=== PATIENT | female | born 1970 | race American Indian/Alaskan Native ===

== ENCOUNTER 2017-09-11 13:53 | Emergency (ER) | payer MEDICAID ==
[~2017-09-11] VITALS: Ht 175.3 cm; Wt 87.0 kg
[~2017-09-11 13:53] MED LIST: ATEN25TA PO; CLON1TAB4 PO; METF10002 PO; NITR100C6 PO; ONDA4TAB9 SL; SUMA100T PO
[2017-09-11] MEDS ORDERED: insulin regular, human 10 units/0.1 ml syringe SQ ONE (16:05)
[2017-09-11] MEDS ORDERED: normal saline 1000ml 1,000 ML IV ONE ×2 (16:05→17:10)
[2017-09-11] MEDS ORDERED: ondansetron/PF 4mg/2ml inj IV ONE (16:20)
[2017-09-11] MEDS ORDERED: morphine 4 MG/ML inj SYRINge IV ONE (16:20)
[2017-09-11] MEDS ORDERED: ketorolac trometh. 30mg/ml inj. IV ONE (16:30)
[2017-09-11 16:34] LABS: BASOPHILS # (AUTO) 0.1 X10'3 (0-0.2); BASOPHILS % (AUTO) 0.4 % (0-1); EOSINOPHILS # (AUTO) 0.3 X10'3 (0-0.9); EOSINOPHILS % (AUTO) 2.6 % (0-6); HEMOGLOBIN 13.8 g/dl (12.0-16.0); LYMPHOCYTES # (AUTO) 3.5 X10'3 (1.1-4.8); LYMPHOCYTES % (AUTO) 28.3 % (21-51); MEAN CORPUSCULAR HEMOGLOBIN 29.8 PG (27.0-31.0); MEAN CORPUSCULAR HGB CONC 33.7 % (33.0-36.5); MEAN CORPUSCULAR VOLUME 88.5 FL (78-98); MEAN PLATELET VOLUME 10.5 FL (7.4-10.4); MONOCYTES # (AUTO) 1.3 X10'3 (0-0.9); MONOCYTES % (AUTO) 10.4 % (2-12); NEUTROPHILS # (AUTO) 7.2 X10'3 (1.8-7.7); NEUTROPHILS % (AUTO) 58.3 % (42-75); PLATELET COUNT 328 X10'3 (140-440); RED BLOOD COUNT 4.64 X10'6 (4.20-5.60); RED CELL DISTRIBUTION WIDTH 13.2 % (11.5-14.5); WHITE BLOOD COUNT 12.3 X10'3 (4.5-11.0)
[2017-09-11] MEDS: diphenhydrAMINE 50 mg/ml inj IV ONE ×2 (16:38→18:31)
[2017-09-11 16:45] LABS: LARGE PLATELETS FEW; PLATELET ESTIMATE NORMAL
[2017-09-11 16:49] LABS: CLARITY,URINE CLEAR (Clear); COLOR,URINE YELLOW (Yellow); GLUCOSE, URINE >=1000 mg/dl (Neg); KETONES,URINE NEGATIVE (Neg); LEUKOCYTE ESTERASE ,URINE NEGATIVE (Neg); NITRITES, URINE NEGATIVE (Neg); OCCULT BLOOD,URINE NEGATIVE (Neg); PROTEIN,URINE NEGATIVE (Neg); UROBILINOGEN,URINE 0.2 E.U/dL (0.2-1.0)
[2017-09-11 16:55] LABS: UA COLLECTION TYPE CLN CATCH MIDSTREAM
[2017-09-11 16:57] LABS: ALANINE AMINOTRANSFERASE 52 U/L (12-78); ALBUMIN 2.5 G/DL (3.4-5.0); ALBUMIN/GLOBULIN RATIO 0.4 (1.1-1.5); ALKALINE PHOSPHATASE 136 IU/L (46-116); ANION GAP 11 (8-16); ASPARTATE AMINO TRANSFERASE 16 U/L (10-37); BILIRUBIN,TOTAL 0.2 MG/DL (0.1-1.0); BLOOD UREA NITROGEN 20 MG/DL (7-18); BUN/CREATININE RATIO 21.5 (6.6-38.0); CALCIUM 9.4 MG/DL (8.5-10.1); CHLORIDE 98 MMOL/L (99-107); CREATININE 0.93 MG/DL (0.40-0.90); GLUCOSE 385 MG/DL (70-104); POTASSIUM 4.4 MMOL/L (3.5-5.1); SODIUM 132 MMOL/L (135-145); TOTAL CARBON DIOXIDE 23.4 MMOL/L (24-32); TOTAL PROTEIN 8.2 G/DL (6.4-8.2); TROPONIN I < 0.04 NG/ML (0.0-0.05); eGFR 65 ML/MIN
[2017-09-11 16:58] LABS: BACTERIA,URINE FEW /HPF (Neg); MUCUS STRANDS FEW /LPF (Neg); RBC,URINE 0-2 /HPF (0-2); SQUAMOUS EPITHELIAL CELL,UR MODERATE /LPF (FEW); TRICHOMONAS,URINE MOD /HPF (NEGATIVE); WBC,URINE 0-4 /HPF (0-4)
[2017-09-11 17:01] LABS: ETHANOL < 0.010 GM/DL (0.0-0.010)
[2017-09-11 17:01] LABS: URINE AMPHETAMINE SCREEN NEGATIVE (Neg); URINE BARBITUATE SCREEN NEGATIVE (Neg); URINE BENZODIAZEPINES SCREEN NEGATIVE (Neg); URINE CANNABINOID SCREEN NEGATIVE (Neg); URINE COCAINE SCREEN NEGATIVE (Neg); URINE METHADONE SCREEN NEGATIVE (Neg); URINE OPIATE SCREEN NEGATIVE (Neg); URINE PHENCYCLIDINE SCREEN NEGATIVE (Neg)
[2017-09-11] MEDS ORDERED: INSU100V30 SQ (17:22)
[2017-09-11] MEDS ORDERED: morphine 2 MG/ML inj. syringe IV ONE (18:20)
[2017-09-11 19:21] VITALS: BP 115/70
== END 2017-09-11 19:24 | disposition home or self-care (01) ==
LOC: ER 13:54
DX: E11.65 Type 2 diabetes mellitus with hyperglycemia (principal); E87.0 Hyperosmolality and hypernatremia; R10.11 Right upper quadrant pain; G89.29 Other chronic pain; F15.10 Other stimulant abuse, uncomplicated; F17.200 Nicotine dependence, unspecified, uncomplicated; Z90.49 Acquired absence of other specified parts of digestive tract; Z90.710 Acquired absence of both cervix and uterus; Z79.4 Long term (current) use of insulin; Z79.84 Long term (current) use of oral hypoglycemic drugs; Z88.5 Allergy status to narcotic agent
CPT/HCPCS: 36415; 71045; 80053; 80305; 80320; 81001; 82948; 83605; 84484; 85025; 87040; 96361; 96372; 96374; 96375; 99285; J1200; J1815; J1885; J2270; J2405; J7030

== ENCOUNTER 2018-01-13 13:42 | Inpatient (IN) | payer MEDICAID ==
[~2018-01-13] VITALS: Ht 170.2 cm; Wt 86.5 kg
[~2018-01-13 13:42] MED LIST changes: +CLON1TAB12 PO; -CLON1TAB4 PO; +HYDR-3965 PO; +INSU100V30 SQ; -METF10002 PO; +METF10004 PO; +ONDA4TAB9 PO
[2018-01-13 15:13] LABS: BASOPHILS # (AUTO) 0.1 X10'3 (0-0.2); BASOPHILS % (AUTO) 0.7 % (0-1); EOSINOPHILS # (AUTO) 0.2 X10'3 (0-0.9); EOSINOPHILS % (AUTO) 1.2 % (0-6); HEMATOCRIT 40.3 % (35.0-45.0); HEMOGLOBIN 13.4 g/dl (12.0-16.0); LYMPHOCYTES # (AUTO) 2.6 X10'3 (1.1-4.8); MEAN CORPUSCULAR HEMOGLOBIN 30.5 PG (27.0-31.0); MEAN CORPUSCULAR HGB CONC 33.3 % (33.0-36.5); MEAN CORPUSCULAR VOLUME 91.6 FL (78-98); MEAN PLATELET VOLUME 11.2 FL (7.4-10.4); MONOCYTES # (AUTO) 0.8 X10'3 (0-0.9); MONOCYTES % (AUTO) 6.2 % (2-12); NEUTROPHILS # (AUTO) 9.4 X10'3 (1.8-7.7); NEUTROPHILS % (AUTO) 71.9 % (42-75); PLATELET COUNT 282 X10'3 (140-440); RED CELL DISTRIBUTION WIDTH 13.3 % (11.5-14.5)
[2018-01-13 15:24] LABS: PARTIAL THROMBOPLASTIN TIME 24 SECONDS (22-32)
[2018-01-13 15:30] LABS: ALANINE AMINOTRANSFERASE 19 U/L (12-78); ALBUMIN 3.7 G/DL (3.4-5.0); ALBUMIN/GLOBULIN RATIO 1.1 (1.1-1.5); ALKALINE PHOSPHATASE 60 IU/L (46-116); ANION GAP 9 (8-16); ASPARTATE AMINO TRANSFERASE 17 U/L (10-37); BILIRUBIN,TOTAL 1.3 MG/DL (0.1-1.0); BLOOD UREA NITROGEN 13 MG/DL (7-18); BUN/CREATININE RATIO 15.1 (6.6-38.0); CALCIUM 9.3 MG/DL (8.5-10.1); CHLORIDE 106 MMOL/L (99-107); CREATININE 0.86 MG/DL (0.40-0.90); GLUCOSE 172 MG/DL (70-104); POTASSIUM 3.6 MMOL/L (3.5-5.1); SODIUM 143 MMOL/L (135-145); TOTAL CARBON DIOXIDE 28.5 MMOL/L (24-32); TOTAL PROTEIN 7.2 G/DL (6.4-8.2); eGFR 71 ML/MIN
[2018-01-13 15:37] LABS: LARGE PLATELETS MODERATE; PLATELET ESTIMATE NORMAL
[2018-01-13] MEDS ORDERED: dexamethasone sod phosphate 10mg/ml inj IV STA (16:24)
[2018-01-13] MEDS ORDERED: ketorolac tromethamine 15mg/ml inj. IV ONE (16:25)
[2018-01-13] MEDS ORDERED: diphenhydrAMINE 50 mg/ml inj IV ONE (16:25)
[2018-01-13] MEDS ORDERED: normal saline 1000ML IV soln IVB ONE (16:25)
[2018-01-13] MEDS ORDERED: aspirin 81mg tab.chew PO ONE (16:25)
[2018-01-13] MEDS ORDERED: nitroGLYCERIN 0.4mg SUBLingual tab SL PRN (16:25)
[2018-01-13] MEDS ORDERED: metoclopramide 5 mg/ml inj IV ONE (16:25)
[2018-01-13] MEDS ORDERED: iohexol 350MG/ML 100ml bottle IV ONE (17:07)
[2018-01-13 20:18] LABS: URINE AMPHETAMINE SCREEN POSITIVE (Neg); URINE BARBITUATE SCREEN NEGATIVE (Neg); URINE BENZODIAZEPINES SCREEN NEGATIVE (Neg); URINE CANNABINOID SCREEN NEGATIVE (Neg); URINE COCAINE SCREEN NEGATIVE (Neg); URINE METHADONE SCREEN NEGATIVE (Neg); URINE OPIATE SCREEN NEGATIVE (Neg); URINE PHENCYCLIDINE SCREEN NEGATIVE (Neg)
[2018-01-13] MEDS ORDERED: temazepam 15mg capsule PO PRN (21:00)
[2018-01-13] MEDS ORDERED: acetaminophen 325mg tablet PO STA (22:05)
[2018-01-13] MEDS ORDERED: PER10325T PO (22:21)
[2018-01-13] MEDS ORDERED: CLON-527 PO (22:21)
[2018-01-13] MEDS ORDERED: LISI-600 PO (22:21)
[2018-01-13] MEDS ORDERED: SIMV10TA2 PO (22:23)
[2018-01-13] MEDS ORDERED: INSU100I31 ×2 (22:24→22:29)
[2018-01-13] MEDS ORDERED: ASPI-611 PO (22:27)
[2018-01-13] MEDS ORDERED: GABA600T2 PO (22:27)
[2018-01-13] MEDS ORDERED: acetaminophen 325mg tablet PO PRN ×2 (22:40)
[2018-01-13] MEDS ORDERED: metoclopramide 5 mg/ml inj IV PRN (22:40)
[2018-01-13] MEDS ORDERED: proCHLORperazine 10 MG/2 ml inj IV PRN (22:40)
[2018-01-13] MEDS ORDERED: ondansetron/PF 4mg/2ml inj IV PRN (22:40)
[2018-01-13] MEDS ORDERED: HYDROmorphone inj. 0.5 MG/0.5 ML DISP.SYRIN IV PRN ×2 (22:40)
[2018-01-13] MEDS ORDERED: bisacodyl 10mg suppository rectal RC PRN (22:40)
[2018-01-13] MEDS ORDERED: mag hydrox/Alum hydrox/simeth 30ml oral suspension PO PRN (22:40)
[2018-01-13] MEDS ORDERED: magnesium hydroxide 30ml (MOM) UD suspension PO PRN (22:40)
[2018-01-13] MEDS ORDERED: acetaminophen 650mg rectal suppository RC PRN (22:40)
[2018-01-13] MEDS ORDERED: HYDROcodone/acetaminophen 5mg/325mg tablet PO PRN (22:40)
[2018-01-13] MEDS ORDERED: ondansetron 4mg rapidly disintigrating tab PO PRN (22:40)
[2018-01-13] MEDS ORDERED: diphenhydrAMINE 25mg capsule PO PRN (22:40)
[2018-01-13] MEDS ORDERED: diphenhydrAMINE 50 mg/ml inj IV PRN (22:40)
[2018-01-13] MEDS ORDERED: HYDROcodone/acetaminophen 10/325mg tab PO PRN (22:40)
[2018-01-13] MEDS ORDERED: dextrose ORAL solution 15 GM/59 ML bottle PO PRN ×2 (22:45)
[2018-01-13] MEDS ORDERED: MESSAGE TO PHARMACY PO ONE (22:45)
[2018-01-13] MEDS ORDERED: insulin Lispro (HumaLOG) vial - multi-dose SQ SCH (22:45)
[2018-01-13] MEDS ORDERED: glucagon, human recombinant 1mg kit SUBCUT PRN (22:45)
[2018-01-13] MEDS ORDERED: dextrose 50%-water 50ml dispensing syringe IV PRN ×2 (22:45)
[2018-01-13 23:07] LABS: HEMOGLOBIN A1C 8.9 % (4.5-6.2)
[2018-01-13 23:13] LABS: MAGNESIUM 2.1 MG/DL (1.5-2.4)
[2018-01-13] MEDS: normal saline 1000ml 1,000 ML IV SCH (23:26)
[2018-01-13] MEDS ORDERED: insulin glargine (Lantus) pen - multi-dose SQ SCH (23:35)
[2018-01-13] MEDS: clonazePAM 1mg tablet PO PRN (23:45)
[2018-01-13] MEDS: oxyCODONE/APAP 10/325mg tablet PO PRN (23:45)
[2018-01-13] MEDS ORDERED: insulin glargine (Lantus) pen - multi-dose SQ ONE (23:58)
[2018-01-14 00:08] VITALS: BP 120/78
[2018-01-14] MEDS: oxyCODONE/APAP 10/325mg tablet PO PRN (03:54)
[2018-01-14 04:55] LABS: BASOPHILS % (AUTO) 0.1 % (0-1); EOSINOPHILS # (AUTO) 0.1 X10'3 (0-0.9); EOSINOPHILS % (AUTO) 0.7 % (0-6); HEMOGLOBIN 12.4 g/dl (12.0-16.0); LYMPHOCYTES # (AUTO) 1.5 X10'3 (1.1-4.8); LYMPHOCYTES % (AUTO) 14.1 % (21-51); MEAN CORPUSCULAR HEMOGLOBIN 29.9 PG (27.0-31.0); MEAN CORPUSCULAR HGB CONC 32.7 % (33.0-36.5); MEAN CORPUSCULAR VOLUME 91.3 FL (78-98); MEAN PLATELET VOLUME 12.6 FL (7.4-10.4); MONOCYTES % (AUTO) 0.3 % (2-12); NEUTROPHILS # (AUTO) 9.2 X10'3 (1.8-7.7); NEUTROPHILS % (AUTO) 84.8 % (42-75); PLATELET COUNT 279 X10'3 (140-440); RED BLOOD COUNT 4.16 X10'6 (4.20-5.60); RED CELL DISTRIBUTION WIDTH 13.7 % (11.5-14.5); WHITE BLOOD COUNT 10.9 X10'3 (4.5-11.0)
[2018-01-14 04:58] LABS: ALANINE AMINOTRANSFERASE 18 U/L (12-78); ALBUMIN 2.9 G/DL (3.4-5.0); ALBUMIN/GLOBULIN RATIO 0.9 (1.1-1.5); ALKALINE PHOSPHATASE 57 IU/L (46-116); ANION GAP 9 (8-16); ASPARTATE AMINO TRANSFERASE 14 U/L (10-37); BILIRUBIN,TOTAL 0.6 MG/DL (0.1-1.0); BLOOD UREA NITROGEN 18 MG/DL (7-18); BUN/CREATININE RATIO 18.4 (6.6-38.0); CALCIUM 8.8 MG/DL (8.5-10.1); CHLORIDE 105 MMOL/L (99-107); CREATININE 0.98 MG/DL (0.40-0.90); GLUCOSE 314 MG/DL (70-104); POTASSIUM 3.9 MMOL/L (3.5-5.1); SODIUM 138 MMOL/L (135-145); TOTAL CARBON DIOXIDE 24.5 MMOL/L (24-32); TOTAL PROTEIN 6.2 G/DL (6.4-8.2); eGFR 61 ML/MIN
[2018-01-14 06:00] VITALS: BP 105/61
[2018-01-14 07:30] LABS: LARGE PLATELETS MODERATE; PLATELET ESTIMATE NORMAL
[2018-01-14] MEDS ORDERED: pantoprazole 40mg Tablet.DR PO SCH (07:30)
[2018-01-14 07:31] LABS: ACANTHOCYTES 1+
[2018-01-14] MEDS ORDERED: docusate sod 100mg capsule PO SCH (08:00)
[2018-01-14] MEDS ORDERED: lisinopril 20mg tablet PO SCH (08:00)
[2018-01-14] MEDS ORDERED: heparin, porcine 5000 units/ml vial SQ SCH (08:00)
[2018-01-14] MEDS ORDERED: aspirin 81mg tab.chew PO SCH (08:30)
[2018-01-14] MEDS: clonazePAM 1mg tablet PO PRN (08:40)
[2018-01-14 10:00] VITALS: BP 105/65
[2018-01-14] MEDS: normal saline 1000ml 1,000 ML IV SCH (10:17)
[2018-01-14] MEDS ORDERED: METF500T PO (11:51)
[2018-01-14] MEDS ORDERED: INSU100I31 SQ (11:51)
== END 2018-01-14 14:05 | disposition home or self-care (01) | DRG 776 ==
LOC: ER 13:43 → ED HOLD 22:36 → ORTHO 4S 23:13
PROVIDERS: ADMIT Family Medicine; ATTEND Internal Medicine
PROC: B32T1ZZ Computerized Tomography (CT Scan) of Left Pulmonary Artery using Low Osmolar Contrast (ICD-10-PCS; principal; 2018-01-13)
PROC: B3201ZZ Computerized Tomography (CT Scan) of Thoracic Aorta using Low Osmolar Contrast (ICD-10-PCS; 2018-01-13)
PROC: B32S1ZZ Computerized Tomography (CT Scan) of Right Pulmonary Artery using Low Osmolar Contrast (ICD-10-PCS; 2018-01-13)
DX: F15.129 Other stimulant abuse with intoxication, unspecified (principal); E10.65 Type 1 diabetes mellitus with hyperglycemia; I10 Essential (primary) hypertension; E78.00 Pure hypercholesterolemia, unspecified; E78.5 Hyperlipidemia, unspecified; F17.210 Nicotine dependence, cigarettes, uncomplicated; G89.29 Other chronic pain; M19.90 Unspecified osteoarthritis, unspecified site; G43.909 Migraine, unspecified, not intractable, without status migrainosus; Z79.4 Long term (current) use of insulin; Z86.711 Personal history of pulmonary embolism; Z90.5 Acquired absence of kidney; Z90.710 Acquired absence of both cervix and uterus; Z90.81 Acquired absence of spleen; Z88.6 Allergy status to analgesic agent; Z79.899 Other long term (current) drug therapy; Z90.49 Acquired absence of other specified parts of digestive tract
CPT/HCPCS: 36415; 71045; 71275; 80053; 80305; 82948; 83036; 83735; 83880; 84484; 85025; 85379; 85610; 85730; 87070; 93306; 96374; 96375; 99285; J1100; J1200; J1644; J1815; J1885; J2765; J7030; Q9967

== ENCOUNTER 2018-02-07 01:48 | Emergency (ER) | payer MEDICAID ==
[~2018-02-07] VITALS: Ht 175.3 cm; Wt 84.2 kg
[~2018-02-07 01:48] MED LIST changes: +ASPI-611 PO; -ATEN25TA PO; +CLON-527 PO; -CLON1TAB12 PO; +GABA600T2 PO; -HYDR-3965 PO; +INSU100I31 SQ; -INSU100V30 SQ; +LISI-600 PO; -METF10004 PO; +METF500T PO; -NITR100C6 PO; -ONDA4TAB9 PO; +PANT-47 PO; +PER10325T PO; +SIMV10TA2 PO
[2018-02-07 02:24] LABS: BASOPHILS # (AUTO) 0.1 X10'3 (0-0.2); BASOPHILS % (AUTO) 0.6 % (0-1); EOSINOPHILS # (AUTO) 0.6 X10'3 (0-0.9); EOSINOPHILS % (AUTO) 3.8 % (0-6); HEMATOCRIT 36.3 % (35.0-45.0); HEMOGLOBIN 11.9 g/dl (12.0-16.0); LYMPHOCYTES # (AUTO) 5.6 X10'3 (1.1-4.8); LYMPHOCYTES % (AUTO) 32.8 % (21-51); MEAN CORPUSCULAR HEMOGLOBIN 30.3 PG (27.0-31.0); MEAN CORPUSCULAR HGB CONC 32.9 % (33.0-36.5); MEAN CORPUSCULAR VOLUME 92.1 FL (78-98); MEAN PLATELET VOLUME 10.7 FL (7.4-10.4); MONOCYTES # (AUTO) 1.5 X10'3 (0-0.9); MONOCYTES % (AUTO) 8.7 % (2-12); NEUTROPHILS # (AUTO) 9.3 X10'3 (1.8-7.7); NEUTROPHILS % (AUTO) 54.1 % (42-75); PLATELET COUNT 248 X10'3 (140-440); RED BLOOD COUNT 3.94 X10'6 (4.20-5.60); RED CELL DISTRIBUTION WIDTH 13.6 % (11.5-14.5); WHITE BLOOD COUNT 17.1 X10'3 (4.5-11.0)
[2018-02-07] MEDS ORDERED: HYDROmorphone 1 mg/ml syringe IV ONE ×2 (02:25→05:35)
[2018-02-07] MEDS ORDERED: ondansetron/PF 4mg/2ml inj IV ONE (02:25)
[2018-02-07 02:34] LABS: INR 0.9 INR; PROTHROMBIN TIME 9.4 SECONDS (9.0-12.0)
[2018-02-07 02:37] LABS: CLARITY,URINE CLEAR (Clear); COLOR,URINE YELLOW (Yellow); GLUCOSE, URINE NEGATIVE (Neg); KETONES,URINE NEGATIVE (Neg); LEUKOCYTE ESTERASE ,URINE MODERATE (Neg); NITRITES, URINE NEGATIVE (Neg); OCCULT BLOOD,URINE LARGE (Neg); PROTEIN,URINE NEGATIVE (Neg); URINE HCG NEGATIVE (NEG); UROBILINOGEN,URINE 0.2 E.U/dL (0.2-1.0)
[2018-02-07 02:40] LABS: ALANINE AMINOTRANSFERASE 16 U/L (12-78); ALBUMIN 3.1 G/DL (3.4-5.0); ALKALINE PHOSPHATASE 87 IU/L (46-116); ANION GAP 6 (8-16); ASPARTATE AMINO TRANSFERASE 14 U/L (10-37); BILIRUBIN,TOTAL 0.4 MG/DL (0.1-1.0); BLOOD UREA NITROGEN 5 MG/DL (7-18); BUN/CREATININE RATIO 6.5 (6.6-38.0); CALCIUM 8.7 MG/DL (8.5-10.1); CHLORIDE 104 MMOL/L (99-107); CREATININE 0.77 MG/DL (0.40-0.90); GLUCOSE 166 MG/DL (70-104); LIPASE 227 U/L (73-393); POTASSIUM 3.6 MMOL/L (3.5-5.1); SODIUM 137 MMOL/L (135-145); TOTAL CARBON DIOXIDE 26.8 MMOL/L (24-32); TOTAL PROTEIN 6.3 G/DL (6.4-8.2); eGFR 81 ML/MIN
[2018-02-07 02:43] LABS: URINE AMPHETAMINE SCREEN NEGATIVE (Neg); URINE BARBITUATE SCREEN NEGATIVE (Neg); URINE BENZODIAZEPINES SCREEN NEGATIVE (Neg); URINE CANNABINOID SCREEN NEGATIVE (Neg); URINE COCAINE SCREEN NEGATIVE (Neg); URINE METHADONE SCREEN NEGATIVE (Neg); URINE OPIATE SCREEN POSITIVE (Neg); URINE PHENCYCLIDINE SCREEN NEGATIVE (Neg)
[2018-02-07 02:46] LABS: UA COLLECTION TYPE CLN CATCH MIDSTREAM
[2018-02-07 02:48] LABS: BACTERIA,URINE 1+ /HPF (Neg); SQUAMOUS EPITHELIAL CELL,UR MODERATE /LPF (FEW); YEAST FEW /HPF (NEGATIVE)
[2018-02-07] MEDS ORDERED: iohexol 300mg/ml 100ml inj. ONE (03:20)
[2018-02-07 03:33] LABS: LARGE PLATELETS FEW; PLATELET ESTIMATE NORMAL
[2018-02-07] MEDS ORDERED: HYDR-565 PO (05:33)
[2018-02-07] MEDS ORDERED: IBUP-1986 PO (05:33)
[2018-02-07] MEDS ORDERED: ketorolac trometh. 30mg/ml inj. IV ONE (05:35)
[2018-02-07 05:40] VITALS: BP 105/76
== END 2018-02-07 06:15 | disposition home or self-care (01) ==
LOC: ER 01:49
DX: N83.201 Unspecified ovarian cyst, right side (principal); R10.2 Pelvic and perineal pain; G43.909 Migraine, unspecified, not intractable, without status migrainosus; E78.00 Pure hypercholesterolemia, unspecified; I10 Essential (primary) hypertension; E11.9 Type 2 diabetes mellitus without complications; M19.90 Unspecified osteoarthritis, unspecified site; G89.29 Other chronic pain; F15.90 Other stimulant use, unspecified, uncomplicated; F17.200 Nicotine dependence, unspecified, uncomplicated; Z86.711 Personal history of pulmonary embolism; Z90.49 Acquired absence of other specified parts of digestive tract; Z98.890 Other specified postprocedural states; Z90.710 Acquired absence of both cervix and uterus; Z88.5 Allergy status to narcotic agent; Z79.82 Long term (current) use of aspirin; Z79.899 Other long term (current) drug therapy
CPT/HCPCS: 36415; 74177; 80053; 80305; 81001; 81025; 83690; 85025; 85610; 87088; 96374; 96375; 96376; 99285; J1170; J1885; J2405; J7030; Q9967

== ENCOUNTER 2018-02-12 22:43 | Emergency (ER) | payer MEDICAID ==
[~2018-02-12] VITALS: Ht 170.2 cm; Wt 84.0 kg
[~2018-02-12 22:43] MED LIST changes: +HYDR-565 PO; +IBUP-1986 PO
[2018-02-12 23:17] VITALS: BP 137/83
[2018-02-12 23:34] LABS: INR 0.9 INR; PROTHROMBIN TIME 9.1 SECONDS (9.0-12.0)
[2018-02-12 23:38] LABS: ALANINE AMINOTRANSFERASE 28 U/L (12-78); ALBUMIN 3.5 G/DL (3.4-5.0); ALKALINE PHOSPHATASE 66 IU/L (46-116); ANION GAP 8 (8-16); ASPARTATE AMINO TRANSFERASE 25 U/L (10-37); BILIRUBIN,TOTAL 0.4 MG/DL (0.1-1.0); BLOOD UREA NITROGEN 15 MG/DL (7-18); BUN/CREATININE RATIO 16.3 (6.6-38.0); CALCIUM 9.5 MG/DL (8.5-10.1); CHLORIDE 102 MMOL/L (99-107); CREATININE 0.92 MG/DL (0.40-0.90); GLUCOSE 93 MG/DL (70-104); POTASSIUM 3.6 MMOL/L (3.5-5.1); SODIUM 137 MMOL/L (135-145); TOTAL CARBON DIOXIDE 27.1 MMOL/L (24-32); TOTAL PROTEIN 7.1 G/DL (6.4-8.2); eGFR 66 ML/MIN
[2018-02-12 23:41] LABS: BASOPHILS # (AUTO) 0.6 X10'3 (0-0.2); BASOPHILS % (AUTO) 2.6 % (0-1); EOSINOPHILS # (AUTO) 0.5 X10'3 (0-0.9); HEMOGLOBIN 12.9 g/dl (12.0-16.0); LYMPHOCYTES # (AUTO) 6.9 X10'3 (1.1-4.8); LYMPHOCYTES % (AUTO) 29.3 % (21-51); MEAN CORPUSCULAR HEMOGLOBIN 29.9 PG (27.0-31.0); MEAN CORPUSCULAR VOLUME 90.6 FL (78-98); MEAN PLATELET VOLUME 11.3 FL (7.4-10.4); MONOCYTES # (AUTO) 1.4 X10'3 (0-0.9); MONOCYTES % (AUTO) 6.1 % (2-12); NEUTROPHILS # (AUTO) 14.1 X10'3 (1.8-7.7); PLATELET COUNT 289 X10'3 (140-440); RED CELL DISTRIBUTION WIDTH 13.9 % (11.5-14.5); WHITE BLOOD COUNT 23.4 X10'3 (4.5-11.0)
[2018-02-12 23:42] LABS: URINE HCG NEGATIVE (NEG)
[2018-02-13 00:11] LABS: TOTAL CELLS COUNTED 100
[2018-02-13 00:12] LABS: TARGET CELLS FEW
[2018-02-13 00:13] LABS: PLATELET ESTIMATE NORMAL
[2018-02-13 00:15] LABS: LARGE PLATELETS MODERATE
[2018-02-13 01:08] LABS: CLARITY,URINE SLIGHTLY CLOUDY (Clear); COLOR,URINE YELLOW (Yellow); GLUCOSE, URINE NEGATIVE (Neg); KETONES,URINE NEGATIVE (Neg); LEUKOCYTE ESTERASE ,URINE NEGATIVE (Neg); NITRITES, URINE NEGATIVE (Neg); OCCULT BLOOD,URINE NEGATIVE (Neg); PROTEIN,URINE NEGATIVE (Neg); UROBILINOGEN,URINE 0.2 E.U/dL (0.2-1.0)
[2018-02-13 01:21] LABS: UA COLLECTION TYPE CLN CATCH MIDSTREAM
[2018-02-13 01:29] LABS: BACTERIA,URINE 2+ /HPF (Neg); MUCUS STRANDS FEW /LPF (Neg); RBC,URINE NONE SEEN /HPF (0-2); SQUAMOUS EPITHELIAL CELL,UR MANY /LPF (FEW); WBC,URINE 0-4 /HPF (0-4)
[2018-02-13 01:30] LABS: TRICHOMONAS,URINE MOD /HPF (NEGATIVE)
== END 2018-02-12 23:27 | disposition left against medical advice (07) ==
LOC: ER 22:44
DX: R11.10 Vomiting, unspecified (principal); Z53.21 Procedure and treatment not carried out due to patient leaving prior to being seen by health care provider
CPT/HCPCS: 36415; 80053; 81001; 81003; 81025; 85025; 85610; 99281

== ENCOUNTER 2018-03-21 21:20 | Emergency (ER) | payer MEDICAID ==
[~2018-03-21] VITALS: Ht 175.3 cm; Wt 93.7 kg
[~2018-03-21 21:20] MED LIST changes: -HYDR-565 PO; -METF500T PO
[2018-03-21 21:37] VITALS: BP 141/86
== END 2018-03-21 23:59 | disposition left against medical advice (07) ==
LOC: ER 21:21
DX: R10.9 Unspecified abdominal pain (principal); Z53.21 Procedure and treatment not carried out due to patient leaving prior to being seen by health care provider

== ENCOUNTER 2018-05-31 23:15 | Emergency (ER) | payer MEDICAID ==
[~2018-05-31] VITALS: Ht 175.3 cm; Wt 93.0 kg
[2018-05-31 23:18] VITALS: BP 147/96
[2018-06-01] MEDS ORDERED: HYDROcodone/acetaminophen 10/325mg tab PO ONE (00:30)
[2018-06-01] MEDS ORDERED: ketorolac trometh inj. 60 MG/2 ML VIAL IM ONE (00:30)
== END 2018-06-01 01:04 | disposition home or self-care (01) ==
LOC: ER 23:15
DX: M54.2 Cervicalgia (principal); R20.0 Anesthesia of skin; G43.909 Migraine, unspecified, not intractable, without status migrainosus; E78.00 Pure hypercholesterolemia, unspecified; I10 Essential (primary) hypertension; G89.29 Other chronic pain; E11.9 Type 2 diabetes mellitus without complications; F15.10 Other stimulant abuse, uncomplicated; F17.210 Nicotine dependence, cigarettes, uncomplicated; Z87.440 Personal history of urinary (tract) infections; Z87.19 Personal history of other diseases of the digestive system; Z88.5 Allergy status to narcotic agent; Z79.82 Long term (current) use of aspirin; Z90.710 Acquired absence of both cervix and uterus; Z90.49 Acquired absence of other specified parts of digestive tract; Z79.4 Long term (current) use of insulin
CPT/HCPCS: 96372; 99284; J1885

== ENCOUNTER 2018-06-01 18:02 | Emergency (ER) | payer MEDICAID ==
[~2018-06-01] VITALS: Ht 175.3 cm; Wt 93.0 kg
[2018-06-01 18:34] VITALS: BP 161/102
[2018-06-01] MEDS ORDERED: ketorolac trometh inj. 60 MG/2 ML VIAL IM ONE (20:00)
[2018-06-01] MEDS ORDERED: orphenadrine citrate 60mg/2ml inj. IM ONE (20:05)
[2018-06-01] MEDS ORDERED: proCHLORperazine 10mg tablet PO ONE (20:05)
== END 2018-06-01 20:23 | disposition home or self-care (01) ==
LOC: ER 18:02
DX: M54.2 Cervicalgia (principal); E78.00 Pure hypercholesterolemia, unspecified; I10 Essential (primary) hypertension; E11.9 Type 2 diabetes mellitus without complications; M19.90 Unspecified osteoarthritis, unspecified site; G89.29 Other chronic pain; F15.90 Other stimulant use, unspecified, uncomplicated; Z86.711 Personal history of pulmonary embolism; Z90.49 Acquired absence of other specified parts of digestive tract; Z90.710 Acquired absence of both cervix and uterus; Z98.890 Other specified postprocedural states; Z79.82 Long term (current) use of aspirin; Z79.4 Long term (current) use of insulin; Z79.899 Other long term (current) drug therapy; Z88.5 Allergy status to narcotic agent
CPT/HCPCS: 96372; 99283; J1885; J2360; Q0164

== ENCOUNTER 2018-08-16 16:23 | Emergency (ER) | payer MEDICAID ==
[~2018-08-16] VITALS: Ht 167.6 cm; Wt 87.0 kg
[~2018-08-16 16:23] MED LIST changes: +GABA600T13 PO; -GABA600T2 PO
[2018-08-16 16:37] VITALS: BP 129/83
[2018-08-16 17:28] LABS: BASOPHILS # (AUTO) 0.2 X10'3 (0-0.2); BASOPHILS % (AUTO) 1.4 % (0-1); EOSINOPHILS # (AUTO) 0.4 X10'3 (0-0.9); EOSINOPHILS % (AUTO) 2.7 % (0-6); HEMATOCRIT 42.1 % (35.0-45.0); HEMOGLOBIN 13.4 g/dl (12.0-16.0); LYMPHOCYTES # (AUTO) 3.6 X10'3 (1.1-4.8); MEAN CORPUSCULAR HEMOGLOBIN 28.8 PG (27.0-31.0); MEAN CORPUSCULAR HGB CONC 31.8 g/dL (33.0-36.5); MEAN CORPUSCULAR VOLUME 90.6 FL (78-98); MEAN PLATELET VOLUME 11.5 FL (7.4-10.4); MONOCYTES # (AUTO) 0.8 X10'3 (0-0.9); MONOCYTES % (AUTO) 6.2 % (2-12); NEUTROPHILS % (AUTO) 61.7 % (42-75); PLATELET COUNT 313 X10'3 (140-440); RED BLOOD COUNT 4.65 X10'6 (4.20-5.60); WHITE BLOOD COUNT 12.9 X10'3 (4.5-11.0)
[2018-08-16 17:44] LABS: ALANINE AMINOTRANSFERASE 18 U/L (12-78); ALBUMIN 3.3 G/DL (3.4-5.0); ALBUMIN/GLOBULIN RATIO 0.9 (1.1-1.5); ALKALINE PHOSPHATASE 84 IU/L (46-116); ANION GAP 11 (8-16); ASPARTATE AMINO TRANSFERASE 10 U/L (10-37); BILIRUBIN,TOTAL 0.5 MG/DL (0.1-1.0); BLOOD UREA NITROGEN 14 MG/DL (7-18); CALCIUM 9.2 MG/DL (8.5-10.1); CHLORIDE 97 MMOL/L (99-107); CREATININE 1.08 MG/DL (0.40-0.90); POTASSIUM 4.2 MMOL/L (3.5-5.1); SODIUM 131 MMOL/L (135-145); TOTAL CARBON DIOXIDE 22.8 MMOL/L (24-32); TOTAL PROTEIN 7.1 G/DL (6.4-8.2); eGFR 55 ML/MIN
[2018-08-16 17:48] LABS: INR 0.9 INR; PROTHROMBIN TIME 9.5 SECONDS (9.0-12.0)
[2018-08-16 17:53] LABS: GLUCOSE 554 MG/DL (70-104)
[2018-08-16 17:59] LABS: LARGE PLATELETS FEW; PLATELET ESTIMATE NORMAL
[2018-08-16 18:19] LABS: LIPASE 190 U/L (73-393)
== END 2018-08-16 20:29 | disposition left against medical advice (07) ==
LOC: ER 16:24
DX: M54.9 Dorsalgia, unspecified (principal); Z53.21 Procedure and treatment not carried out due to patient leaving prior to being seen by health care provider
CPT/HCPCS: 36415; 80053; 82948; 83690; 85025; 85610

== ENCOUNTER 2018-09-12 15:06 | Emergency (ER) | payer MEDICAID ==
[~2018-09-12] VITALS: Ht 170.2 cm; Wt 81.8 kg
[2018-09-12] MEDS ORDERED: insulin regular, human 10 units/0.1 ml syringe IV ONE ×2 (15:35→16:00)
[2018-09-12] MEDS ORDERED: insulin regular, human 10 units/0.1 ml syringe SQ ONE (15:35)
[2018-09-12] MEDS ORDERED: normal saline 1000ML IV soln IVB ONE (15:35)
[2018-09-12] MEDS ORDERED: ondansetron/PF 4mg/2ml inj IV ONE ×2 (15:40→16:00)
[2018-09-12] MEDS ORDERED: morphine 4 MG/ML inj SYRINge IV ONE (15:40)
[2018-09-12 15:56] LABS: CLARITY,URINE SLIGHTLY CLOUDY (Clear); COLOR,URINE STRAW (Yellow); GLUCOSE, URINE >=1000 mg/dl (Neg); KETONES,URINE NEGATIVE (Neg); LEUKOCYTE ESTERASE ,URINE NEGATIVE (Neg); NITRITES, URINE NEGATIVE (Neg); OCCULT BLOOD,URINE NEGATIVE (Neg); PH,URINE 5.5 (4.8-8.0); PROTEIN,URINE NEGATIVE (Neg); UROBILINOGEN,URINE 0.2 E.U/dL (0.2-1.0)
[2018-09-12 15:59] LABS: URINE HCG NEGATIVE (NEG)
[2018-09-12 16:02] LABS: UA COLLECTION TYPE CLN CATCH MIDSTREAM
[2018-09-12] MEDS ORDERED: DOXY100C43 PO (16:02)
[2018-09-12] MEDS ORDERED: PRED20TA PO (16:02)
[2018-09-12 16:04] LABS: SQUAMOUS EPITHELIAL CELL,UR MANY /LPF (FEW)
[2018-09-12 16:06] LABS: BACTERIA,URINE FEW /HPF (Neg); MUCUS STRANDS NONE SEEN /LPF (Neg)
[2018-09-12 16:07] LABS: RBC,URINE 0-2 /HPF (0-2); WBC,URINE 0-4 /HPF (0-4)
[2018-09-12 16:16] LABS: NEUTROPHILS # (AUTO) 7.1 X10'3 (1.8-7.7)
[2018-09-12 16:18] LABS: BASOPHILS # (AUTO) 0.2 X10'3 (0-0.2); BASOPHILS % (AUTO) 1.2 % (0-1); EOSINOPHILS # (AUTO) 0.5 X10'3 (0-0.9); EOSINOPHILS % (AUTO) 3.3 % (0-6); HEMATOCRIT 41.2 % (35.0-45.0); HEMOGLOBIN 13.3 g/dl (12.0-16.0); LYMPHOCYTES # (AUTO) 5.1 X10'3 (1.1-4.8); LYMPHOCYTES % (AUTO) 37.3 % (21-51); MEAN CORPUSCULAR HEMOGLOBIN 28.7 PG (27.0-31.0); MEAN CORPUSCULAR HGB CONC 32.3 g/dL (33.0-36.5); MEAN CORPUSCULAR VOLUME 88.8 FL (78-98); MEAN PLATELET VOLUME 12.2 FL (7.4-10.4); MONOCYTES # (AUTO) 0.9 X10'3 (0-0.9); MONOCYTES % (AUTO) 6.4 % (2-12); NEUTROPHILS % (AUTO) 51.8 % (42-75); PLATELET COUNT 299 X10'3 (140-440); RED BLOOD COUNT 4.64 X10'6 (4.20-5.60); RED CELL DISTRIBUTION WIDTH 13.6 % (11.5-14.5); WHITE BLOOD COUNT 13.6 X10'3 (4.5-11.0)
[2018-09-12 16:28] LABS: ALANINE AMINOTRANSFERASE 18 U/L (12-78); ALBUMIN 3.7 G/DL (3.4-5.0); ALBUMIN/GLOBULIN RATIO 0.9 (1.1-1.5); ALKALINE PHOSPHATASE 119 IU/L (46-116); ANION GAP 12 (8-16); ASPARTATE AMINO TRANSFERASE 9 U/L (10-37); BILIRUBIN,TOTAL 0.3 MG/DL (0.1-1.0); BLOOD UREA NITROGEN 14 MG/DL (7-18); BUN/CREATININE RATIO 14.3 (6.6-38.0); CALCIUM 9.3 MG/DL (8.5-10.1); CHLORIDE 96 MMOL/L (99-107); CREATININE 0.98 MG/DL (0.40-0.90); POTASSIUM 4.1 MMOL/L (3.5-5.1); SODIUM 129 MMOL/L (135-145); TOTAL CARBON DIOXIDE 21.3 MMOL/L (24-32); TOTAL PROTEIN 7.8 G/DL (6.4-8.2); eGFR 61 ML/MIN
--- NOTE | 2018-09-12 16:33 | NUR ---
PT RECEIVED IV AND SQ INSULIN AND 2 LITERS NS AT THIS TIME, BG 343, PT STILL HAVING PAIN, DR GRUBER INFORMED OF BG AND PT STILL HAVING PAIN, NO ORDERS RECEIVED AT THIS TIME.
[2018-09-12 16:35] LABS: GLUCOSE 578 MG/DL (70-104)
[2018-09-12 16:46] LABS: LARGE PLATELETS FEW; PLATELET ESTIMATE NORMAL
[2018-09-12] MEDS ORDERED: INSU100I31 SUBCUT (16:49)
[2018-09-12 17:31] VITALS: BP 116/59
== END 2018-09-12 17:35 | disposition home or self-care (01) ==
LOC: ER 15:07
DX: E11.65 Type 2 diabetes mellitus with hyperglycemia (principal); R10.11 Right upper quadrant pain; G43.909 Migraine, unspecified, not intractable, without status migrainosus; E78.00 Pure hypercholesterolemia, unspecified; I10 Essential (primary) hypertension; M19.90 Unspecified osteoarthritis, unspecified site; G89.29 Other chronic pain; F17.210 Nicotine dependence, cigarettes, uncomplicated; F15.90 Other stimulant use, unspecified, uncomplicated; Z86.711 Personal history of pulmonary embolism; Z90.49 Acquired absence of other specified parts of digestive tract; Z98.890 Other specified postprocedural states; Z90.710 Acquired absence of both cervix and uterus; Z88.5 Allergy status to narcotic agent; Z79.82 Long term (current) use of aspirin; Z79.4 Long term (current) use of insulin; Z79.899 Other long term (current) drug therapy
CPT/HCPCS: 36415; 80053; 81001; 81025; 82948; 85025; 96361; 96372; 96374; 96375; 99283; J1815; J2405; J7030

== ENCOUNTER 2018-09-25 11:07 | Emergency (ER) | payer MEDICAID ==
[~2018-09-25] VITALS: Ht 170.2 cm; Wt 91.4 kg
[~2018-09-25 11:07] MED LIST changes: +INSU100I31 SUBCUT
[2018-09-25 11:37] VITALS: BP 118/82
[2018-09-25] MEDS ORDERED: normal saline 1000ML IV soln IVB ONE ×2 (11:45→12:15)
[2018-09-25] MEDS ORDERED: ondansetron/PF 4mg/2ml inj IV ONE ×2 (11:45→12:15)
[2018-09-25 12:10] LABS: BASOPHILS # (AUTO) 0.1 X10'3 (0-0.2); EOSINOPHILS # (AUTO) 0.3 X10'3 (0-0.9); EOSINOPHILS % (AUTO) 3.8 % (0-6); HEMATOCRIT 40.9 % (35.0-45.0); HEMOGLOBIN 13.3 g/dl (12.0-16.0); LYMPHOCYTES # (AUTO) 3.1 X10'3 (1.1-4.8); LYMPHOCYTES % (AUTO) 34.7 % (21-51); MEAN CORPUSCULAR HGB CONC 32.5 g/dL (33.0-36.5); MEAN CORPUSCULAR VOLUME 89.2 FL (78-98); MONOCYTES # (AUTO) 0.6 X10'3 (0-0.9); MONOCYTES % (AUTO) 6.9 % (2-12); NEUTROPHILS # (AUTO) 4.7 X10'3 (1.8-7.7); NEUTROPHILS % (AUTO) 53.6 % (42-75); PLATELET COUNT 280 X10'3 (140-440); RED BLOOD COUNT 4.59 X10'6 (4.20-5.60); WHITE BLOOD COUNT 8.8 X10'3 (4.5-11.0)
[2018-09-25] MEDS ORDERED: mag hydrox/Alum hydrox/simeth 30ml oral suspension PO ONE (12:15)
[2018-09-25] MEDS ORDERED: pantoprazole 40 MG vial IV ONE (12:15)
[2018-09-25 12:25] LABS: ALANINE AMINOTRANSFERASE 22 U/L (12-78); ALBUMIN 3.5 G/DL (3.4-5.0); ALKALINE PHOSPHATASE 115 IU/L (46-116); ANION GAP 7 (8-16); ASPARTATE AMINO TRANSFERASE 13 U/L (10-37); BILIRUBIN,TOTAL 0.6 MG/DL (0.1-1.0); BLOOD UREA NITROGEN 9 MG/DL (7-18); BUN/CREATININE RATIO 11.7 (6.6-38.0); CALCIUM 9.3 MG/DL (8.5-10.1); CHLORIDE 102 MMOL/L (99-107); CREATININE 0.77 MG/DL (0.40-0.90); GLUCOSE 419 MG/DL (70-104); LIPASE 236 U/L (73-393); POTASSIUM 4.2 MMOL/L (3.5-5.1); SODIUM 133 MMOL/L (135-145); TOTAL CARBON DIOXIDE 24.4 MMOL/L (24-32); TOTAL PROTEIN 7.1 G/DL (6.4-8.2); eGFR 81 ML/MIN
[2018-09-25] MEDS ORDERED: PANT-47 PO (12:31)
[2018-09-25] MEDS: LIDOcaine Viscous 15ml cup MM STA ×2 (12:34→12:38)
[2018-09-25 12:45] LABS: LARGE PLATELETS FEW; PLATELET ESTIMATE NORMAL
== END 2018-09-25 13:27 | disposition home or self-care (01) ==
LOC: ER 11:08
DX: R10.13 Epigastric pain (principal); G43.909 Migraine, unspecified, not intractable, without status migrainosus; E78.00 Pure hypercholesterolemia, unspecified; I10 Essential (primary) hypertension; E11.9 Type 2 diabetes mellitus without complications; M19.90 Unspecified osteoarthritis, unspecified site; G89.29 Other chronic pain; F15.90 Other stimulant use, unspecified, uncomplicated; Z86.711 Personal history of pulmonary embolism; Z90.49 Acquired absence of other specified parts of digestive tract; Z90.710 Acquired absence of both cervix and uterus; Z88.5 Allergy status to narcotic agent; Z79.82 Long term (current) use of aspirin; Z79.4 Long term (current) use of insulin; Z79.899 Other long term (current) drug therapy
CPT/HCPCS: 36415; 80053; 82948; 83690; 85025; 96374; 96375; 99283; C9113; J2405; J7030

== ENCOUNTER 2018-12-01 17:23 | Emergency (ER) | payer MEDICAID ==
[~2018-12-01] VITALS: Ht 170.2 cm; Wt 91.5 kg
[2018-12-01 17:36] VITALS: BP 143/88
[2018-12-01 18:44] LABS: URINE HCG NEGATIVE (NEG)
[2018-12-01 18:45] LABS: CLARITY,URINE CLEAR (Clear); COLOR,URINE YELLOW (Yellow); GLUCOSE, URINE >=1000 mg/dl (Neg); KETONES,URINE NEGATIVE (Neg); LEUKOCYTE ESTERASE ,URINE NEGATIVE (Neg); NITRITES, URINE NEGATIVE (Neg); OCCULT BLOOD,URINE NEGATIVE (Neg); PH,URINE 5.5 (4.8-8.0); PROTEIN,URINE NEGATIVE (Neg); UROBILINOGEN,URINE 0.2 E.U/dL (0.2-1.0)
[2018-12-01 18:50] LABS: UA COLLECTION TYPE NON-SPECIFIED
[2018-12-01 18:50] LABS: BASOPHILS # (AUTO) 0.1 X10'3 (0-0.2); BASOPHILS % (AUTO) 0.8 % (0-1); EOSINOPHILS # (AUTO) 0.2 X10'3 (0-0.9); RED BLOOD COUNT 4.69 X10'6 (4.20-5.60); RED CELL DISTRIBUTION WIDTH 13.3 % (11.5-14.5)
[2018-12-01 18:52] LABS: BACTERIA,URINE NONE SEEN /HPF (Neg); RBC,URINE 0-2 /HPF (0-2); SQUAMOUS EPITHELIAL CELL,UR FEW /LPF (FEW); WBC,URINE NONE SEEN /HPF (0-4)
[2018-12-01 18:52] LABS: EOSINOPHILS % (AUTO) 1.3 % (0-6); HEMATOCRIT 42.5 % (35.0-45.0); LYMPHOCYTES # (AUTO) 4.1 X10'3 (1.1-4.8); LYMPHOCYTES % (AUTO) 34.3 % (21-51); MEAN CORPUSCULAR HEMOGLOBIN 29.7 PG (27.0-31.0); MEAN CORPUSCULAR HGB CONC 32.8 g/dL (33.0-36.5); MEAN CORPUSCULAR VOLUME 90.5 FL (78-98); MEAN PLATELET VOLUME 11.7 FL (7.4-10.4); MONOCYTES # (AUTO) 0.9 X10'3 (0-0.9); MONOCYTES % (AUTO) 7.2 % (2-12); NEUTROPHILS # (AUTO) 6.7 X10'3 (1.8-7.7); NEUTROPHILS % (AUTO) 56.4 % (42-75); PLATELET COUNT 292 X10'3 (140-440); WHITE BLOOD COUNT 11.9 X10'3 (4.5-11.0)
[2018-12-01 18:57] LABS: ALANINE AMINOTRANSFERASE 26 U/L (12-78); ALBUMIN 4.2 G/DL (3.4-5.0); ALBUMIN/GLOBULIN RATIO 0.9 (1.1-1.5); ALKALINE PHOSPHATASE 199 IU/L (46-116); ANION GAP 7 (8-16); ASPARTATE AMINO TRANSFERASE 11 U/L (10-37); BILIRUBIN,TOTAL 0.6 MG/DL (0.1-1.0); BLOOD UREA NITROGEN 15 MG/DL (7-18); BUN/CREATININE RATIO 14.4 (6.6-38.0); CALCIUM 10.1 MG/DL (8.5-10.1); CHLORIDE 92 MMOL/L (99-107); CREATININE 1.04 MG/DL (0.40-0.90); POTASSIUM 4.3 MMOL/L (3.5-5.1); SODIUM 124 MMOL/L (135-145); TOTAL CARBON DIOXIDE 25.1 MMOL/L (24-32); TOTAL PROTEIN 8.7 G/DL (6.4-8.2); eGFR 57 ML/MIN
[2018-12-01 18:59] LABS: GLUCOSE 597 MG/DL (70-104)
[2018-12-01] MEDS ORDERED: normal saline 1000ml 1,000 ML IVB ONE (19:16)
[2018-12-01] MEDS ORDERED: insulin regular, human 10 units/0.1 ml syringe SQ ONE (19:50)
[2018-12-01] MEDS ORDERED: normal saline 1000ML IV soln IVB ONE (19:50)
[2018-12-01 19:55] LABS: LARGE PLATELETS FEW; PLATELET ESTIMATE NORMAL
--- NOTE | 2018-12-01 20:02 | NUR ---
Pt is no where to be found. Her IV tubing is reconnected to itself. There is no signs that she took out the IV that is in her right hand. I checked all of the bathrooms. I asked registration. I went outside to look for her. I called the number on her chart and left message for her to call me. I called Erika to let them know pt left ED with possible IV. space systems operations craftsman and MD conway. Addendum: 12/01/18 at 2005 by ARDEN This note above is Per Moon Arias RN.
[2018-12-01 20:18] LABS: LIPASE 386 U/L (73-393)
[2018-12-02 05:17] LABS: URINE AMPHETAMINE SCREEN NEGATIVE (Neg); URINE BARBITUATE SCREEN NEGATIVE (Neg); URINE BENZODIAZEPINES SCREEN NEGATIVE (Neg); URINE CANNABINOID SCREEN NEGATIVE (Neg); URINE COCAINE SCREEN NEGATIVE (Neg); URINE METHADONE SCREEN NEGATIVE (Neg); URINE OPIATE SCREEN NEGATIVE (Neg); URINE PHENCYCLIDINE SCREEN NEGATIVE (Neg)
== END 2018-12-01 21:30 | disposition left against medical advice (07) ==
LOC: ER 17:26
DX: R10.84 Generalized abdominal pain (principal); R10.10 Upper abdominal pain, unspecified; E11.65 Type 2 diabetes mellitus with hyperglycemia; G43.909 Migraine, unspecified, not intractable, without status migrainosus; E78.00 Pure hypercholesterolemia, unspecified; I10 Essential (primary) hypertension; M19.90 Unspecified osteoarthritis, unspecified site; G89.29 Other chronic pain; F17.200 Nicotine dependence, unspecified, uncomplicated; F15.90 Other stimulant use, unspecified, uncomplicated; Z90.49 Acquired absence of other specified parts of digestive tract; Z90.710 Acquired absence of both cervix and uterus; Z86.711 Personal history of pulmonary embolism; Z88.5 Allergy status to narcotic agent; Z79.82 Long term (current) use of aspirin; Z79.899 Other long term (current) drug therapy; Z79.4 Long term (current) use of insulin
CPT/HCPCS: 36415; 80053; 80305; 81001; 81025; 82948; 83690; 85025; 85610; 96360; 99283; J7030

== ENCOUNTER 2019-02-13 14:37 | Emergency (ER) | payer MEDICAID ==
[~2019-02-13] VITALS: Ht 175.3 cm; Wt 103.6 kg
[2019-02-13 15:18] LABS: BASOPHILS # (AUTO) 0.1 X10'3 (0-0.2); BASOPHILS % (AUTO) 0.7 % (0-1); EOSINOPHILS # (AUTO) 0.3 X10'3 (0-0.9); EOSINOPHILS % (AUTO) 2.3 % (0-6); HEMATOCRIT 40.2 % (35.0-45.0); HEMOGLOBIN 13.2 g/dl (12.0-16.0); LYMPHOCYTES # (AUTO) 4.2 X10'3 (1.1-4.8); LYMPHOCYTES % (AUTO) 33.4 % (21-51); MEAN CORPUSCULAR HEMOGLOBIN 29.2 PG (27.0-31.0); MEAN CORPUSCULAR HGB CONC 32.7 g/dL (33.0-36.5); MEAN CORPUSCULAR VOLUME 89.3 FL (78-98); MEAN PLATELET VOLUME 10.3 FL (7.4-10.4); MONOCYTES # (AUTO) 1.1 X10'3 (0-0.9); MONOCYTES % (AUTO) 8.6 % (2-12); NEUTROPHILS # (AUTO) 6.9 X10'3 (1.8-7.7); PLATELET COUNT 355 X10'3 (140-440); RED BLOOD COUNT 4.51 X10'6 (4.20-5.60); RED CELL DISTRIBUTION WIDTH 13.2 % (11.5-14.5); WHITE BLOOD COUNT 12.5 X10'3 (4.5-11.0)
[2019-02-13] MEDS ORDERED: normal saline 1000ML IV soln IVB ONE (15:30)
[2019-02-13] MEDS ORDERED: ondansetron/PF 4mg/2ml inj IV ONE (15:30)
[2019-02-13] MEDS ORDERED: fentaNYL/PF 50MCG/1 ML 2ML syringe IV ONE (15:30)
[2019-02-13 15:33] LABS: CLARITY,URINE SLIGHTLY CLOUDY (Clear); COLOR,URINE STRAW (Yellow); GLUCOSE, URINE NEGATIVE (Neg); KETONES,URINE NEGATIVE (Neg); LEUKOCYTE ESTERASE ,URINE NEGATIVE (Neg); NITRITES, URINE NEGATIVE (Neg); OCCULT BLOOD,URINE NEGATIVE (Neg); PH,URINE 6.5 (4.8-8.0); PROTEIN,URINE NEGATIVE (Neg); URINE HCG NEGATIVE (NEG); UROBILINOGEN,URINE 0.2 E.U/dL (0.2-1.0)
[2019-02-13 15:36] LABS: ALANINE AMINOTRANSFERASE 28 U/L (12-78); ALBUMIN 3.6 G/DL (3.4-5.0); ALBUMIN/GLOBULIN RATIO 0.9 (1.1-1.5); ALKALINE PHOSPHATASE 89 IU/L (46-116); AMYLASE 48 U/L (25-115); ANION GAP 7 (8-16); ASPARTATE AMINO TRANSFERASE 13 U/L (10-37); BILIRUBIN,TOTAL 0.5 MG/DL (0.1-1.0); BLOOD UREA NITROGEN 15 MG/DL (7-18); BUN/CREATININE RATIO 17.9 (6.6-38.0); CALCIUM 9.2 MG/DL (8.5-10.1); CHLORIDE 105 MMOL/L (99-107); CREATININE 0.84 MG/DL (0.40-0.90); GLUCOSE 153 MG/DL (70-104); LIPASE 114 U/L (73-393); SODIUM 138 MMOL/L (135-145); TOTAL CARBON DIOXIDE 25.8 MMOL/L (24-32); TOTAL PROTEIN 7.7 G/DL (6.4-8.2); eGFR 73 ML/MIN
[2019-02-13 15:37] LABS: UA COLLECTION TYPE CLN CATCH MIDSTREAM
[2019-02-13 15:43] LABS: BACTERIA,URINE 1+ /HPF (Neg); RBC,URINE 0-2 /HPF (0-2); SQUAMOUS EPITHELIAL CELL,UR MANY /LPF (FEW); WBC,URINE 0-4 /HPF (0-4)
--- NOTE | 2019-02-13 15:55 | NUR ---
pt out to ct via wheelchair with director check
[2019-02-13 16:11] VITALS: BP 142/82
[2019-02-13] MEDS ORDERED: PANT-47 PO (17:50)
== END 2019-02-13 18:00 | disposition home or self-care (01) ==
LOC: ER 14:37
DX: R10.31 Right lower quadrant pain (principal); R10.33 Periumbilical pain; R11.2 Nausea with vomiting, unspecified; G43.909 Migraine, unspecified, not intractable, without status migrainosus; E78.00 Pure hypercholesterolemia, unspecified; I10 Essential (primary) hypertension; E11.9 Type 2 diabetes mellitus without complications; M19.90 Unspecified osteoarthritis, unspecified site; G89.29 Other chronic pain; F15.90 Other stimulant use, unspecified, uncomplicated; F17.200 Nicotine dependence, unspecified, uncomplicated; Z90.49 Acquired absence of other specified parts of digestive tract; Z90.710 Acquired absence of both cervix and uterus; Z86.711 Personal history of pulmonary embolism; Z88.5 Allergy status to narcotic agent; Z79.82 Long term (current) use of aspirin; Z79.899 Other long term (current) drug therapy; Z79.4 Long term (current) use of insulin
CPT/HCPCS: 36415; 74176; 80053; 81001; 81025; 82150; 83690; 85025; 85610; 96374; 96375; 99284; J2405; J3010; J7030; 96361

== ENCOUNTER 2019-03-11 14:49 | Emergency (ER) | payer MEDICAID ==
[~2019-03-11] VITALS: Ht 175.3 cm; Wt 97.0 kg
[2019-03-11] MEDS ORDERED: normal saline 1000ML IV soln IVB ONE (15:10)
[2019-03-11] MEDS ORDERED: ondansetron/PF 4mg/2ml inj IV ONE (15:25)
[2019-03-11 15:26] LABS: BASOPHILS # (AUTO) 0.1 X10'3 (0-0.2); BASOPHILS % (AUTO) 1.2 % (0-1); EOSINOPHILS # (AUTO) 0.2 X10'3 (0-0.9); EOSINOPHILS % (AUTO) 1.4 % (0-6); HEMATOCRIT 40.7 % (35.0-45.0); HEMOGLOBIN 13.3 g/dl (12.0-16.0); LYMPHOCYTES # (AUTO) 3.6 X10'3 (1.1-4.8); LYMPHOCYTES % (AUTO) 30.6 % (21-51); MEAN CORPUSCULAR HEMOGLOBIN 29.4 PG (27.0-31.0); MEAN CORPUSCULAR HGB CONC 32.6 g/dL (33.0-36.5); MEAN CORPUSCULAR VOLUME 90.4 FL (78-98); MONOCYTES # (AUTO) 0.8 X10'3 (0-0.9); MONOCYTES % (AUTO) 6.5 % (2-12); NEUTROPHILS # (AUTO) 7.1 X10'3 (1.8-7.7); NEUTROPHILS % (AUTO) 60.3 % (42-75); PLATELET COUNT 269 X10'3 (140-440); RED BLOOD COUNT 4.51 X10'6 (4.20-5.60); RED CELL DISTRIBUTION WIDTH 13.4 % (11.5-14.5); WHITE BLOOD COUNT 11.7 X10'3 (4.5-11.0)
[2019-03-11] MEDS ORDERED: FLUC150T66 PO (15:26)
[2019-03-11 15:27] LABS: CLARITY,URINE CLEAR (Clear); COLOR,URINE STRAW (Yellow); GLUCOSE, URINE >=1000 mg/dl (Neg); KETONES,URINE NEGATIVE (Neg); LEUKOCYTE ESTERASE ,URINE NEGATIVE (Neg); NITRITES, URINE NEGATIVE (Neg); OCCULT BLOOD,URINE NEGATIVE (Neg); PH,URINE 6.5 (4.8-8.0); PROTEIN,URINE NEGATIVE (Neg); UROBILINOGEN,URINE 0.2 E.U/dL (0.2-1.0)
[2019-03-11 15:28] LABS: URINE HCG NEGATIVE (NEG)
[2019-03-11 15:31] LABS: UA COLLECTION TYPE CLN CATCH MIDSTREAM
[2019-03-11 15:39] LABS: BACTERIA,URINE NONE SEEN /HPF (Neg); RBC,URINE NONE SEEN /HPF (0-2); SQUAMOUS EPITHELIAL CELL,UR FEW /LPF (FEW); WBC,URINE NONE SEEN /HPF (0-4)
[2019-03-11 15:40] LABS: ALANINE AMINOTRANSFERASE 24 U/L (12-78); ALBUMIN 3.6 G/DL (3.4-5.0); ALBUMIN/GLOBULIN RATIO 0.9 (1.1-1.5); ALKALINE PHOSPHATASE 140 IU/L (46-116); ANION GAP 12 (8-16); ASPARTATE AMINO TRANSFERASE 14 U/L (10-37); BILIRUBIN,TOTAL 0.5 MG/DL (0.1-1.0); BLOOD UREA NITROGEN 17 MG/DL (7-18); CALCIUM 9.2 MG/DL (8.5-10.1); CHLORIDE 91 MMOL/L (99-107); LIPASE 341 U/L (73-393); POTASSIUM 4.5 MMOL/L (3.5-5.1); SODIUM 125 MMOL/L (135-145); TOTAL CARBON DIOXIDE 22.3 MMOL/L (24-32); TOTAL PROTEIN 7.7 G/DL (6.4-8.2); eGFR 60 ML/MIN
[2019-03-11 15:43] LABS: GLUCOSE 697 MG/DL (70-104)
[2019-03-11 16:07] LABS: LARGE PLATELETS FEW; PLATELET ESTIMATE NORMAL
[2019-03-11] MEDS ORDERED: insulin regular, human 10 units/0.1 ml syringe IV ONE ×2 (16:10→16:50)
[2019-03-11] MEDS ORDERED: ketorolac tromethamine 15mg/ml inj. IV ONE (16:50)
[2019-03-11 17:40] VITALS: BP 124/74
== END 2019-03-11 17:41 | disposition home or self-care (01) ==
LOC: ER 14:50
DX: R10.30 Lower abdominal pain, unspecified (principal); E11.65 Type 2 diabetes mellitus with hyperglycemia; L29.9 Pruritus, unspecified; E87.1 Hypo-osmolality and hyponatremia; E78.00 Pure hypercholesterolemia, unspecified; I10 Essential (primary) hypertension; M19.90 Unspecified osteoarthritis, unspecified site; G89.29 Other chronic pain; F15.90 Other stimulant use, unspecified, uncomplicated; Z90.49 Acquired absence of other specified parts of digestive tract; Z90.710 Acquired absence of both cervix and uterus; Z98.890 Other specified postprocedural states; F17.200 Nicotine dependence, unspecified, uncomplicated; Z88.5 Allergy status to narcotic agent; Z79.82 Long term (current) use of aspirin; Z79.4 Long term (current) use of insulin; Z79.899 Other long term (current) drug therapy
CPT/HCPCS: 36415; 80053; 81001; 81025; 82948; 83690; 85025; 99283; J1815; J1885; J2405

== ENCOUNTER 2019-05-01 22:17 | Inpatient (IN) | payer MEDICAID ==
[~2019-05-01] VITALS: Ht 175.3 cm; Wt 113.6 kg
[2019-05-01 22:58] LABS: HEMATOCRIT 40.8 % (35.0-45.0); MEAN CORPUSCULAR VOLUME 91.9 FL (78-98); MONOCYTES # (AUTO) 1.2 X10'3 (0-0.9); RED BLOOD COUNT 4.44 X10'6 (4.20-5.60)
[2019-05-01 22:58] LABS: CLARITY,URINE CLOUDY (Clear); COLOR,URINE YELLOW (Yellow); GLUCOSE, URINE >=1000 mg/dl (Neg); KETONES,URINE NEGATIVE (Neg); LEUKOCYTE ESTERASE ,URINE NEGATIVE (Neg); NITRITES, URINE NEGATIVE (Neg); OCCULT BLOOD,URINE MODERATE (Neg); PROTEIN,URINE NEGATIVE (Neg); UROBILINOGEN,URINE 0.2 E.U/dL (0.2-1.0)
[2019-05-01 22:59] LABS: URINE HCG NEGATIVE (NEG)
[2019-05-01 22:59] LABS: BASOPHILS # (AUTO) 0.1 X10'3 (0-0.2); BASOPHILS % (AUTO) 0.9 % (0-1); EOSINOPHILS # (AUTO) 0.2 X10'3 (0-0.9); EOSINOPHILS % (AUTO) 1.3 % (0-6); LYMPHOCYTES # (AUTO) 4.1 X10'3 (1.1-4.8); LYMPHOCYTES % (AUTO) 31.7 % (21-51); MEAN CORPUSCULAR HEMOGLOBIN 29.4 PG (27.0-31.0); MEAN PLATELET VOLUME 12.6 FL (7.4-10.4); MONOCYTES % (AUTO) 9.2 % (2-12); NEUTROPHILS # (AUTO) 7.3 X10'3 (1.8-7.7); NEUTROPHILS % (AUTO) 56.9 % (42-75); PLATELET COUNT 227 X10'3 (140-440); RED CELL DISTRIBUTION WIDTH 13.2 % (11.5-14.5); WHITE BLOOD COUNT 12.8 X10'3 (4.5-11.0)
[2019-05-01 23:05] LABS: UA COLLECTION TYPE CLN CATCH MIDSTREAM
[2019-05-01 23:07] LABS: BACTERIA,URINE FEW /HPF (Neg); SQUAMOUS EPITHELIAL CELL,UR FEW /LPF (FEW)
[2019-05-01 23:08] LABS: SPERM FEW /HPF; WBC,URINE 0-4 /HPF (0-4)
[2019-05-01 23:09] LABS: YEAST FEW /HPF (NEGATIVE)
[2019-05-01] MEDS ORDERED: normal saline 1000ML IV soln IVB ONE (23:25)
[2019-05-01] MEDS ORDERED: ondansetron/PF 4mg/2ml inj IV ONE (23:25)
[2019-05-01] MEDS ORDERED: morphine 2 MG/ML inj. syringe IV PRN (23:25)
[2019-05-01 23:45] LABS: ABG BASE EXCESS -5.5 mmol/L (-2.0-3.0); ABG HCO3 18.8 mmol/L (22.0-26.0); ABG OXYGEN SATURATION 95.6 % (95-98); ABG PCO2 (T) 32.6 mmHg (35.0-45.0); ABG PH (T) 7.377 (7.350-7.450); ABG PO2 (T) 78.9 mmHg (83-108); ALLEN'S TEST Positive; FCOHb 0.7 % (0.5-1.5); FMetHb 0.1 % (0.3-1.12); FO2Hb 94.8 % (94-100); PATIENT TEMPERATURE 36.8; RESPIRATORY RATE (OBSERVED) 18 b/min; TOTAL HEMOGLOBIN 13.3 G/dl (12.0-16.0)
[2019-05-01 23:46] LABS: ALANINE AMINOTRANSFERASE 18 U/L (12-78); ALBUMIN 3.5 G/DL (3.4-5.0); ALBUMIN/GLOBULIN RATIO 0.8 (1.1-1.5); ALKALINE PHOSPHATASE 199 IU/L (46-116); ANION GAP 15 (8-16); ASPARTATE AMINO TRANSFERASE 7 U/L (10-37); BILIRUBIN,TOTAL 0.3 MG/DL (0.1-1.0); BLOOD UREA NITROGEN 12 MG/DL (7-18); CHLORIDE 89 MMOL/L (99-107); LIPASE 249 U/L (73-393); POTASSIUM 4.1 MMOL/L (3.5-5.1); SODIUM 124 MMOL/L (135-145); TOTAL CARBON DIOXIDE 20.2 MMOL/L (24-32); TOTAL PROTEIN 7.9 G/DL (6.4-8.2); eGFR 37 ML/MIN
[2019-05-01 23:49] LABS: GLUCOSE 1004 MG/DL (70-104)
[2019-05-01] MEDS ORDERED: acetaminophen 325mg tablet PO ONE (23:50)
[2019-05-02] MEDS ORDERED: insulin regular, human 100 UNIT in normal saline 100ml IV soln 100 ML IV PRN ×2 (00:10)
[2019-05-02] MEDS ORDERED: INSU100C10 SQ (00:11)
[2019-05-02] MEDS ORDERED: CLON-527 PO (00:11)
[2019-05-02 00:19] LABS: TOTAL CELLS COUNTED 100
[2019-05-02 00:20] LABS: PLATELET ESTIMATE NORMAL; POLYCHROMASIA FEW; STOMATOCYTES FEW
[2019-05-02 00:21] LABS: BURR CELLS FEW
[2019-05-02 00:22] LABS: LARGE PLATELETS FEW
[2019-05-02] MEDS ORDERED: acetaminophen 325mg tablet PO PRN (00:25)
[2019-05-02] MEDS ORDERED: HYDROmorphone inj. 0.5 MG/0.5 ML DISP.SYRIN IV PRN (00:25)
[2019-05-02] MEDS ORDERED: magnesium hydroxide 30ml (MOM) UD suspension PO PRN (00:25)
[2019-05-02] MEDS ORDERED: mag hydrox/Alum hydrox/simeth 30ml oral suspension PO PRN (00:25)
[2019-05-02] MEDS ORDERED: ondansetron/PF 4mg/2ml inj IV PRN (00:25)
--- NOTE | 2019-05-02 00:33 | NUR ---
Patient up to the bathroom w/o problem. Dr. Tay has seen patient and she will be admitted to PCU
[2019-05-02] MEDS ORDERED: dextrose 50%-water 50ml dispensing syringe IV PRN ×4 (00:35→09:20)
[2019-05-02] MEDS ORDERED: dextrose ORAL solution 15 GM/59 ML bottle PO PRN ×4 (00:35→09:20)
[2019-05-02] MEDS ORDERED: glucagon, human recombinant 1mg kit SUBCUT PRN ×2 (00:35→09:20)
[2019-05-02] MEDS ORDERED: insulin regular, human 10 units/0.1 ml syringe SQ ONE (01:05)
[2019-05-02] MEDS: insulin regular, DKA only 100 UNIT in normal saline 100ml IV soln 99 ML IV SCH ×6 (01:09→09:10)
--- NOTE | 2019-05-02 01:19 | NUR ---
Patient in room ED 1. I have received report from Jeimy ORTIZ and had the opportunity to ask questions and assume patient care.
[2019-05-02 01:30] VITALS: BP 136/68
--- NOTE | 2019-05-02 01:30 | NUR ---
Patient arrived to the floor at 0130 from ER. Vital signs are stable. Insulin running at 5 units/hr. Patient is ambulatory. No skin issues noted. Alert and oriented and able to communicate needs. Darting complete. MRSA swab sent to lab. 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 Notified MD. Patient placed on airborne precautions.
[2019-05-02] MEDS: normal saline 1000ml 1,000 ML IV SCH ×3 (01:41→13:45)
[2019-05-02] MEDS: HYDROmorphone 1 mg/ml syringe IV PRN ×5 (01:58→22:23)
[2019-05-02 02:07] LABS: HEMOGLOBIN A1C 13.3 % (4.5-6.2)
[2019-05-02] MEDS ORDERED: ISON300T21 PO (02:55)
[2019-05-02] MEDS ORDERED: pneumococcal 23-VAL P-sac vacc 25 mcg/0.5ml vial IMVAC ONE (02:55)
[2019-05-02] MEDS ORDERED: RIFA150T2 PO (02:59)
[2019-05-02] MEDS ORDERED: insulin Lispro (HumaLOG) vial - multi-dose SQ PRN (04:20)
--- NOTE | 2019-05-02 04:41 | NUR ---
Order for Humalog added to patient profile r/t insulin gtt protocol.
[2019-05-02 06:00] VITALS: BP 130/79
[2019-05-02 06:12] LABS: BASOPHILS # (AUTO) 0.1 X10'3 (0-0.2); EOSINOPHILS # (AUTO) 0.2 X10'3 (0-0.9); HEMOGLOBIN 12.3 g/dl (12.0-16.0); MEAN CORPUSCULAR HGB CONC 33.6 g/dL (33.0-36.5)
[2019-05-02 06:13] LABS: EOSINOPHILS % (AUTO) 1.7 % (0-6); HEMATOCRIT 36.6 % (35.0-45.0); LYMPHOCYTES # (AUTO) 3.1 X10'3 (1.1-4.8); LYMPHOCYTES % (AUTO) 27.8 % (21-51); MEAN CORPUSCULAR HEMOGLOBIN 29.3 PG (27.0-31.0); MEAN CORPUSCULAR VOLUME 87.1 FL (78-98); MEAN PLATELET VOLUME 12.3 FL (7.4-10.4); MONOCYTES # (AUTO) 1.2 X10'3 (0-0.9); MONOCYTES % (AUTO) 10.5 % (2-12); NEUTROPHILS # (AUTO) 6.5 X10'3 (1.8-7.7); PLATELET COUNT 236 X10'3 (140-440); WHITE BLOOD COUNT 11.1 X10'3 (4.5-11.0)
--- NOTE | 2019-05-02 06:22 | NUR ---
Problems reprioritized. Patient report given, questions answered & plan of care reviewed with Yue ORTIZ.
--- NOTE | 2019-05-02 06:33 | NUR ---
Patient in room PCU 3008. I have received report from Leatha ORTIZ and had the opportunity to ask questions and assume patient care.
[2019-05-02 06:48] LABS: ALANINE AMINOTRANSFERASE 15 U/L (12-78); ALBUMIN 3.2 G/DL (3.4-5.0); ALBUMIN/GLOBULIN RATIO 0.8 (1.1-1.5); ALKALINE PHOSPHATASE 121 IU/L (46-116); ANION GAP 8 (8-16); ASPARTATE AMINO TRANSFERASE 8 U/L (10-37); BILIRUBIN,TOTAL 0.3 MG/DL (0.1-1.0); BLOOD UREA NITROGEN 9 MG/DL (7-18); BUN/CREATININE RATIO 13.8 (6.6-38.0); CALCIUM 8.7 MG/DL (8.5-10.1); CHLORIDE 106 MMOL/L (99-107); CREATININE 0.65 MG/DL (0.40-0.90); GLUCOSE 140 MG/DL (70-104); POTASSIUM 3.4 MMOL/L (3.5-5.1); SODIUM 139 MMOL/L (135-145); TOTAL CARBON DIOXIDE 24.6 MMOL/L (24-32); TOTAL PROTEIN 7.1 G/DL (6.4-8.2); eGFR > 90 ML/MIN
[2019-05-02] MEDS: lisinopril 20mg tablet PO SCH (07:13)
[2019-05-02] MEDS: heparin, porcine 5000 units/ml vial SQ SCH ×2 (07:14→21:07)
[2019-05-02 07:43] LABS: PLATELET ESTIMATE NORMAL
[2019-05-02 07:44] LABS: LARGE PLATELETS MODERATE
[2019-05-02] MEDS ORDERED: magnesium 4gm in 100ml NS 100 ML IV PRN (09:20)
[2019-05-02] MEDS ORDERED: potassium Cl 20 mEq SR tablet PO PRN (09:20)
[2019-05-02] MEDS ORDERED: magnesium 2GM in 50ml NS 50 ML IV PRN (09:20)
[2019-05-02] MEDS ORDERED: potassium CL 10mEq/100ml bag 100 ML IV PRN (09:20)
[2019-05-02] MEDS ORDERED: metoclopramide 5 mg/ml inj IV PRN (09:20)
[2019-05-02] MEDS ORDERED: magnesium Cl slow-release 64mg tablet PO PRN (09:20)
[2019-05-02] MEDS ORDERED: MESSAGE TO PHARMACY PO ONE (09:20)
[2019-05-02] MEDS: potassium Cl 20 mEq SR tablet PO PRN ×3 (10:51→21:06)
--- NOTE | 2019-05-02 10:57 | NUR ---
Patient stated she felt pain at IV site from the replacement potassium. Half bag had been administered, stopped infusion and called pharmacy to see about getting lidocaine added. Pharmacy unable to add the lidocaine due to a temporary vent kohli they have. Patient did not want to continue with IV potassium replacement. Started on PO potassium replacement instead.
[2019-05-02 11:00] VITALS: BP 141/79
--- NOTE | 2019-05-02 12:38 | NUR ---
DM Consult: Pt admit w/ DKA GLU 1004 hx T2DM insulin-dependent A1C 13.2 on admit w/ GLU 300-600 at home per EMR. Per MD note pt was moving and misplaced insulin likely hasn't taken in 1.5 days. Pt initially on TB precautions now cleared from any isolation. Advanced to carb controlled diet w/ insulin drip running this AM. Pt seen by RD for written/verbal DM ed w/ RD contact information provided. Pt reports soda is main downfall and had been drinking diet but switched back to regular since more enjoyable. Pt also reports gets tired of poking finger and self for GLU checks and insulin administration. Pt is seen by CDE at [facility] for DM and reports had received continuous glucose monitor patch on arm to help check GLU but fell off during summer from sweat; RD encouraged to try again since now in cooler months and less likely to fall off and pt was agreeable. RD encouraged pt to maintain sugar free beverages, insulin regimen, and follow carb controlled portion sizing w/ moderation so she can have regular soda as long as not routine and in moderation. RD encouraged pt to attend CDE course w/ CDE contact information provided. RD contacted pt DM RD at [facility] who reports pt has been no show lately w/ GLU 300-400 mostly at home and likely social factors as well w/ living situation; may have resolved now given pt moving. DM RD reports also new more breathable tape available for GLU monitor patch now which should keep from falling off and pt has scheduled appointment in the next few weeks. Will monitor for diet tolerance and additional protein needs this admit. Rec: 1. continue carb controlled diet 2. monitor for ONS needs pending PO 3. weekly wts Addendum: 05/02/19 at [address] Amended: Links added.
[2019-05-02] MEDS: insulin Lispro (HumaLOG) vial - multi-dose SQ SCH ×3 (13:34→21:10)
[2019-05-02 15:00] VITALS: BP 116/71
[2019-05-02] MEDS: proCHLORperazine 10 MG/2 ml inj IV PRN (17:46)
--- NOTE | 2019-05-02 17:57 | NUR ---
Orientee documentation: I have reviewed and agree with all interventions, assessments performed and documented by Madiha ORTIZ. Orientee Medication Administration: For this medication-pass time frame, all medication were reviewed, dispensed, administered and documented per hospital policy by Madiha ORTIZ.
--- NOTE | 2019-05-02 18:26 | NUR ---
Problems reprioritized. Patient report given, questions answered & plan of care reviewed with Valorie ORTIZ. Patient stable at time of transfer of care.
--- NOTE | 2019-05-02 18:28 | NUR ---
Patient in room PCU 3008. I have received report from Yue ORTIZ and Madiha ORTIZ and had the opportunity to ask questions and assume patient care.
[2019-05-02 18:54] VITALS: BP 138/85
[2019-05-02] MEDS: clonazePAM 1mg tablet PO SCH (21:06)
[2019-05-02] MEDS: insulin glargine (Lantus) pen - multi-dose SQ SCH (21:13)
[2019-05-02 23:00] VITALS: BP 99/59
[2019-05-03] VITALS (7 sets, daily range): BP systolic 102–147; BP diastolic 61–81
[2019-05-03] MEDS: normal saline 1000ml 1,000 ML IV SCH ×2 (00:19→10:08)
[2019-05-03] MEDS: HYDROmorphone 1 mg/ml syringe IV PRN ×5 (05:15→23:18)
[2019-05-03 05:54] LABS: BASOPHILS # (AUTO) 0.1 X10'3 (0-0.2); BASOPHILS % (AUTO) 0.8 % (0-1); EOSINOPHILS # (AUTO) 0.3 X10'3 (0-0.9); EOSINOPHILS % (AUTO) 2.6 % (0-6); HEMATOCRIT 36.2 % (35.0-45.0); LYMPHOCYTES # (AUTO) 3.7 X10'3 (1.1-4.8); LYMPHOCYTES % (AUTO) 37.6 % (21-51); MEAN CORPUSCULAR HEMOGLOBIN 29.4 PG (27.0-31.0); MEAN CORPUSCULAR HGB CONC 33.1 g/dL (33.0-36.5); MEAN CORPUSCULAR VOLUME 88.9 FL (78-98); MEAN PLATELET VOLUME 12.5 FL (7.4-10.4); MONOCYTES # (AUTO) 0.7 X10'3 (0-0.9); MONOCYTES % (AUTO) 7.3 % (2-12); NEUTROPHILS # (AUTO) 5.1 X10'3 (1.8-7.7); NEUTROPHILS % (AUTO) 51.7 % (42-75); PLATELET COUNT 217 X10'3 (140-440); RED BLOOD COUNT 4.07 X10'6 (4.20-5.60); RED CELL DISTRIBUTION WIDTH 13.5 % (11.5-14.5); WHITE BLOOD COUNT 9.8 X10'3 (4.5-11.0)
[2019-05-03 06:08] LABS: ALANINE AMINOTRANSFERASE 15 U/L (12-78); ALBUMIN 2.5 G/DL (3.4-5.0); ALBUMIN/GLOBULIN RATIO 0.8 (1.1-1.5); ALKALINE PHOSPHATASE 77 IU/L (46-116); ANION GAP 6 (8-16); ASPARTATE AMINO TRANSFERASE 14 U/L (10-37); BILIRUBIN,TOTAL 0.4 MG/DL (0.1-1.0); BLOOD UREA NITROGEN 8 MG/DL (7-18); BUN/CREATININE RATIO 14.5 (6.6-38.0); CALCIUM 8.5 MG/DL (8.5-10.1); CHLORIDE 106 MMOL/L (99-107); CREATININE 0.55 MG/DL (0.40-0.90); GLUCOSE 274 MG/DL (70-104); MAGNESIUM 1.7 MG/DL (1.5-2.4); POTASSIUM 4.3 MMOL/L (3.5-5.1); SODIUM 137 MMOL/L (135-145); TOTAL PROTEIN 5.8 G/DL (6.4-8.2); eGFR > 90 ML/MIN
--- NOTE | 2019-05-03 06:24 | NUR ---
Problems reprioritized. Patient report given, questions answered & plan of care reviewed with Jennifer ORTIZ.
--- NOTE | 2019-05-03 06:29 | NUR ---
Patient in room PCU 3008. I have received report from DIANA Eugene and had the opportunity to ask questions and assume patient care.
--- NOTE | 2019-05-03 09:30 | NUR ---
Dr. Schneider at bedside, new orders received to advance diet as tolerated, PT eval & treat, nystatin powder for urbano-area redness. Clarification of insulin gtt received-order previously cancelled, ok to removed gtt from eMAR.
[2019-05-03] MEDS: lisinopril 20mg tablet PO SCH (09:55)
[2019-05-03] MEDS: heparin, porcine 5000 units/ml vial SQ SCH ×2 (09:57→19:40)
[2019-05-03] MEDS: proCHLORperazine 10 MG/2 ml inj IV PRN ×2 (09:57→20:09)
[2019-05-03] MEDS: insulin Lispro (HumaLOG) vial - multi-dose SQ SCH ×3 (10:12→19:49)
[2019-05-03] MEDS: nystatin 15 GM powder TP SCH ×2 (13:09→21:36)
--- NOTE | 2019-05-03 18:00 | NUR ---
Patient in room PCU 3008. I have received report from DAMARIS ORTIZ and had the opportunity to ask questions and assume patient care.
--- NOTE | 2019-05-03 18:16 | NUR ---
Problems reprioritized. Patient report given, questions answered & plan of care reviewed with DIANA Medina.
[2019-05-03] MEDS: clonazePAM 1mg tablet PO SCH (19:50)
--- NOTE | 2019-05-03 20:00 | NUR ---
patient C/O chest pain 7/10, non-radiating, nausea 7/10; stat ecg ordered, compazine administered, ecg resulted, notified MD Tay. No new orders per MD after reviewing ecg.
[2019-05-03] MEDS: insulin glargine (Lantus) pen - multi-dose SQ SCH (21:35)
[2019-05-04] MEDS: normal saline 1000ml 1,000 ML IV SCH ×2 (01:11→05:40)
[2019-05-04 02:00] VITALS: BP 108/70
[2019-05-04] MEDS: HYDROmorphone 1 mg/ml syringe IV PRN (03:27)
[2019-05-04 05:49] LABS: BASOPHILS # (AUTO) 0.1 X10'3 (0-0.2); EOSINOPHILS # (AUTO) 0.2 X10'3 (0-0.9); HEMOGLOBIN 11.6 g/dl (12.0-16.0); LYMPHOCYTES # (AUTO) 4.2 X10'3 (1.1-4.8); MEAN PLATELET VOLUME 12.4 FL (7.4-10.4)
[2019-05-04 05:51] LABS: BASOPHILS % (AUTO) 0.8 % (0-1); EOSINOPHILS % (AUTO) 1.6 % (0-6); HEMATOCRIT 34.9 % (35.0-45.0); LYMPHOCYTES % (AUTO) 34.6 % (21-51); MEAN CORPUSCULAR HEMOGLOBIN 29.2 PG (27.0-31.0); MEAN CORPUSCULAR HGB CONC 33.2 g/dL (33.0-36.5); MEAN CORPUSCULAR VOLUME 87.9 FL (78-98); NEUTROPHILS # (AUTO) 6.6 X10'3 (1.8-7.7); PLATELET COUNT 216 X10'3 (140-440); RED BLOOD COUNT 3.97 X10'6 (4.20-5.60); RED CELL DISTRIBUTION WIDTH 13.3 % (11.5-14.5)
[2019-05-04 05:59] LABS: ALANINE AMINOTRANSFERASE 14 U/L (12-78); ALBUMIN 2.6 G/DL (3.4-5.0); ALBUMIN/GLOBULIN RATIO 0.7 (1.1-1.5); ALKALINE PHOSPHATASE 75 IU/L (46-116); ANION GAP 5 (8-16); ASPARTATE AMINO TRANSFERASE 14 U/L (10-37); BILIRUBIN,TOTAL 0.4 MG/DL (0.1-1.0); BLOOD UREA NITROGEN 5 MG/DL (7-18); BUN/CREATININE RATIO 8.9 (6.6-38.0); CALCIUM 8.5 MG/DL (8.5-10.1); CHLORIDE 105 MMOL/L (99-107); CREATININE 0.56 MG/DL (0.40-0.90); GLUCOSE 193 MG/DL (70-104); MAGNESIUM 1.5 MG/DL (1.5-2.4); POTASSIUM 3.4 MMOL/L (3.5-5.1); SODIUM 137 MMOL/L (135-145); TOTAL CARBON DIOXIDE 26.9 MMOL/L (24-32); TOTAL PROTEIN 6.1 G/DL (6.4-8.2); eGFR > 90 ML/MIN
[2019-05-04 06:00] VITALS: BP 119/80
--- NOTE | 2019-05-04 06:00 | NUR ---
Problems reprioritized. Patient report given, questions answered & plan of care reviewed with Gianna ORTIZ.
--- NOTE | 2019-05-04 06:00 | NUR ---
Problems reprioritized. Patient report given, questions answered & plan of care reviewed with Meg ORTIZ.
--- NOTE | 2019-05-04 06:19 | NUR ---
Patient in room PCU 3008. I have received report from Lissette Medina and had the opportunity to ask questions and assume patient care.
[2019-05-04] MEDS: heparin, porcine 5000 units/ml vial SQ SCH (07:10)
[2019-05-04] MEDS: proCHLORperazine 10 MG/2 ml inj IV PRN (07:11)
[2019-05-04] MEDS: lisinopril 20mg tablet PO SCH (07:18)
--- NOTE | 2019-05-04 08:20 | NUR ---
Yomaira Baker Rm 3008 May we have Percocet for chronic back and generalized pain and d/c diluadid? DIANA montes ext [phone] page to Brianne
[2019-05-04] MEDS: insulin Lispro (HumaLOG) vial - multi-dose SQ SCH ×2 (09:20→12:59)
[2019-05-04] MEDS ORDERED: oxyCODONE/APAP 10/325mg tablet PO PRN (09:30)
[2019-05-04] MEDS: nystatin 15 GM powder TP SCH (10:43)
[2019-05-04 11:00] VITALS: BP 134/78
--- NOTE | 2019-05-04 11:58 | NUR ---
Reassessment: Metabolic acidosis improved and pt reports being less nauseated per MD notes. Patient's diet has just been advanced to CHO controlled from full liquid diet, pending documentation of PO intake. Pt previously averaging 50% PO intake up to 100% at dinner last night. LBM 05/02. Pt with PRN MoM just given first dose today per med list. No edema or wounds. Will continue to follow. Rec: 1. continue carb controlled diet 2. monitor for ONS needs pending PO 3. weekly wts Addendum: 05/04/19 at [address] Amended: Links added.
[2019-05-04] MEDS: potassium Cl 20 mEq SR tablet PO PRN (12:02)
[2019-05-04] MEDS ORDERED: NYSPWD TP (12:24)
[2019-05-04] MEDS ORDERED: OXYC-511 PO (12:24)
--- NOTE | 2019-05-04 13:04 | NUR ---
Yomaira Baker Rm 3008 May we have Percocet for chronic back and generalized pain and d/c diluadid? DIANA montes ext [phone] page to Brianne
[2019-05-04] MEDS: clonazePAM 1mg tablet PO SCH (13:09)
--- NOTE | 2019-05-04 14:21 | NUR ---
pt discharged to home. She was picked up by her daughter in private vehicle she was walked to [facility] @ 1415. She had all belongings and discharge papers were signed. DM survival skill information was given to pt.
== END 2019-05-04 14:00 | disposition home or self-care (01) | DRG 420 ==
LOC: ER 22:18 → ED HOLD 05-02 00:56 → EDBEDREQ 05-02 01:02 → PCU 3S 05-02 01:30 → CMPBEDREQ 05-02 01:46 → PCU 3S 05-02 03:15
PROVIDERS: ADMIT Internal Medicine; ATTEND Family Medicine
PROC: 3E0234Z Introduction of Serum, Toxoid and Vaccine into Muscle, Percutaneous Approach (ICD-10-PCS; principal; 2019-05-02)
DX: E11.10 Type 2 diabetes mellitus with ketoacidosis without coma (principal); N17.0 Acute kidney failure with tubular necrosis; E78.00 Pure hypercholesterolemia, unspecified; E86.0 Dehydration; F17.200 Nicotine dependence, unspecified, uncomplicated; I10 Essential (primary) hypertension; F15.90 Other stimulant use, unspecified, uncomplicated; E87.6 Hypokalemia; E11.21 Type 2 diabetes mellitus with diabetic nephropathy; G43.909 Migraine, unspecified, not intractable, without status migrainosus; G89.29 Other chronic pain; M19.90 Unspecified osteoarthritis, unspecified site; Z86.711 Personal history of pulmonary embolism; Z90.5 Acquired absence of kidney; Z90.710 Acquired absence of both cervix and uterus; Z90.81 Acquired absence of spleen; Z23 Encounter for immunization; Z79.4 Long term (current) use of insulin; Z88.5 Allergy status to narcotic agent; Z90.49 Acquired absence of other specified parts of digestive tract
CPT/HCPCS: 36415; 36600; 71045; 80053; 81001; 81025; 82009; 82803; 82948; 83036; 83690; 83735; 84484; 85018; 85025; 87081; 93005; 96374; 97116; 97161; 97530; 99285; G0378; J0780; J1170; J1644; J1815; J2270; J2405; J2765; J3480; J7030

== ENCOUNTER 2019-08-06 04:58 | Emergency (ER) | payer MEDICAID, OTHER ==
[~2019-08-06] VITALS: Ht 175.3 cm; Wt 104.5 kg
[~2019-08-06 04:58] MED LIST changes: -ASPI-611 PO; +ATOR20TA PO; -GABA600T13 PO; +HYDR-3965 PO; -IBUP-1986 PO; +INSU100C10 SQ; -INSU100I31 SUBCUT; -ONDA4TAB9 SL; -PANT-47 PO; +PANT40TA4 PO; -PER10325T PO; -SIMV10TA2 PO; -SUMA100T PO
[2019-08-06] MEDS ORDERED: normal saline 1000ML IV soln IVB ONE (05:20)
[2019-08-06] MEDS ORDERED: morphine 4 MG/ML inj SYRINge IV PRN (05:20)
[2019-08-06] MEDS ORDERED: ondansetron/PF 4mg/2ml inj IV ONE (05:20)
[2019-08-06 05:33] LABS: BASOPHILS # (AUTO) 0.1 X10'3 (0-0.2); BASOPHILS % (AUTO) 0.8 % (0-1); EOSINOPHILS # (AUTO) 0.2 X10'3 (0-0.9); EOSINOPHILS % (AUTO) 2.2 % (0-6); HEMATOCRIT 39.6 % (35.0-45.0); HEMOGLOBIN 12.6 g/dl (12.0-16.0); LYMPHOCYTES # (AUTO) 4.5 X10'3 (1.1-4.8); LYMPHOCYTES % (AUTO) 39.4 % (21-51); MEAN CORPUSCULAR HEMOGLOBIN 28.3 PG (27.0-31.0); MEAN CORPUSCULAR HGB CONC 31.7 g/dL (33.0-36.5); MEAN PLATELET VOLUME 12.6 FL (7.4-10.4); MONOCYTES % (AUTO) 8.5 % (2-12); NEUTROPHILS # (AUTO) 5.7 X10'3 (1.8-7.7); NEUTROPHILS % (AUTO) 49.1 % (42-75); PLATELET COUNT 281 X10'3 (140-440); RED BLOOD COUNT 4.44 X10'6 (4.20-5.60); RED CELL DISTRIBUTION WIDTH 14.1 % (11.5-14.5); WHITE BLOOD COUNT 11.5 X10'3 (4.5-11.0)
[2019-08-06 05:34] LABS: URINE HCG NEGATIVE (NEG)
[2019-08-06 05:41] LABS: URINE AMPHETAMINE SCREEN NEGATIVE (Neg); URINE BARBITUATE SCREEN NEGATIVE (Neg); URINE BENZODIAZEPINES SCREEN POSITIVE (Neg); URINE CANNABINOID SCREEN NEGATIVE (Neg); URINE COCAINE SCREEN NEGATIVE (Neg); URINE METHADONE SCREEN NEGATIVE (Neg); URINE OPIATE SCREEN NEGATIVE (Neg); URINE PHENCYCLIDINE SCREEN NEGATIVE (Neg)
[2019-08-06 05:49] LABS: ALANINE AMINOTRANSFERASE 21 U/L (12-78); ALBUMIN 3.3 G/DL (3.4-5.0); ALBUMIN/GLOBULIN RATIO 0.9 (1.1-1.5); ALKALINE PHOSPHATASE 157 IU/L (46-116); ANION GAP 5 (8-16); ASPARTATE AMINO TRANSFERASE 13 U/L (10-37); BILIRUBIN,TOTAL 0.3 MG/DL (0.1-1.0); BLOOD UREA NITROGEN 8 MG/DL (7-18); BUN/CREATININE RATIO 6.7 (6.6-38.0); CALCIUM 8.6 MG/DL (8.5-10.1); CHLORIDE 99 MMOL/L (99-107); CREATININE 1.19 MG/DL (0.40-0.90); LIPASE 276 U/L (73-393); POTASSIUM 4.2 MMOL/L (3.5-5.1); SODIUM 131 MMOL/L (135-145); TOTAL CARBON DIOXIDE 26.9 MMOL/L (24-32); TOTAL PROTEIN 6.9 G/DL (6.4-8.2); eGFR 49 ML/MIN
[2019-08-06 05:50] LABS: CLARITY,URINE CLEAR (Clear); COLOR,URINE STRAW (Yellow); GLUCOSE, URINE >=1000 mg/dl (Neg); KETONES,URINE NEGATIVE (Neg); LEUKOCYTE ESTERASE ,URINE NEGATIVE (Neg); NITRITES, URINE NEGATIVE (Neg); OCCULT BLOOD,URINE NEGATIVE (Neg); PROTEIN,URINE NEGATIVE (Neg); UROBILINOGEN,URINE 0.2 E.U/dL (0.2-1.0)
[2019-08-06] MEDS ORDERED: insulin regular, human 10 units/0.1 ml syringe IV ONE (05:50)
[2019-08-06 05:51] LABS: UA COLLECTION TYPE CLN CATCH MIDSTREAM
[2019-08-06 05:52] LABS: GLUCOSE 677 MG/DL (70-104)
[2019-08-06 05:54] VITALS: BP 137/82
[2019-08-06 05:57] LABS: SQUAMOUS EPITHELIAL CELL,UR FEW /LPF (FEW)
[2019-08-06 05:59] LABS: LARGE PLATELETS MODERATE; PLATELET ESTIMATE NORMAL
[2019-08-06 05:59] LABS: BACTERIA,URINE FEW /HPF (Neg); RBC,URINE 0-2 /HPF (0-2); WBC,URINE 0-4 /HPF (0-4)
== END 2019-08-06 06:21 | disposition home or self-care (01) ==
LOC: ER 04:58
DX: R10.9 Unspecified abdominal pain (principal); G43.909 Migraine, unspecified, not intractable, without status migrainosus; E78.00 Pure hypercholesterolemia, unspecified; I10 Essential (primary) hypertension; E11.9 Type 2 diabetes mellitus without complications; M19.90 Unspecified osteoarthritis, unspecified site; G89.29 Other chronic pain; Z90.710 Acquired absence of both cervix and uterus; Z90.49 Acquired absence of other specified parts of digestive tract; Z86.711 Personal history of pulmonary embolism; Z88.8 Allergy status to other drugs, medicaments and biological substances; Z79.4 Long term (current) use of insulin; Z79.899 Other long term (current) drug therapy
CPT/HCPCS: 36415; 80053; 80305; 81001; 81025; 82948; 83690; 85025; 96374; 96375; 99284; J1815; J2270; J2405; J7030

== ENCOUNTER 2019-09-03 21:32 | Emergency (ER) | payer MEDICAID ==
[~2019-09-03] VITALS: Ht 175.3 cm; Wt 91.0 kg
[2019-09-03 21:37] VITALS: BP 154/82
[2019-09-03] MEDS ORDERED: ketorolac tromethamine 15mg/ml inj. IM ONE (22:25)
== END 2019-09-03 22:47 | disposition home or self-care (01) ==
LOC: ER 21:33
DX: G89.29 Other chronic pain (principal); M25.512 Pain in left shoulder; G43.909 Migraine, unspecified, not intractable, without status migrainosus; E78.00 Pure hypercholesterolemia, unspecified; I10 Essential (primary) hypertension; E11.9 Type 2 diabetes mellitus without complications; M19.90 Unspecified osteoarthritis, unspecified site; Z90.49 Acquired absence of other specified parts of digestive tract; Z90.710 Acquired absence of both cervix and uterus; Z98.890 Other specified postprocedural states; Z86.711 Personal history of pulmonary embolism; Z88.8 Allergy status to other drugs, medicaments and biological substances; Z79.4 Long term (current) use of insulin; Z79.899 Other long term (current) drug therapy
CPT/HCPCS: 96372; 99283; J1885

== ENCOUNTER 2019-11-20 23:45 | Emergency (ER) | payer MEDICAID ==
[~2019-11-20] VITALS: Ht 175.3 cm; Wt 91.4 kg
[~2019-11-20 23:45] MED LIST changes: -ATOR20TA PO
[2019-11-21 00:38] LABS: CLARITY,URINE CLEAR (Clear); COLOR,URINE YELLOW (Yellow); GLUCOSE, URINE >=1000 mg/dl (Neg); KETONES,URINE NEGATIVE (Neg); LEUKOCYTE ESTERASE ,URINE SMALL (Neg); NITRITES, URINE NEGATIVE (Neg); OCCULT BLOOD,URINE NEGATIVE (Neg); PH,URINE 6.5 (4.8-8.0); PROTEIN,URINE NEGATIVE (Neg); URINE HCG NEGATIVE (NEG); UROBILINOGEN,URINE 0.2 E.U/dL (0.2-1.0)
[2019-11-21 00:39] LABS: UA COLLECTION TYPE CLN CATCH MIDSTREAM
[2019-11-21 00:39] LABS: HEMOGLOBIN 12.4 g/dl (12.0-16.0); MEAN CORPUSCULAR HEMOGLOBIN 29.1 PG (27.0-31.0); MEAN CORPUSCULAR HGB CONC 32.2 g/dL (33.0-36.5); PLATELET COUNT 274 X10'3 (140-440)
[2019-11-21 00:40] LABS: BASOPHILS # (AUTO) 0.1 X10'3 (0-0.2); BASOPHILS % (AUTO) 0.8 % (0-1); EOSINOPHILS # (AUTO) 0.2 X10'3 (0-0.9); EOSINOPHILS % (AUTO) 1.2 % (0-6); HEMATOCRIT 38.6 % (35.0-45.0); LYMPHOCYTES # (AUTO) 5.4 X10'3 (1.1-4.8); LYMPHOCYTES % (AUTO) 38.1 % (21-51); MEAN CORPUSCULAR VOLUME 90.4 FL (78-98); MEAN PLATELET VOLUME 11.3 FL (7.4-10.4); MONOCYTES # (AUTO) 1.1 X10'3 (0-0.9); MONOCYTES % (AUTO) 7.6 % (2-12); NEUTROPHILS # (AUTO) 7.4 X10'3 (1.8-7.7); NEUTROPHILS % (AUTO) 52.3 % (42-75); RED BLOOD COUNT 4.27 X10'6 (4.20-5.60); RED CELL DISTRIBUTION WIDTH 14.2 % (11.5-14.5); WHITE BLOOD COUNT 14.1 X10'3 (4.5-11.0)
[2019-11-21 00:43] LABS: BACTERIA,URINE 2+ /HPF (Neg); RBC,URINE NONE SEEN /HPF (0-2); SQUAMOUS EPITHELIAL CELL,UR FEW /LPF (FEW)
[2019-11-21 00:51] LABS: ALBUMIN 3.5 G/DL (3.4-5.0); ALKALINE PHOSPHATASE 71 IU/L (46-116); ANION GAP 11 (8-16); ASPARTATE AMINO TRANSFERASE 13 U/L (10-37); BILIRUBIN,TOTAL 0.5 MG/DL (0.1-1.0); BLOOD UREA NITROGEN 10 MG/DL (7-18); BUN/CREATININE RATIO 10.5 (6.6-38.0); CALCIUM 8.5 MG/DL (8.5-10.1); CHLORIDE 104 MMOL/L (99-107); CREATININE 0.95 MG/DL (0.40-0.90); GLUCOSE 313 MG/DL (70-104); LIPASE 300 U/L (73-393); POTASSIUM 3.8 MMOL/L (3.5-5.1); SODIUM 140 MMOL/L (135-145); TOTAL CARBON DIOXIDE 24.7 MMOL/L (24-32); TOTAL PROTEIN 7.1 G/DL (6.4-8.2); eGFR 63 ML/MIN
[2019-11-21 00:57] LABS: LARGE PLATELETS MODERATE; PLATELET ESTIMATE NORMAL; TOTAL CELLS COUNTED 100
[2019-11-21 01:00] LABS: ALANINE AMINOTRANSFERASE < 6 U/L (12-78)
[2019-11-21] MEDS ORDERED: ciprofloxacin lact 400MG/200ML 200 ML IV ONE (01:00)
[2019-11-21] MEDS ORDERED: normal saline 1000ml 1,000 ML IV ONE (01:04)
[2019-11-21] MEDS ORDERED: diphenhydrAMINE 50 mg/ml inj IV ONE ×2 (01:05→03:40)
[2019-11-21] MEDS ORDERED: normal saline 1000ML IV soln IVB ONE (01:05)
[2019-11-21] MEDS ORDERED: ketorolac tromethamine 15mg/ml inj. IV ONE (01:05)
[2019-11-21] MEDS ORDERED: iohexol 300mg/ml 100ml inj. ONE (01:08)
[2019-11-21] MEDS: morphine 2 MG/ML inj. syringe IV PRN ×2 (01:10→02:01)
[2019-11-21] MEDS ORDERED: CIPR250T4 PO (02:53)
[2019-11-21] MEDS ORDERED: ONDA4TAB6 PO (02:53)
[2019-11-21] MEDS ORDERED: ondansetron/PF 4mg/2ml inj IV ONE (03:10)
[2019-11-21] MEDS ORDERED: morphine 4 MG/ML inj SYRINge IV ONE (03:10)
[2019-11-21 03:53] VITALS: BP 132/84
== END 2019-11-21 05:13 | disposition home or self-care (01) ==
LOC: ER 23:46
DX: N39.0 Urinary tract infection, site not specified (principal); R19.7 Diarrhea, unspecified; E78.00 Pure hypercholesterolemia, unspecified; I10 Essential (primary) hypertension; E11.9 Type 2 diabetes mellitus without complications; M19.90 Unspecified osteoarthritis, unspecified site; G89.29 Other chronic pain; Z86.711 Personal history of pulmonary embolism; Z85.9 Personal history of malignant neoplasm, unspecified; Z90.49 Acquired absence of other specified parts of digestive tract; Z90.710 Acquired absence of both cervix and uterus; Z98.890 Other specified postprocedural states; Z88.5 Allergy status to narcotic agent; Z88.8 Allergy status to other drugs, medicaments and biological substances; Z79.4 Long term (current) use of insulin; Z79.2 Long term (current) use of antibiotics; Z79.899 Other long term (current) drug therapy
CPT/HCPCS: 36415; 74177; 80053; 81001; 81025; 83605; 83690; 84145; 85025; 87040; 87088; 96361; 96365; 96375; 96376; 99285; J0744; J1200; J1885; J2270; J2405; J7030; Q9967

== ENCOUNTER 2020-01-15 21:48 | Emergency (ER) | payer MEDICAID ==
[~2020-01-15] VITALS: Ht 175.3 cm; Wt 89.8 kg
[~2020-01-15 21:48] MED LIST changes: +CIPR250T4 PO; +ONDA4TAB6 PO
[2020-01-15 22:29] LABS: CLARITY,URINE CLEAR (Clear); COLOR,URINE YELLOW (Yellow); GLUCOSE, URINE >=1000 mg/dl (Neg); KETONES,URINE NEGATIVE (Neg); LEUKOCYTE ESTERASE ,URINE NEGATIVE (Neg); NITRITES, URINE NEGATIVE (Neg); OCCULT BLOOD,URINE NEGATIVE (Neg); PH,URINE 6.5 (4.8-8.0); PROTEIN,URINE NEGATIVE (Neg); URINE HCG NEGATIVE (NEG); UROBILINOGEN,URINE 0.2 E.U/dL (0.2-1.0)
[2020-01-15 22:31] LABS: UA COLLECTION TYPE NON-SPECIFIED
[2020-01-15 22:37] LABS: BACTERIA,URINE 1+ /HPF (Neg); RBC,URINE 0-2 /HPF (0-2); SQUAMOUS EPITHELIAL CELL,UR MANY /LPF (FEW); WBC,URINE NONE SEEN /HPF (0-4)
[2020-01-15 22:45] LABS: BASOPHILS # (AUTO) 0.1 X10'3 (0-0.2); BASOPHILS % (AUTO) 0.7 % (0-1); EOSINOPHILS # (AUTO) 0.1 X10'3 (0-0.9); EOSINOPHILS % (AUTO) 0.4 % (0-6); HEMATOCRIT 42.1 % (35.0-45.0); HEMOGLOBIN 13.7 g/dl (12.0-16.0); LYMPHOCYTES # (AUTO) 4.9 X10'3 (1.1-4.8); LYMPHOCYTES % (AUTO) 32.2 % (21-51); MEAN CORPUSCULAR HEMOGLOBIN 28.9 PG (27.0-31.0); MEAN CORPUSCULAR HGB CONC 32.6 g/dL (33.0-36.5); MEAN CORPUSCULAR VOLUME 88.7 FL (78-98); MEAN PLATELET VOLUME 12.2 FL (7.4-10.4); MONOCYTES # (AUTO) 1.2 X10'3 (0-0.9); NEUTROPHILS % (AUTO) 58.7 % (42-75); PLATELET COUNT 340 X10'3 (140-440); RED BLOOD COUNT 4.75 X10'6 (4.20-5.60); RED CELL DISTRIBUTION WIDTH 13.4 % (11.5-14.5); WHITE BLOOD COUNT 15.3 X10'3 (4.5-11.0)
[2020-01-15 23:02] LABS: ALANINE AMINOTRANSFERASE 20 U/L (12-78); ALBUMIN/GLOBULIN RATIO 0.9 (1.1-1.5); ALKALINE PHOSPHATASE 107 IU/L (46-116); ANION GAP 12 (8-16); ASPARTATE AMINO TRANSFERASE 13 U/L (10-37); BILIRUBIN,TOTAL 0.8 MG/DL (0.1-1.0); BLOOD UREA NITROGEN 18 MG/DL (7-18); BUN/CREATININE RATIO 14.9 (6.6-38.0); CHLORIDE 96 MMOL/L (99-107); CREATININE 1.21 MG/DL (0.40-0.90); LIPASE 360 U/L (73-393); POTASSIUM 4.1 MMOL/L (3.5-5.1); SODIUM 132 MMOL/L (135-145); TOTAL CARBON DIOXIDE 24.1 MMOL/L (24-32); TOTAL PROTEIN 8.5 G/DL (6.4-8.2); eGFR 48 ML/MIN
[2020-01-15 23:08] LABS: GLUCOSE 621 MG/DL (70-104)
--- NOTE | 2020-01-15 23:28 | NUR ---
dr. hagen at bedside now. pts hr now 90.
[2020-01-15] MEDS ORDERED: INSU100I39 SQ (23:38)
[2020-01-15] MEDS ORDERED: OXYC-511 PO (23:38)
[2020-01-15] MEDS ORDERED: CYCL-1 PO (23:38)
[2020-01-15] MEDS ORDERED: pantoprazole 40 MG vial IV ONE (23:40)
[2020-01-15] MEDS ORDERED: insulin regular, human U-100 3ml vial - multi-dose SQ ONE (23:40)
[2020-01-15] MEDS ORDERED: normal saline 1000ML IV soln IVB ONE (23:40)
[2020-01-15] MEDS ORDERED: insulin glargine (Lantus) pen - multi-dose SQ ONE (23:40)
[2020-01-16 01:50] VITALS: BP 127/76
== END 2020-01-16 01:40 | disposition home or self-care (01) ==
LOC: ER 21:49
DX: E11.65 Type 2 diabetes mellitus with hyperglycemia (principal); R10.13 Epigastric pain; G43.909 Migraine, unspecified, not intractable, without status migrainosus; E78.00 Pure hypercholesterolemia, unspecified; I10 Essential (primary) hypertension; M19.90 Unspecified osteoarthritis, unspecified site; G89.29 Other chronic pain; F17.200 Nicotine dependence, unspecified, uncomplicated; Z90.49 Acquired absence of other specified parts of digestive tract; Z90.710 Acquired absence of both cervix and uterus; Z86.711 Personal history of pulmonary embolism; Z88.5 Allergy status to narcotic agent; Z79.4 Long term (current) use of insulin; Z79.899 Other long term (current) drug therapy
CPT/HCPCS: 36415; 80053; 81001; 81025; 82948; 83690; 85025; 96372; 96374; 99284; C9113; J7030; 96361; J1815

== ENCOUNTER 2020-02-16 21:24 | Emergency (ER) | payer MEDICAID ==
[~2020-02-16] VITALS: Ht 175.3 cm; Wt 93.6 kg
[~2020-02-16 21:24] MED LIST changes: -CIPR250T4 PO; +CYCL-1 PO; -HYDR-3965 PO; +INSU100I39 SQ; -LISI-600 PO; +OXYC1TAB17 PO
[2020-02-16 21:28] VITALS: BP 171/88
[2020-02-17] MEDS ORDERED: LISI-600 PO (10:36)
== END 2020-02-16 23:20 | disposition left against medical advice (07) ==
LOC: ER 21:24
DX: R51 Headache (principal); Z53.21 Procedure and treatment not carried out due to patient leaving prior to being seen by health care provider
CPT/HCPCS: 82948

== ENCOUNTER 2020-02-17 03:57 | Inpatient (IN) | payer MEDICAID ==
[~2020-02-17] VITALS: Ht 175.3 cm; Wt 90.9 kg
[2020-02-17 04:21] LABS: CLARITY,URINE CLEAR (Clear); COLOR,URINE STRAW (Yellow); GLUCOSE, URINE >=1000 mg/dl (Neg); KETONES,URINE NEGATIVE (Neg); LEUKOCYTE ESTERASE ,URINE NEGATIVE (Neg); NITRITES, URINE NEGATIVE (Neg); OCCULT BLOOD,URINE TRACE-INTACT (Neg); PROTEIN,URINE NEGATIVE (Neg); UROBILINOGEN,URINE 0.2 E.U/dL (0.2-1.0)
[2020-02-17 04:27] LABS: UA COLLECTION TYPE CLN CATCH MIDSTREAM
[2020-02-17 04:28] LABS: BACTERIA,URINE NONE SEEN /HPF (Neg); BASOPHILS # (AUTO) 0.2 X10'3 (0-0.2); BASOPHILS % (AUTO) 1.5 % (0-1); EOSINOPHILS # (AUTO) 0.3 X10'3 (0-0.9); EOSINOPHILS % (AUTO) 2.1 % (0-6); HEMOGLOBIN 12.7 g/dl (12.0-16.0); LYMPHOCYTES # (AUTO) 6.5 X10'3 (1.1-4.8); LYMPHOCYTES % (AUTO) 43.5 % (21-51); MEAN CORPUSCULAR HEMOGLOBIN 28.8 PG (27.0-31.0); MEAN CORPUSCULAR HGB CONC 31.8 g/dL (33.0-36.5); MEAN CORPUSCULAR VOLUME 90.4 FL (78-98); MONOCYTES % (AUTO) 6.8 % (2-12); NEUTROPHILS # (AUTO) 6.9 X10'3 (1.8-7.7); NEUTROPHILS % (AUTO) 46.1 % (42-75); PLATELET COUNT 329 X10'3 (140-440); RED BLOOD COUNT 4.42 X10'6 (4.20-5.60); RED CELL DISTRIBUTION WIDTH 13.9 % (11.5-14.5); SQUAMOUS EPITHELIAL CELL,UR FEW /LPF (FEW); WBC,URINE NONE SEEN /HPF (0-4); WHITE BLOOD COUNT 14.9 X10'3 (4.5-11.0)
[2020-02-17 04:35] LABS: URINE HCG NEGATIVE (NEG)
[2020-02-17 04:38] LABS: ALANINE AMINOTRANSFERASE 18 U/L (12-78); ALBUMIN 3.6 G/DL (3.4-5.0); ALBUMIN/GLOBULIN RATIO 0.9 (1.1-1.5); ALKALINE PHOSPHATASE 126 IU/L (46-116); ANION GAP 9 (8-16); ASPARTATE AMINO TRANSFERASE 9 U/L (10-37); BILIRUBIN,TOTAL 0.3 MG/DL (0.1-1.0); BLOOD UREA NITROGEN 10 MG/DL (7-18); BUN/CREATININE RATIO 10.1 (6.6-38.0); CALCIUM 8.4 MG/DL (8.5-10.1); CHLORIDE 99 MMOL/L (99-107); CREATININE 0.99 MG/DL (0.40-0.90); LIPASE 398 U/L (73-393); SODIUM 133 MMOL/L (135-145); TOTAL CARBON DIOXIDE 24.8 MMOL/L (24-32); TOTAL PROTEIN 7.4 G/DL (6.4-8.2); eGFR 60 ML/MIN
[2020-02-17 04:56] LABS: POTASSIUM 4.1 MMOL/L (3.5-5.1)
[2020-02-17 04:59] LABS: GLUCOSE 529 MG/DL (70-104)
[2020-02-17 05:12] LABS: LARGE PLATELETS FEW; PLATELET ESTIMATE NORMAL
[2020-02-17] MEDS ORDERED: normal saline 1000ML IV soln IVB ONE ×2 (05:15→05:25)
[2020-02-17] MEDS ORDERED: insulin regular, human 10 units/0.1 ml syringe IV ONE (05:20)
[2020-02-17] MEDS ORDERED: normal saline 1000ml 1,000 ML IV ONE (05:24)
[2020-02-17] MEDS ORDERED: ketorolac trometh. 30mg/ml inj. IV ONE (05:25)
[2020-02-17] MEDS ORDERED: morphine 2 MG/ML inj. syringe IV PRN (05:25)
[2020-02-17] MEDS ORDERED: proCHLORperazine 10 MG/2 ml inj IV ONE (05:25)
[2020-02-17] MEDS ORDERED: diphenhydrAMINE 50 mg/ml inj IV ONE ×2 (05:45→06:05)
[2020-02-17 05:55] LABS: ETHANOL < 0.010 GM/DL (0.0-0.010); MAGNESIUM 1.9 MG/DL (1.5-2.4)
--- NOTE | 2020-02-17 07:22 | NUR ---
pt up to the bathroom with steady gait.
[2020-02-17] MEDS ORDERED: LORazepam 1 MG tablet PO STA (07:27)
[2020-02-17] MEDS ORDERED: heparin 25,000 UNIT/250ml bag 250 ML IV SCH (07:31)
[2020-02-17] MEDS ORDERED: heparin 10,000 units/1 ML INJ IV PRN (07:35)
[2020-02-17] MEDS ORDERED: heparin 10,000 units/1 ML INJ IV ONE ×2 (07:35)
[2020-02-17] MEDS ORDERED: aspirin 81mg tab.chew PO ONE (07:35)
[2020-02-17] MEDS ORDERED: ketorolac tromethamine 15mg/ml inj. IV ONE (07:55)
--- NOTE | 2020-02-17 08:01 | NUR ---
dr. Browning ordered to still administer heparin with pt/inr pending.
[2020-02-17 08:03] LABS: PARTIAL THROMBOPLASTIN TIME 28 SECONDS (22-32)
[2020-02-17] MEDS ORDERED: mag hydrox/Alum hydrox/simeth 30ml oral suspension PO PRN (08:25)
[2020-02-17] MEDS ORDERED: magnesium hydroxide 30ml (MOM) UD suspension PO PRN (08:25)
[2020-02-17] MEDS ORDERED: acetaminophen 325mg tablet PO PRN (08:25)
[2020-02-17] MEDS ORDERED: ondansetron/PF 4mg/2ml inj IV PRN (08:25)
[2020-02-17 08:36] LABS: CLARITY,URINE CLEAR (Clear); COLOR,URINE STRAW (Yellow); GLUCOSE, URINE NEGATIVE (Neg); KETONES,URINE NEGATIVE (Neg); LEUKOCYTE ESTERASE ,URINE SMALL (Neg); NITRITES, URINE NEGATIVE (Neg); OCCULT BLOOD,URINE NEGATIVE (Neg); PH,URINE 6.5 (4.8-8.0); PROTEIN,URINE NEGATIVE (Neg); UROBILINOGEN,URINE 0.2 E.U/dL (0.2-1.0)
[2020-02-17 08:39] LABS: UA COLLECTION TYPE VOIDED
[2020-02-17 08:42] LABS: SQUAMOUS EPITHELIAL CELL,UR FEW /LPF (FEW)
[2020-02-17 08:44] LABS: BACTERIA,URINE FEW /HPF (Neg); RBC,URINE NONE SEEN /HPF (0-2); WBC,URINE 0-4 /HPF (0-4)
[2020-02-17 08:50] LABS: URINE AMPHETAMINE SCREEN NEGATIVE (Neg); URINE BARBITUATE SCREEN NEGATIVE (Neg); URINE BENZODIAZEPINES SCREEN NEGATIVE (Neg); URINE CANNABINOID SCREEN NEGATIVE (Neg); URINE COCAINE SCREEN NEGATIVE (Neg); URINE METHADONE SCREEN NEGATIVE (Neg); URINE OPIATE SCREEN POSITIVE (Neg); URINE PHENCYCLIDINE SCREEN NEGATIVE (Neg)
--- NOTE | 2020-02-17 08:56 | NUR ---
Carlos Enrique ORTIZ unable to receive report at this time,in the middle of medpass.Will inform charge.
--- NOTE | 2020-02-17 09:17 | NUR ---
RECEIVED TELEPHONE REPORT FROM DIANA ARANDA
[2020-02-17 09:30] VITALS: BP 137/83
[2020-02-17] MEDS: normal saline 1000ml 1,000 ML IV SCH ×2 (09:35→21:16)
--- NOTE | 2020-02-17 09:51 | NUR ---
PAGER ID: [phone] MESSAGE: DR. CARRIZALES, 5315I/DOLLY, C/O 03/06 LEFT ARM PAIN "TORN ROTATOR CUFF", 01/03 ABD UPPER QUAD PAIN. MS 2 MG ORDERED. LISTED ALLERGY. PLEASE CALL MIL[facility] [phone]/9294 TY
[2020-02-17] MEDS: HYDROmorphone inj. 0.5 MG/0.5 ML DISP.SYRIN IV PRN ×4 (10:11→22:53)
[2020-02-17] MEDS ORDERED: LISI-600 PO (10:36)
[2020-02-17 11:00] VITALS: BP 139/78
--- NOTE | 2020-02-17 12:20 | NUR ---
PAGER ID: [phone] MESSAGE: DR. CARRIZALES, 3012B/DOLLY, ACCUCHECK 200. NEED ORDERS FOR ACCUCHECKS AND HYPERGLYCEMIC PROTOCOL PLEASE. [facility] 8890/8535. TY
--- NOTE | 2020-02-17 13:21 | NUR ---
PAGER ID: [phone] MESSAGE: DR. CARRIZALES, 3012B/DOLLY, RECEIVED DILAUDID 0.5 AT 1011.03/06 LEFT ADONIS AND KYLE. TO SOON TO REPEAT. SHE IS SAYING YOU WERE GOING TO INCREASE THE DOSE? ALSO, SAYS TREATED FOR TB 4 MONTHS AGO, TOOK FULL COURSE OF TREATMENT. [facility] 3792/7599. TY
[2020-02-17 15:00] VITALS: BP 142/83
--- NOTE | 2020-02-17 16:01 | NUR ---
PAGER ID: [phone] MESSAGE: DR. CARRIZALES, 3418/DOLLY, SAYS SHE TAKES CLONAZEPAM 1MG PO BID:AFTERNOON AND BEDTIME . [facility] 5907/5403. TY
[2020-02-17] MEDS ORDERED: cyclobenzaprine 10mg tablet PO PRN (17:20)
[2020-02-17] MEDS ORDERED: clonazePAM 1mg tablet PO PRN (17:20)
--- NOTE | 2020-02-17 18:23 | NUR ---
Problems reprioritized. Patient report given, questions answered & plan of care reviewed with DIANA SEBASTIAN.
--- NOTE | 2020-02-17 18:30 | NUR ---
Patient in room PCU 3008. I have received report from Carlos Enrique ORTIZ and had the opportunity to ask questions and assume patient care.
[2020-02-17] MEDS: insulin Lispro (HumaLOG) vial - multi-dose SQ SCH (18:45)
[2020-02-17] MEDS: heparin, porcine 5000 units/ml vial SQ SCH (19:51)
[2020-02-17] MEDS ORDERED: insulin glargine (Lantus) pen - multi-dose SQ SCH (21:00)
[2020-02-17 22:00] VITALS: BP 142/70
[2020-02-18 02:00] VITALS: BP 139/71
[2020-02-18] MEDS: HYDROmorphone inj. 0.5 MG/0.5 ML DISP.SYRIN IV PRN ×3 (03:50→11:23)
[2020-02-18] MEDS: normal saline 1000ml 1,000 ML IV SCH ×2 (04:22→10:10)
[2020-02-18 05:36] VITALS: BP 125/75
--- NOTE | 2020-02-18 06:04 | NUR ---
Problems reprioritized. Patient report given, questions answered & plan of care reviewed with omid ORTIZ.
--- NOTE | 2020-02-18 06:26 | NUR ---
Patient in room PCU 3008. I have received report from DIANA Cuba and had the opportunity to ask questions and assume patient care.
[2020-02-18 07:13] VITALS: BP 123/65
[2020-02-18 07:20] LABS: BASOPHILS # (AUTO) 0.2 X10'3 (0-0.2); BASOPHILS % (AUTO) 1.3 % (0-1); EOSINOPHILS # (AUTO) 0.8 X10'3 (0-0.9); EOSINOPHILS % (AUTO) 6.5 % (0-6); HEMATOCRIT 37.7 % (35.0-45.0); LYMPHOCYTES # (AUTO) 4.9 X10'3 (1.1-4.8); LYMPHOCYTES % (AUTO) 40.6 % (21-51); MEAN CORPUSCULAR HEMOGLOBIN 28.4 PG (27.0-31.0); MEAN CORPUSCULAR HGB CONC 31.8 g/dL (33.0-36.5); MEAN CORPUSCULAR VOLUME 89.4 FL (78-98); MONOCYTES # (AUTO) 0.8 X10'3 (0-0.9); MONOCYTES % (AUTO) 6.6 % (2-12); NEUTROPHILS # (AUTO) 5.4 X10'3 (1.8-7.7); PLATELET COUNT 329 X10'3 (140-440); RED BLOOD COUNT 4.22 X10'6 (4.20-5.60); RED CELL DISTRIBUTION WIDTH 13.7 % (11.5-14.5)
[2020-02-18 07:24] LABS: ANION GAP 8 (8-16); BLOOD UREA NITROGEN 8 MG/DL (7-18); BUN/CREATININE RATIO 12.1 (6.6-38.0); CHLORIDE 108 MMOL/L (99-107); CREATININE 0.66 MG/DL (0.40-0.90); GLUCOSE 142 MG/DL (70-104); POTASSIUM 3.8 MMOL/L (3.5-5.1); SODIUM 142 MMOL/L (135-145); TOTAL CARBON DIOXIDE 26.4 MMOL/L (24-32); eGFR > 90 ML/MIN
[2020-02-18] MEDS: heparin, porcine 5000 units/ml vial SQ SCH (07:29)
[2020-02-18] MEDS ORDERED: pantoprazole 40mg Tablet.DR PO SCH (08:00)
[2020-02-18] MEDS ORDERED: lisinopril 20mg tablet PO SCH (08:00)
[2020-02-18] MEDS ORDERED: aspirin 81mg tablet.DR PO SCH (08:00)
[2020-02-18 08:16] LABS: LARGE PLATELETS MODERATE; PLATELET ESTIMATE NORMAL
[2020-02-18] MEDS: insulin Lispro (HumaLOG) vial - multi-dose SQ SCH (09:16)
[2020-02-18] MEDS ORDERED: metoprolol tartrate 12.5mg (1/2 tablet) PO SCH (09:25)
[2020-02-18] MEDS ORDERED: oxyCODONE/APAP 10/325mg tablet PO ONE (09:50)
[2020-02-18 10:08] VITALS: BP_SYST 147
[2020-02-18] MEDS ORDERED: ASPI81TA52 PO (10:39)
[2020-02-18] MEDS ORDERED: ATOR40TA PO (10:39)
[2020-02-18] MEDS ORDERED: METO25TA6 PO (10:39)
--- NOTE | 2020-02-18 13:11 | NUR ---
Patient ready for discharge per MD order. All discharge instructions reviewed with patient and all questions answered. PIV discontinued, cannula intact. Telemetry discontinued, telephone directory distributor driver notified. All belongings collected and sent with patient. New prescriptions faxed to pharmacy. Patient picked up in private vehicle by family, wheeled to lobby by staff.
[2020-02-19] MEDS ORDERED: atorvastatin 20mg tablet PO SCH (08:00)
== END 2020-02-18 11:46 | disposition home or self-care (01) | DRG 48 ==
LOC: ER 03:58 → ED HOLD 08:22 → PCU 3S 09:29
PROVIDERS: ADMIT Family Medicine; ATTEND Family Medicine
DX: E11.43 Type 2 diabetes mellitus with diabetic autonomic (poly)neuropathy (principal); D72.829 Elevated white blood cell count, unspecified; E11.65 Type 2 diabetes mellitus with hyperglycemia; E78.00 Pure hypercholesterolemia, unspecified; E87.1 Hypo-osmolality and hyponatremia; G43.909 Migraine, unspecified, not intractable, without status migrainosus; G89.4 Chronic pain syndrome; I10 Essential (primary) hypertension; M19.90 Unspecified osteoarthritis, unspecified site; I21.4 Non-ST elevation (NSTEMI) myocardial infarction; K31.84 Gastroparesis; N28.9 Disorder of kidney and ureter, unspecified; Z86.711 Personal history of pulmonary embolism; Z90.711 Acquired absence of uterus with remaining cervical stump; Z90.81 Acquired absence of spleen; Z88.8 Allergy status to other drugs, medicaments and biological substances; Z90.49 Acquired absence of other specified parts of digestive tract; Z90.411 Acquired partial absence of pancreas; Z90.5 Acquired absence of kidney
CPT/HCPCS: 36415; 80048; 80053; 80305; 80320; 81001; 81025; 82948; 83036; 83690; 83735; 84484; 85008; 85025; 85610; 85730; 87081; 93005; 93306; 96361; 96365; 96375; 96376; 99285; G0378; J0780; J1170; J1200; J1644; J1815; J1885; J2270; J2405; J7030

== ENCOUNTER 2020-03-12 19:54 | Emergency (ER) | payer MEDICAID ==
[~2020-03-12] VITALS: Ht 175.3 cm; Wt 88.2 kg
[~2020-03-12 19:54] MED LIST changes: +ASPI81TA52 PO; +ATOR40TA PO; -INSU100C10 SQ; +LISI-600 PO; +METO25TA6 PO; -ONDA4TAB6 PO; -OXYC1TAB17 PO; -PANT40TA4 PO; +PANT40TA54 PO
[2020-03-12 20:36] LABS: BASOPHILS # (AUTO) 0.1 X10'3 (0-0.2); BASOPHILS % (AUTO) 0.7 % (0-1); EOSINOPHILS # (AUTO) 0.1 X10'3 (0-0.9); EOSINOPHILS % (AUTO) 0.5 % (0-6); HEMATOCRIT 41.4 % (35.0-45.0); HEMOGLOBIN 13.3 g/dl (12.0-16.0); LYMPHOCYTES # (AUTO) 4.7 X10'3 (1.1-4.8); LYMPHOCYTES % (AUTO) 34.8 % (21-51); MEAN CORPUSCULAR HEMOGLOBIN 28.8 PG (27.0-31.0); MEAN CORPUSCULAR HGB CONC 32.1 g/dL (33.0-36.5); MEAN CORPUSCULAR VOLUME 89.7 FL (78-98); MEAN PLATELET VOLUME 12.2 FL (7.4-10.4); MONOCYTES # (AUTO) 0.8 X10'3 (0-0.9); MONOCYTES % (AUTO) 6.1 % (2-12); NEUTROPHILS # (AUTO) 7.9 X10'3 (1.8-7.7); NEUTROPHILS % (AUTO) 57.9 % (42-75); PLATELET COUNT 287 X10'3 (140-440); RED BLOOD COUNT 4.62 X10'6 (4.20-5.60); RED CELL DISTRIBUTION WIDTH 13.7 % (11.5-14.5); WHITE BLOOD COUNT 13.6 X10'3 (4.5-11.0)
[2020-03-12 20:56] LABS: LARGE PLATELETS FEW; PLATELET ESTIMATE NORMAL
[2020-03-12 20:57] LABS: ALANINE AMINOTRANSFERASE 31 U/L (12-78); ALBUMIN 4.1 G/DL (3.4-5.0); ALBUMIN/GLOBULIN RATIO 1.1 (1.1-1.5); ALKALINE PHOSPHATASE 114 IU/L (46-116); ANION GAP 10 (8-16); ASPARTATE AMINO TRANSFERASE 10 U/L (10-37); BILIRUBIN,TOTAL 0.6 MG/DL (0.1-1.0); BLOOD UREA NITROGEN 18 MG/DL (7-18); BUN/CREATININE RATIO 16.7 (6.6-38.0); CALCIUM 9.1 MG/DL (8.5-10.1); CHLORIDE 97 MMOL/L (99-107); CREATININE 1.08 MG/DL (0.40-0.90); POTASSIUM 4.4 MMOL/L (3.5-5.1); SODIUM 129 MMOL/L (135-145); TOTAL CARBON DIOXIDE 21.9 MMOL/L (24-32); eGFR 54 ML/MIN
[2020-03-12 21:01] LABS: GLUCOSE 681 MG/DL (70-104)
[2020-03-12] MEDS ORDERED: normal saline 1000ML IV soln IVB ONE (22:05)
[2020-03-12] MEDS ORDERED: insulin regular, human 10 units/0.1 ml syringe SQ ONE ×2 (22:05→23:40)
[2020-03-12] MEDS ORDERED: ketorolac tromethamine 15mg/ml inj. IV ONE (22:05)
[2020-03-12] MEDS ORDERED: dicyclomine 10 MG capsule PO ONE (22:10)
[2020-03-12] MEDS ORDERED: ondansetron/PF 4mg/2ml inj IV ONE (22:10)
--- NOTE | 2020-03-12 22:22 | NUR ---
Note palma in EDM - 03/12/20 at 2229 by SOPHIE DAUGHTER MERA CALLED. PT GAVE PERMISSION TO SPEAK TO DAUGHTER ABOUT CARE. PER DAUGHTER PT IS LIKELY ALLERGIC TO FISH. ADDITIONALLY SHE REPORTS THAT SHE WAS SPEAKING TO HIM YESTERDAY AFTERNOON AND HE AT THAT TIME REPORTED THAT HE COULDN'T MOVE HIS RIGHT LEG, AND THEN THE STAFF AT [facility] REPORTS THAT THE NEXT MORNING BOTH LEGS WERE WEAK AND HE HAD AN ASSISTED FALL WITH STAFF AT [facility] THIS MORNING DUE TO BILATERAL WEAKNESS.
[2020-03-12] MEDS ORDERED: morphine 4 MG/ML inj SYRINge IV ONE (22:55)
[2020-03-12] MEDS ORDERED: HYDROcodone/acetaminophen 5mg/325mg tablet PO ONE (23:15)
[2020-03-12] MEDS ORDERED: proCHLORperazine 10 MG/2 ml inj IV ONE (23:40)
[2020-03-12] MEDS ORDERED: diphenhydrAMINE 50 mg/ml inj IV ONE (23:40)
[2020-03-13 00:18] VITALS: BP 134/88
== END 2020-03-13 00:23 | disposition home or self-care (01) ==
LOC: ER 19:54
DX: E11.65 Type 2 diabetes mellitus with hyperglycemia (principal); R00.2 Palpitations; R53.83 Other fatigue; R51 Headache; G43.909 Migraine, unspecified, not intractable, without status migrainosus; E78.00 Pure hypercholesterolemia, unspecified; I10 Essential (primary) hypertension; I25.2 Old myocardial infarction; M19.90 Unspecified osteoarthritis, unspecified site; G89.29 Other chronic pain; Z86.711 Personal history of pulmonary embolism; Z87.440 Personal history of urinary (tract) infections; Z85.9 Personal history of malignant neoplasm, unspecified; Z90.49 Acquired absence of other specified parts of digestive tract; Z90.710 Acquired absence of both cervix and uterus; Z98.890 Other specified postprocedural states; Z88.5 Allergy status to narcotic agent; Z88.8 Allergy status to other drugs, medicaments and biological substances; Z79.82 Long term (current) use of aspirin; Z79.4 Long term (current) use of insulin; Z79.899 Other long term (current) drug therapy
CPT/HCPCS: 36415; 71045; 80053; 82948; 83880; 84484; 85008; 85025; 93005; 96361; 96372; 96374; 96375; 99285; J1815; J1885; J2405; J7030

== ENCOUNTER 2020-04-05 12:38 | Emergency (ER) | payer MEDICAID ==
[~2020-04-05] VITALS: Ht 175.3 cm; Wt 129.1 kg
[~2020-04-05 12:38] MED LIST changes: -ASPI81TA52 PO; -ATOR40TA PO
[2020-04-05] MEDS ORDERED: normal saline 1000ML IV soln IVB ONE ×3 (13:25→15:30)
[2020-04-05] MEDS ORDERED: ketorolac tromethamine 15mg/ml inj. IV ONE (13:25)
[2020-04-05] MEDS ORDERED: dicyclomine 10 MG capsule PO ONE (13:25)
[2020-04-05] MEDS ORDERED: famotidine 20mg tablet PO ONE (13:25)
[2020-04-05 13:41] LABS: BASOPHILS # (AUTO) 0.1 X10'3 (0-0.2); BASOPHILS % (AUTO) 0.7 % (0-1); EOSINOPHILS # (AUTO) 0.1 X10'3 (0-0.9); EOSINOPHILS % (AUTO) 0.8 % (0-6); HEMATOCRIT 42.1 % (35.0-45.0); HEMOGLOBIN 13.2 g/dl (12.0-16.0); LYMPHOCYTES # (AUTO) 4.5 X10'3 (1.1-4.8); LYMPHOCYTES % (AUTO) 31.6 % (21-51); MEAN CORPUSCULAR HEMOGLOBIN 28.3 PG (27.0-31.0); MEAN CORPUSCULAR HGB CONC 31.4 g/dL (33.0-36.5); MEAN CORPUSCULAR VOLUME 90.2 FL (78-98); MEAN PLATELET VOLUME 11.6 FL (7.4-10.4); MONOCYTES # (AUTO) 0.9 X10'3 (0-0.9); MONOCYTES % (AUTO) 6.3 % (2-12); NEUTROPHILS # (AUTO) 8.7 X10'3 (1.8-7.7); NEUTROPHILS % (AUTO) 60.6 % (42-75); PLATELET COUNT 367 X10'3 (140-440); RED BLOOD COUNT 4.67 X10'6 (4.20-5.60); RED CELL DISTRIBUTION WIDTH 13.9 % (11.5-14.5); WHITE BLOOD COUNT 14.3 X10'3 (4.5-11.0)
[2020-04-05 13:45] LABS: CLARITY,URINE SLIGHTLY CLOUDY (Clear); COLOR,URINE YELLOW (Yellow); GLUCOSE, URINE >=1000 mg/dl (Neg); KETONES,URINE NEGATIVE (Neg); LEUKOCYTE ESTERASE ,URINE TRACE (Neg); NITRITES, URINE NEGATIVE (Neg); OCCULT BLOOD,URINE NEGATIVE (Neg); PH,URINE 6.5 (4.8-8.0); PROTEIN,URINE NEGATIVE (Neg); UROBILINOGEN,URINE 0.2 E.U/dL (0.2-1.0)
[2020-04-05 13:50] LABS: UA COLLECTION TYPE CLN CATCH MIDSTREAM
[2020-04-05 13:51] LABS: WBC,URINE 0-4 /HPF (0-4)
[2020-04-05 13:52] LABS: BACTERIA,URINE FEW /HPF (Neg); MUCUS STRANDS FEW /LPF (Neg); RBC,URINE 0-2 /HPF (0-2); SQUAMOUS EPITHELIAL CELL,UR MANY /LPF (FEW); TRICHOMONAS,URINE FEW /HPF (NEGATIVE); YEAST FEW /HPF (NEGATIVE)
[2020-04-05 13:55] LABS: LARGE PLATELETS MODERATE; PLATELET ESTIMATE NORMAL
[2020-04-05 14:00] LABS: ALANINE AMINOTRANSFERASE 21 U/L (12-78); ALBUMIN 3.4 G/DL (3.4-5.0); ALBUMIN/GLOBULIN RATIO 0.8 (1.1-1.5); ALKALINE PHOSPHATASE 106 IU/L (46-116); ANION GAP 8 (8-16); ASPARTATE AMINO TRANSFERASE 14 U/L (10-37); BILIRUBIN,TOTAL 0.6 MG/DL (0.1-1.0); BLOOD UREA NITROGEN 11 MG/DL (7-18); BUN/CREATININE RATIO 9.6 (6.6-38.0); CALCIUM 9.2 MG/DL (8.5-10.1); CHLORIDE 96 MMOL/L (99-107); CREATININE 1.15 MG/DL (0.40-0.90); SODIUM 127 MMOL/L (135-145); TOTAL CARBON DIOXIDE 22.9 MMOL/L (24-32); TOTAL PROTEIN 7.6 G/DL (6.4-8.2); eGFR 51 ML/MIN
[2020-04-05 14:04] LABS: POTASSIUM 4.2 MMOL/L (3.5-5.1)
[2020-04-05 14:05] LABS: GLUCOSE 728 MG/DL (70-104)
[2020-04-05] MEDS ORDERED: insulin regular, human 10 units/0.1 ml syringe SQ ONE ×2 (14:10→17:00)
[2020-04-05] MEDS ORDERED: fentaNYL/PF 50MCG/1 ML 2ML syringe IV ONE (14:20)
[2020-04-05 14:34] LABS: LIPASE 172 U/L (73-393)
[2020-04-05] MEDS ORDERED: ondansetron/PF 4mg/2ml inj IV ONE (15:55)
[2020-04-05 16:02] LABS: URINE AMPHETAMINE SCREEN NEGATIVE (Neg); URINE BARBITUATE SCREEN NEGATIVE (Neg); URINE BENZODIAZEPINES SCREEN NEGATIVE (Neg); URINE CANNABINOID SCREEN NEGATIVE (Neg); URINE COCAINE SCREEN NEGATIVE (Neg); URINE METHADONE SCREEN NEGATIVE (Neg); URINE OPIATE SCREEN NEGATIVE (Neg); URINE PHENCYCLIDINE SCREEN NEGATIVE (Neg)
[2020-04-05] MEDS ORDERED: morphine 4 MG/ML inj SYRINge IV ONE ×2 (16:40→19:25)
[2020-04-05] MEDS ORDERED: insulin regular, human 10 units/0.1 ml syringe IV ONE (18:25)
[2020-04-05 20:38] VITALS: BP 95/60
== END 2020-04-05 20:40 | disposition home or self-care (01) ==
LOC: ER 12:39
DX: E11.65 Type 2 diabetes mellitus with hyperglycemia (principal); R10.30 Lower abdominal pain, unspecified; E78.00 Pure hypercholesterolemia, unspecified; I10 Essential (primary) hypertension; I25.2 Old myocardial infarction; M19.90 Unspecified osteoarthritis, unspecified site; G89.29 Other chronic pain; Z90.49 Acquired absence of other specified parts of digestive tract; Z90.710 Acquired absence of both cervix and uterus; Z98.890 Other specified postprocedural states; Z88.5 Allergy status to narcotic agent; Z88.8 Allergy status to other drugs, medicaments and biological substances; Z79.4 Long term (current) use of insulin; Z79.899 Other long term (current) drug therapy
CPT/HCPCS: 36415; 74176; 80053; 80305; 81001; 82948; 83690; 84145; 85025; 96361; 96372; 96374; 96375; 96376; 99285; J1815; J1885; J2270; J2405; J3010; J7030; 85008

== ENCOUNTER 2020-04-15 01:50 | Emergency (ER) | payer MEDICAID ==
[~2020-04-15] VITALS: Ht 175.3 cm; Wt 81.8 kg
[2020-04-15 02:35] LABS: BASOPHILS # (AUTO) 0.1 X10'3 (0-0.2); EOSINOPHILS # (AUTO) 0.2 X10'3 (0-0.9); LYMPHOCYTES # (AUTO) 3.7 X10'3 (1.1-4.8); WHITE BLOOD COUNT 9.9 X10'3 (4.5-11.0)
[2020-04-15] MEDS ORDERED: normal saline 1000ML IV soln IVB ONE (02:35)
[2020-04-15] MEDS ORDERED: proCHLORperazine 10 MG/2 ml inj IV ONE (02:35)
[2020-04-15] MEDS ORDERED: insulin regular, human 10 units/0.1 ml syringe IV ONE (02:35)
[2020-04-15 02:37] LABS: BASOPHILS % (AUTO) 1.2 % (0-1); EOSINOPHILS % (AUTO) 2.2 % (0-6); HEMOGLOBIN 12.2 g/dl (12.0-16.0); LYMPHOCYTES % (AUTO) 37.6 % (21-51); MEAN CORPUSCULAR HEMOGLOBIN 28.8 PG (27.0-31.0); MEAN PLATELET VOLUME 11.9 FL (7.4-10.4); MONOCYTES # (AUTO) 1.1 X10'3 (0-0.9); MONOCYTES % (AUTO) 11.1 % (2-12); NEUTROPHILS # (AUTO) 4.7 X10'3 (1.8-7.7); NEUTROPHILS % (AUTO) 47.9 % (42-75); PLATELET COUNT 342 X10'3 (140-440); RED BLOOD COUNT 4.22 X10'6 (4.20-5.60); RED CELL DISTRIBUTION WIDTH 14.7 % (11.5-14.5)
[2020-04-15 02:51] LABS: ALANINE AMINOTRANSFERASE 25 U/L (12-78); ALBUMIN 3.3 G/DL (3.4-5.0); ALBUMIN/GLOBULIN RATIO 0.8 (1.1-1.5); ALKALINE PHOSPHATASE 74 IU/L (46-116); ANION GAP 13 (8-16); ASPARTATE AMINO TRANSFERASE 18 U/L (10-37); BILIRUBIN,TOTAL 0.7 MG/DL (0.1-1.0); BLOOD UREA NITROGEN 7 MG/DL (7-18); BUN/CREATININE RATIO 5.8 (6.6-38.0); CALCIUM 9.1 MG/DL (8.5-10.1); CHLORIDE 104 MMOL/L (99-107); CREATININE 1.21 MG/DL (0.40-0.90); LIPASE 190 U/L (73-393); MAGNESIUM 1.8 MG/DL (1.5-2.4); POTASSIUM 3.5 MMOL/L (3.5-5.1); SODIUM 140 MMOL/L (135-145); TOTAL CARBON DIOXIDE 23.1 MMOL/L (24-32); TOTAL PROTEIN 7.3 G/DL (6.4-8.2); eGFR 48 ML/MIN
[2020-04-15] MEDS ORDERED: LORazepam 2 mg/ml vial IV ONE (03:05)
[2020-04-15 03:12] LABS: GLUCOSE 536 MG/DL (70-104)
[2020-04-15] MEDS ORDERED: fentaNYL/PF 50MCG/1 ML 2ML syringe IV ONE (03:15)
[2020-04-15 03:30] LABS: LARGE PLATELETS MODERATE; PLATELET ESTIMATE NORMAL
--- NOTE | 2020-04-15 05:44 | NUR ---
attemtped to dc, unable to at this time due to medication earlier. will continue to monitor
[2020-04-15 09:03] VITALS: BP 123/73
== END 2020-04-15 09:04 | disposition home or self-care (01) ==
LOC: ER 01:51
DX: E11.65 Type 2 diabetes mellitus with hyperglycemia (principal); K31.84 Gastroparesis; F15.90 Other stimulant use, unspecified, uncomplicated; R10.13 Epigastric pain; R06.02 Shortness of breath; R11.0 Nausea; G43.909 Migraine, unspecified, not intractable, without status migrainosus; E78.00 Pure hypercholesterolemia, unspecified; I10 Essential (primary) hypertension; I25.2 Old myocardial infarction; M19.90 Unspecified osteoarthritis, unspecified site; G89.29 Other chronic pain; Z86.711 Personal history of pulmonary embolism; Z87.440 Personal history of urinary (tract) infections; Z87.898 Personal history of other specified conditions; Z90.49 Acquired absence of other specified parts of digestive tract; Z90.710 Acquired absence of both cervix and uterus; Z98.890 Other specified postprocedural states; Z88.5 Allergy status to narcotic agent; Z88.8 Allergy status to other drugs, medicaments and biological substances; Z79.4 Long term (current) use of insulin; Z79.899 Other long term (current) drug therapy
CPT/HCPCS: 36415; 71045; 80053; 82948; 83690; 83735; 83880; 84484; 85025; 93005; 96361; 96374; 96375; 99285; J0780; J1815; J2060; J3010; J7030; 85008

== ENCOUNTER 2020-06-26 11:28 | Emergency (ER) | payer MEDICAID ==
[~2020-06-26] VITALS: Ht 175.3 cm; Wt 87.1 kg
[2020-06-26] MEDS ORDERED: OXYC-150 PO (12:02)
[2020-06-26 12:16] LABS: URINE HCG NEGATIVE (NEG)
[2020-06-26 12:18] LABS: CLARITY,URINE CLEAR (Clear); COLOR,URINE YELLOW (Yellow); GLUCOSE, URINE >=1000 mg/dl (Neg); KETONES,URINE NEGATIVE (Neg); LEUKOCYTE ESTERASE ,URINE NEGATIVE (Neg); NITRITES, URINE NEGATIVE (Neg); OCCULT BLOOD,URINE NEGATIVE (Neg); PROTEIN,URINE NEGATIVE (Neg); UROBILINOGEN,URINE 0.2 E.U/dL (0.2-1.0)
[2020-06-26 12:24] LABS: UA COLLECTION TYPE CLN CATCH MIDSTREAM
[2020-06-26 12:27] LABS: BASOPHILS # (AUTO) 0.1 X10'3 (0-0.2); BASOPHILS % (AUTO) 0.6 % (0-1); EOSINOPHILS # (AUTO) 0.1 X10'3 (0-0.9); EOSINOPHILS % (AUTO) 1.2 % (0-6); HEMATOCRIT 39.7 % (35.0-45.0); HEMOGLOBIN 12.7 g/dl (12.0-16.0); LYMPHOCYTES # (AUTO) 5.8 X10'3 (1.1-4.8); LYMPHOCYTES % (AUTO) 50.8 % (21-51); MEAN CORPUSCULAR HEMOGLOBIN 28.8 PG (27.0-31.0); MEAN CORPUSCULAR HGB CONC 32.1 g/dL (33.0-36.5); MEAN CORPUSCULAR VOLUME 89.8 FL (78-98); MEAN PLATELET VOLUME 11.8 FL (7.4-10.4); MONOCYTES # (AUTO) 0.9 X10'3 (0-0.9); MONOCYTES % (AUTO) 7.5 % (2-12); NEUTROPHILS # (AUTO) 4.6 X10'3 (1.8-7.7); NEUTROPHILS % (AUTO) 39.9 % (42-75); PLATELET COUNT 276 X10'3 (140-440); RED BLOOD COUNT 4.42 X10'6 (4.20-5.60); RED CELL DISTRIBUTION WIDTH 13.3 % (11.5-14.5); WHITE BLOOD COUNT 11.4 X10'3 (4.5-11.0)
[2020-06-26 12:32] LABS: ALANINE AMINOTRANSFERASE 27 U/L (12-78); ALBUMIN 3.5 G/DL (3.4-5.0); ALBUMIN/GLOBULIN RATIO 0.9 (1.1-1.5); ALKALINE PHOSPHATASE 169 IU/L (46-116); ANION GAP 11 (8-16); ASPARTATE AMINO TRANSFERASE 13 U/L (10-37); BILIRUBIN,TOTAL 0.5 MG/DL (0.1-1.0); BLOOD UREA NITROGEN 15 MG/DL (7-18); CHLORIDE 96 MMOL/L (99-107); CREATININE 1.15 MG/DL (0.40-0.90); LIPASE 100 U/L (73-393); POTASSIUM 4.2 MMOL/L (3.5-5.1); SODIUM 132 MMOL/L (135-145); TOTAL CARBON DIOXIDE 25.3 MMOL/L (24-32); TOTAL PROTEIN 7.5 G/DL (6.4-8.2); eGFR 51 ML/MIN
[2020-06-26 12:34] LABS: GLUCOSE 721 MG/DL (70-104)
[2020-06-26] MEDS ORDERED: potassium Cl 20 mEq SR tablet PO STA (12:38)
[2020-06-26] MEDS ORDERED: normal saline 1000ML IV soln IVB ONE ×2 (12:40→15:30)
[2020-06-26] MEDS ORDERED: insulin regular, human 10 units/0.1 ml syringe SQ ONE ×3 (12:40→15:30)
[2020-06-26] MEDS ORDERED: ketorolac tromethamine 15mg/ml inj. IV ONE (12:40)
[2020-06-26 12:52] LABS: BACTERIA,URINE NONE SEEN /HPF (Neg); RBC,URINE NONE SEEN /HPF (0-2); SQUAMOUS EPITHELIAL CELL,UR MANY /LPF (FEW); WBC,URINE NONE SEEN /HPF (0-4); YEAST FEW /HPF (NEGATIVE)
--- NOTE | 2020-06-26 13:02 | NUR ---
PT C/O NAUSEA ,NOTIFIED THE PROVIDER BURN ORDER FOR ZOFRAN IV ONCE 4 MG.
[2020-06-26] MEDS ORDERED: ondansetron/PF 4mg/2ml inj IV ONE ×2 (13:05→15:45)
[2020-06-26] MEDS ORDERED: acetaminophen 325mg tablet PO ONE (14:10)
--- NOTE | 2020-06-26 14:23 | NUR ---
PATIENT UP TO THE BATHROOM.
[2020-06-26] MEDS ORDERED: INSU100V9 SQ (16:27)
[2020-06-26 16:56] VITALS: BP 134/87
== END 2020-06-26 16:57 | disposition home or self-care (01) ==
LOC: ER 11:29
DX: E11.65 Type 2 diabetes mellitus with hyperglycemia (principal); R10.31 Right lower quadrant pain; R11.0 Nausea; G43.909 Migraine, unspecified, not intractable, without status migrainosus; E78.00 Pure hypercholesterolemia, unspecified; I10 Essential (primary) hypertension; I25.2 Old myocardial infarction; M19.90 Unspecified osteoarthritis, unspecified site; G89.29 Other chronic pain; F17.200 Nicotine dependence, unspecified, uncomplicated; Z86.711 Personal history of pulmonary embolism; Z87.442 Personal history of urinary calculi; Z87.440 Personal history of urinary (tract) infections; Z85.9 Personal history of malignant neoplasm, unspecified; Z90.49 Acquired absence of other specified parts of digestive tract; Z90.710 Acquired absence of both cervix and uterus; Z98.890 Other specified postprocedural states; Z88.5 Allergy status to narcotic agent; Z88.8 Allergy status to other drugs, medicaments and biological substances; Z79.4 Long term (current) use of insulin; Z79.899 Other long term (current) drug therapy
CPT/HCPCS: 80053; 81001; 81025; 82948; 83690; 85025; 96361; 96372; 96374; 96375; 96376; 99285; J1815; J1885; J2405; J7030

== ENCOUNTER 2020-08-25 05:53 | Emergency (ER) | payer MEDICAID ==
[~2020-08-25] VITALS: Ht 165.1 cm; Wt 100.0 kg
[~2020-08-25 05:53] MED LIST changes: +INSU100V9 SQ; -LISI-600 PO; +LISI20TA28 PO; +OXYC-150 PO; -PANT40TA54 PO
[2020-08-25 06:00] VITALS: BP 162/109
== END 2020-08-25 07:04 | disposition left against medical advice (07) ==
LOC: ER 05:54
DX: F41.9 Anxiety disorder, unspecified (principal); G43.909 Migraine, unspecified, not intractable, without status migrainosus; E78.00 Pure hypercholesterolemia, unspecified; I10 Essential (primary) hypertension; I25.2 Old myocardial infarction; E11.9 Type 2 diabetes mellitus without complications; M19.90 Unspecified osteoarthritis, unspecified site; G89.29 Other chronic pain; Z87.01 Personal history of pneumonia (recurrent); Z87.442 Personal history of urinary calculi; Z87.440 Personal history of urinary (tract) infections; Z90.49 Acquired absence of other specified parts of digestive tract; Z90.710 Acquired absence of both cervix and uterus; Z90.5 Acquired absence of kidney; Z90.410 Acquired total absence of pancreas; Z79.4 Long term (current) use of insulin; Z79.899 Other long term (current) drug therapy; Z88.6 Allergy status to analgesic agent; Z88.8 Allergy status to other drugs, medicaments and biological substances
CPT/HCPCS: 99281

== ENCOUNTER 2020-08-25 08:16 | Emergency (ER) | payer MEDICAID ==
[~2020-08-25] VITALS: Ht 175.3 cm; Wt 100.0 kg
[2020-08-25 08:28] VITALS: BP 174/96
[2020-08-25] MEDS ORDERED: diphenhydrAMINE 25mg capsule PO ONE (09:30)
[2020-08-25] MEDS ORDERED: LORazepam 1 MG tablet PO ONE (09:30)
== END 2020-08-25 10:25 | disposition home or self-care (01) ==
LOC: ER 08:16
DX: F41.9 Anxiety disorder, unspecified (principal); G47.9 Sleep disorder, unspecified; G43.909 Migraine, unspecified, not intractable, without status migrainosus; E78.00 Pure hypercholesterolemia, unspecified; I10 Essential (primary) hypertension; I25.2 Old myocardial infarction; E11.9 Type 2 diabetes mellitus without complications; M19.90 Unspecified osteoarthritis, unspecified site; G89.29 Other chronic pain; Z87.440 Personal history of urinary (tract) infections; Z87.442 Personal history of urinary calculi; Z90.49 Acquired absence of other specified parts of digestive tract; Z98.890 Other specified postprocedural states; Z79.899 Other long term (current) drug therapy; Z87.891 Personal history of nicotine dependence
CPT/HCPCS: 99283; Q0163

== ENCOUNTER 2020-08-30 02:57 | Emergency (ER) | payer MEDICAID ==
[~2020-08-30] VITALS: Ht 175.3 cm; Wt 95.5 kg
[2020-08-30 03:04] VITALS: BP 166/112
[2020-08-30] MEDS ORDERED: LORazepam 1 MG tablet PO ONE (03:15)
[2020-08-30] MEDS ORDERED: CEPH-585 PO (03:16)
[2020-08-30] MEDS ORDERED: LORA-268 PO (03:16)
== END 2020-08-30 03:25 | disposition home or self-care (01) ==
LOC: ER 02:58
DX: F41.8 Other specified anxiety disorders (principal); N39.0 Urinary tract infection, site not specified; G43.909 Migraine, unspecified, not intractable, without status migrainosus; E78.00 Pure hypercholesterolemia, unspecified; I10 Essential (primary) hypertension; I25.2 Old myocardial infarction; E11.9 Type 2 diabetes mellitus without complications; G89.29 Other chronic pain; M19.90 Unspecified osteoarthritis, unspecified site; Z87.440 Personal history of urinary (tract) infections; Z87.442 Personal history of urinary calculi; Z90.710 Acquired absence of both cervix and uterus; Z86.711 Personal history of pulmonary embolism; Z85.9 Personal history of malignant neoplasm, unspecified; Z90.49 Acquired absence of other specified parts of digestive tract; Z90.5 Acquired absence of kidney; Z88.6 Allergy status to analgesic agent; Z88.8 Allergy status to other drugs, medicaments and biological substances; Z79.4 Long term (current) use of insulin; Z79.899 Other long term (current) drug therapy
CPT/HCPCS: 99283

== ENCOUNTER 2021-01-21 17:24 | Emergency (ER) | payer MEDICAID ==
[~2021-01-21] VITALS: Ht 175.3 cm; Wt 89.5 kg
[~2021-01-21 17:24] MED LIST changes: +CEPH-585 PO; +LOP25T PO; +LORA-268 PO; -METO25TA6 PO
[2021-01-21 17:59] VITALS: BP 130/85
[2021-01-21] MEDS ORDERED: LORazepam 2 mg/ml vial IM ONE (22:45)
== END 2021-01-21 23:01 | disposition home or self-care (01) ==
LOC: ER 17:24
DX: F41.9 Anxiety disorder, unspecified (principal); G43.909 Migraine, unspecified, not intractable, without status migrainosus; E78.00 Pure hypercholesterolemia, unspecified; I10 Essential (primary) hypertension; I25.2 Old myocardial infarction; E11.9 Type 2 diabetes mellitus without complications; G89.29 Other chronic pain; M19.90 Unspecified osteoarthritis, unspecified site; Z87.440 Personal history of urinary (tract) infections; Z87.442 Personal history of urinary calculi; Z85.9 Personal history of malignant neoplasm, unspecified; Z90.49 Acquired absence of other specified parts of digestive tract; Z90.710 Acquired absence of both cervix and uterus; Z98.890 Other specified postprocedural states; Z88.5 Allergy status to narcotic agent; Z88.8 Allergy status to other drugs, medicaments and biological substances; Z79.2 Long term (current) use of antibiotics; Z79.4 Long term (current) use of insulin; Z79.899 Other long term (current) drug therapy
CPT/HCPCS: 82948; 96372; 99283; J2060

== ENCOUNTER 2021-06-29 18:32 | Emergency (ER) | payer MEDICAID ==
--- NOTE | 2021-06-29 19:56 | NUR ---
NOT IN LOBBY
--- NOTE | 2021-06-29 20:15 | NUR ---
NOT IN LOBBY
--- NOTE | 2021-06-29 20:30 | NUR ---
NOT IN LOBBY
== END 2021-06-29 21:22 | disposition left against medical advice (07) ==
LOC: ER 18:33
DX: R07.89 Other chest pain (principal); Z53.21 Procedure and treatment not carried out due to patient leaving prior to being seen by health care provider
CPT/HCPCS: 93005

== ENCOUNTER 2021-06-29 21:46 | Emergency (ER) | payer MEDICAID ==
[~2021-06-29] VITALS: Ht 175.3 cm; Wt 129.1 kg
[2021-06-29 23:44] VITALS: BP 160/86
[2021-06-30 00:55] LABS: ALANINE AMINOTRANSFERASE 19 U/L (12-78); ALBUMIN 3.3 G/DL (3.4-5.0); ALBUMIN/GLOBULIN RATIO 0.8 (1.1-1.5); ALKALINE PHOSPHATASE 184 IU/L (46-116); ANION GAP 9 (8-16); ASPARTATE AMINO TRANSFERASE 7 U/L (10-37); BILIRUBIN,TOTAL 0.2 MG/DL (0.1-1.0); BLOOD UREA NITROGEN 13 MG/DL (7-18); BUN/CREATININE RATIO 12.5 (6.6-38.0); CALCIUM 8.7 MG/DL (8.5-10.1); CHLORIDE 100 MMOL/L (99-107); CREATININE 1.04 MG/DL (0.40-0.90); LIPASE 350 U/L (73-393); SODIUM 134 MMOL/L (135-145); TOTAL CARBON DIOXIDE 25.2 MMOL/L (24-32); TOTAL PROTEIN 7.3 G/DL (6.4-8.2); eGFR 57 ML/MIN
[2021-06-30 01:04] LABS: BASOPHILS # (AUTO) 0.1 X10'3 (0-0.2); BASOPHILS % (AUTO) 0.9 % (0-1); EOSINOPHILS # (AUTO) 0.1 X10'3 (0-0.9); EOSINOPHILS % (AUTO) 0.8 % (0-6); HEMATOCRIT 35.2 % (35.0-45.0); HEMOGLOBIN 11.5 g/dl (12.0-16.0); LYMPHOCYTES # (AUTO) 6.7 X10'3 (1.1-4.8); LYMPHOCYTES % (AUTO) 38.6 % (21-51); MEAN CORPUSCULAR HEMOGLOBIN 29.2 PG (27.0-31.0); MEAN CORPUSCULAR HGB CONC 32.6 g/dL (33.0-36.5); MEAN CORPUSCULAR VOLUME 89.4 FL (78-98); MEAN PLATELET VOLUME 10.6 FL (7.4-10.4); MONOCYTES # (AUTO) 1.7 X10'3 (0-0.9); MONOCYTES % (AUTO) 9.8 % (2-12); NEUTROPHILS # (AUTO) 8.6 X10'3 (1.8-7.7); NEUTROPHILS % (AUTO) 49.9 % (42-75); PLATELET COUNT 453 X10'3 (140-440); RED BLOOD COUNT 3.93 X10'6 (4.20-5.60); RED CELL DISTRIBUTION WIDTH 13.7 % (11.5-14.5); WHITE BLOOD COUNT 17.3 X10'3 (4.5-11.0)
[2021-06-30 01:08] LABS: GLUCOSE 590 MG/DL (70-104)
[2021-06-30] MEDS ORDERED: normal saline 1000ml 1,000 ML IV ONE ×2 (01:10)
[2021-06-30] MEDS ORDERED: insulin regular, human 10 units/0.1 ml syringe IV ONE (01:10)
[2021-06-30] MEDS ORDERED: oxyCODONE/APAP 10/325mg tablet PO ONE ×2 (01:40→02:50)
[2021-06-30 01:54] LABS: CLARITY,URINE CLEAR (Clear); GLUCOSE, URINE >=1000 mg/dl (Neg); KETONES,URINE NEGATIVE (Neg); LEUKOCYTE ESTERASE ,URINE NEGATIVE (Neg); NITRITES, URINE NEGATIVE (Neg); OCCULT BLOOD,URINE NEGATIVE (Neg); PROTEIN,URINE NEGATIVE (Neg); UROBILINOGEN,URINE 0.2 E.U/dL (0.2-1.0)
[2021-06-30 01:56] LABS: URINE HCG NEGATIVE (NEG)
[2021-06-30 02:00] LABS: UA COLLECTION TYPE CLN CATCH MIDSTREAM
[2021-06-30 02:01] LABS: COLOR,URINE STRAW (Yellow)
[2021-06-30 02:05] LABS: BACTERIA,URINE FEW /HPF (Neg); MUCUS STRANDS FEW /LPF (Neg); RBC,URINE 0-2 /HPF (0-2); SQUAMOUS EPITHELIAL CELL,UR FEW /LPF (FEW); WBC,URINE 0-4 /HPF (0-4)
[2021-06-30 02:31] LABS: PLATELET ESTIMATE INCREASED
[2021-06-30 02:32] LABS: LARGE PLATELETS FEW
== END 2021-06-30 04:00 | disposition left against medical advice (07) ==
LOC: ER 21:47
DX: R10.9 Unspecified abdominal pain (principal); R14.0 Abdominal distension (gaseous); R19.7 Diarrhea, unspecified; G43.909 Migraine, unspecified, not intractable, without status migrainosus; E78.00 Pure hypercholesterolemia, unspecified; I10 Essential (primary) hypertension; I25.2 Old myocardial infarction; E11.9 Type 2 diabetes mellitus without complications; M19.90 Unspecified osteoarthritis, unspecified site; G89.29 Other chronic pain; Z87.442 Personal history of urinary calculi; Z87.19 Personal history of other diseases of the digestive system; Z87.440 Personal history of urinary (tract) infections; Z86.711 Personal history of pulmonary embolism; Z85.9 Personal history of malignant neoplasm, unspecified; Z88.8 Allergy status to other drugs, medicaments and biological substances; Z79.2 Long term (current) use of antibiotics; Z79.4 Long term (current) use of insulin; Z79.899 Other long term (current) drug therapy
CPT/HCPCS: 36415; 71045; 74176; 80053; 81001; 81025; 83690; 85008; 85025; 96361; 96374; 99285; J1815; J7030

== ENCOUNTER 2021-07-28 03:09 | Emergency (ER) | payer MEDICAID ==
[~2021-07-28] VITALS: Ht 175.3 cm; Wt 94.5 kg
[2021-07-28] MEDS ORDERED: normal saline 1000ml 1,000 ML IV ONE ×3 (03:40→04:55)
[2021-07-28] MEDS ORDERED: LORazepam 2 mg/ml vial IV ONE (04:05)
[2021-07-28 04:23] LABS: BASOPHILS # (AUTO) 0.1 X10'3 (0-0.2); BASOPHILS % (AUTO) 1.2 % (0-1); EOSINOPHILS # (AUTO) 0.2 X10'3 (0-0.9); EOSINOPHILS % (AUTO) 1.5 % (0-6); HEMATOCRIT 38.9 % (35.0-45.0); HEMOGLOBIN 12.7 g/dl (12.0-16.0); LYMPHOCYTES # (AUTO) 4.9 X10'3 (1.1-4.8); LYMPHOCYTES % (AUTO) 39.4 % (21-51); MEAN CORPUSCULAR HEMOGLOBIN 29.1 PG (27.0-31.0); MEAN CORPUSCULAR HGB CONC 32.6 g/dL (33.0-36.5); MEAN CORPUSCULAR VOLUME 89.1 FL (78-98); MEAN PLATELET VOLUME 10.2 FL (7.4-10.4); MONOCYTES # (AUTO) 0.9 X10'3 (0-0.9); MONOCYTES % (AUTO) 6.9 % (2-12); NEUTROPHILS # (AUTO) 6.3 X10'3 (1.8-7.7); PLATELET COUNT 534 X10'3 (140-440); RED BLOOD COUNT 4.37 X10'6 (4.20-5.60); RED CELL DISTRIBUTION WIDTH 13.7 % (11.5-14.5); WHITE BLOOD COUNT 12.4 X10'3 (4.5-11.0)
[2021-07-28] MEDS ORDERED: morphine 2 MG/ML inj. syringe IV ONE (04:35)
[2021-07-28] MEDS ORDERED: oxyCODONE/APAP 5-325mg tablet PO ONE (04:40)
[2021-07-28 04:42] LABS: ALANINE AMINOTRANSFERASE 18 U/L (12-78); ALBUMIN 3.7 G/DL (3.4-5.0); ALBUMIN/GLOBULIN RATIO 0.9 (1.1-1.5); ALKALINE PHOSPHATASE 147 IU/L (46-116); ANION GAP 9 (8-16); ASPARTATE AMINO TRANSFERASE 11 U/L (10-37); BILIRUBIN,DIRECT 0.1 MG/DL (0-0.3); BILIRUBIN,TOTAL 0.3 MG/DL (0.1-1.0); BLOOD UREA NITROGEN 14 MG/DL (7-18); BUN/CREATININE RATIO 16.9 (6.6-38.0); CALCIUM 9.6 MG/DL (8.5-10.1); CHLORIDE 99 MMOL/L (99-107); CREATININE 0.83 MG/DL (0.40-0.90); LIPASE 172 U/L (73-393); POTASSIUM 4.4 MMOL/L (3.5-5.1); SODIUM 134 MMOL/L (135-145); TOTAL CARBON DIOXIDE 25.6 MMOL/L (24-32); TOTAL PROTEIN 7.8 G/DL (6.4-8.2); eGFR 73 ML/MIN
[2021-07-28 04:44] LABS: GLUCOSE 470 MG/DL (70-104)
[2021-07-28 05:23] LABS: URINE HCG NEGATIVE (NEG)
[2021-07-28 05:38] VITALS: BP 150/80
[2021-07-28 05:39] LABS: CLARITY,URINE CLEAR (Clear); GLUCOSE, URINE >=1000 mg/dl (Neg); KETONES,URINE NEGATIVE (Neg); LEUKOCYTE ESTERASE ,URINE NEGATIVE (Neg); NITRITES, URINE NEGATIVE (Neg); OCCULT BLOOD,URINE NEGATIVE (Neg); PROTEIN,URINE NEGATIVE (Neg); UROBILINOGEN,URINE 0.2 E.U/dL (0.2-1.0)
[2021-07-28 05:40] LABS: COLOR,URINE STRAW (Yellow); UA COLLECTION TYPE NON-SPECIFIED
[2021-07-28 05:47] LABS: FINE GRANULAR CAST 0-3 /LPF (NEGATIVE)
[2021-07-28 05:48] LABS: BACTERIA,URINE NONE SEEN /HPF (Neg); MUCUS STRANDS NONE SEEN /LPF (Neg); RBC,URINE NONE SEEN /HPF (0-2); SQUAMOUS EPITHELIAL CELL,UR MODERATE /LPF (FEW); WBC,URINE 0-4 /HPF (0-4)
== END 2021-07-28 05:59 | disposition home or self-care (01) ==
LOC: ER 03:09
DX: E11.43 Type 2 diabetes mellitus with diabetic autonomic (poly)neuropathy (principal); G43.909 Migraine, unspecified, not intractable, without status migrainosus; E78.00 Pure hypercholesterolemia, unspecified; I10 Essential (primary) hypertension; I25.2 Old myocardial infarction; M19.90 Unspecified osteoarthritis, unspecified site; G89.29 Other chronic pain; Z86.711 Personal history of pulmonary embolism; Z87.442 Personal history of urinary calculi; Z87.440 Personal history of urinary (tract) infections; Z90.49 Acquired absence of other specified parts of digestive tract; Z90.710 Acquired absence of both cervix and uterus; Z88.5 Allergy status to narcotic agent; Z88.8 Allergy status to other drugs, medicaments and biological substances; Z79.2 Long term (current) use of antibiotics; Z79.4 Long term (current) use of insulin; Z79.899 Other long term (current) drug therapy
CPT/HCPCS: 36415; 80048; 80076; 81001; 81025; 82948; 83690; 85025; 96361; 96374; 96375; 99284; J2060; J2270; J7030

== ENCOUNTER 2021-08-07 18:36 | Inpatient (IN) | payer MEDICAID ==
[~2021-08-07] VITALS: Ht 175.3 cm; Wt 79.3 kg
[2021-08-07 19:29] LABS: URINE HCG NEGATIVE (NEG)
[2021-08-07 19:30] LABS: CLARITY,URINE CLEAR (Clear); COLOR,URINE YELLOW (Yellow); GLUCOSE, URINE >=1000 mg/dl (Neg); KETONES,URINE NEGATIVE (Neg); LEUKOCYTE ESTERASE ,URINE NEGATIVE (Neg); NITRITES, URINE NEGATIVE (Neg); OCCULT BLOOD,URINE NEGATIVE (Neg); PH,URINE 6.5 (4.8-8.0); PROTEIN,URINE NEGATIVE (Neg); UROBILINOGEN,URINE 0.2 E.U/dL (0.2-1.0)
[2021-08-07 19:40] LABS: BACTERIA,URINE NONE SEEN /HPF (Neg); RBC,URINE 0-2 /HPF (0-2); SQUAMOUS EPITHELIAL CELL,UR FEW /LPF (FEW); UA COLLECTION TYPE CLN CATCH MIDSTREAM; WBC,URINE NONE SEEN /HPF (0-4); YEAST FEW /HPF (NEGATIVE)
[2021-08-07 19:43] LABS: LYMPHOCYTES # (AUTO) 4.6 X10'3 (1.1-4.8); WHITE BLOOD COUNT 14.9 X10'3 (4.5-11.0)
[2021-08-07 19:45] LABS: BASOPHILS % (AUTO) 0.2 % (0-1); EOSINOPHILS # (AUTO) 0.1 X10'3 (0-0.9); EOSINOPHILS % (AUTO) 0.8 % (0-6); HEMATOCRIT 40.3 % (35.0-45.0); LYMPHOCYTES % (AUTO) 30.8 % (21-51); MEAN CORPUSCULAR HEMOGLOBIN 28.8 PG (27.0-31.0); MEAN CORPUSCULAR HGB CONC 32.3 g/dL (33.0-36.5); MEAN CORPUSCULAR VOLUME 89.3 FL (78-98); MEAN PLATELET VOLUME 10.7 FL (7.4-10.4); MONOCYTES # (AUTO) 0.9 X10'3 (0-0.9); MONOCYTES % (AUTO) 6.2 % (2-12); NEUTROPHILS # (AUTO) 9.2 X10'3 (1.8-7.7); PLATELET COUNT 375 X10'3 (140-440); RED BLOOD COUNT 4.52 X10'6 (4.20-5.60); RED CELL DISTRIBUTION WIDTH 14.1 % (11.5-14.5)
--- NOTE | 2021-08-07 19:47 | NUR ---
pt has hx of anxity and is out of her klonopin says she missed her appt tarik the dr was on vacation
[2021-08-07 20:01] LABS: ALANINE AMINOTRANSFERASE 21 U/L (12-78); ALBUMIN 3.6 G/DL (3.4-5.0); ALBUMIN/GLOBULIN RATIO 0.8 (1.1-1.5); ALKALINE PHOSPHATASE 148 IU/L (46-116); ANION GAP 11 (8-16); ASPARTATE AMINO TRANSFERASE 14 U/L (10-37); BILIRUBIN,TOTAL 0.3 MG/DL (0.1-1.0); BLOOD UREA NITROGEN 19 MG/DL (7-18); BUN/CREATININE RATIO 19.2 (6.6-38.0); CHLORIDE 101 MMOL/L (99-107); CREATININE 0.99 MG/DL (0.40-0.90); LIPASE 111 U/L (73-393); SODIUM 135 MMOL/L (135-145); TOTAL CARBON DIOXIDE 23.3 MMOL/L (24-32); TOTAL PROTEIN 7.9 G/DL (6.4-8.2); eGFR 60 ML/MIN
[2021-08-07 20:31] LABS: POTASSIUM 4.7 MMOL/L (3.5-5.1)
[2021-08-07 20:35] LABS: GLUCOSE 603 MG/DL (70-104)
[2021-08-07] MEDS ORDERED: LORazepam 2 mg/ml vial IM ONE ×2 (21:00→23:45)
[2021-08-07] MEDS ORDERED: insulin regular, human 10 units/0.1 ml syringe IV ONE (21:00)
[2021-08-07] MEDS ORDERED: diphenhydrAMINE 50 mg/ml inj IM ONE ×2 (21:00→23:45)
[2021-08-07] MEDS ORDERED: haloperidol lactate 5mg/ml inj IM ONE ×2 (21:00→23:45)
[2021-08-07] MEDS ORDERED: normal saline 1000ML IV soln IVB ONE (21:00)
--- NOTE | 2021-08-07 21:17 | NUR ---
Patient acutely disorganized. Patient was reportedly attempting to climb into ambulances outside and was brought in. Patient then began taking apart her patient room and taking out cords. Patient given IM medication for patient and staff safety. IM medication given to no visible affect, and patient placed in restraints for patient and staff safety.
--- NOTE | 2021-08-07 22:17 | NUR ---
Patient circulation assessed and found to have good circulation throughout this past hour. Patient still presenting as grossly disorganized and pulling at her restraints constantly, while throwing her body around in bed. Patient unable to engage in verbal communication at this time. Unable to obtain vital signs due to disorganization.
[2021-08-07 22:21] LABS: URINE AMPHETAMINE SCREEN NEGATIVE (Neg); URINE BARBITUATE SCREEN NEGATIVE (Neg); URINE BENZODIAZEPINES SCREEN NEGATIVE (Neg); URINE CANNABINOID SCREEN NEGATIVE (Neg); URINE COCAINE SCREEN NEGATIVE (Neg); URINE METHADONE SCREEN NEGATIVE (Neg); URINE OPIATE SCREEN POSITIVE (Neg); URINE PHENCYCLIDINE SCREEN NEGATIVE (Neg)
--- NOTE | 2021-08-07 23:17 | NUR ---
Patient still very disorganized. Patient has been continuing to pull at restraints constantly, muttering to self under her breath, rolling her eyes around, and presents as grossly disorganized. Patient unable to follow safety commands or verbally communicate at this time. For patient's and staff safety, patient continued in restraints until patient is able to contract for safety.
--- NOTE | 2021-08-07 23:55 | NUR ---
Patient given another round of IM medication - Haldol, Ativan, and Benadryl - to attempt to help patient deescalate.
--- NOTE | 2021-08-08 00:16 | NUR ---
Patient continued in restraints. Patient continues to display gross disorganization and disorientation. Unable to contract for safety. Patient continues to pull at restraints and throw herself around in bed. Will continue to assess. Unable to obtain V/S due to patient agitation. Patient's circulation still WNL.
[2021-08-08] MEDS ORDERED: LORazepam 2 mg/ml vial IV ONE ×2 (00:40→12:10)
[2021-08-08 00:49] LABS: ACETAMINOPHEN < 2.0 UG/ML (10-30)
--- NOTE | 2021-08-08 01:15 | NUR ---
Patient continuing to thrash around in bed. Doctor was able to start IV to begin fluid resuscitation. Patient continuing to display gross disorganization and unable to contract for safety. Staff had unlocked patient's right upper restraint two separate times to attempt to give patient opportunity to display appropriate behavior. Patient continued thrashing and was unable to display safe behavior both times. Restraints continued.
--- NOTE | 2021-08-08 02:08 | NUR ---
Patient still thrashing aroudn in bed. Patient had been given an additional dose of 2mg Ativan IV. Patient also able to be hooked up to the cardiac rehabilitation program director for closer monitoring. Staff has been at the bedside patient's entirety of stay. Patient still grossly disorganized and unable to contract for safety. Orders had been renewed for restraints for patient's and staff's safety.
[2021-08-08] MEDS ORDERED: ketamine 10mg/ml 20ml inj vial IV ONE (02:40)
--- NOTE | 2021-08-08 03:05 | NUR ---
All contacts/family listed on patient's chart attempted to be called for consent for patient's procedure - as she is grossly disorganized and unable to give consent herself. None of immediate family was able to be reached at this time. Due to the emergent issue of patient's condition, scan was decided to be done by the attending, Dr. Fransisca ARNOLD.
[2021-08-08] MEDS: ketamine 50 mg/ml 10ml vial IV ONE ×2 (03:46→04:09)
--- NOTE | 2021-08-08 03:56 | NUR ---
Patient given moderate sedation with Ketamine for head and abdomen CT. Ketamine was pushed by Dr. Gongora. RT was at bedside for procedure and placed patient on 2L of oxygen for patient comfort. Patient tolerated procedure well. Patient's baseline prior to being sedated was grossly disorganized and not oriented leading to inability to assess cognitive change post procedure. CT was obtained successfully.
--- NOTE | 2021-08-08 03:57 | NUR ---
At 0356 after sedation for procedure, patient released from restraints.
--- NOTE | 2021-08-08 04:31 | NUR ---
Patient's vitals were stable during sedation and continue to stay stable as charted. No acute issues noted at this time post sedation.
[2021-08-08] MEDS ORDERED: magnesium 4gm in 100ml NS 100 ML IV PRN (05:55)
[2021-08-08] MEDS ORDERED: acetaminophen 325mg tablet PO PRN (05:55)
[2021-08-08] MEDS ORDERED: magnesium Cl slow-release 64mg tablet PO PRN (05:55)
[2021-08-08] MEDS ORDERED: magnesium 2GM in 50ml NS 50 ML IV PRN (05:55)
[2021-08-08] MEDS ORDERED: potassium Cl 20 mEq SR tablet PO PRN ×2 (05:55)
[2021-08-08] MEDS ORDERED: potassium CL 10mEq/100ml bag 100 ML IV PRN (05:55)
[2021-08-08] MEDS ORDERED: ondansetron/PF 4mg/2ml inj IV PRN (05:55)
[2021-08-08] MEDS ORDERED: MESSAGE TO PHARMACY PO ONE (06:00)
[2021-08-08] MEDS ORDERED: glucagon, human recombinant 1mg kit SUBCUT PRN (06:00)
[2021-08-08] MEDS ORDERED: dextrose ORAL solution 15 GM/59 ML bottle PO PRN ×2 (06:00)
[2021-08-08] MEDS ORDERED: dextrose 50%-water 50ml dispensing syringe IV PRN ×2 (06:00)
[2021-08-08] MEDS ORDERED: CefTRIAXone 2gm/D5W 50ml BAG 50 ML IV ONE (06:15)
[2021-08-08 06:22] LABS: HEMOGLOBIN A1C 12.2 % (4.5-6.2)
[2021-08-08] MEDS ORDERED: vancomycin/NS 1 GM ADD-VANTAGE 250 ML IV ONE (06:40)
[2021-08-08] MEDS: normal saline 1000ml 1,000 ML IV SCH ×2 (07:29→15:55)
[2021-08-08] MEDS: heparin, porcine 5000 units/ml vial SQ SCH ×2 (07:29→21:27)
[2021-08-08] MEDS: K and/or MAG REPLACEMENT MC SCH ×2 (07:32→20:00)
--- NOTE | 2021-08-08 07:35 | NUR ---
CT at bedside. Orders placed for repeat CT scan due to artifact. electrical controls technician to call MD to discuss plan as pt was sedated for last CT.
[2021-08-08] MEDS: insulin Lispro (HumaLOG) vial - multi-dose SQ SCH ×3 (07:54→21:24)
[2021-08-08 09:37] LABS: BASOPHILS # (AUTO) 0.1 X10'3 (0-0.2); BASOPHILS % (AUTO) 0.7 % (0-1); EOSINOPHILS % (AUTO) 0 % (0-6); HEMATOCRIT 38.9 % (35.0-45.0); HEMOGLOBIN 12.5 g/dl (12.0-16.0); LYMPHOCYTES # (AUTO) 2.6 X10'3 (1.1-4.8); LYMPHOCYTES % (AUTO) 12.6 % (21-51); MEAN CORPUSCULAR HEMOGLOBIN 28.4 PG (27.0-31.0); MEAN CORPUSCULAR HGB CONC 32.2 g/dL (33.0-36.5); MEAN CORPUSCULAR VOLUME 88.2 FL (78-98); MEAN PLATELET VOLUME 10.6 FL (7.4-10.4); MONOCYTES # (AUTO) 1.5 X10'3 (0-0.9); MONOCYTES % (AUTO) 7.4 % (2-12); NEUTROPHILS # (AUTO) 16.5 X10'3 (1.8-7.7); NEUTROPHILS % (AUTO) 79.3 % (42-75); PLATELET COUNT 372 X10'3 (140-440); RED BLOOD COUNT 4.41 X10'6 (4.20-5.60); RED CELL DISTRIBUTION WIDTH 13.7 % (11.5-14.5); WHITE BLOOD COUNT 20.8 X10'3 (4.5-11.0)
[2021-08-08 09:44] LABS: ALANINE AMINOTRANSFERASE 22 U/L (12-78); ALBUMIN 3.6 G/DL (3.4-5.0); ALBUMIN/GLOBULIN RATIO 0.9 (1.1-1.5); ALKALINE PHOSPHATASE 92 IU/L (46-116); ANION GAP 8 (8-16); ASPARTATE AMINO TRANSFERASE 16 U/L (10-37); BILIRUBIN,TOTAL 0.8 MG/DL (0.1-1.0); BLOOD UREA NITROGEN 14 MG/DL (7-18); BUN/CREATININE RATIO 17.5 (6.6-38.0); CALCIUM 9.4 MG/DL (8.5-10.1); CHLORIDE 109 MMOL/L (99-107); GLUCOSE 314 MG/DL (70-104); POTASSIUM 3.6 MMOL/L (3.5-5.1); SODIUM 143 MMOL/L (135-145); TOTAL CARBON DIOXIDE 26.5 MMOL/L (24-32); TOTAL PROTEIN 7.6 G/DL (6.4-8.2); eGFR 77 ML/MIN
[2021-08-08 10:00] LABS: LARGE PLATELETS FEW; PLATELET ESTIMATE NORMAL
--- NOTE | 2021-08-08 11:02 | NUR ---
Pt is restless and agitated. 1:1 sitter at bedside. Pt had to be restrained for IV placement. Dr. Guillen updated. Orders placed for Hugh in order to obtain CT scan.
[2021-08-08] MEDS ORDERED: ziprasidone IM 20mg inj **IM only IM ONE (11:05)
[2021-08-08] MEDS ORDERED: OXYC30TA PO (11:36)
[2021-08-08] MEDS ORDERED: OLAN20TA19 PO (11:37)
[2021-08-08] MEDS ORDERED: PROP20TA6 PO (11:39)
[2021-08-08] MEDS ORDERED: CARI1.5C PO (11:39)
[2021-08-08] MEDS ORDERED: INSU100I25 SQ (11:41)
[2021-08-08] MEDS ORDERED: PANT40TA54 PO (11:41)
[2021-08-08] MEDS: CefTRIAXone 2gm/D5W 50ml BAG 50 ML IV SCH (16:40)
[2021-08-08] MEDS ORDERED: morphine 4 MG/ML inj SYRINge IV PRN (18:35)
[2021-08-08] MEDS: VANCOMYCIN 1GM/200ML IVPB 200 ML IV SCH (21:26)
[2021-08-08] MEDS: LORazepam 1 MG tablet PO PRN (21:45)
[2021-08-08] MEDS ORDERED: HYDROcodone/acetaminophen 5mg/325mg tablet PO ONE (22:05)
[2021-08-08 22:50] VITALS: BP 157/95
[2021-08-08] MEDS: insulin glargine (Lantus) pen - multi-dose SQ SCH (23:17)
[2021-08-09] MEDS: normal saline 1000ml 1,000 ML IV SCH ×3 (01:55→17:35)
[2021-08-09 02:00] VITALS: BP 145/80
--- NOTE | 2021-08-09 06:54 | NUR ---
Patient in room PCU 3012C. I have received report from DIANA KEVIN and had the opportunity to ask questions and assume patient care.
[2021-08-09 07:00] VITALS: BP 154/84
[2021-08-09] MEDS: LORazepam 1 MG tablet PO PRN (07:09)
[2021-08-09] MEDS: VANCOMYCIN 1GM/200ML IVPB 200 ML IV SCH ×2 (07:12→19:33)
[2021-08-09] MEDS: heparin, porcine 5000 units/ml vial SQ SCH ×2 (07:13→19:33)
[2021-08-09 07:20] LABS: ALANINE AMINOTRANSFERASE 24 U/L (12-78); ALBUMIN 3.4 G/DL (3.4-5.0); ALBUMIN/GLOBULIN RATIO 0.9 (1.1-1.5); ALKALINE PHOSPHATASE 82 IU/L (46-116); ANION GAP 14 (8-16); ASPARTATE AMINO TRANSFERASE 24 U/L (10-37); BILIRUBIN,TOTAL 1.1 MG/DL (0.1-1.0); BLOOD UREA NITROGEN 11 MG/DL (7-18); BUN/CREATININE RATIO 16.9 (6.6-38.0); CALCIUM 9.3 MG/DL (8.5-10.1); CHLORIDE 105 MMOL/L (99-107); CREATININE 0.65 MG/DL (0.40-0.90); GLUCOSE 348 MG/DL (70-104); POTASSIUM 4.4 MMOL/L (3.5-5.1); SODIUM 142 MMOL/L (135-145); TOTAL CARBON DIOXIDE 22.8 MMOL/L (24-32); eGFR > 90 ML/MIN
[2021-08-09] MEDS: K and/or MAG REPLACEMENT MC SCH ×2 (08:00→19:43)
[2021-08-09 09:25] LABS: BASOPHILS # (AUTO) 0.1 X10'3 (0-0.2); EOSINOPHILS # (AUTO) 0.1 X10'3 (0-0.9); HEMOGLOBIN 12.1 g/dl (12.0-16.0); LYMPHOCYTES # (AUTO) 3.5 X10'3 (1.1-4.8); MEAN CORPUSCULAR VOLUME 89.2 FL (78-98); MEAN PLATELET VOLUME 11.3 FL (7.4-10.4)
[2021-08-09 09:27] LABS: EOSINOPHILS % (AUTO) 0.7 % (0-6); HEMATOCRIT 38.5 % (35.0-45.0); LYMPHOCYTES % (AUTO) 29.3 % (21-51); MEAN CORPUSCULAR HGB CONC 31.4 g/dL (33.0-36.5); MONOCYTES # (AUTO) 0.9 X10'3 (0-0.9); MONOCYTES % (AUTO) 7.5 % (2-12); NEUTROPHILS # (AUTO) 7.3 X10'3 (1.8-7.7); NEUTROPHILS % (AUTO) 61.5 % (42-75); PLATELET COUNT 338 X10'3 (140-440); RED BLOOD COUNT 4.32 X10'6 (4.20-5.60); RED CELL DISTRIBUTION WIDTH 13.4 % (11.5-14.5); WHITE BLOOD COUNT 11.9 X10'3 (4.5-11.0)
[2021-08-09] MEDS: acetaminophen 325mg tablet PO PRN ×2 (10:40→18:37)
--- NOTE | 2021-08-09 10:42 | NUR ---
HAVE NOT BEEN ABLE TO GIVE ROCEPHIN YET DUE TO NOT BEING STOCKED.
[2021-08-09 11:00] VITALS: BP 147/76
[2021-08-09] MEDS: insulin Lispro (HumaLOG) vial - multi-dose SQ SCH ×2 (11:08→18:40)
--- NOTE | 2021-08-09 11:25 | NUR ---
Diabetes Consult: Noted pt w/ hx of DM, A1c 12.2 Pt refused verbal education but was accepting of written DM ed w/ RD contact info Addendum: 08/09/21 at [address] Amended: Links added.
[2021-08-09] MEDS: OXYcodone (OXYCONTIN) Ext Release 15 MG TAB.SR.12H PO PRN (12:53)
[2021-08-09] MEDS: CefTRIAXone 2gm/D5W 50ml BAG 50 ML IV SCH (12:53)
[2021-08-09 15:00] VITALS: BP 137/83
[2021-08-09] MEDS: HYDROmorphone inj. 0.5 MG/0.5 ML DISP.SYRIN IV PRN ×4 (15:30→23:36)
[2021-08-09 18:00] VITALS: BP 141/77
--- NOTE | 2021-08-09 18:59 | NUR ---
Problems reprioritized. Patient report given, questions answered & plan of care reviewed with DIANA CURRY.
[2021-08-09] MEDS ORDERED: clonazePAM 1mg tablet PO PRN (19:00)
[2021-08-09] MEDS ORDERED: VANCOMYCIN LEVEL IV ONE (19:30)
[2021-08-09] MEDS: pantoprazole 40mg Tablet.DR PO SCH (19:32)
[2021-08-09] MEDS: insulin glargine (Lantus) pen - multi-dose SQ SCH (21:26)
[2021-08-09 22:00] VITALS: BP_SYST 112; BP_SYST 151; BP_DIAS 60; BP_DIAS 80
[2021-08-10] MEDS ORDERED: temazepam 15mg capsule PO PRN (00:15)
[2021-08-10] MEDS: LORazepam 1 MG tablet PO PRN ×2 (01:32→16:13)
[2021-08-10 02:00] VITALS: BP 120/64
[2021-08-10] MEDS: HYDROmorphone inj. 0.5 MG/0.5 ML DISP.SYRIN IV PRN ×4 (03:30→19:02)
[2021-08-10 06:00] VITALS: BP 112/60
[2021-08-10 07:13] LABS: BASOPHILS # (AUTO) 0.1 X10'3 (0-0.2); BASOPHILS % (AUTO) 0.8 % (0-1); EOSINOPHILS # (AUTO) 0.4 X10'3 (0-0.9); EOSINOPHILS % (AUTO) 3.4 % (0-6); HEMOGLOBIN 11.4 g/dl (12.0-16.0); LYMPHOCYTES # (AUTO) 5.5 X10'3 (1.1-4.8); LYMPHOCYTES % (AUTO) 47.5 % (21-51); MEAN CORPUSCULAR HEMOGLOBIN 29.1 PG (27.0-31.0); MEAN CORPUSCULAR HGB CONC 32.5 g/dL (33.0-36.5); MEAN CORPUSCULAR VOLUME 89.6 FL (78-98); MEAN PLATELET VOLUME 11.2 FL (7.4-10.4); MONOCYTES # (AUTO) 1.1 X10'3 (0-0.9); MONOCYTES % (AUTO) 9.6 % (2-12); NEUTROPHILS # (AUTO) 4.5 X10'3 (1.8-7.7); NEUTROPHILS % (AUTO) 38.7 % (42-75); PLATELET COUNT 295 X10'3 (140-440); RED BLOOD COUNT 3.91 X10'6 (4.20-5.60); RED CELL DISTRIBUTION WIDTH 13.8 % (11.5-14.5); WHITE BLOOD COUNT 11.6 X10'3 (4.5-11.0)
[2021-08-10] MEDS: pantoprazole 40mg Tablet.DR PO SCH ×2 (07:49→21:34)
[2021-08-10 07:52] LABS: ALANINE AMINOTRANSFERASE 23 U/L (12-78); ALBUMIN 2.7 G/DL (3.4-5.0); ALBUMIN/GLOBULIN RATIO 0.9 (1.1-1.5); ALKALINE PHOSPHATASE 61 IU/L (46-116); ANION GAP 9 (8-16); ASPARTATE AMINO TRANSFERASE 17 U/L (10-37); BILIRUBIN,TOTAL 0.7 MG/DL (0.1-1.0); BLOOD UREA NITROGEN 10 MG/DL (7-18); BUN/CREATININE RATIO 18.5 (6.6-38.0); CALCIUM 8.7 MG/DL (8.5-10.1); CHLORIDE 108 MMOL/L (99-107); CREATININE 0.54 MG/DL (0.40-0.90); GLUCOSE 250 MG/DL (70-104); POTASSIUM 4.1 MMOL/L (3.5-5.1); SODIUM 140 MMOL/L (135-145); TOTAL CARBON DIOXIDE 22.7 MMOL/L (24-32); TOTAL PROTEIN 5.8 G/DL (6.4-8.2); eGFR > 90 ML/MIN
[2021-08-10] MEDS: VANCOMYCIN 1GM/200ML IVPB 200 ML IV SCH (07:53)
[2021-08-10] MEDS: heparin, porcine 5000 units/ml vial SQ SCH ×2 (07:53→20:00)
[2021-08-10] MEDS: CefTRIAXone 2gm/D5W 50ml BAG 50 ML IV SCH (07:53)
[2021-08-10] MEDS: normal saline 1000ml 1,000 ML IV SCH ×2 (07:55→17:55)
[2021-08-10] MEDS: K and/or MAG REPLACEMENT MC SCH ×2 (08:00→20:00)
[2021-08-10] MEDS ORDERED: fentaNYL/PF 50MCG/1 ML 2ML syringe ONE (09:40)
[2021-08-10 11:00] VITALS: BP 148/84
--- NOTE | 2021-08-10 11:00 | NUR ---
Areli Mcneal reported that the patient received a black pouch from a visitor. Patient reported that it was a phone and she went in the bathroom to call her daughter. MD Lin and Charge nurse notified. Charge nurse spoke with patient. spoke with patient and ordered a urinalysis and informed me to give pain medication. Patient is stable, no signs of distress noted.
[2021-08-10 12:32] LABS: OCCULT BLOOD STOOL NEGATIVE (Neg)
--- NOTE | 2021-08-10 13:55 | NUR ---
Patient in room PCU 3012. I have received report from NI and had the opportunity to ask questions and assume patient care.
[2021-08-10 14:14] LABS: URINE AMPHETAMINE SCREEN NEGATIVE (Neg); URINE BARBITUATE SCREEN NEGATIVE (Neg); URINE BENZODIAZEPINES SCREEN NEGATIVE (Neg); URINE CANNABINOID SCREEN NEGATIVE (Neg); URINE COCAINE SCREEN NEGATIVE (Neg); URINE METHADONE SCREEN NEGATIVE (Neg); URINE OPIATE SCREEN NEGATIVE (Neg); URINE PHENCYCLIDINE SCREEN NEGATIVE (Neg)
[2021-08-10] MEDS: insulin Lispro (HumaLOG) vial - multi-dose SQ SCH (14:48)
[2021-08-10 15:00] VITALS: BP 128/81
[2021-08-10 18:00] VITALS: BP 128/81
--- NOTE | 2021-08-10 18:30 | NUR ---
Patient in room PCU 3012. I have received report from Kika ORTIZ and had the opportunity to ask questions and assume patient care.
[2021-08-10] MEDS: insulin glargine (Lantus) pen - multi-dose SQ SCH (21:30)
[2021-08-10] MEDS: OXYcodone (OXYCONTIN) Ext Release 15 MG TAB.SR.12H PO PRN (21:35)
[2021-08-10 22:00] VITALS: BP 157/88
--- NOTE | 2021-08-11 | NUR ---
Problems reprioritized. Patient report given, questions answered & plan of care reviewed with Bernadette ORTIZ.
[2021-08-11] MEDS: HYDROmorphone inj. 0.5 MG/0.5 ML DISP.SYRIN IV PRN ×4 (00:17→14:43)
[2021-08-11 02:00] VITALS: BP 131/81
[2021-08-11] MEDS: vancomycin inj. 1,250 MG in dextrose 5%-water 250 ML IV SCH ×2 (02:00→15:20)
[2021-08-11] MEDS: normal saline 1000ml 1,000 ML IV SCH (03:55)
[2021-08-11 06:00] VITALS: BP 127/66
--- NOTE | 2021-08-11 06:42 | NUR ---
Problems reprioritized. Patient report given, questions answered & plan of care reviewed with DIANA Anand.
[2021-08-11 07:14] LABS: BASOPHILS # (AUTO) 0.2 X10'3 (0-0.2); BASOPHILS % (AUTO) 1.5 % (0-1); EOSINOPHILS # (AUTO) 0.4 X10'3 (0-0.9); EOSINOPHILS % (AUTO) 3.7 % (0-6); HEMATOCRIT 34.3 % (35.0-45.0); LYMPHOCYTES # (AUTO) 6.1 X10'3 (1.1-4.8); LYMPHOCYTES % (AUTO) 50.4 % (21-51); MEAN CORPUSCULAR HEMOGLOBIN 28.7 PG (27.0-31.0); MEAN CORPUSCULAR VOLUME 89.5 FL (78-98); MEAN PLATELET VOLUME 10.8 FL (7.4-10.4); MONOCYTES # (AUTO) 0.8 X10'3 (0-0.9); MONOCYTES % (AUTO) 6.8 % (2-12); NEUTROPHILS # (AUTO) 4.6 X10'3 (1.8-7.7); NEUTROPHILS % (AUTO) 37.6 % (42-75); PLATELET COUNT 293 X10'3 (140-440); RED BLOOD COUNT 3.83 X10'6 (4.20-5.60); RED CELL DISTRIBUTION WIDTH 13.8 % (11.5-14.5); WHITE BLOOD COUNT 12.2 X10'3 (4.5-11.0)
[2021-08-11] MEDS: CefTRIAXone 2gm/D5W 50ml BAG 50 ML IV SCH (07:36)
[2021-08-11] MEDS: pantoprazole 40mg Tablet.DR PO SCH (07:36)
[2021-08-11 07:37] LABS: ALANINE AMINOTRANSFERASE 22 U/L (12-78); ALBUMIN 2.9 G/DL (3.4-5.0); ALBUMIN/GLOBULIN RATIO 0.9 (1.1-1.5); ANION GAP 8 (8-16); ASPARTATE AMINO TRANSFERASE 17 U/L (10-37); BILIRUBIN,TOTAL 0.7 MG/DL (0.1-1.0); BLOOD UREA NITROGEN 10 MG/DL (7-18); BUN/CREATININE RATIO 18.2 (6.6-38.0); CALCIUM 8.9 MG/DL (8.5-10.1); CHLORIDE 109 MMOL/L (99-107); CREATININE 0.55 MG/DL (0.40-0.90); GLUCOSE 269 MG/DL (70-104); POTASSIUM 4.2 MMOL/L (3.5-5.1); SODIUM 141 MMOL/L (135-145); TOTAL CARBON DIOXIDE 23.8 MMOL/L (24-32); eGFR > 90 ML/MIN
[2021-08-11] MEDS: heparin, porcine 5000 units/ml vial SQ SCH (08:00)
[2021-08-11] MEDS: insulin Lispro (HumaLOG) vial - multi-dose SQ SCH ×2 (10:29→15:19)
--- NOTE | 2021-08-11 11:13 | NUR ---
promotional table spacer PAGER ID: [phone] MESSAGE: Lumbar puncture is being performed. Lab orders were requested from you yesterday. No lab orders in currently. Please put in lab orders ALBERTO.
[2021-08-11] MEDS ORDERED: cyclobenzaprine 10mg tablet PO PRN (11:30)
[2021-08-11 12:43] LABS: APPEARANCE,CSF CLEAR; CSF RBC 2 /CU MM (0); CSF SUPERNATANT COLOR COLORLESS; CSF VOLUME 21 ML; TUBE# COUNTED 3
[2021-08-11 12:44] LABS: GLUCOSE,CSF 132 MG/DL (40-75); TOTAL PROTEIN,CSF 64 MG/DL (15-45)
[2021-08-11 12:47] LABS: CSF WBC CT 4 /CU MM (0-5)
[2021-08-11] MEDS ORDERED: METF-1203 PO (14:31)
--- NOTE | 2021-08-11 14:45 | NUR ---
PAIN MEDS GIVEN BY RESOURCE NURSE HUGO RN FOR PRIMARY NURSE EBONY WHILE PRIMARY NURSE ON BREAK HUGO ROACHU
[2021-08-11] MEDS ORDERED: AMOX-580 PO (16:15)
[2021-08-11] MEDS ORDERED: olanzapine 10mg tablet PO SCH (21:00)
[2021-08-11] MEDS ORDERED: propranolol 10mg tablet PO SCH (21:00)
[2021-08-12] MEDS ORDERED: VANCOMYCIN LEVEL IV ONE (13:30)
== END 2021-08-11 06:30 | disposition home or self-care (01) | DRG 420 ==
LOC: ER 18:37 → ED HOLD 08-08 05:57 → PCU 3S 08-08 20:50
PROVIDERS: ADMIT Internal Medicine; ATTEND Internal Medicine
PROC: 009U3ZX Drainage of Spinal Canal, Percutaneous Approach, Diagnostic (ICD-10-PCS; principal; 2021-08-11)
PROC: B01B1ZZ Fluoroscopy of Spinal Cord using Low Osmolar Contrast (ICD-10-PCS; 2021-08-11)
DX: E11.65 Type 2 diabetes mellitus with hyperglycemia (principal); G93.41 Metabolic encephalopathy; Z20.822 Contact with and (suspected) exposure to COVID-19; E78.00 Pure hypercholesterolemia, unspecified; E78.5 Hyperlipidemia, unspecified; F41.9 Anxiety disorder, unspecified; G89.4 Chronic pain syndrome; F17.200 Nicotine dependence, unspecified, uncomplicated; I10 Essential (primary) hypertension; G43.909 Migraine, unspecified, not intractable, without status migrainosus; M19.90 Unspecified osteoarthritis, unspecified site; M25.511 Pain in right shoulder; D72.829 Elevated white blood cell count, unspecified; M25.512 Pain in left shoulder; M54.2 Cervicalgia; I25.2 Old myocardial infarction; Z76.5 Malingerer [conscious simulation]; Z79.4 Long term (current) use of insulin; Z80.0 Family history of malignant neoplasm of digestive organs; Z86.711 Personal history of pulmonary embolism; Z87.442 Personal history of urinary calculi; Z90.411 Acquired partial absence of pancreas; Z90.5 Acquired absence of kidney; Z90.710 Acquired absence of both cervix and uterus; Z90.81 Acquired absence of spleen; Z88.8 Allergy status to other drugs, medicaments and biological substances; Z90.49 Acquired absence of other specified parts of digestive tract
CPT/HCPCS: 36415; 62328; 70450; 74176; 77003; 80053; 80202; 80305; 80329; 81001; 81025; 82140; 82272; 82945; 82948; 83036; 83605; 83690; 84145; 84157; 84484; 85008; 85025; 85651; 87015; 87040; 87070; 87081; 87635; 89051; 94760; 94799; 97110; 97116; 97162; 99285; C9803; G0378; J0696; J1170; J1200; J1630; J1644; J1815; J2060; J3010; J3370; J3486; J3490; J7030; J7060

== ENCOUNTER 2021-11-15 23:03 | Emergency (ER) | payer MEDICAID ==
[~2021-11-15] VITALS: Ht 175.3 cm; Wt 81.8 kg
[~2021-11-15 23:03] MED LIST changes: -CEPH-585 PO; -CLON-527 PO; +INSU100I25 SQ; -INSU100I31 SQ; -INSU100I39 SQ; -INSU100V9 SQ; -LISI20TA28 PO; -LOP25T PO; -LORA-268 PO; +OLAN20TA19 PO; -OXYC-150 PO; +OXYC30TA PO; +PROP20TA6 PO
[2021-11-15 23:29] LABS: BASOPHILS # (AUTO) 0.1 X10'3 (0-0.2); BASOPHILS % (AUTO) 0.5 % (0-1); EOSINOPHILS # (AUTO) 0.2 X10'3 (0-0.9); EOSINOPHILS % (AUTO) 1.1 % (0-6); HEMATOCRIT 38.4 % (35.0-45.0); HEMOGLOBIN 12.3 g/dl (12.0-16.0); LYMPHOCYTES # (AUTO) 4.9 X10'3 (1.1-4.8); MEAN CORPUSCULAR HEMOGLOBIN 28.2 PG (27.0-31.0); MEAN CORPUSCULAR HGB CONC 32.1 g/dL (33.0-36.5); MEAN CORPUSCULAR VOLUME 87.8 FL (78-98); MEAN PLATELET VOLUME 11.2 FL (7.4-10.4); MONOCYTES # (AUTO) 1.1 X10'3 (0-0.9); MONOCYTES % (AUTO) 7.1 % (2-12); NEUTROPHILS # (AUTO) 8.7 X10'3 (1.8-7.7); NEUTROPHILS % (AUTO) 58.3 % (42-75); PLATELET COUNT 330 X10'3 (140-440); RED BLOOD COUNT 4.37 X10'6 (4.20-5.60); RED CELL DISTRIBUTION WIDTH 14.3 % (11.5-14.5)
[2021-11-15 23:41] LABS: CLARITY,URINE CLEAR (Clear); GLUCOSE, URINE >=1000 mg/dl (Neg); KETONES,URINE NEGATIVE (Neg); LEUKOCYTE ESTERASE ,URINE NEGATIVE (Neg); NITRITES, URINE NEGATIVE (Neg); OCCULT BLOOD,URINE NEGATIVE (Neg); PH,URINE 7.5 (4.8-8.0); PROTEIN,URINE NEGATIVE (Neg); URINE HCG NEGATIVE (NEG); UROBILINOGEN,URINE 0.2 E.U/dL (0.2-1.0)
[2021-11-15 23:42] LABS: COLOR,URINE STRAW (Yellow); UA COLLECTION TYPE CLN CATCH MIDSTREAM
[2021-11-15 23:47] LABS: ALANINE AMINOTRANSFERASE 20 U/L (12-78); ALBUMIN 3.7 G/DL (3.4-5.0); ALBUMIN/GLOBULIN RATIO 0.9 (1.1-1.5); ALKALINE PHOSPHATASE 193 IU/L (46-116); ANION GAP 8 (8-16); ASPARTATE AMINO TRANSFERASE 11 U/L (10-37); BILIRUBIN,TOTAL 0.3 MG/DL (0.1-1.0); BLOOD UREA NITROGEN 20 MG/DL (7-18); BUN/CREATININE RATIO 16.4 (6.6-38.0); CALCIUM 9.2 MG/DL (8.5-10.1); CHLORIDE 96 MMOL/L (99-107); CREATININE 1.22 MG/DL (0.40-0.90); LIPASE 293 U/L (73-393); POTASSIUM 4.9 MMOL/L (3.5-5.1); SODIUM 129 MMOL/L (135-145); TOTAL CARBON DIOXIDE 24.8 MMOL/L (24-32); TOTAL PROTEIN 7.8 G/DL (6.4-8.2); eGFR 47 ML/MIN
[2021-11-15 23:47] LABS: BACTERIA,URINE NONE SEEN /HPF (Neg); RBC,URINE NONE SEEN /HPF (0-2); WBC,URINE 0-4 /HPF (0-4)
[2021-11-15 23:48] LABS: MUCUS STRANDS NONE SEEN /LPF (Neg); SQUAMOUS EPITHELIAL CELL,UR FEW /LPF (FEW); YEAST FEW /HPF (NEGATIVE)
[2021-11-15 23:56] LABS: GLUCOSE 665 MG/DL (70-104)
[2021-11-16] MEDS ORDERED: insulin regular, human 10 units/0.1 ml syringe IV ONE (00:15)
[2021-11-16] MEDS ORDERED: ondansetron/PF 4mg/2ml inj IV ONE (00:15)
[2021-11-16] MEDS ORDERED: normal saline 1000ML IV soln IVB ONE (00:55)
[2021-11-16] MEDS ORDERED: oxyCODONE/APAP 10/325mg tablet PO ONE (01:30)
[2021-11-16] MEDS ORDERED: LORazepam 2 mg/ml vial IM ONE (02:45)
[2021-11-16] MEDS ORDERED: LORazepam 2 mg/ml vial IV ONE (02:55)
[2021-11-16] MEDS ORDERED: HYDROmorphone inj. 0.5 MG/0.5 ML DISP.SYRIN IV ONE (03:25)
[2021-11-16 04:03] VITALS: BP 136/95
== END 2021-11-16 06:34 | disposition home or self-care (01) ==
LOC: ER 23:04
DX: N28.1 Cyst of kidney, acquired (principal); G62.9 Polyneuropathy, unspecified; G43.909 Migraine, unspecified, not intractable, without status migrainosus; E78.00 Pure hypercholesterolemia, unspecified; I10 Essential (primary) hypertension; Z87.440 Personal history of urinary (tract) infections; G89.29 Other chronic pain; M54.9 Dorsalgia, unspecified; F41.9 Anxiety disorder, unspecified; E11.9 Type 2 diabetes mellitus without complications; Z88.8 Allergy status to other drugs, medicaments and biological substances; Z88.5 Allergy status to narcotic agent; Z79.899 Other long term (current) drug therapy
CPT/HCPCS: 74176; 80053; 81001; 81025; 82948; 83690; 85025; 96374; 96375; 99284; J1170; J1815; J2060; J2405; J7030

== ENCOUNTER 2021-12-09 06:52 | Day surgery (SDC) | payer MEDICAID ==
[2021-12-04 12:17] LABS: CLARITY,URINE CLEAR (Clear); COLOR,URINE YELLOW (Yellow); GLUCOSE, URINE >=1000 mg/dl (Neg); KETONES,URINE NEGATIVE (Neg); LEUKOCYTE ESTERASE ,URINE NEGATIVE (Neg); NITRITES, URINE NEGATIVE (Neg); OCCULT BLOOD,URINE NEGATIVE (Neg); PROTEIN,URINE NEGATIVE (Neg); UROBILINOGEN,URINE 0.2 E.U/dL (0.2-1.0)
[2021-12-04 12:28] LABS: UA COLLECTION TYPE CLN CATCH MIDSTREAM
[2021-12-04 12:32] LABS: SQUAMOUS EPITHELIAL CELL,UR FEW /LPF (FEW)
[2021-12-04 12:35] LABS: BACTERIA,URINE NONE SEEN /HPF (Neg)
[2021-12-04 12:36] LABS: RBC,URINE NONE SEEN /HPF (0-2); WBC,URINE NONE SEEN /HPF (0-4)
[2021-12-04 12:44] LABS: BASOPHILS # (AUTO) 0.1 X10'3 (0-0.2); BASOPHILS % (AUTO) 1.3 % (0-1); EOSINOPHILS # (AUTO) 0.2 X10'3 (0-0.9); LYMPHOCYTES # (AUTO) 3.5 X10'3 (1.1-4.8); LYMPHOCYTES % (AUTO) 44.4 % (21-51); MEAN CORPUSCULAR HEMOGLOBIN 27.9 PG (27.0-31.0); MEAN CORPUSCULAR HGB CONC 32.4 g/dL (33.0-36.5); MEAN CORPUSCULAR VOLUME 86.2 FL (78-98); MEAN PLATELET VOLUME 11.3 FL (7.4-10.4); MONOCYTES # (AUTO) 0.7 X10'3 (0-0.9); MONOCYTES % (AUTO) 8.5 % (2-12); NEUTROPHILS # (AUTO) 3.5 X10'3 (1.8-7.7); NEUTROPHILS % (AUTO) 43.8 % (42-75); PRE OP HEMATOCRIT 40.1 % (35.0-45.0); PRE OP PLATELET COUNT 234 X10'3 (140-440); RED BLOOD COUNT 4.65 X10'6 (4.20-5.60); RED CELL DISTRIBUTION WIDTH 13.8 % (11.5-14.5)
[2021-12-04 13:07] LABS: ALBUMIN 3.3 G/DL (3.4-5.0); ALBUMIN/GLOBULIN RATIO 0.8 (1.1-1.5); ALKALINE PHOSPHATASE 99 IU/L (46-116); BLOOD UREA NITROGEN 11 MG/DL (7-18); BUN/CREATININE RATIO 17.7 (6.6-38.0); CALCIUM 9.2 MG/DL (8.5-10.1); CHLORIDE 102 MMOL/L (99-107); CREATININE 0.62 MG/DL (0.40-0.90); PRE OP ALT 18 U/L (30-65); PRE OP ANION GAP 7 (8-16); PRE OP BILIRUB, TOTAL 0.5 MG/DL (0.0-1.0); PRE OP SODIUM 135 MMOL/L (135-145); TOTAL CARBON DIOXIDE 26.5 MMOL/L (24-32); TOTAL PROTEIN 7.5 G/DL (6.4-8.2); eGFR > 90 ML/MIN
[2021-12-04 13:13] LABS: PRE OP AST 30 U/L (10-37)
[2021-12-04 13:14] LABS: PRE OP GLUCOSE 249 MG/DL (70-104)
[2021-12-04 13:15] LABS: PRE OP POTASSIUM 5.2 MMOL/L (3.4-5.1)
[2021-12-09] VITALS (21 sets, daily range): BP systolic 101–151; BP diastolic 66–94
[~2021-12-09] VITALS: Ht 170.2 cm; Wt 87.2 kg
[~2021-12-09 06:52] MED LIST changes: +APIX5TAB3 PO; +ATOR40TA72 PO; -CYCL-1 PO; +GABA600T13 PO; +INSU100I45 SQ; +ceFAZolin inj. 2,000 MG in dextrose 5%-water 100 ML IV ONE; +ceFOXitin 2GM-NS 100mL ADDvant 100 ML IV ONE; +famotidine 20mg tablet PO ONE; +ringers solution, lacted 1,000 ML IV SCH
[2021-12-09] MEDS ORDERED: clonazePAM 1mg tablet PO STA (08:26)
[2021-12-09] MEDS ORDERED: BUPIVAcaine 0.5% inj/PF 30 ML ONE (08:58)
[2021-12-09] MEDS ORDERED: midazolam 1 mg/ML 2ml injection ONE (09:24)
[2021-12-09] MEDS ORDERED: fentaNYL /PF 50mcg/ml 5ml ampule ONE (09:25)
[2021-12-09] MEDS ORDERED: rocuronium 10mg/ml inj IV ONE (09:25)
[2021-12-09] MEDS ORDERED: LIDOcaine 2% (20mg/ml) 5ml vial ONE (09:25)
[2021-12-09] MEDS ORDERED: propofol inj 20 ML IV ONE (09:25)
[2021-12-09] MEDS ORDERED: BUPIVACAINE liposomal/PF 13.3 MG/ML vial IM ONE (09:27)
[2021-12-09] MEDS ORDERED: BUPIVAcaine/PF 2.5mg/ml (0.25%) 10ml vial ONE (09:27)
[2021-12-09] MEDS ORDERED: acetaminophen 1000 MG/100ml vial IV ONE (09:29)
[2021-12-09] MEDS ORDERED: dexamethasone sod phosphate 10mg/ml inj ONE (09:29)
[2021-12-09] MEDS ORDERED: sevoflurane 250ml liquid IH ONE (09:29)
[2021-12-09] MEDS ORDERED: insulin regular, human U-100 3ml vial - multi-dose ONE (09:41)
[2021-12-09] MEDS ORDERED: ringers solution, lacted 1,000 ML IV SCH (09:45)
[2021-12-09] MEDS ORDERED: ondansetron/PF 4mg/2ml inj IV PRN (09:45)
[2021-12-09] MEDS ORDERED: HYDROmorphone/PF 0.2 MG/ML SYRINGE IV PRN (09:45)
[2021-12-09] MEDS ORDERED: meperidine/PF 25mg/ml syringe IV PRN ×2 (09:45)
[2021-12-09 09:51] LABS: ISTAT ANION GAP 10 (8-12); ISTAT BUN 20 mg/dL (7-18); ISTAT CL 101 mmol/L (99-107); ISTAT CREATININE 0.6 mg/dL (0.6-1.1); ISTAT K 4.3 mmol/L (3.5-5.1); ISTAT NA 136 mmol/L (135-145); ISTAT TOTAL CO2 25 mmol/L (24-32)
[2021-12-09 09:52] LABS: ISTAT GLUCOSE 213 mg/dL (70-105); ISTAT HGB 12.6 g/dl (12.0-16.0); ISTAT Hct 37 %PCV (35-48); ISTAT IONIZED CALCIUM 1.29 mmol/L (1.03-1.32); ISTAT eGFR > 90 ML/MIN; POC BUN/CREATININE RATIO 33.3 (6.6-38.0)
[2021-12-09] MEDS ORDERED: BUPIVAcaine 0.5% inj/PF 30 ml vial IJ ONE (10:16)
--- NOTE | 2021-12-09 10:23 | NUR ---
Received from OR via HANNAH, accompanied by Anesthesiologist DR WALDRON and report given by Anesthesiologist AND GEAR LAPPER. PT VERY DROWSY W/ETT IN PLACE. UPPER ABDOMEN W/ISLAND DRSG CDI. PT EXTUBATED BY DR WALDRON SHORTLY AFTER ARRIVAL. PT REMAINS DROWSY, NO S/S OF DISTRESS/DISCOMFORT. Addendum: 12/09/21 at 1052 by Nora Edmond RN Amended: Links added.
[2021-12-09] MEDS ORDERED: glycopyrrolate 0.2mg/ml inj ONE (10:50)
[2021-12-09] MEDS ORDERED: neostigmine methylsulfate 1 MG/ML 10ml vial ONE (10:50)
[2021-12-09] MEDS ORDERED: ePHEDrine 50MG/ML INJ. ONE (10:51)
[2021-12-09] MEDS: HYDROmorphone/PF 0.2 MG/ML SYRINGE IV PRN ×2 (10:57→11:08)
[2021-12-09] MEDS ORDERED: OXYcodone (OXYCONTIN) Ext Release 15 MG TAB.SR.12H PO ONE (12:55)
[2021-12-09] MEDS ORDERED: OXYcodone immediate-release 10MG tablet PO ONE (13:10)
[2021-12-09] MEDS ORDERED: oxyCODONE IR 5mg (immed. release) tablet PO ONE (13:30)
--- NOTE | 2021-12-09 13:30 | NUR ---
AWAITING PAIN MEDICATION FROM RX. PT SENT TO [facility] FOR D/C HOME, ROOM 244A. RECEIVING RN AT BEDSIDE TO RECEIVE PT. Addendum: 12/09/21 at 1336 by Nora Edmond RN Amended: Links added.
--- NOTE | 2021-12-09 13:53 | NUR ---
PATIENT A&OX4, STATES PAIN TOLERATED WELL, PIV 20G D/C RUE, SCD OFF, DRESSING TO ABDOMEN CDI, I HAVE REVIEWED D/C INSTRUCTIONS WITH PATIENT AND SHE HAS VERBALIZED UNDERSTANDING. PATIENT C/D HOME WITH ALL BELONGINGS AND [facility] GAVE TRANSPORT- FAMILY AWAITING PATIENT AT DESTINATION TO HELP WITH CARE.
== END 2021-12-09 13:53 | disposition home or self-care (01) ==
LOC: PAS 06:52
PROVIDERS: ATTEND Surgery
DX: K43.2 Incisional hernia without obstruction or gangrene (principal); E11.9 Type 2 diabetes mellitus without complications; G43.909 Migraine, unspecified, not intractable, without status migrainosus; F41.9 Anxiety disorder, unspecified; F32.A Depression, unspecified; I10 Essential (primary) hypertension; I25.2 Old myocardial infarction; Z88.8 Allergy status to other drugs, medicaments and biological substances; Z88.5 Allergy status to narcotic agent; Z86.73 Personal history of transient ischemic attack (TIA), and cerebral infarction without residual deficits; Z85.528 Personal history of other malignant neoplasm of kidney; Z86.711 Personal history of pulmonary embolism; Z87.891 Personal history of nicotine dependence; Z90.49 Acquired absence of other specified parts of digestive tract; Z90.710 Acquired absence of both cervix and uterus; Z90.5 Acquired absence of kidney; Z98.890 Other specified postprocedural states; Z90.81 Acquired absence of spleen; Z79.899 Other long term (current) drug therapy
CPT/HCPCS: 49565; 80047; 80053; 81001; 82948; 85025; 93005; J0131; J0690; J1100; J1170; J1815; J2175; J2250; J2704; J2710; J3010; J3490; J7030; J7060; J7120; S0020; Z7506; Z7512; A4618; A7000; C9290

== ENCOUNTER 2022-01-07 06:12 | Emergency (ER) | payer MEDICAID ==
[~2022-01-07] VITALS: Ht 175.3 cm; Wt 127.3 kg
[~2022-01-07 06:12] MED LIST changes: -ceFAZolin inj. 2,000 MG in dextrose 5%-water 100 ML IV ONE; -ceFOXitin 2GM-NS 100mL ADDvant 100 ML IV ONE; -famotidine 20mg tablet PO ONE; -ringers solution, lacted 1,000 ML IV SCH
[2022-01-07] MEDS ORDERED: ondansetron/PF 4mg/2ml inj IV ONE (07:00)
[2022-01-07] MEDS ORDERED: fentaNYL/PF 50MCG/1 ML 2ML syringe IV ONE (07:00)
[2022-01-07] MEDS ORDERED: normal saline 1000ML IV soln IVB ONE (07:00)
[2022-01-07 07:14] LABS: URINE HCG NEGATIVE (NEG)
[2022-01-07 07:28] LABS: BASOPHILS # (AUTO) 0.1 X10'3 (0-0.2); WHITE BLOOD COUNT 9.6 X10'3 (4.5-11.0)
[2022-01-07 07:30] VITALS: BP 145/84
[2022-01-07 07:30] LABS: BASOPHILS % (AUTO) 0.5 % (0-1); EOSINOPHILS # (AUTO) 0.1 X10'3 (0-0.9); EOSINOPHILS % (AUTO) 0.6 % (0-6); HEMATOCRIT 39.5 % (35.0-45.0); LYMPHOCYTES # (AUTO) 3.1 X10'3 (1.1-4.8); LYMPHOCYTES % (AUTO) 31.7 % (21-51); MEAN CORPUSCULAR HEMOGLOBIN 28.7 PG (27.0-31.0); MEAN PLATELET VOLUME 11.2 FL (7.4-10.4); MONOCYTES # (AUTO) 0.6 X10'3 (0-0.9); MONOCYTES % (AUTO) 5.8 % (2-12); NEUTROPHILS # (AUTO) 5.9 X10'3 (1.8-7.7); NEUTROPHILS % (AUTO) 61.4 % (42-75); PLATELET COUNT 306 X10'3 (140-440); RED BLOOD COUNT 4.54 X10'6 (4.20-5.60); RED CELL DISTRIBUTION WIDTH 13.5 % (11.5-14.5)
--- NOTE | 2022-01-07 07:30 | NUR ---
Pt ambulated to RN station with steady gait. Stated that the fentanyl given was ineffective in treating her pain.
[2022-01-07] MEDS ORDERED: normal saline 1000ml 1,000 ML IV ONE (07:35)
[2022-01-07 07:57] LABS: CLARITY,URINE CLEAR (Clear); GLUCOSE, URINE >=1000 mg/dl (Neg); KETONES,URINE TRACE mg/dl (Neg); LEUKOCYTE ESTERASE ,URINE NEGATIVE (Neg); NITRITES, URINE NEGATIVE (Neg); OCCULT BLOOD,URINE NEGATIVE (Neg); PROTEIN,URINE NEGATIVE (Neg); UROBILINOGEN,URINE 0.2 E.U/dL (0.2-1.0)
--- NOTE | 2022-01-07 08:01 | NUR ---
Pt calling out. Went to bedside, pt stated that she wanted to make sure the MD was aware her pain was not controlled with fentanyl given.
[2022-01-07 08:02] LABS: UA COLLECTION TYPE CLN CATCH MIDSTREAM
[2022-01-07 08:12] LABS: BACTERIA,URINE NONE SEEN /HPF (Neg); RBC,URINE NONE SEEN /HPF (0-2); SQUAMOUS EPITHELIAL CELL,UR FEW /LPF (FEW); WBC,URINE NONE SEEN /HPF (0-4)
[2022-01-07 08:34] LABS: COLOR,URINE STRAW (Yellow)
[2022-01-07 08:36] LABS: ALANINE AMINOTRANSFERASE 12 U/L (12-78); ALBUMIN 3.6 G/DL (3.4-5.0); ALBUMIN/GLOBULIN RATIO 0.9 (1.1-1.5); ALKALINE PHOSPHATASE 111 IU/L (46-116); ANION GAP 13 (8-16); ASPARTATE AMINO TRANSFERASE 14 U/L (10-37); BLOOD UREA NITROGEN 18 MG/DL (7-18); BUN/CREATININE RATIO 17.3 (6.6-38.0); CHLORIDE 92 MMOL/L (99-107); CREATININE 1.04 MG/DL (0.40-0.90); LIPASE 86 U/L (73-393); SODIUM 126 MMOL/L (135-145); TOTAL PROTEIN 7.6 G/DL (6.4-8.2); eGFR 56 ML/MIN
[2022-01-07] MEDS ORDERED: ibuprofen tablet 400 MG TABLET PO ONE (09:00)
[2022-01-07 09:07] LABS: GLUCOSE 855 MG/DL (70-104)
[2022-01-07] MEDS ORDERED: insulin regular, human 10 units/0.1 ml syringe IV ONE ×2 (09:10→09:15)
[2022-01-07 09:16] LABS: LARGE PLATELETS MODERATE; PLATELET ESTIMATE NORMAL
[2022-01-07 09:17] LABS: BURR CELLS FEW; SCHISTOCYTES FEW
--- NOTE | 2022-01-07 09:26 | NUR ---
Went in to pt's room to give insulin. Pt upset, stating she wants her IV out so she can leave. Convinced pt to let me dose insulin prior to her leaving. Pt ambulated out of dept, refusing to stay for further treatment.
== END 2022-01-07 09:39 | disposition left against medical advice (07) ==
LOC: ER 06:13
DX: E11.65 Type 2 diabetes mellitus with hyperglycemia (principal); G43.909 Migraine, unspecified, not intractable, without status migrainosus; I10 Essential (primary) hypertension; M19.90 Unspecified osteoarthritis, unspecified site; G89.29 Other chronic pain; M54.50 Low back pain, unspecified; F15.20 Other stimulant dependence, uncomplicated; Z88.5 Allergy status to narcotic agent; Z88.8 Allergy status to other drugs, medicaments and biological substances
CPT/HCPCS: 36415; 71045; 80053; 81001; 81025; 82948; 83690; 85008; 85025; 96361; 96374; 96375; 96376; 99284; J1815; J2405; J3010; J7030

== ENCOUNTER 2022-02-07 09:52 | Emergency (ER) | payer MEDICAID ==
[~2022-02-07] VITALS: Ht 175.3 cm; Wt 81.8 kg
[~2022-02-07 09:52] MED LIST changes: +CYCL-1 PO; +GABA300C PO; -GABA600T13 PO; +OXYC1TAB17 PO; +PROP10TA10 PO; -PROP20TA6 PO
[2022-02-07 11:07] LABS: BASOPHILS # (AUTO) 0.1 X10'3 (0-0.2); BASOPHILS % (AUTO) 0.6 % (0-1); EOSINOPHILS # (AUTO) 0.1 X10'3 (0-0.9); EOSINOPHILS % (AUTO) 0.8 % (0-6); HEMATOCRIT 48.3 % (35.0-45.0); HEMOGLOBIN 15.3 g/dl (12.0-16.0); LYMPHOCYTES % (AUTO) 26.1 % (21-51); MEAN CORPUSCULAR HEMOGLOBIN 28.2 PG (27.0-31.0); MEAN CORPUSCULAR HGB CONC 31.7 g/dL (33.0-36.5); MEAN CORPUSCULAR VOLUME 89.1 FL (78-98); MEAN PLATELET VOLUME 11.4 FL (7.4-10.4); MONOCYTES # (AUTO) 0.5 X10'3 (0-0.9); NEUTROPHILS % (AUTO) 68.5 % (42-75); PLATELET COUNT 285 X10'3 (140-440); RED BLOOD COUNT 5.42 X10'6 (4.20-5.60); RED CELL DISTRIBUTION WIDTH 14.4 % (11.5-14.5); WHITE BLOOD COUNT 11.6 X10'3 (4.5-11.0)
[2022-02-07 11:20] LABS: LARGE PLATELETS FEW; PLATELET ESTIMATE NORMAL; POIKILOCYTOSIS FEW
--- NOTE | 2022-02-07 11:29 | NUR ---
Pt has multiple ecchymotic areas on B UE. Pt is on blood thinners.
[2022-02-07 11:30] LABS: ALANINE AMINOTRANSFERASE 51 U/L (12-78); ALBUMIN 4.3 G/DL (3.4-5.0); ALBUMIN/GLOBULIN RATIO 0.9 (1.1-1.5); ALKALINE PHOSPHATASE 246 IU/L (46-116); ANION GAP 14 (8-16); ASPARTATE AMINO TRANSFERASE 37 U/L (10-37); BLOOD UREA NITROGEN 15 MG/DL (7-18); BUN/CREATININE RATIO 12.8 (6.6-38.0); CALCIUM 9.9 MG/DL (8.5-10.1); CHLORIDE 91 MMOL/L (99-107); CREATININE 1.17 MG/DL (0.40-0.90); SODIUM 126 MMOL/L (135-145); TOTAL CARBON DIOXIDE 21.4 MMOL/L (24-32); TOTAL PROTEIN 9.2 G/DL (6.4-8.2); eGFR 49 ML/MIN
[2022-02-07] MEDS ORDERED: acetaminophen 325mg tablet PO ONE (11:40)
[2022-02-07] MEDS ORDERED: ondansetron/PF 4mg/2ml inj IV ONE (11:40)
[2022-02-07 11:51] LABS: GLUCOSE 849 MG/DL (70-104)
[2022-02-07] MEDS ORDERED: ringers solution, lacted 1,000 ML IV ONE ×3 (12:15→14:35)
[2022-02-07 12:26] LABS: CREATININE,URINE RANDOM 6.1 MG/DL
[2022-02-07] MEDS ORDERED: oxyCODONE/APAP 10/325mg tablet PO ONE (13:30)
[2022-02-07 13:33] LABS: LIPASE 269 U/L (73-393)
[2022-02-07] MEDS ORDERED: famotidine/PF 10 mg/ml inj IV ONE (14:35)
[2022-02-07] MEDS ORDERED: mag hydrox/Alum hydrox/simeth 30ml oral suspension PO ONE (14:35)
[2022-02-07] MEDS ORDERED: insulin regular, human 10 units/0.1 ml syringe IV ONE ×2 (14:35→15:45)
[2022-02-07 16:35] LABS: CLARITY,URINE SLIGHTLY CLOUDY (Clear); GLUCOSE, URINE >=1000 mg/dl (Neg); KETONES,URINE 15 mg/dl (Neg); LEUKOCYTE ESTERASE ,URINE NEGATIVE (Neg); NITRITES, URINE NEGATIVE (Neg); OCCULT BLOOD,URINE NEGATIVE (Neg); PROTEIN,URINE NEGATIVE (Neg); UROBILINOGEN,URINE 0.2 E.U/dL (0.2-1.0)
[2022-02-07 16:38] LABS: COLOR,URINE STRAW (Yellow); UA COLLECTION TYPE NON-SPECIFIED
[2022-02-07 16:43] LABS: BACTERIA,URINE FEW /HPF (Neg); RBC,URINE 0-2 /HPF (0-2); SQUAMOUS EPITHELIAL CELL,UR MODERATE /LPF (FEW); WBC,URINE 0-4 /HPF (0-4)
[2022-02-07 16:44] LABS: YEAST MODERATE /HPF (NEGATIVE)
[2022-02-07 17:00] VITALS: BP 130/83
--- NOTE | 2022-02-07 17:00 | NUR ---
Pt given and understands d/c instructions. IV d/c'd, catheter was intact. Ambulatory with a steady gait.
[2022-02-08] MEDS ORDERED: OXYC30TA PO (17:05)
[2022-02-08] MEDS ORDERED: APIX5TAB3 PO (17:05)
[2022-02-08] MEDS ORDERED: OLAN20TA34 PO (17:05)
[2022-02-08] MEDS ORDERED: LISI20TA28 PO (17:05)
[2022-02-08] MEDS ORDERED: GABA300C PO (17:05)
[2022-02-08] MEDS ORDERED: INSU100I8 SQ (17:05)
== END 2022-02-07 17:00 | disposition home or self-care (01) ==
LOC: ER 09:52
DX: R10.13 Epigastric pain (principal); R06.02 Shortness of breath; E87.6 Hypokalemia; R11.0 Nausea; G43.909 Migraine, unspecified, not intractable, without status migrainosus; E78.00 Pure hypercholesterolemia, unspecified; I10 Essential (primary) hypertension; G89.29 Other chronic pain; M54.9 Dorsalgia, unspecified; F41.9 Anxiety disorder, unspecified; Z90.49 Acquired absence of other specified parts of digestive tract; F15.10 Other stimulant abuse, uncomplicated; Z79.899 Other long term (current) drug therapy
CPT/HCPCS: 36415; 71045; 74176; 80053; 81001; 82009; 82570; 82800; 82948; 83690; 83880; 83930; 83935; 84300; 84484; 84540; 85008; 85025; 93005; 96361; 96374; 96375; 96376; 99285; J1815; J2405; J3490; J7120

== ENCOUNTER 2022-02-08 14:20 | Inpatient (IN) | payer MEDICAID ==
[~2022-02-08] VITALS: Ht 175.3 cm; Wt 81.8 kg
[2022-02-08 14:58] LABS: BASOPHILS # (AUTO) 0.1 X10'3 (0-0.2); BASOPHILS % (AUTO) 0.6 % (0-1); EOSINOPHILS % (AUTO) 0.1 % (0-6); HEMATOCRIT 41.5 % (35.0-45.0); HEMOGLOBIN 12.9 g/dl (12.0-16.0); LYMPHOCYTES # (AUTO) 2.3 X10'3 (1.1-4.8); LYMPHOCYTES % (AUTO) 14.3 % (21-51); MEAN CORPUSCULAR HEMOGLOBIN 27.8 PG (27.0-31.0); MEAN CORPUSCULAR HGB CONC 31.1 g/dL (33.0-36.5); MEAN CORPUSCULAR VOLUME 89.6 FL (78-98); MEAN PLATELET VOLUME 12.5 FL (7.4-10.4); MONOCYTES # (AUTO) 0.7 X10'3 (0-0.9); MONOCYTES % (AUTO) 4.3 % (2-12); NEUTROPHILS # (AUTO) 12.8 X10'3 (1.8-7.7); NEUTROPHILS % (AUTO) 80.7 % (42-75); PLATELET COUNT 329 X10'3 (140-440); RED BLOOD COUNT 4.64 X10'6 (4.20-5.60); RED CELL DISTRIBUTION WIDTH 14.3 % (11.5-14.5); WHITE BLOOD COUNT 15.9 X10'3 (4.5-11.0)
[2022-02-08] MEDS ORDERED: diazepam 5mg tablet PO ONE (15:15)
[2022-02-08 15:22] LABS: ALANINE AMINOTRANSFERASE 37 U/L (12-78); ALBUMIN 3.4 G/DL (3.4-5.0); ALBUMIN/GLOBULIN RATIO 0.8 (1.1-1.5); ALKALINE PHOSPHATASE 120 IU/L (46-116); ANION GAP 15 (8-16); ASPARTATE AMINO TRANSFERASE 25 U/L (10-37); BLOOD UREA NITROGEN 18 MG/DL (7-18); BUN/CREATININE RATIO 15.1 (6.6-38.0); CALCIUM 8.7 MG/DL (8.5-10.1); CHLORIDE 86 MMOL/L (99-107); CREATININE 1.19 MG/DL (0.40-0.90); POTASSIUM 4.5 MMOL/L (3.5-5.1); TOTAL CARBON DIOXIDE 15.7 MMOL/L (24-32); TOTAL PROTEIN 7.6 G/DL (6.4-8.2); eGFR 48 ML/MIN
[2022-02-08] MEDS ORDERED: normal saline 1000ML IV soln IVB ONE (15:40)
[2022-02-08 15:54] LABS: PLATELET ESTIMATE NORMAL
[2022-02-08 15:55] LABS: LARGE PLATELETS FEW; SODIUM 117 MMOL/L (135-145)
[2022-02-08 15:56] LABS: GLUCOSE 996 MG/DL (70-104)
--- NOTE | 2022-02-08 15:58 | NUR ---
lizz correa and kerry aguiar informed of critical lab values
[2022-02-08] MEDS ORDERED: insulin regular, human U-100 3ml vial - multi-dose IV PRN ×2 (16:00→17:00)
[2022-02-08] MEDS ORDERED: Insulin Reg/NS 100units/100mL 100 ML IV SCH ×2 (16:00→17:00)
[2022-02-08] MEDS ORDERED: normal saline 1000ml 1,000 ML IV SCH (16:00)
[2022-02-08] MEDS ORDERED: potassium CL 20mEq in D5-1/2NS 1,000 ML IV PRN ×2 (16:00→17:00)
[2022-02-08] MEDS: normal saline 1000ml 1,000 ML IV SCH ×6 (16:19→23:10)
[2022-02-08 16:32] LABS: CLARITY,URINE SLIGHTLY CLOUDY (Clear); GLUCOSE, URINE >=1000 mg/dl (Neg); KETONES,URINE 15 mg/dl (Neg); LEUKOCYTE ESTERASE ,URINE NEGATIVE (Neg); NITRITES, URINE NEGATIVE (Neg); OCCULT BLOOD,URINE NEGATIVE (Neg); PROTEIN,URINE NEGATIVE (Neg); UROBILINOGEN,URINE 0.2 E.U/dL (0.2-1.0)
[2022-02-08 16:34] LABS: COLOR,URINE STRAW (Yellow); UA COLLECTION TYPE CLN CATCH MIDSTREAM
[2022-02-08 16:37] LABS: ABG BASE EXCESS -6.3 mmol/L (-2.0-2.0); ABG HCO3 17.1 mmol/L (22.0-26.0); ABG PCO2 (T) 28.2 mmHg (32.0-45.0); ABG PO2 (T) 91.3 mmHg (75.0-100.0); ALLEN'S TEST POSITIVE; FCOHb 0.4 % (0.0-3.9); FMetHb 0.2 % (0.0-1.5); FO2Hb 96.4 % (94-97); TOTAL HEMOGLOBIN 13.6 G/dl (12.0-16.0)
[2022-02-08 16:45] LABS: URINE AMPHETAMINE SCREEN NEGATIVE (Neg); URINE BARBITUATE SCREEN NEGATIVE (Neg); URINE BENZODIAZEPINES SCREEN NEGATIVE (Neg); URINE CANNABINOID SCREEN NEGATIVE (Neg); URINE COCAINE SCREEN NEGATIVE (Neg); URINE METHADONE SCREEN NEGATIVE (Neg); URINE OPIATE SCREEN NEGATIVE (Neg); URINE PHENCYCLIDINE SCREEN NEGATIVE (Neg)
[2022-02-08 16:51] LABS: RBC,URINE NONE SEEN /HPF (0-2); WBC,URINE 0-4 /HPF (0-4)
[2022-02-08 16:52] LABS: BACTERIA,URINE FEW /HPF (Neg); SQUAMOUS EPITHELIAL CELL,UR MODERATE /LPF (FEW); YEAST FEW /HPF (NEGATIVE)
[2022-02-08] MEDS ORDERED: magnesium 4gm in 100ml NS 100 ML IV PRN (17:00)
[2022-02-08] MEDS ORDERED: magnesium 2GM in 50ml NS 50 ML IV PRN (17:00)
[2022-02-08] MEDS ORDERED: sodium phosphate inj. 15 MMOL in dextrose 5%-water 250 ML IV PRN (17:00)
[2022-02-08] MEDS ORDERED: acetaminophen 325mg tablet PO PRN (17:00)
[2022-02-08] MEDS ORDERED: sodium bicarbonate (8.4%) inj. 50 MEQ in dextrose 5% water 500ml 250 ML IV PRN (17:00)
[2022-02-08] MEDS ORDERED: morphine 2 MG/ML inj. syringe IV PRN ×2 (17:00)
[2022-02-08] MEDS ORDERED: potassium CL 10mEq/100ml bag 100 ML IV PRN (17:00)
[2022-02-08] MEDS ORDERED: magnesium hydroxide 30ml (MOM) UD suspension PO PRN (17:00)
[2022-02-08] MEDS ORDERED: mag hydrox/Alum hydrox/simeth 30ml oral suspension PO PRN (17:00)
[2022-02-08] MEDS ORDERED: sodium bicarbonate (8.4%) inj. 100 MEQ in dextrose 5% water 500ml 500 ML IV PRN (17:00)
[2022-02-08] MEDS ORDERED: POTASSIUM BICARB 20meq eff tab 20 MEQ TABLET.EFF PO PRN ×2 (17:00)
[2022-02-08] MEDS ORDERED: Neutra Phos packet PO PRN (17:00)
[2022-02-08] MEDS ORDERED: HYDROcodone/acetaminophen 5mg/325mg tablet PO PRN (17:00)
[2022-02-08] MEDS ORDERED: sodium phosphate inj. 30 MMOL in dextrose 5%-water 250 ML IV PRN (17:00)
[2022-02-08] MEDS ORDERED: INSU100I8 SQ (17:05)
[2022-02-08] MEDS ORDERED: OXYC30TA PO (17:05)
[2022-02-08] MEDS ORDERED: OLAN20TA34 PO (17:05)
[2022-02-08] MEDS ORDERED: LISI20TA28 PO (17:05)
[2022-02-08] MEDS ORDERED: APIX5TAB3 PO (17:05)
[2022-02-08] MEDS ORDERED: GABA300C PO (17:05)
[2022-02-08] MEDS ORDERED: HYDROcodone/acetaminophen 10/325mg tab PO ONE (17:05)
[2022-02-08] MEDS ORDERED: non-formulary drug (Oxycodone Hcl 1 TAB) PO PRN (17:15)
[2022-02-08] MEDS ORDERED: cyclobenzaprine 10mg tablet PO PRN (17:15)
[2022-02-08] MEDS ORDERED: propranolol 10mg tablet PO PRN (17:15)
[2022-02-08 18:12] LABS: ALBUMIN 3.7 G/DL (3.4-5.0); ANION GAP 17 (8-16); BLOOD UREA NITROGEN 20 MG/DL (7-18); BUN/CREATININE RATIO 16.8 (6.6-38.0); CALCIUM 9.3 MG/DL (8.5-10.1); CHLORIDE 90 MMOL/L (99-107); CREATININE 1.19 MG/DL (0.40-0.90); ETHANOL < 0.010 GM/DL (0.0-0.010); POTASSIUM 4.3 MMOL/L (3.5-5.1); SODIUM 124 MMOL/L (135-145); TOTAL CARBON DIOXIDE 17.2 MMOL/L (24-32); eGFR 48 ML/MIN
[2022-02-08 18:24] LABS: PHOSPHORUS 5.4 MG/DL (2.3-4.5)
[2022-02-08 18:37] LABS: GLUCOSE 817 MG/DL (70-104)
[2022-02-08] MEDS: ondansetron/PF 4mg/2ml inj IV PRN (19:09)
[2022-02-08] MEDS ORDERED: apixaban 5mg tablet PO SCH (20:00)
[2022-02-08] MEDS: K and/or MAG REPLACEMENT MC SCH (20:00)
[2022-02-08] MEDS: docusate sod 100mg capsule PO SCH (21:39)
[2022-02-08 21:41] LABS: ALANINE AMINOTRANSFERASE 30 U/L (12-78); ALBUMIN 3.2 G/DL (3.4-5.0); ALBUMIN/GLOBULIN RATIO 0.9 (1.1-1.5); ALKALINE PHOSPHATASE 94 IU/L (46-116); ANION GAP 10 (8-16); ASPARTATE AMINO TRANSFERASE 14 U/L (10-37); BILIRUBIN,TOTAL 0.7 MG/DL (0.1-1.0); BLOOD UREA NITROGEN 13 MG/DL (7-18); BUN/CREATININE RATIO 17.3 (6.6-38.0); CALCIUM 8.4 MG/DL (8.5-10.1); CHLORIDE 107 MMOL/L (99-107); CREATININE 0.75 MG/DL (0.40-0.90); GLUCOSE 274 MG/DL (70-104); POTASSIUM 3.3 MMOL/L (3.5-5.1); SODIUM 138 MMOL/L (135-145); TOTAL CARBON DIOXIDE 21.1 MMOL/L (24-32); TOTAL PROTEIN 6.8 G/DL (6.4-8.2); eGFR 82 ML/MIN
[2022-02-08 21:50] LABS: LIPASE 174 U/L (73-393); PHOSPHORUS 2.7 MG/DL (2.3-4.5)
[2022-02-08] MEDS: apixaban 5mg tablet PO SCH (22:18)
[2022-02-08] MEDS: olanzapine 10mg tablet PO SCH (22:34)
[2022-02-08] MEDS: atorvastatin 20mg tablet PO SCH (22:35)
[2022-02-08] MEDS: gabapentin 300mg capsule PO SCH (22:35)
--- NOTE | 2022-02-08 23:00 | NUR ---
Arrived from ER on [facility] and was able to transfer self to hospital bed w/o problem.
[2022-02-08] MEDS: HYDROcodone/acetaminophen 10/325mg tab PO PRN (23:40)
[2022-02-08] MEDS ORDERED: DEXTROSE 15 GM of carb/4 tabs (each vial/BOTTLE has 4 tablets) PO PRN ×2 (23:45)
[2022-02-08] MEDS ORDERED: glucagon, human recombinant 1mg kit SUBCUT PRN (23:45)
[2022-02-08] MEDS ORDERED: dextrose 50%-water 50ml dispensing syringe IV PRN ×2 (23:45)
[2022-02-09] VITALS: BP 178/9
[2022-02-09] MEDS: insulin Lispro (HumaLOG) vial - multi-dose SQ SCH ×5 (00:37→19:02)
[2022-02-09] MEDS: normal saline 1000ml 1,000 ML IV SCH ×6 (01:00→23:54)
[2022-02-09] MEDS: ondansetron/PF 4mg/2ml inj IV PRN (04:31)
--- NOTE | 2022-02-09 06:14 | NUR ---
Problems reprioritized. Patient report given, questions answered & plan of care reviewed with DIANA Solis.
--- NOTE | 2022-02-09 06:22 | NUR ---
Patient in room PCU 3017. I have received report from Jeimy ORTIZ and had the opportunity to ask questions and assume patient care.Patient is resting in bed in no acute distress.
[2022-02-09 07:00] VITALS: BP 146/87
--- NOTE | 2022-02-09 07:39 | NUR ---
Page Sent promotional table spacer PAGER ID: [phone] MESSAGE: [id number]. Palato. Pt off insulin gtt. BG 316. Humalog was given last night but no lantus. Would you like a one time order of lantus given this am with Humalog after breakfast? no labs this morning stat labs ordered. Irma @3335
[2022-02-09] MEDS ORDERED: insulin glargine (Lantus) pen - multi-dose SQ ONE (07:40)
[2022-02-09 07:43] LABS: BASOPHILS # (AUTO) 0.1 X10'3 (0-0.2); BASOPHILS % (AUTO) 1.2 % (0-1); EOSINOPHILS # (AUTO) 0.2 X10'3 (0-0.9); EOSINOPHILS % (AUTO) 1.7 % (0-6); HEMATOCRIT 36.6 % (35.0-45.0); HEMOGLOBIN 11.8 g/dl (12.0-16.0); LYMPHOCYTES # (AUTO) 3.9 X10'3 (1.1-4.8); LYMPHOCYTES % (AUTO) 40.1 % (21-51); MEAN CORPUSCULAR HEMOGLOBIN 28.2 PG (27.0-31.0); MEAN CORPUSCULAR HGB CONC 32.2 g/dL (33.0-36.5); MEAN CORPUSCULAR VOLUME 87.4 FL (78-98); MEAN PLATELET VOLUME 12.5 FL (7.4-10.4); MONOCYTES # (AUTO) 0.7 X10'3 (0-0.9); MONOCYTES % (AUTO) 7.1 % (2-12); NEUTROPHILS # (AUTO) 4.9 X10'3 (1.8-7.7); NEUTROPHILS % (AUTO) 49.9 % (42-75); PLATELET COUNT 345 X10'3 (140-440); RED BLOOD COUNT 4.19 X10'6 (4.20-5.60); RED CELL DISTRIBUTION WIDTH 14.2 % (11.5-14.5); WHITE BLOOD COUNT 9.7 X10'3 (4.5-11.0)
[2022-02-09] MEDS: K and/or MAG REPLACEMENT MC SCH ×2 (08:00→20:00)
[2022-02-09] MEDS: gabapentin 300mg capsule PO SCH ×3 (08:02→20:46)
[2022-02-09] MEDS: docusate sod 100mg capsule PO SCH ×2 (08:02→20:53)
[2022-02-09] MEDS: apixaban 5mg tablet PO SCH ×2 (08:02→20:44)
[2022-02-09] MEDS: lisinopril 20mg tablet PO SCH (08:03)
[2022-02-09] MEDS: HYDROcodone/acetaminophen 10/325mg tab PO PRN ×4 (08:04→22:11)
[2022-02-09 08:21] LABS: ALBUMIN 3.1 G/DL (3.4-5.0); ANION GAP 12 (8-16); BLOOD UREA NITROGEN 8 MG/DL (7-18); BUN/CREATININE RATIO 13.1 (6.6-38.0); CALCIUM 8.5 MG/DL (8.5-10.1); CHLORIDE 108 MMOL/L (99-107); CREATININE 0.61 MG/DL (0.40-0.90); GLUCOSE 316 MG/DL (70-104); MAGNESIUM 1.9 MG/DL (1.5-2.4); PHOSPHORUS 3.5 MG/DL (2.3-4.5); POTASSIUM 3.8 MMOL/L (3.5-5.1); SODIUM 140 MMOL/L (135-145); TOTAL CARBON DIOXIDE 20.2 MMOL/L (24-32); eGFR > 90 ML/MIN
--- NOTE | 2022-02-09 08:52 | NUR ---
Diabetes/Malnutrition consult: Pt seen at previous visit 5 days ago on 02/04 and was provided w/ written and verbal DM education w/ RD contact info. Pt denied any wt loss or decrease in appetite on MST that was done 6 days ago, though no reports 2-13lb wt loss and decrease in appetite this admit. Current wt consistent w/ wt from July of this year. Pt appeared WD/WN when this RD provided DM ed 5 days ago. No edema per MD note. At this time pt does not meet minimum criteria for malnutrition. Will continue monitor. Addendum: 02/09/22 at [address] Amended: Links added.
--- NOTE | 2022-02-09 09:54 | NUR ---
DM consult: Addressed; see previous note Addendum: 02/09/22 at [address] Amended: Links added.
[2022-02-09] MEDS: famotidine 20mg tablet PO SCH ×2 (10:16→20:45)
[2022-02-09 11:00] VITALS: BP 136/91
--- NOTE | 2022-02-09 13:27 | NUR ---
Per Dr. Hung blood glucose should be checked and treated every two hours until blood glucose is under control.
[2022-02-09 15:00] VITALS: BP 103/68
[2022-02-09 15:43] LABS: ANION GAP 10 (8-16); BLOOD UREA NITROGEN 9 MG/DL (7-18); BUN/CREATININE RATIO 13.6 (6.6-38.0); CALCIUM 8.5 MG/DL (8.5-10.1); CHLORIDE 110 MMOL/L (99-107); CREATININE 0.66 MG/DL (0.40-0.90); GLUCOSE 172 MG/DL (70-104); POTASSIUM 3.5 MMOL/L (3.5-5.1); SODIUM 143 MMOL/L (135-145); TOTAL CARBON DIOXIDE 23.2 MMOL/L (24-32); eGFR > 90 ML/MIN
--- NOTE | 2022-02-09 17:20 | NUR ---
per order from Dr. Hung blood glucose checks and treatment needs to occur Q4 hours
[2022-02-09 18:00] VITALS: BP 135/80
--- NOTE | 2022-02-09 18:19 | NUR ---
Problems reprioritized. Patient report given, questions answered & plan of care reviewed with Jeimy ORTIZ and Steve RN.
[2022-02-09] MEDS: olanzapine 10mg tablet PO SCH (20:48)
[2022-02-09] MEDS: atorvastatin 20mg tablet PO SCH (20:52)
[2022-02-09] MEDS ORDERED: insulin glargine (Lantus) pen - multi-dose SQ SCH (21:00)
[2022-02-09 22:00] VITALS: BP 110/66
[2022-02-10] MEDS: ondansetron/PF 4mg/2ml inj IV PRN (04:41)
[2022-02-10] MEDS: HYDROcodone/acetaminophen 10/325mg tab PO PRN ×2 (04:42→12:24)
--- NOTE | 2022-02-10 06:17 | NUR ---
Problems reprioritized. Patient report given, questions answered & plan of care reviewed with DIANA Castillo.
--- NOTE | 2022-02-10 06:32 | NUR ---
Patient in room PCU 3017. I have received report from Jeimy ORTIZ and Steve ORTIZ and had the opportunity to ask questions and assume patient care.
[2022-02-10 07:00] VITALS: BP 140/89
[2022-02-10 07:29] LABS: BASOPHILS # (AUTO) 0.1 X10'3 (0-0.2); EOSINOPHILS # (AUTO) 0.2 X10'3 (0-0.9); HEMOGLOBIN 11.5 g/dl (12.0-16.0); MONOCYTES # (AUTO) 0.7 X10'3 (0-0.9); NEUTROPHILS # (AUTO) 3.4 X10'3 (1.8-7.7)
[2022-02-10 07:31] LABS: BASOPHILS % (AUTO) 1.3 % (0-1); EOSINOPHILS % (AUTO) 2.4 % (0-6); HEMATOCRIT 35.6 % (35.0-45.0); LYMPHOCYTES # (AUTO) 4.3 X10'3 (1.1-4.8); LYMPHOCYTES % (AUTO) 49.4 % (21-51); MEAN CORPUSCULAR HGB CONC 32.3 g/dL (33.0-36.5); MEAN CORPUSCULAR VOLUME 86.6 FL (78-98); MEAN PLATELET VOLUME 12.3 FL (7.4-10.4); MONOCYTES % (AUTO) 8.1 % (2-12); NEUTROPHILS % (AUTO) 38.8 % (42-75); PLATELET COUNT 336 X10'3 (140-440); RED BLOOD COUNT 4.11 X10'6 (4.20-5.60); WHITE BLOOD COUNT 8.7 X10'3 (4.5-11.0)
[2022-02-10 07:43] LABS: ALANINE AMINOTRANSFERASE 24 U/L (12-78); ALBUMIN 2.9 G/DL (3.4-5.0); ALBUMIN/GLOBULIN RATIO 0.9 (1.1-1.5); ALKALINE PHOSPHATASE 67 IU/L (46-116); ANION GAP 9 (8-16); ASPARTATE AMINO TRANSFERASE 17 U/L (10-37); BILIRUBIN,TOTAL 0.7 MG/DL (0.1-1.0); BLOOD UREA NITROGEN 9 MG/DL (7-18); BUN/CREATININE RATIO 15.3 (6.6-38.0); CALCIUM 8.3 MG/DL (8.5-10.1); CHLORIDE 111 MMOL/L (99-107); CREATININE 0.59 MG/DL (0.40-0.90); GLUCOSE 191 MG/DL (70-104); MAGNESIUM 1.8 MG/DL (1.5-2.4); POTASSIUM 3.5 MMOL/L (3.5-5.1); SODIUM 142 MMOL/L (135-145); TOTAL CARBON DIOXIDE 21.8 MMOL/L (24-32); TOTAL PROTEIN 6.1 G/DL (6.4-8.2); eGFR > 90 ML/MIN
[2022-02-10] MEDS: K and/or MAG REPLACEMENT MC SCH (08:00)
[2022-02-10] MEDS: normal saline 1000ml 1,000 ML IV SCH ×2 (09:08→14:29)
[2022-02-10] MEDS: docusate sod 100mg capsule PO SCH (09:08)
[2022-02-10] MEDS: apixaban 5mg tablet PO SCH (09:08)
[2022-02-10] MEDS: famotidine 20mg tablet PO SCH (09:08)
[2022-02-10] MEDS: gabapentin 300mg capsule PO SCH ×2 (09:08→12:24)
[2022-02-10] MEDS: diatr meglu/diatrizoate 30ml oral sol.-(3 dose) bottle PO SCH ×3 (09:09→15:51)
[2022-02-10] MEDS: lisinopril 20mg tablet PO SCH (09:09)
[2022-02-10] MEDS: insulin Lispro (HumaLOG) vial - multi-dose SQ SCH ×2 (09:11→14:00)
[2022-02-10 11:00] VITALS: BP 104/63
[2022-02-10 15:00] VITALS: BP 117/76
[2022-02-10] MEDS ORDERED: iohexol 350MG/ML 100ml bottle IV ONE (15:04)
[2022-02-10] MEDS ORDERED: INSU100I31 SQ (16:09)
[2022-02-10] MEDS ORDERED: NEED-136 SQ (16:09)
[2022-02-10] MEDS ORDERED: ONDA4TAB12 PO (16:11)
--- NOTE | 2022-02-10 17:29 | NUR ---
Patient was DC to home and left in a cab. RX were sent to [facility]. DC instructions and warning s/s were reviewed with the patient and she verbalized understanding.Patient was alert, oriented and appropriate at time of DC. PIV x2 were removed with cannulas intact .
[2022-02-12] MEDS ORDERED: apixaban 5mg tablet PO SCH (08:00)
== END 2022-02-10 17:16 | disposition home or self-care (01) | DRG 134 ==
LOC: ER 14:21 → ED HOLD 17:05 → PCU 3S 23:00 → UNDODISIN 02-10 10:58
PROVIDERS: ADMIT Family Medicine; ATTEND Family Medicine
PROC: BW211ZZ Computerized Tomography (CT Scan) of Abdomen and Pelvis using Low Osmolar Contrast (ICD-10-PCS; principal; 2022-02-10)
DX: I26.94 Multiple subsegmental thrombotic pulmonary emboli without acute cor pulmonale (principal); E87.2 Acidosis; E11.43 Type 2 diabetes mellitus with diabetic autonomic (poly)neuropathy; E87.1 Hypo-osmolality and hyponatremia; K31.84 Gastroparesis; D72.823 Leukemoid reaction; E11.65 Type 2 diabetes mellitus with hyperglycemia; K76.0 Fatty (change of) liver, not elsewhere classified; E78.00 Pure hypercholesterolemia, unspecified; F41.9 Anxiety disorder, unspecified; G43.909 Migraine, unspecified, not intractable, without status migrainosus; G89.29 Other chronic pain; M19.90 Unspecified osteoarthritis, unspecified site; R00.0 Tachycardia, unspecified; I10 Essential (primary) hypertension; I25.2 Old myocardial infarction; Z79.01 Long term (current) use of anticoagulants; Z79.4 Long term (current) use of insulin; Z80.0 Family history of malignant neoplasm of digestive organs; Z80.41 Family history of malignant neoplasm of ovary; Z82.49 Family history of ischemic heart disease and other diseases of the circulatory system; Z86.711 Personal history of pulmonary embolism; Z87.442 Personal history of urinary calculi; Z87.891 Personal history of nicotine dependence; Z90.411 Acquired partial absence of pancreas; Z90.5 Acquired absence of kidney; Z90.710 Acquired absence of both cervix and uterus; Z90.81 Acquired absence of spleen; Z91.14 Patient's other noncompliance with medication regimen; Z91.19 Patient's noncompliance with other medical treatment and regimen; Z88.8 Allergy status to other drugs, medicaments and biological substances; Z88.5 Allergy status to narcotic agent; Z87.440 Personal history of urinary (tract) infections; Z90.49 Acquired absence of other specified parts of digestive tract; Z79.899 Other long term (current) drug therapy
CPT/HCPCS: 36415; 36600; 71045; 74177; 80048; 80053; 80305; 80320; 81001; 82803; 82948; 83036; 83690; 83735; 83880; 84100; 84484; 85008; 85018; 85025; 93005; 96361; 96374; 97161; 99291; G0378; J1815; J2270; J2405; J3480; J3490; J7030; J7042; Q9963; Q9967

== ENCOUNTER 2022-03-04 08:37 | Emergency (ER) | payer MEDICAID ==
[~2022-03-04] VITALS: Ht 175.3 cm; Wt 81.8 kg
[~2022-03-04 08:37] MED LIST changes: -INSU100I25 SQ; +INSU100I31 SQ; -INSU100I45 SQ; +INSU100I8 SQ; +LISI20TA28 PO; +NEED-136 SQ; -OLAN20TA19 PO; +OLAN20TA34 PO; +ONDA4TAB12 PO; -OXYC1TAB17 PO
[2022-03-04 08:44] VITALS: BP 145/88
== END 2022-03-04 09:35 | disposition left against medical advice (07) ==
LOC: ER 08:38
DX: R06.02 Shortness of breath (principal); R07.89 Other chest pain; G43.909 Migraine, unspecified, not intractable, without status migrainosus; E78.00 Pure hypercholesterolemia, unspecified; I10 Essential (primary) hypertension; E11.9 Type 2 diabetes mellitus without complications; M19.90 Unspecified osteoarthritis, unspecified site; G89.29 Other chronic pain; M54.50 Low back pain, unspecified; F15.20 Other stimulant dependence, uncomplicated; Z88.5 Allergy status to narcotic agent; Z88.8 Allergy status to other drugs, medicaments and biological substances; Z90.49 Acquired absence of other specified parts of digestive tract; Z90.710 Acquired absence of both cervix and uterus
CPT/HCPCS: 71045; 93005; 99283

== ENCOUNTER 2022-04-29 16:25 | Emergency (ER) | payer MEDICAID ==
[~2022-04-29] VITALS: Ht 175.3 cm; Wt 127.0 kg
[2022-04-29 16:57] LABS: CLARITY,URINE CLEAR (Clear); GLUCOSE, URINE >=1000 mg/dl (Neg); KETONES,URINE NEGATIVE (Neg); LEUKOCYTE ESTERASE ,URINE NEGATIVE (Neg); NITRITES, URINE NEGATIVE (Neg); OCCULT BLOOD,URINE NEGATIVE (Neg); PH,URINE 6.5 (4.8-8.0); PROTEIN,URINE NEGATIVE (Neg); UROBILINOGEN,URINE 0.2 E.U/dL (0.2-1.0)
[2022-04-29 16:58] LABS: URINE HCG NEGATIVE (NEG)
[2022-04-29 17:00] LABS: COLOR,URINE STRAW (Yellow); UA COLLECTION TYPE CLN CATCH MIDSTREAM
[2022-04-29 17:04] LABS: BACTERIA,URINE 1+ /HPF (Neg); MUCUS STRANDS NONE SEEN /LPF (Neg); RBC,URINE NONE SEEN /HPF (0-2); SQUAMOUS EPITHELIAL CELL,UR MODERATE /LPF (FEW); WBC,URINE 0-4 /HPF (0-4)
[2022-04-29] MEDS ORDERED: acetaminophen 325mg tablet PO ONE (17:05)
[2022-04-29] MEDS ORDERED: ondansetron 4mg rapidly disintigrating tab PO ONE (17:05)
[2022-04-29] MEDS ORDERED: normal saline 1000ML IV soln IVB ONE (17:25)
[2022-04-29 17:43] LABS: HEMOGLOBIN 12.1 g/dl (12.0-16.0)
[2022-04-29 17:44] LABS: BASOPHILS # (AUTO) 0.2 X10'3 (0-0.2); BASOPHILS % (AUTO) 1.4 % (0-1); EOSINOPHILS % (AUTO) 0.2 % (0-6); LYMPHOCYTES # (AUTO) 2.9 X10'3 (1.1-4.8); LYMPHOCYTES % (AUTO) 19.4 % (21-51); MEAN CORPUSCULAR HEMOGLOBIN 28.5 PG (27.0-31.0); MEAN CORPUSCULAR HGB CONC 32.7 g/dL (33.0-36.5); MEAN CORPUSCULAR VOLUME 87.2 FL (78-98); MEAN PLATELET VOLUME 10.6 FL (7.4-10.4); MONOCYTES % (AUTO) 6.6 % (2-12); NEUTROPHILS # (AUTO) 10.8 X10'3 (1.8-7.7); NEUTROPHILS % (AUTO) 72.4 % (42-75); PLATELET COUNT 401 X10'3 (140-440); RED BLOOD COUNT 4.24 X10'6 (4.20-5.60); RED CELL DISTRIBUTION WIDTH 15.3 % (11.5-14.5)
[2022-04-29 17:46] LABS: ALANINE AMINOTRANSFERASE 33 U/L (12-78); ALBUMIN 3.6 G/DL (3.4-5.0); ALBUMIN/GLOBULIN RATIO 0.8 (1.1-1.5); ALKALINE PHOSPHATASE 106 IU/L (46-116); ANION GAP 10 (8-16); ASPARTATE AMINO TRANSFERASE 25 U/L (10-37); BILIRUBIN,TOTAL 0.3 MG/DL (0.1-1.0); BLOOD UREA NITROGEN 13 MG/DL (7-18); BUN/CREATININE RATIO 14.3 (6.6-38.0); CALCIUM 9.7 MG/DL (8.5-10.1); CHLORIDE 102 MMOL/L (99-107); CREATININE 0.91 MG/DL (0.40-0.90); GLUCOSE 417 MG/DL (70-104); LIPASE 140 U/L (73-393); POTASSIUM 4.4 MMOL/L (3.5-5.1); SODIUM 136 MMOL/L (135-145); TOTAL CARBON DIOXIDE 23.9 MMOL/L (24-32); TOTAL PROTEIN 7.9 G/DL (6.4-8.2); eGFR 66 ML/MIN
[2022-04-29 18:39] VITALS: BP 154/91
[2022-04-29] MEDS ORDERED: LORazepam 2 mg/ml vial IV ONE (18:45)
== END 2022-04-29 19:32 | disposition home or self-care (01) ==
LOC: ER 16:25
DX: R10.30 Lower abdominal pain, unspecified (principal); R35.0 Frequency of micturition; R11.0 Nausea; E78.00 Pure hypercholesterolemia, unspecified; G43.909 Migraine, unspecified, not intractable, without status migrainosus; I10 Essential (primary) hypertension; G89.29 Other chronic pain; M54.9 Dorsalgia, unspecified; E11.9 Type 2 diabetes mellitus without complications; F41.9 Anxiety disorder, unspecified; F15.10 Other stimulant abuse, uncomplicated; Z90.49 Acquired absence of other specified parts of digestive tract; Z88.8 Allergy status to other drugs, medicaments and biological substances; Z88.5 Allergy status to narcotic agent; Z79.899 Other long term (current) drug therapy; Z79.84 Long term (current) use of oral hypoglycemic drugs
CPT/HCPCS: 74176; 80053; 81001; 81025; 83690; 85025; 96361; 96374; 99284; J2060; J7030

== ENCOUNTER 2022-06-24 10:02 | Inpatient (IN) | payer MEDICAID ==
[~2022-06-24] VITALS: Ht 175.3 cm; Wt 81.6 kg
[2022-06-24 11:14] LABS: BASOPHILS # (AUTO) 0.1 X10'3 (0-0.2); BASOPHILS % (AUTO) 0.8 % (0-1); EOSINOPHILS % (AUTO) 0 % (0-6); HEMATOCRIT 46.2 % (35.0-45.0); HEMOGLOBIN 14.6 g/dl (12.0-16.0); LYMPHOCYTES # (AUTO) 2.1 X10'3 (1.1-4.8); LYMPHOCYTES % (AUTO) 15.2 % (21-51); MEAN CORPUSCULAR HEMOGLOBIN 28.6 PG (27.0-31.0); MEAN CORPUSCULAR HGB CONC 31.6 g/dL (33.0-36.5); MEAN CORPUSCULAR VOLUME 90.5 FL (78-98); MONOCYTES # (AUTO) 0.7 X10'3 (0-0.9); MONOCYTES % (AUTO) 4.8 % (2-12); NEUTROPHILS # (AUTO) 10.9 X10'3 (1.8-7.7); NEUTROPHILS % (AUTO) 79.2 % (42-75); PLATELET COUNT 224 X10'3 (140-440); RED CELL DISTRIBUTION WIDTH 14.6 % (11.5-14.5); WHITE BLOOD COUNT 13.8 X10'3 (4.5-11.0)
[2022-06-24 11:39] LABS: ALANINE AMINOTRANSFERASE 16 U/L (12-78); ALBUMIN 4.1 G/DL (3.4-5.0); ALBUMIN/GLOBULIN RATIO 0.9 (1.1-1.5); ALKALINE PHOSPHATASE 100 IU/L (46-116); ANION GAP 24 (8-16); ASPARTATE AMINO TRANSFERASE 14 U/L (10-37); BILIRUBIN,TOTAL 1.3 MG/DL (0.1-1.0); BLOOD UREA NITROGEN 12 MG/DL (7-18); BUN/CREATININE RATIO 11.8 (6.6-38.0); CHLORIDE 95 MMOL/L (99-107); CREATININE 1.02 MG/DL (0.40-0.90); POTASSIUM 4.2 MMOL/L (3.5-5.1); SODIUM 129 MMOL/L (135-145); TOTAL PROTEIN 8.7 G/DL (6.4-8.2); eGFR 58 ML/MIN
[2022-06-24 11:43] LABS: LARGE PLATELETS FEW; PLATELET ESTIMATE NORMAL
[2022-06-24 11:44] LABS: GLUCOSE 519 MG/DL (70-104)
[2022-06-24] MEDS ORDERED: sodium phosphate inj. 15 MMOL in dextrose 5%-water 250 ML IV PRN ×2 (14:55→17:35)
[2022-06-24] MEDS ORDERED: Neutra Phos packet PO PRN ×2 (14:55→17:35)
[2022-06-24] MEDS ORDERED: morphine 4 MG/ML inj SYRINge IV ONE (14:55)
[2022-06-24] MEDS ORDERED: potassium Cl 20 mEq SR tablet PO PRN ×3 (14:55→17:35)
[2022-06-24] MEDS ORDERED: ondansetron/PF 4mg/2ml inj IV ONE (14:55)
[2022-06-24] MEDS ORDERED: insulin regular, human U-100 3ml vial - multi-dose IV PRN ×2 (14:55→17:35)
[2022-06-24] MEDS ORDERED: sodium phosphate inj. 30 MMOL in dextrose 5%-water 250 ML IV PRN ×2 (14:55→17:35)
[2022-06-24] MEDS ORDERED: potassium CL 20mEq in D5-1/2NS 1,000 ML IV PRN ×2 (14:55→17:35)
[2022-06-24] MEDS ORDERED: potassium Cl 40MEQ/1/2NS 520ml 520 ML IV PRN ×4 (14:55→17:35)
[2022-06-24] MEDS ORDERED: fentaNYL/PF 50MCG/1 ML 2ML syringe IV ONE (15:10)
[2022-06-24] MEDS: normal saline 1000ml 1,000 ML IV SCH ×9 (15:25→22:55)
[2022-06-24] MEDS ORDERED: FENTANYL CITRATE/PF 50 MCG/1 ML VIAL IV ONE (15:45)
[2022-06-24] MEDS: Insulin Reg/NS 100units/100mL 100 ML IV SCH (16:09)
[2022-06-24 16:39] LABS: CLARITY,URINE SLIGHTLY CLOUDY (Clear); COLOR,URINE STRAW (Yellow); GLUCOSE, URINE >=1000 mg/dl (Neg); KETONES,URINE >=80 mg/dl (Neg); LEUKOCYTE ESTERASE ,URINE NEGATIVE (Neg); NITRITES, URINE NEGATIVE (Neg); OCCULT BLOOD,URINE TRACE-INTACT (Neg); PH,URINE 5.5 (4.8-8.0); PROTEIN,URINE TRACE mg/dl (Neg); UROBILINOGEN,URINE 0.2 E.U/dL (0.2-1.0)
--- NOTE | 2022-06-24 16:47 | NUR ---
assisted pt to bedside commode. changed pt into gown
[2022-06-24 16:49] LABS: UA COLLECTION TYPE CLN CATCH MIDSTREAM; URINE AMPHETAMINE SCREEN POSITIVE (Neg); URINE BARBITUATE SCREEN NEGATIVE (Neg); URINE BENZODIAZEPINES SCREEN NEGATIVE (Neg); URINE CANNABINOID SCREEN NEGATIVE (Neg); URINE COCAINE SCREEN NEGATIVE (Neg); URINE METHADONE SCREEN NEGATIVE (Neg); URINE OPIATE SCREEN NEGATIVE (Neg); URINE PHENCYCLIDINE SCREEN NEGATIVE (Neg)
[2022-06-24 16:51] LABS: BACTERIA,URINE NONE SEEN /HPF (Neg); RBC,URINE 0-2 /HPF (0-2); SQUAMOUS EPITHELIAL CELL,UR MANY /LPF (FEW); WBC,URINE 0-4 /HPF (0-4); YEAST FEW /HPF (NEGATIVE)
[2022-06-24] MEDS ORDERED: APIX5TAB3 PO (17:23)
[2022-06-24] MEDS ORDERED: ALBU8HFA IH (17:23)
[2022-06-24] MEDS ORDERED: INSU100I31 SQ (17:23)
[2022-06-24] MEDS ORDERED: sodium bicarbonate (8.4%) inj. 100 MEQ in dextrose 5% water 500ml 500 ML IV PRN (17:35)
[2022-06-24] MEDS ORDERED: HYDROcodone/acetaminophen 10/325mg tab PO PRN (17:35)
[2022-06-24] MEDS ORDERED: HYDROmorphone/PF 0.2 MG/ML SYRINGE IV PRN (17:35)
[2022-06-24] MEDS ORDERED: sodium bicarbonate (8.4%) inj. 50 MEQ in dextrose 5% water 500ml 250 ML IV PRN (17:35)
[2022-06-24] MEDS ORDERED: ondansetron/PF 4mg/2ml inj IV PRN (17:35)
[2022-06-24] MEDS ORDERED: magnesium hydroxide 30ml (MOM) UD suspension PO PRN (17:35)
[2022-06-24] MEDS ORDERED: HYDROcodone/acetaminophen 5mg/325mg tablet PO PRN (17:35)
[2022-06-24] MEDS ORDERED: acetaminophen 325mg tablet PO PRN ×2 (17:35)
[2022-06-24] MEDS ORDERED: Insulin Reg/NS 100units/100mL 100 ML IV SCH (17:35)
[2022-06-24] MEDS ORDERED: albuterol 2.5 MG/3 ML nebule NEB PRN (17:45)
[2022-06-24] MEDS ORDERED: OXYcodone immediate-release 10MG tablet PO PRN (17:45)
[2022-06-24 18:03] LABS: ALBUMIN 4.2 G/DL (3.4-5.0); ANION GAP 27 (8-16); BLOOD UREA NITROGEN 13 MG/DL (7-18); BUN/CREATININE RATIO 11.9 (6.6-38.0); CALCIUM 10.4 MG/DL (8.5-10.1); CHLORIDE 95 MMOL/L (99-107); CREATININE 1.09 MG/DL (0.40-0.90); SODIUM 131 MMOL/L (135-145); eGFR 53 ML/MIN
[2022-06-24 18:05] LABS: POTASSIUM 4.7 MMOL/L (3.5-5.1)
[2022-06-24 18:08] LABS: GLUCOSE 494 MG/DL (70-104); TOTAL CARBON DIOXIDE 8.7 MMOL/L (24-32)
--- NOTE | 2022-06-24 19:16 | NUR ---
BOTH IV'S WERE BLOWN SHORTLY AFTER TAKING OVER FOR THIS PATIENT. INSULIN DRIP AND FLUIDS PAUSED WHILE ANOTHER IV WAS STARTED
[2022-06-24] MEDS ORDERED: K and/or MAG REPLACEMENT MC SCH (20:00)
[2022-06-24] MEDS: docusate sod 100mg capsule PO SCH (20:00)
[2022-06-24] MEDS: K and/or MAG REPLACEMENT MC SCH (20:33)
--- NOTE | 2022-06-24 20:45 | NUR ---
called to ask if he wanted an ABG/VBG drawn on pt. did not want the labs drawn
[2022-06-24] MEDS ORDERED: dextrose 5%-1/2 normal saline 1,000 ML IV SCH (21:35)
[2022-06-24 22:04] LABS: ALBUMIN 3.8 G/DL (3.4-5.0); ANION GAP 16 (8-16); BLOOD UREA NITROGEN 9 MG/DL (7-18); CHLORIDE 105 MMOL/L (99-107); CREATININE 0.82 MG/DL (0.40-0.90); GLUCOSE 214 MG/DL (70-104); POTASSIUM 3.6 MMOL/L (3.5-5.1); SODIUM 137 MMOL/L (135-145); TOTAL CARBON DIOXIDE 16.3 MMOL/L (24-32); eGFR 74 ML/MIN
[2022-06-24] MEDS: apixaban 5mg tablet PO SCH (22:26)
[2022-06-24] MEDS: ondansetron/PF 4mg/2ml inj IV PRN (22:26)
[2022-06-24] MEDS ORDERED: potassium CL 20mEq in D5-1/2NS 1,000 ML IV SCH (23:10)
[2022-06-24] MEDS: potassium CL 20mEq in D5-1/2NS 1,000 ML IV SCH (23:36)
[2022-06-25] MEDS: HYDROmorphone inj. 0.5 MG/0.5 ML DISP.SYRIN IV PRN ×5 (01:08→21:51)
[2022-06-25] MEDS: normal saline 1000ml 1,000 ML IV SCH ×5 (01:35→21:51)
[2022-06-25 03:48] LABS: BASOPHILS # (AUTO) 0.1 X10'3 (0-0.2); BASOPHILS % (AUTO) 0.4 % (0-1); EOSINOPHILS % (AUTO) 0 % (0-6); HEMATOCRIT 39.3 % (35.0-45.0); HEMOGLOBIN 12.7 g/dl (12.0-16.0); LYMPHOCYTES # (AUTO) 3.3 X10'3 (1.1-4.8); LYMPHOCYTES % (AUTO) 20.6 % (21-51); MEAN CORPUSCULAR HEMOGLOBIN 28.3 PG (27.0-31.0); MEAN CORPUSCULAR HGB CONC 32.2 g/dL (33.0-36.5); MEAN PLATELET VOLUME 11.9 FL (7.4-10.4); MONOCYTES # (AUTO) 1.4 X10'3 (0-0.9); MONOCYTES % (AUTO) 8.8 % (2-12); NEUTROPHILS # (AUTO) 11.1 X10'3 (1.8-7.7); NEUTROPHILS % (AUTO) 70.2 % (42-75); PLATELET COUNT 274 X10'3 (140-440); RED BLOOD COUNT 4.47 X10'6 (4.20-5.60); RED CELL DISTRIBUTION WIDTH 14.2 % (11.5-14.5); WHITE BLOOD COUNT 15.9 X10'3 (4.5-11.0)
[2022-06-25 04:00] LABS: ALBUMIN 3.6 G/DL (3.4-5.0); ANION GAP 12 (8-16); BLOOD UREA NITROGEN 7 MG/DL (7-18); CALCIUM 8.7 MG/DL (8.5-10.1); CHLORIDE 104 MMOL/L (99-107); CREATININE 0.78 MG/DL (0.40-0.90); GLUCOSE 191 MG/DL (70-104); SODIUM 134 MMOL/L (135-145); TOTAL CARBON DIOXIDE 17.8 MMOL/L (24-32); eGFR 78 ML/MIN
[2022-06-25 04:10] LABS: PHOSPHORUS 1.1 MG/DL (2.3-4.5)
[2022-06-25 04:14] LABS: LARGE PLATELETS MODERATE; PLATELET ESTIMATE NORMAL
[2022-06-25 04:15] LABS: BURR CELLS FEW
[2022-06-25] MEDS: ondansetron/PF 4mg/2ml inj IV PRN ×3 (05:34→18:57)
[2022-06-25] MEDS: potassium CL 20mEq in D5-1/2NS 1,000 ML IV SCH ×3 (06:03→20:31)
[2022-06-25] MEDS: docusate sod 100mg capsule PO SCH ×2 (08:00→20:18)
[2022-06-25] MEDS: K and/or MAG REPLACEMENT MC SCH ×2 (08:33→20:00)
[2022-06-25] MEDS: apixaban 5mg tablet PO SCH ×2 (08:41→20:18)
[2022-06-25 08:45] LABS: ALBUMIN 3.4 G/DL (3.4-5.0); ANION GAP 10 (8-16); BLOOD UREA NITROGEN 5 MG/DL (7-18); CALCIUM 8.7 MG/DL (8.5-10.1); CHLORIDE 104 MMOL/L (99-107); CREATININE 0.71 MG/DL (0.40-0.90); GLUCOSE 152 MG/DL (70-104); MAGNESIUM 1.7 MG/DL (1.5-2.4); SODIUM 135 MMOL/L (135-145); TOTAL CARBON DIOXIDE 20.8 MMOL/L (24-32); eGFR 87 ML/MIN
[2022-06-25 08:49] LABS: PHOSPHORUS 1.2 MG/DL (2.3-4.5); POTASSIUM 2.8 MMOL/L (3.5-5.1)
--- NOTE | 2022-06-25 10:33 | NUR ---
Pt arrived on the floor requesting to eat. Provider notified so we can transfer pt to [facility] insulin. Placed on monitor, MRSA swab taken. Jello given to pt. q1hr BGs will continue. Pt remains on insulin gtt and fluids at 250. WCTM
[2022-06-25] MEDS: Insulin Reg/NS 100units/100mL 100 ML IV SCH ×2 (10:55→13:08)
[2022-06-25] MEDS ORDERED: dextrose 50%-water 50ml dispensing syringe IV PRN ×2 (11:05)
[2022-06-25] MEDS ORDERED: glucagon, human recombinant 1mg kit SUBCUT PRN (11:05)
[2022-06-25] MEDS ORDERED: MESSAGE TO PHARMACY PO ONE (11:05)
[2022-06-25] MEDS ORDERED: insulin glargine (Lantus) pen - multi-dose SQ ONE (11:05)
[2022-06-25] MEDS ORDERED: DEXTROSE 15 GM of carb/4 tabs (each vial/BOTTLE has 4 tablets) PO PRN ×2 (11:05)
[2022-06-25] MEDS: oxyCODONE IR 5mg (immed. release) tablet PO PRN ×2 (11:51→18:57)
[2022-06-25 12:00] VITALS: BP 155/81
[2022-06-25 12:07] LABS: HEMOGLOBIN A1C 12.8 % (4.5-6.2)
[2022-06-25] MEDS: insulin Lispro (HumaLOG) vial - multi-dose SQ SCH ×3 (12:55→20:22)
[2022-06-25 15:00] VITALS: BP 97/56
[2022-06-25 18:00] VITALS: BP 122/84
--- NOTE | 2022-06-25 18:46 | NUR ---
Problems reprioritized. Patient report given, questions answered & plan of care reviewed with Umm.
[2022-06-25] MEDS ORDERED: insulin glargine (Lantus) pen - multi-dose SQ SCH (21:00)
[2022-06-25 22:00] VITALS: BP 116/70
[2022-06-26] MEDS: oxyCODONE IR 5mg (immed. release) tablet PO PRN ×4 (00:29→20:19)
[2022-06-26] MEDS: mag hydrox/Alum hydrox/simeth 30ml oral suspension PO PRN ×3 (00:40→10:57)
[2022-06-26 02:00] VITALS: BP 107/48
[2022-06-26] MEDS: potassium CL 20mEq in D5-1/2NS 1,000 ML IV SCH (02:18)
[2022-06-26] MEDS: HYDROmorphone inj. 0.5 MG/0.5 ML DISP.SYRIN IV PRN ×5 (02:19→21:26)
[2022-06-26 03:39] LABS: BASOPHILS # (AUTO) 0.1 X10'3 (0-0.2); EOSINOPHILS % (AUTO) 0 % (0-6); HEMATOCRIT 37.9 % (35.0-45.0); HEMOGLOBIN 11.9 g/dl (12.0-16.0); LYMPHOCYTES % (AUTO) 40.4 % (21-51); MEAN CORPUSCULAR HEMOGLOBIN 27.6 PG (27.0-31.0); MEAN CORPUSCULAR HGB CONC 31.5 g/dL (33.0-36.5); MEAN CORPUSCULAR VOLUME 87.7 FL (78-98); MEAN PLATELET VOLUME 12.1 FL (7.4-10.4); MONOCYTES # (AUTO) 1.4 X10'3 (0-0.9); MONOCYTES % (AUTO) 11.5 % (2-12); NEUTROPHILS # (AUTO) 5.8 X10'3 (1.8-7.7); NEUTROPHILS % (AUTO) 47.1 % (42-75); PLATELET COUNT 250 X10'3 (140-440); RED BLOOD COUNT 4.32 X10'6 (4.20-5.60); RED CELL DISTRIBUTION WIDTH 14.5 % (11.5-14.5); WHITE BLOOD COUNT 12.3 X10'3 (4.5-11.0)
[2022-06-26] MEDS: ondansetron/PF 4mg/2ml inj IV PRN ×3 (03:41→21:48)
[2022-06-26 04:00] LABS: ALBUMIN 2.6 G/DL (3.4-5.0); ANION GAP 10 (8-16); BLOOD UREA NITROGEN 6 MG/DL (7-18); BUN/CREATININE RATIO 7.8 (6.6-38.0); CALCIUM 8.1 MG/DL (8.5-10.1); CHLORIDE 107 MMOL/L (99-107); CREATININE 0.77 MG/DL (0.40-0.90); GLUCOSE 238 MG/DL (70-104); PHOSPHORUS 2.7 MG/DL (2.3-4.5); POTASSIUM 3.2 MMOL/L (3.5-5.1); SODIUM 137 MMOL/L (135-145); TOTAL CARBON DIOXIDE 20.5 MMOL/L (24-32); eGFR 80 ML/MIN
[2022-06-26] MEDS: potassium Cl 20 mEq SR tablet PO PRN ×3 (04:08→14:02)
[2022-06-26 07:00] VITALS: BP 112/77
--- NOTE | 2022-06-26 07:07 | NUR ---
Patient in room PCU 3025. I have received report from aaron aguiar and had the opportunity to ask questions and assume patient care.
[2022-06-26] MEDS: apixaban 5mg tablet PO SCH ×2 (07:35→19:02)
[2022-06-26] MEDS: docusate sod 100mg capsule PO SCH ×2 (07:35→19:02)
[2022-06-26] MEDS: normal saline 1000ml 1,000 ML IV SCH ×2 (07:39→17:15)
[2022-06-26] MEDS: K and/or MAG REPLACEMENT MC SCH ×2 (08:00→19:02)
[2022-06-26] MEDS: insulin Lispro (HumaLOG) vial - multi-dose SQ SCH ×3 (08:24→19:06)
--- NOTE | 2022-06-26 10:39 | NUR ---
Initial: Pt with DM admit for DKA. Per H&P pt states that she has not been taking her insulin over the past week, current A1c 12.8%. Noted pt recently admitted with an A1c of 13.6% 02/02/22, provided with written and verbal DM education by SIMON 02/04/22. Pt would benefit from f/u DM education once more appropriate given admit with DKA and BG 519 mg/dL. Pt currently with c/o nausea and 8/10 abdominal pain. Pt on a CHO controlled diet and eating well, documented with 75-100% PO intake. LBM 06/24, receiving routine bowel care. Will continue to follow closely. 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
[2022-06-26 11:00] VITALS: BP 101/53
--- NOTE | 2022-06-26 11:54 | NUR ---
Page Sent PAGER ID: [phone] MESSAGE: [phone] david Baker, do you want to renew pts tele. it is past the 24 hr monitor. lupe gilbert
[2022-06-26 15:00] VITALS: BP 102/62
[2022-06-26 18:00] VITALS: BP 112/66
--- NOTE | 2022-06-26 18:18 | NUR ---
Page Sent PAGER ID: [phone] MESSAGE: [phone] Paula ALBERTO PT IS REQUESTING SOME ATIVAN. THANKS LATESHA Cedrick
--- NOTE | 2022-06-26 18:30 | NUR ---
Problems reprioritized. Patient report given, questions answered & plan of care reviewed with CHELO ORTIZ.
[2022-06-26] MEDS ORDERED: insulin glargine (Lantus) pen - multi-dose SQ SCH (21:00)
[2022-06-26 23:38] VITALS: BP 96/57
[2022-06-27] MEDS: HYDROmorphone inj. 0.5 MG/0.5 ML DISP.SYRIN IV PRN ×3 (01:27→11:46)
[2022-06-27 02:11] VITALS: BP 141/84
[2022-06-27] MEDS: normal saline 1000ml 1,000 ML IV SCH ×2 (02:13→13:05)
[2022-06-27] MEDS: oxyCODONE IR 5mg (immed. release) tablet PO PRN ×3 (02:31→13:17)
[2022-06-27 06:00] VITALS: BP 118/62
[2022-06-27 06:11] LABS: BASOPHILS # (AUTO) 0.1 X10'3 (0-0.2); BASOPHILS % (AUTO) 0.7 % (0-1); EOSINOPHILS % (AUTO) 0 % (0-6); HEMOGLOBIN 10.5 g/dl (12.0-16.0); LYMPHOCYTES # (AUTO) 5.4 X10'3 (1.1-4.8); LYMPHOCYTES % (AUTO) 42.8 % (21-51); MEAN CORPUSCULAR HEMOGLOBIN 28.8 PG (27.0-31.0); MEAN CORPUSCULAR HGB CONC 32.7 g/dL (33.0-36.5); MEAN PLATELET VOLUME 12.2 FL (7.4-10.4); MONOCYTES # (AUTO) 1.1 X10'3 (0-0.9); MONOCYTES % (AUTO) 8.9 % (2-12); NEUTROPHILS % (AUTO) 47.6 % (42-75); PLATELET COUNT 215 X10'3 (140-440); RED BLOOD COUNT 3.64 X10'6 (4.20-5.60); RED CELL DISTRIBUTION WIDTH 14.4 % (11.5-14.5); WHITE BLOOD COUNT 12.5 X10'3 (4.5-11.0)
[2022-06-27 06:30] LABS: ALBUMIN 2.4 G/DL (3.4-5.0); ANION GAP 6 (8-16); BLOOD UREA NITROGEN 8 MG/DL (7-18); BUN/CREATININE RATIO 11.6 (6.6-38.0); CALCIUM 7.9 MG/DL (8.5-10.1); CHLORIDE 108 MMOL/L (99-107); CREATININE 0.69 MG/DL (0.40-0.90); GLUCOSE 246 MG/DL (70-104); POTASSIUM 3.8 MMOL/L (3.5-5.1); SODIUM 137 MMOL/L (135-145); TOTAL CARBON DIOXIDE 23.1 MMOL/L (24-32); eGFR 90 ML/MIN
[2022-06-27 07:23] LABS: BURR CELLS 1+; PLATELET ESTIMATE NORMAL
[2022-06-27 07:24] LABS: GIANT PLATELET FEW
[2022-06-27] MEDS: K and/or MAG REPLACEMENT MC SCH (08:00)
[2022-06-27] MEDS: ondansetron/PF 4mg/2ml inj IV PRN (08:54)
[2022-06-27] MEDS: apixaban 5mg tablet PO SCH (08:59)
[2022-06-27] MEDS: docusate sod 100mg capsule PO SCH (08:59)
[2022-06-27] MEDS: insulin Lispro (HumaLOG) vial - multi-dose SQ SCH (09:40)
[2022-06-27 11:49] VITALS: BP 119/70
[2022-06-27] MEDS ORDERED: ONDA4TAB12 PO (14:06)
--- NOTE | 2022-06-27 16:40 | NUR ---
F/u 06/27: Pt discharged prior to RD visit for DM ed reinforcement. Written/verbal DM diet ed w/ RD contact information mailed to pt home address provided in EMR. Addendum: 06/27/22 at [address] Amended: Links added.
== END 2022-06-27 15:24 | disposition home or self-care (01) | DRG 420 ==
LOC: ER 10:02 → ED HOLD 17:37 → PCU 3S 06-25 09:05 → ED HOLD 06-25 09:06 → PCU 3S 06-25 10:07
PROVIDERS: ADMIT Internal Medicine; ATTEND Internal Medicine
PROC: BW251ZZ Computerized Tomography (CT Scan) of Chest, Abdomen and Pelvis using Low Osmolar Contrast (ICD-10-PCS; principal; 2022-06-24)
DX: E11.10 Type 2 diabetes mellitus with ketoacidosis without coma (principal); N17.9 Acute kidney failure, unspecified; E83.39 Other disorders of phosphorus metabolism; E78.00 Pure hypercholesterolemia, unspecified; F15.90 Other stimulant use, unspecified, uncomplicated; F17.210 Nicotine dependence, cigarettes, uncomplicated; Z20.822 Contact with and (suspected) exposure to COVID-19; I10 Essential (primary) hypertension; F41.9 Anxiety disorder, unspecified; G43.909 Migraine, unspecified, not intractable, without status migrainosus; G89.29 Other chronic pain; R19.7 Diarrhea, unspecified; E86.0 Dehydration; E87.6 Hypokalemia; R30.0 Dysuria; I25.2 Old myocardial infarction; Z79.01 Long term (current) use of anticoagulants; Z79.4 Long term (current) use of insulin; Z87.442 Personal history of urinary calculi; Z86.711 Personal history of pulmonary embolism; Z88.5 Allergy status to narcotic agent; Z90.411 Acquired partial absence of pancreas; Z90.49 Acquired absence of other specified parts of digestive tract; Z90.5 Acquired absence of kidney; Z90.710 Acquired absence of both cervix and uterus; Z90.81 Acquired absence of spleen; Z91.14 Patient's other noncompliance with medication regimen; Z88.8 Allergy status to other drugs, medicaments and biological substances; Z86.718 Personal history of other venous thrombosis and embolism; Z79.899 Other long term (current) drug therapy
CPT/HCPCS: 36415; 71045; 71250; 74176; 80048; 80053; 80305; 81001; 82948; 83036; 83735; 83880; 84100; 84145; 84484; 85008; 85025; 87081; 87811; 93005; 94760; 96365; 96375; 99285; G0378; J1170; J1815; J2405; J3010; J3480; J3490; J7030; J7042; J7060

== ENCOUNTER 2023-05-22 09:05 | Inpatient (IN) | payer MEDICAID ==
[~2023-05-22] VITALS: Ht 175.3 cm; Wt 98.6 kg
[~2023-05-22 09:05] MED LIST changes: -APIX5TAB3 PO; -ATOR40TA72 PO; -CYCL-1 PO; -GABA300C PO; +HYDR-3972 PO; -LISI20TA28 PO; -NEED-136 SQ; -OLAN20TA34 PO; -ONDA4TAB12 PO; -PROP10TA10 PO
[2023-05-22] MEDS ORDERED: ondansetron/PF 4mg/2ml inj IV ONE ×2 (10:10→12:05)
[2023-05-22] MEDS ORDERED: morphine 4 MG/ML inj SYRINge IV PRN (10:10)
[2023-05-22] MEDS ORDERED: normal saline 1000ML IV soln IVB ONE (10:10)
[2023-05-22 10:29] LABS: BASOPHILS # (AUTO) 0.1 X10'3 (0-0.2); BASOPHILS % (AUTO) 0.5 % (0-1); EOSINOPHILS # (AUTO) 0.2 X10'3 (0-0.9); EOSINOPHILS % (AUTO) 1.4 % (0-6); HEMATOCRIT 35.3 % (35.0-45.0); MONOCYTES # (AUTO) 1.4 X10'3 (0-0.9); RED BLOOD COUNT 3.99 X10'6 (4.20-5.60); WHITE BLOOD COUNT 11.2 X10'3 (4.5-11.0)
[2023-05-22 10:31] LABS: HEMOGLOBIN 11.2 g/dl (12.0-16.0); LYMPHOCYTES # (AUTO) 2.6 X10'3 (1.1-4.8); LYMPHOCYTES % (AUTO) 22.9 % (21-51); MEAN CORPUSCULAR HEMOGLOBIN 28.1 PG (27.0-31.0); MEAN CORPUSCULAR HGB CONC 31.7 g/dL (33.0-36.5); MEAN CORPUSCULAR VOLUME 88.5 FL (78-98); MEAN PLATELET VOLUME 10.4 FL (7.4-10.4); MONOCYTES % (AUTO) 12.6 % (2-12); NEUTROPHILS % (AUTO) 62.6 % (42-75); PLATELET COUNT 460 X10'3 (140-440); RED CELL DISTRIBUTION WIDTH 14.7 % (11.5-14.5)
[2023-05-22 10:39] LABS: ALANINE AMINOTRANSFERASE 26 U/L (12-78); ALBUMIN/GLOBULIN RATIO 0.7 (1.1-1.5); ALKALINE PHOSPHATASE 102 IU/L (46-116); ANION GAP 5 (8-16); ASPARTATE AMINO TRANSFERASE 19 U/L (10-37); BILIRUBIN,TOTAL 0.4 MG/DL (0.1-1.0); BLOOD UREA NITROGEN 9 MG/DL (7-18); BUN/CREATININE RATIO 10.8 (10.0-20.0); CALCIUM 8.7 MG/DL (8.5-10.1); CHLORIDE 94 MMOL/L (99-107); CREATININE 0.83 MG/DL (0.40-0.90); GLUCOSE 232 MG/DL (70-104); LIPASE 15 U/L (16-77); POTASSIUM 3.7 MMOL/L (3.5-5.1); SODIUM 129 MMOL/L (135-145); TOTAL CARBON DIOXIDE 29.6 MMOL/L (24-32); TOTAL PROTEIN 7.2 G/DL (6.4-8.2); eCRCL 85 ML/MIN; eGFR 73 ML/MIN
[2023-05-22] MEDS ORDERED: HYDROmorphone 1 mg/ml syringe IV ONE ×2 (10:40→12:00)
[2023-05-22 11:01] LABS: LARGE PLATELETS FEW; PLATELET ESTIMATE INCREASED; TOTAL CELLS COUNTED 100
[2023-05-22 11:02] LABS: HOWELL-JOLLY BODIES FEW; POIKILOCYTOSIS FEW
[2023-05-22 11:05] LABS: BILIRUBIN,URINE NEGATIVE (Neg); CLARITY,URINE CLEAR (Clear); COLOR,URINE YELLOW (Yellow); GLUCOSE, URINE NEGATIVE (Neg); KETONES,URINE TRACE mg/dl (Neg); LEUKOCYTE ESTERASE ,URINE NEGATIVE (Neg); NITRITES, URINE NEGATIVE (Neg); OCCULT BLOOD,URINE NEGATIVE (Neg); PROTEIN,URINE NEGATIVE (Neg); UROBILINOGEN,URINE 0.2 E.U/dL (0.2-1.0)
[2023-05-22 11:08] LABS: UA COLLECTION TYPE CLN CATCH MIDSTREAM
[2023-05-22] MEDS ORDERED: ondansetron/PF 4mg/2ml inj IV PRN (13:35)
[2023-05-22] MEDS ORDERED: magnesium 4gm in 100ml NS 100 ML IV PRN (13:35)
[2023-05-22] MEDS ORDERED: magnesium 2GM in 50ml NS 50 ML IV PRN (13:35)
[2023-05-22] MEDS ORDERED: potassium Cl 40MEQ/1/2NS 520ml 520 ML IV PRN (13:35)
[2023-05-22] MEDS ORDERED: potassium Cl 20 mEq SR tablet PO PRN ×2 (13:35)
[2023-05-22] MEDS ORDERED: magnesium Cl slow-release 64mg tablet PO PRN (13:35)
[2023-05-22] MEDS ORDERED: acetaminophen 325mg tablet PO PRN ×2 (13:35)
[2023-05-22] MEDS ORDERED: insulin Lispro (HumaLOG) vial - multi-dose SQ SCH (14:50)
[2023-05-22] MEDS ORDERED: DEXTROSE 15 GM of carb/4 tabs (each vial/BOTTLE has 4 tablets) PO PRN ×2 (14:50)
[2023-05-22] MEDS ORDERED: glucagon, human recombinant 1mg kit SUBCUT PRN (14:50)
[2023-05-22] MEDS ORDERED: dextrose 50%-water 50ml dispensing syringe IV PRN ×2 (14:50)
[2023-05-22] MEDS ORDERED: MESSAGE TO PHARMACY PO ONE (14:50)
[2023-05-22] MEDS: piperacillin/tazo 3.375gm/50ml 50 ML IV SCH (15:14)
[2023-05-22] MEDS: normal saline 1000ml 1,000 ML IV SCH (15:14)
[2023-05-22] MEDS: HYDROmorphone inj. 0.5 MG/0.5 ML DISP.SYRIN IV PRN ×3 (15:15→22:56)
[2023-05-22] MEDS ORDERED: ONDA4TAB12 PO (15:27)
[2023-05-22] MEDS ORDERED: OLAN20TA34 PO (15:27)
[2023-05-22] MEDS ORDERED: CYCL-1 (15:27)
[2023-05-22] MEDS ORDERED: GABA600T13 PO (15:27)
[2023-05-22] MEDS ORDERED: CLON-528 PO (17:07)
--- NOTE | 2023-05-22 17:13 | NUR ---
Pt c/o anxiety, takes klonopin at home. Med rec is complete. Dr Delia plummer
[2023-05-22] MEDS: clonazePAM 0.5mg tablet PO PRN (18:43)
--- NOTE | 2023-05-22 18:50 | NUR ---
Problems reprioritized. Patient report given, questions answered & plan of care reviewed with FÉLIX Mosquera.
--- NOTE | 2023-05-22 18:52 | NUR ---
pt came to floor and I took her vital signs, checked her blood sugar, started her fluids. BLL, call light within reach, in no distress, nonskid socks, and I have given report to FÉLIX Mosquera
[2023-05-22] MEDS ORDERED: diatrozoate meglu/diatrozoate sod (37% iodine) 120ML oral solution PO ONE (19:15)
[2023-05-22] MEDS ORDERED: diatr meglu/diatrizoate 30ml oral sol.-(3 dose) bottle PO ONE (19:40)
[2023-05-22] MEDS: insulin glargine (Lantus) pen - multi-dose SQ SCH (21:00)
[2023-05-22] MEDS: enoxaparin 40mg/0.4ml syringe SQ SCH (21:56)
[2023-05-22] MEDS: gabapentin 300mg capsule PO SCH (21:57)
[2023-05-22 22:00] VITALS: BP 148/66; PULSE 80; RESP 14; TEMP 97.9; O2SAT 95
[2023-05-22] MEDS ORDERED: OLANZapine 5mg rapidly disint. tablet PO ONE (23:15)
--- NOTE | 2023-05-23 00:43 | NUR ---
NG Placed during prior to this nurse assuming care Addendum: 05/23/23 at 0048 by Demetri Rowe LVN Amended: Links added.
[2023-05-23] MEDS: piperacillin/tazo 3.375gm/50ml 50 ML IV SCH ×4 (01:21→23:33)
[2023-05-23] MEDS: normal saline 1000ml 1,000 ML IV SCH ×2 (03:45→16:47)
[2023-05-23] MEDS: HYDROmorphone inj. 0.5 MG/0.5 ML DISP.SYRIN IV PRN ×3 (04:31→15:23)
[2023-05-23] MEDS: clonazePAM 0.5mg tablet PO PRN ×2 (05:26→16:37)
--- NOTE | 2023-05-23 05:57 | NUR ---
LEAD SOFTWARE TEST ENGINEER documentation: I have reviewed and agree with assessmenT performed and documented by SINDI Garcia
[2023-05-23 06:11] VITALS: BP 109/70; PULSE 70; RESP 16; TEMP 98.7; O2SAT 96
[2023-05-23 06:23] VITALS: BP 109/70; PULSE 70; RESP 16; TEMP 98.7; O2SAT 96
--- NOTE | 2023-05-23 06:37 | NUR ---
Report to Lily ORTIZ and Rylee ORTIZ
[2023-05-23 07:00] VITALS: RESP 16
[2023-05-23 07:19] LABS: BASOPHILS # (AUTO) 0.1 X10'3 (0-0.2); BASOPHILS % (AUTO) 0.9 % (0-1); EOSINOPHILS # (AUTO) 0.2 X10'3 (0-0.9); EOSINOPHILS % (AUTO) 1.8 % (0-6); HEMATOCRIT 33.4 % (35.0-45.0); HEMOGLOBIN 10.8 g/dl (12.0-16.0); LYMPHOCYTES # (AUTO) 2.4 X10'3 (1.1-4.8); LYMPHOCYTES % (AUTO) 26.8 % (21-51); MEAN CORPUSCULAR HEMOGLOBIN 28.5 PG (27.0-31.0); MEAN CORPUSCULAR HGB CONC 32.4 g/dL (33.0-36.5); MEAN CORPUSCULAR VOLUME 87.9 FL (78-98); MEAN PLATELET VOLUME 10.2 FL (7.4-10.4); MONOCYTES # (AUTO) 1.3 X10'3 (0-0.9); MONOCYTES % (AUTO) 15.2 % (2-12); NEUTROPHILS # (AUTO) 4.9 X10'3 (1.8-7.7); NEUTROPHILS % (AUTO) 55.3 % (42-75); PLATELET COUNT 530 X10'3 (140-440); RED CELL DISTRIBUTION WIDTH 14.6 % (11.5-14.5); WHITE BLOOD COUNT 8.9 X10'3 (4.5-11.0)
[2023-05-23 07:28] LABS: ALANINE AMINOTRANSFERASE 20 U/L (12-78); ALBUMIN 2.5 G/DL (3.4-5.0); ALBUMIN/GLOBULIN RATIO 0.7 (1.1-1.5); ALKALINE PHOSPHATASE 85 IU/L (46-116); ANION GAP 7 (8-16); ASPARTATE AMINO TRANSFERASE 14 U/L (10-37); BILIRUBIN,TOTAL 0.3 MG/DL (0.1-1.0); BLOOD UREA NITROGEN 6 MG/DL (7-18); BUN/CREATININE RATIO 8.6 (10.0-20.0); CALCIUM 8.3 MG/DL (8.5-10.1); CHLORIDE 103 MMOL/L (99-107); GLUCOSE 114 MG/DL (70-104); POTASSIUM 3.8 MMOL/L (3.5-5.1); SODIUM 137 MMOL/L (135-145); TOTAL CARBON DIOXIDE 27.2 MMOL/L (24-32); TOTAL PROTEIN 6.1 G/DL (6.4-8.2); eCRCL 100 ML/MIN; eGFR 89 ML/MIN
[2023-05-23] MEDS: gabapentin 300mg capsule PO SCH ×2 (07:30→19:28)
[2023-05-23 08:52] LABS: LARGE PLATELETS FEW; PLATELET ESTIMATE INCREASED; TOTAL CELLS COUNTED 100
[2023-05-23 10:00] VITALS: BP 125/61; PULSE 85; RESP 16; TEMP 97.7; O2SAT 99
--- NOTE | 2023-05-23 10:45 | NUR ---
NG removed, patient tolerated well. Will start [place] diet and continue with plan of care.
[2023-05-23] MEDS: HYDROmorphone 2mg tablet PO PRN ×3 (12:36→23:46)
--- NOTE | 2023-05-23 12:44 | NUR ---
Pt has been drinking apple juice and eating applesauce, just prior to check. Rylee ORTIZ Addendum: 05/23/23 at 1245 by Lily Lal RN Amended: Links added.
--- NOTE | 2023-05-23 17:54 | NUR ---
pt has been eating jello, drinking juice this afternoon, just off NPO status, BS 258-pt states she "normally runs 250-300 blood sugars. Rylee ORTIZ Addendum: 05/23/23 at 1755 by Rylee Espinoza RN Amended: Links added.
[2023-05-23 18:00] VITALS: BP 147/78; PULSE 89; RESP 14; TEMP 97.1; O2SAT 99
[2023-05-23] MEDS: enoxaparin 40mg/0.4ml syringe SQ SCH (19:28)
[2023-05-23] MEDS ORDERED: OLANZapine 2.5MG tablet PO SCH (20:15)
[2023-05-23] MEDS ORDERED: olanzapine 10mg tablet PO SCH ×2 (20:16→21:00)
--- NOTE | 2023-05-23 21:00 | NUR ---
MANUAL WRITER documentation: I have reviewed and agree with assessment performed and documented by SINDI.
[2023-05-23] MEDS: insulin glargine (Lantus) pen - multi-dose SQ SCH (21:54)
[2023-05-23 22:00] VITALS: BP 138/80; PULSE 80; RESP 20; TEMP 97.4; O2SAT 98
[2023-05-23] MEDS ORDERED: zolpidem 5mg tablet PO PRN (23:10)
--- NOTE | 2023-05-23 23:45 | NUR ---
pt states she wishes to leave AMA, stating "I can't sleep". She returns to the nurses station a moment later stating she will stay if she can have Ambien. Dr. Hung gave telephone order for Ross for this pt, which was administered. Pt is repeatedly asking for klonopin and additional pain meds. PO pain meds are given and pt is asking for them again within 5 minutes.
--- NOTE | 2023-05-24 01:32 | NUR ---
page to hospitalist: notifying you that [id number] has decided to leave AMA after all. Demetri ext [phone]
--- NOTE | 2023-05-24 01:42 | NUR ---
pt was seen by hospitalist salt washer harvesting station, who explained risks of leaving against medical advice at this time; pt is firm in her decision to AMA. IV was discontinued, pt assisted to dress and gather belongings, and was escorted to the hospital exit to await the taxi she had called to pick her up Addendum: 05/24/23 at 0206 by Demetri Rowe LVN AMA paperwork signed by both patient and Dr. Hung, and is with patient chart in bin for medical records to tile picker
== END 2023-05-24 01:40 | disposition left against medical advice (07) | DRG 247 ==
LOC: ER 09:05 → ED HOLD 13:32 → EDBEDREQ 15:32 → ORTHO 4S 17:14
PROVIDERS: ADMIT Internal Medicine; ATTEND Internal Medicine
DX: K56.7 Ileus, unspecified (principal); E11.9 Type 2 diabetes mellitus without complications; E78.00 Pure hypercholesterolemia, unspecified; F41.9 Anxiety disorder, unspecified; I10 Essential (primary) hypertension; F15.90 Other stimulant use, unspecified, uncomplicated; G43.909 Migraine, unspecified, not intractable, without status migrainosus; G89.29 Other chronic pain; M19.90 Unspecified osteoarthritis, unspecified site; Z53.21 Procedure and treatment not carried out due to patient leaving prior to being seen by health care provider; Z90.710 Acquired absence of both cervix and uterus; Z79.4 Long term (current) use of insulin; Z86.711 Personal history of pulmonary embolism; I25.2 Old myocardial infarction; Z90.81 Acquired absence of spleen; Z90.5 Acquired absence of kidney; Z90.411 Acquired partial absence of pancreas; Z88.8 Allergy status to other drugs, medicaments and biological substances; Z88.5 Allergy status to narcotic agent; Z82.49 Family history of ischemic heart disease and other diseases of the circulatory system
CPT/HCPCS: 36415; 74018; 74176; 80053; 81003; 82948; 83690; 84484; 85007; 85025; 87040; 96374; 96375; 99285; A6258; G0378; J1170; J1650; J1815; J2405; J2543; J7030; Q9963

== ENCOUNTER 2023-05-24 12:42 | Outpatient (CLI) | payer MEDICAID ==
[2023-05-18 13:58] LABS: BASOPHILS % (AUTO) 0.3 % (0-1); EOSINOPHILS # (AUTO) 0.1 X10'3 (0-0.9); EOSINOPHILS % (AUTO) 0.7 % (0-6); LYMPHOCYTES # (AUTO) 1.6 X10'3 (1.1-4.8); LYMPHOCYTES % (AUTO) 13.3 % (21-51); MEAN CORPUSCULAR HEMOGLOBIN 28.1 PG (27.0-31.0); MEAN CORPUSCULAR HGB CONC 31.6 g/dL (33.0-36.5); MONOCYTES # (AUTO) 1.5 X10'3 (0-0.9); MONOCYTES % (AUTO) 12.3 % (2-12); NEUTROPHILS % (AUTO) 73.4 % (42-75); PRE OP HEMATOCRIT 34.2 % (35.0-45.0); PRE OP PLATELET COUNT 327 X10'3 (140-440); PRE OP WHITE BLOOD COUNT 12.2 10'3 (4.8-10.8); RED BLOOD COUNT 3.85 X10'6 (4.20-5.60)
[2023-05-18 14:00] LABS: PRE OP HEMOGLOBIN 10.8 g/dL (12.0-16.0)
[2023-05-18 14:08] LABS: ALBUMIN 3.3 G/DL (3.4-5.0); ALBUMIN/GLOBULIN RATIO 0.9 (1.1-1.5); ALKALINE PHOSPHATASE 83 IU/L (46-116); BLOOD UREA NITROGEN 6 MG/DL (7-18); BUN/CREATININE RATIO 7.7 (10.0-20.0); CALCIUM 8.7 MG/DL (8.5-10.1); CHLORIDE 99 MMOL/L (99-107); CREATININE 0.78 MG/DL (0.40-0.90); PRE OP ALT 19 U/L (30-65); PRE OP ANION GAP 7 (8-16); PRE OP AST 17 U/L (10-37); PRE OP BILIRUB, TOTAL 0.2 MG/DL (0.0-1.0); PRE OP GLUCOSE 193 MG/DL (70-104); PRE OP POTASSIUM 3.7 MMOL/L (3.4-5.1); PRE OP SODIUM 132 MMOL/L (135-145); TOTAL CARBON DIOXIDE 26.3 MMOL/L (24-32); eGFR 78 ML/MIN
[2023-05-18 14:29] LABS: LARGE PLATELETS FEW; PLATELET ESTIMATE NORMAL
[2023-05-18 14:30] LABS: HYPOCHROMASIA 1+
[~2023-05-24] VITALS: Ht 175.3 cm; Wt 99.8 kg
[~2023-05-24 12:42] MED LIST changes: +CLON-528 PO; +CYCL-1; +GABA600T13 PO; +OLAN20TA34 PO; +ONDA4TAB12 PO; +cefazolin 2gm/D5W 100mL 100 ML IV ONE; +famotidine 20mg tablet PO ONE; +ringers solution, lacted 1,000 ML IV SCH
== END 2023-05-24 23:59 | disposition home or self-care (01) ==
LOC: LAB 12:42
PROVIDERS: ATTEND Orthopaedic Surgery
DX: Z01.818 Encounter for other preprocedural examination (principal); M75.42 Impingement syndrome of left shoulder; M75.122 Complete rotator cuff tear or rupture of left shoulder, not specified as traumatic; M19.012 Primary osteoarthritis, left shoulder; M19.011 Primary osteoarthritis, right shoulder; K21.9 Gastro-esophageal reflux disease without esophagitis; E78.5 Hyperlipidemia, unspecified; G43.909 Migraine, unspecified, not intractable, without status migrainosus; E11.59 Type 2 diabetes mellitus with other circulatory complications; I25.10 Atherosclerotic heart disease of native coronary artery without angina pectoris; E11.22 Type 2 diabetes mellitus with diabetic chronic kidney disease; I12.9 Hypertensive chronic kidney disease with stage 1 through stage 4 chronic kidney disease, or unspecified chronic kidney disease; N18.9 Chronic kidney disease, unspecified; E66.8 Other obesity; Z68.33 Body mass index [BMI] 33.0-33.9, adult; F41.9 Anxiety disorder, unspecified; F32.A Depression, unspecified; Z86.711 Personal history of pulmonary embolism; Z79.899 Other long term (current) drug therapy; Z72.89 Other problems related to lifestyle; Z90.49 Acquired absence of other specified parts of digestive tract; Z90.5 Acquired absence of kidney; Z90.81 Acquired absence of spleen; Z87.891 Personal history of nicotine dependence; Z79.4 Long term (current) use of insulin; Z85.528 Personal history of other malignant neoplasm of kidney; F11.91 Opioid use, unspecified, in remission; F15.91 Other stimulant use, unspecified, in remission; Z82.49 Family history of ischemic heart disease and other diseases of the circulatory system
CPT/HCPCS: 36415; 80053; 85008; 85025; 93005; J0690; J7120

== ENCOUNTER 2023-07-20 21:26 | Emergency (ER) | payer MEDICAID ==
[~2023-07-20] VITALS: Ht 175.3 cm; Wt 100.0 kg
[~2023-07-20 21:26] MED LIST changes: -cefazolin 2gm/D5W 100mL 100 ML IV ONE; -famotidine 20mg tablet PO ONE; -ringers solution, lacted 1,000 ML IV SCH
[2023-07-20 21:57] VITALS: BP 164/90; PULSE 95; RESP 18; TEMP 98.4; O2SAT 99
== END 2023-07-21 01:23 | disposition left against medical advice (07) ==
LOC: ER 21:28
DX: R10.9 Unspecified abdominal pain (principal); E11.9 Type 2 diabetes mellitus without complications; Z53.21 Procedure and treatment not carried out due to patient leaving prior to being seen by health care provider
CPT/HCPCS: 82948; 99281

== ENCOUNTER 2023-07-21 01:28 | Emergency (ER) | payer MEDICAID ==
[~2023-07-21] VITALS: Ht 175.3 cm; Wt 100.0 kg
[2023-07-21 01:58] VITALS: TEMP 98
[2023-07-21 08:27] VITALS: BP 161/100; PULSE 84; O2SAT 100
[2023-07-21] MEDS ORDERED: ketorolac trometh. 30mg/ml inj. IM STA (08:40)
[2023-07-21] MEDS ORDERED: phenazopyridine 100mg tablet PO ONE (08:40)
[2023-07-21 09:11] LABS: BILIRUBIN,URINE NEGATIVE (Neg); CLARITY,URINE SLIGHTLY CLOUDY (Clear); COLOR,URINE STRAW (Yellow); GLUCOSE, URINE 100 mg/dl (Neg); KETONES,URINE NEGATIVE (Neg); LEUKOCYTE ESTERASE ,URINE NEGATIVE (Neg); NITRITES, URINE NEGATIVE (Neg); OCCULT BLOOD,URINE NEGATIVE (Neg); PROTEIN,URINE NEGATIVE (Neg); UROBILINOGEN,URINE 0.2 E.U/dL (0.2-1.0)
[2023-07-21 09:32] LABS: UA COLLECTION TYPE CLN CATCH MIDSTREAM
[2023-07-21 09:33] LABS: BACTERIA,URINE FEW /HPF (Neg); SQUAMOUS EPITHELIAL CELL,UR MANY /LPF (FEW); YEAST FEW /HPF (NEGATIVE)
[2023-07-21 09:34] LABS: RBC,URINE 0-2 /HPF (0-2); WBC,URINE 0-4 /HPF (0-4)
[2023-07-21 09:36] VITALS: RESP 16
[2023-07-21 09:36] LABS: TRANSITIONAL EPI CELLS,URINE FEW /HPF
[2023-07-21 10:46] LABS: BASOPHILS % (AUTO) 0 % (0-1); EOSINOPHILS % (AUTO) 0 % (0-6); MONOCYTES # (AUTO) 0.1 X10'3 (0-0.9); MONOCYTES % (AUTO) 1.9 % (2-12); NEUTROPHILS # (AUTO) 7.2 X10'3 (1.8-7.7)
[2023-07-21 10:47] LABS: HEMATOCRIT 29.6 % (35.0-45.0); HEMOGLOBIN 9.1 g/dl (12.0-16.0); LYMPHOCYTES # (AUTO) 0.3 X10'3 (1.1-4.8); LYMPHOCYTES % (AUTO) 3.4 % (21-51); MEAN CORPUSCULAR HGB CONC 30.9 g/dL (33.0-36.5); MEAN CORPUSCULAR VOLUME 94.1 FL (78-98); MEAN PLATELET VOLUME 9.7 FL (7.4-10.4); NEUTROPHILS % (AUTO) 94.7 % (42-75); PLATELET COUNT 259 X10'3 (140-440); RED BLOOD COUNT 3.15 X10'6 (4.20-5.60); WHITE BLOOD COUNT 7.7 X10'3 (4.5-11.0)
[2023-07-21 10:57] LABS: ALANINE AMINOTRANSFERASE 8 U/L (12-78); ALBUMIN 2.4 G/DL (3.4-5.0); ALBUMIN/GLOBULIN RATIO 0.6 (1.1-1.5); ALKALINE PHOSPHATASE 94 IU/L (46-116); ANION GAP 11 (8-16); ASPARTATE AMINO TRANSFERASE 12 U/L (10-37); BILIRUBIN,TOTAL 0.2 MG/DL (0.1-1.0); BLOOD UREA NITROGEN 43 MG/DL (7-18); BUN/CREATININE RATIO 13.9 (10.0-20.0); CALCIUM 8.8 MG/DL (8.5-10.1); CHLORIDE 106 MMOL/L (99-107); LIPASE 19 U/L (16-77); POTASSIUM 5.4 MMOL/L (3.5-5.1); SODIUM 138 MMOL/L (135-145); TOTAL CARBON DIOXIDE 20.6 MMOL/L (24-32); TOTAL PROTEIN 6.3 G/DL (6.4-8.2); eCRCL 23 ML/MIN; eGFR 16 ML/MIN
[2023-07-21 11:05] LABS: GLUCOSE 552 MG/DL (70-104)
[2023-07-21 11:14] LABS: ELLIPTOCYTES FEW; PLATELET ESTIMATE NORMAL; POLYCHROMASIA FEW; SCHISTOCYTES FEW
[2023-07-21 11:15] LABS: GIANT PLATELET FEW; LARGE PLATELETS FEW
== END 2023-07-21 11:32 | disposition left against medical advice (07) ==
LOC: ER 01:29
DX: R10.30 Lower abdominal pain, unspecified (principal); R30.0 Dysuria; R35.0 Frequency of micturition; G43.909 Migraine, unspecified, not intractable, without status migrainosus; E78.00 Pure hypercholesterolemia, unspecified; E11.9 Type 2 diabetes mellitus without complications; F31.9 Bipolar disorder, unspecified; F15.10 Other stimulant abuse, uncomplicated; Z88.5 Allergy status to narcotic agent; Z88.8 Allergy status to other drugs, medicaments and biological substances; Z79.899 Other long term (current) drug therapy
CPT/HCPCS: 36415; 80053; 81001; 83690; 85008; 85025; 96372; 99283; J1885

== ENCOUNTER → 2023-09-13 | Emergency (ER) | payer MEDICAID ==
[~2023-09-13] VITALS: Ht 175.3 cm; Wt 95.7 kg
[~2023-09-13] MED LIST changes: +CLON-527 PO; -CLON-528 PO; +CLON0.5T2 PO; -GABA600T13 PO; -HYDR-3972 PO; +HYDR-3973 PO; +INSU100C10 SQ; +INSU100I31; -INSU100I31 SQ; +INSU100I99 SQ; +INSU100V64 SQ; +METF750T46 PO; -ONDA4TAB12 PO; +insulin regular, human 10 units/0.1 ml syringe SQ ONE; +metFORMIN 500mg tablet PO ONE
[2023-09-13 08:56] VITALS: BP 189/90; PULSE 82; RESP 16; TEMP 98; O2SAT 99
[2023-09-13 09:33] LABS: BASOPHILS # (AUTO) 0.1 X10'3 (0-0.2); RED BLOOD COUNT 4.29 X10'6 (4.20-5.60)
[2023-09-13 09:36] LABS: BASOPHILS % (AUTO) 0.9 % (0-1); EOSINOPHILS % (AUTO) 0.4 % (0-6); LYMPHOCYTES # (AUTO) 2.4 X10'3 (1.1-4.8); LYMPHOCYTES % (AUTO) 23.5 % (21-51); MEAN CORPUSCULAR HGB CONC 31.6 g/dL (33.0-36.5); MEAN CORPUSCULAR VOLUME 88.6 FL (78-98); MONOCYTES # (AUTO) 0.5 X10'3 (0-0.9); MONOCYTES % (AUTO) 5.3 % (2-12); NEUTROPHILS # (AUTO) 7.1 X10'3 (1.8-7.7); NEUTROPHILS % (AUTO) 69.9 % (42-75); PLATELET COUNT 435 X10'3 (140-440); RED CELL DISTRIBUTION WIDTH 15.5 % (11.5-14.5); WHITE BLOOD COUNT 10.2 X10'3 (4.5-11.0)
[2023-09-13 09:43] LABS: BILIRUBIN,URINE NEGATIVE (Neg); CLARITY,URINE SLIGHTLY CLOUDY (Clear); COLOR,URINE YELLOW (Yellow); GLUCOSE, URINE >=1000 mg/dl (Neg); KETONES,URINE TRACE mg/dl (Neg); LEUKOCYTE ESTERASE ,URINE NEGATIVE (Neg); NITRITES, URINE NEGATIVE (Neg); OCCULT BLOOD,URINE NEGATIVE (Neg); PH,URINE 6.5 (4.8-8.0); PROTEIN,URINE NEGATIVE (Neg); UROBILINOGEN,URINE 0.2 E.U/dL (0.2-1.0)
[2023-09-13 09:56] LABS: ALANINE AMINOTRANSFERASE 9 U/L (12-78); ALBUMIN 3.5 G/DL (3.4-5.0); ALBUMIN/GLOBULIN RATIO 0.9 (1.1-1.5); ANION GAP 14 (8-16); ASPARTATE AMINO TRANSFERASE 7 U/L (10-37); BILIRUBIN,TOTAL 0.6 MG/DL (0.1-1.0); BLOOD UREA NITROGEN 13 MG/DL (7-18); BUN/CREATININE RATIO 12.7 (10.0-20.0); CALCIUM 8.8 MG/DL (8.5-10.1); CHLORIDE 99 MMOL/L (99-107); CREATININE 1.02 MG/DL (0.40-0.90); LIPASE 40 U/L (16-77); POTASSIUM 3.9 MMOL/L (3.5-5.1); SODIUM 135 MMOL/L (135-145); TOTAL CARBON DIOXIDE 22.3 MMOL/L (24-32); TOTAL PROTEIN 7.5 G/DL (6.4-8.2); eCRCL 69 ML/MIN; eGFR 57 ML/MIN
[2023-09-13 10:03] LABS: SQUAMOUS EPITHELIAL CELL,UR MANY /LPF (FEW); UA COLLECTION TYPE CLN CATCH MIDSTREAM
[2023-09-13 10:04] LABS: BACTERIA,URINE 1+ /HPF (Neg); RBC,URINE 0-2 /HPF (0-2); WBC,URINE 0-4 /HPF (0-4)
[2023-09-13 10:10] LABS: ALKALINE PHOSPHATASE 72 IU/L (46-116)
[2023-09-13 10:14] LABS: GLUCOSE 508 MG/DL (70-104)
== END | disposition left against medical advice (07) ==
LOC: ER 08:54
DX: E11.65 Type 2 diabetes mellitus with hyperglycemia (principal); Z90.710 Acquired absence of both cervix and uterus
CPT/HCPCS: 36415; 80053; 81001; 82948; 83690; 85025; 99283

== ENCOUNTER 2023-10-15 17:57 | Inpatient (IN) | payer MEDICAID ==
[~2023-10-15] VITALS: Ht 175.3 cm; Wt 93.8 kg
[~2023-10-15 17:57] MED LIST changes: -METF750T46 PO; -insulin regular, human 10 units/0.1 ml syringe SQ ONE; -metFORMIN 500mg tablet PO ONE
[2023-10-15 18:29] LABS: BILIRUBIN,URINE NEGATIVE (Neg); CLARITY,URINE CLEAR (Clear); COLOR,URINE YELLOW (Yellow); GLUCOSE, URINE >=1000 mg/dl (Neg); KETONES,URINE 15 mg/dl (Neg); LEUKOCYTE ESTERASE ,URINE NEGATIVE (Neg); NITRITES, URINE NEGATIVE (Neg); OCCULT BLOOD,URINE NEGATIVE (Neg); PH,URINE 6.5 (4.8-8.0); PROTEIN,URINE NEGATIVE (Neg); UA COLLECTION TYPE CLN CATCH MIDSTREAM; UROBILINOGEN,URINE 0.2 E.U/dL (0.2-1.0)
[2023-10-15 18:42] LABS: BACTERIA,URINE NONE SEEN /HPF (Neg); MUCUS STRANDS NONE SEEN /LPF (Neg); SQUAMOUS EPITHELIAL CELL,UR FEW /LPF (FEW); WBC,URINE 0-4 /HPF (0-4)
[2023-10-15 18:43] LABS: RBC,URINE 0-2 /HPF (0-2)
[2023-10-15 19:55] LABS: EOSINOPHILS % (AUTO) 0.1 % (0-6); MEAN CORPUSCULAR VOLUME 87.7 FL (78-98)
[2023-10-15 19:58] LABS: BASOPHILS # (AUTO) 0.1 X10'3 (0-0.2); BASOPHILS % (AUTO) 0.7 % (0-1); HEMATOCRIT 38.6 % (35.0-45.0); HEMOGLOBIN 12.2 g/dl (12.0-16.0); LYMPHOCYTES # (AUTO) 1.9 X10'3 (1.1-4.8); LYMPHOCYTES % (AUTO) 14.2 % (21-51); MEAN CORPUSCULAR HEMOGLOBIN 27.8 PG (27.0-31.0); MEAN CORPUSCULAR HGB CONC 31.7 g/dL (33.0-36.5); MEAN PLATELET VOLUME 12.6 FL (7.4-10.4); MONOCYTES # (AUTO) 0.6 X10'3 (0-0.9); MONOCYTES % (AUTO) 4.3 % (2-12); NEUTROPHILS # (AUTO) 10.8 X10'3 (1.8-7.7); NEUTROPHILS % (AUTO) 80.7 % (42-75); PLATELET COUNT 324 X10'3 (140-440); RED CELL DISTRIBUTION WIDTH 14.5 % (11.5-14.5); WHITE BLOOD COUNT 13.4 X10'3 (4.5-11.0)
[2023-10-15 20:03] LABS: ALBUMIN 3.5 G/DL (3.4-5.0); ANION GAP 13 (8-16); BLOOD UREA NITROGEN 10 MG/DL (7-18); BUN/CREATININE RATIO 10.5 (10.0-20.0); CALCIUM 9.3 MG/DL (8.5-10.1); CHLORIDE 95 MMOL/L (99-107); CREATININE 0.95 MG/DL (0.40-0.90); LIPASE 32 U/L (16-77); POTASSIUM 3.7 MMOL/L (3.5-5.1); SODIUM 132 MMOL/L (135-145); TOTAL CARBON DIOXIDE 24.5 MMOL/L (24-32); eCRCL 74 ML/MIN; eGFR 62 ML/MIN
[2023-10-15 20:15] LABS: GLUCOSE 736 MG/DL (70-104)
[2023-10-15 20:54] LABS: URINE HCG NEGATIVE (NEG)
[2023-10-15] MEDS: normal saline 1000ML IV soln IV ONE (20:55)
[2023-10-15] MEDS: ondansetron/PF 4mg/2ml inj IV ONE (20:59)
[2023-10-15] MEDS: HYDROmorphone inj. 0.5 MG/0.5 ML DISP.SYRIN IV ONE (20:59)
[2023-10-15] MEDS ORDERED: temazepam 15mg capsule PO PRN (21:00)
[2023-10-15 21:05] LABS: MAGNESIUM 1.9 MG/DL (1.5-2.4)
[2023-10-15 21:44] LABS: BASOPHILS # (AUTO) 0.1 X10'3 (0-0.2); LYMPHOCYTES # (AUTO) 2.9 X10'3 (1.1-4.8); MONOCYTES # (AUTO) 0.7 X10'3 (0-0.9); MONOCYTES % (AUTO) 5.6 % (2-12); NEUTROPHILS # (AUTO) 9.5 X10'3 (1.8-7.7); PLATELET COUNT 298 X10'3 (140-440); WHITE BLOOD COUNT 13.2 X10'3 (4.5-11.0)
[2023-10-15 21:46] LABS: BASOPHILS % (AUTO) 0.8 % (0-1); EOSINOPHILS % (AUTO) 0.1 % (0-6); HEMATOCRIT 35.9 % (35.0-45.0); HEMOGLOBIN 11.4 g/dl (12.0-16.0); LYMPHOCYTES % (AUTO) 21.8 % (21-51); MEAN CORPUSCULAR HEMOGLOBIN 27.8 PG (27.0-31.0); MEAN CORPUSCULAR HGB CONC 31.8 g/dL (33.0-36.5); MEAN CORPUSCULAR VOLUME 87.3 FL (78-98); MEAN PLATELET VOLUME 11.6 FL (7.4-10.4); NEUTROPHILS % (AUTO) 71.7 % (42-75); RED BLOOD COUNT 4.11 X10'6 (4.20-5.60); RED CELL DISTRIBUTION WIDTH 14.5 % (11.5-14.5)
[2023-10-15] MEDS ORDERED: piperacillin/tazobactam inj. 3.375 GM in NS 50ml IV SCH (21:52)
[2023-10-15] MEDS ORDERED: iohexol 300mg/ml 100ml inj. ONE (21:53)
[2023-10-15] MEDS ORDERED: metroNIDAZOLE-Flagyl 500mg/NS 100ML IVPB IV SCH (21:54)
[2023-10-15] MEDS ORDERED: vancomycin 1,750 MG in NS 350ml IV soln IV ONE (21:55)
[2023-10-15] MEDS ORDERED: magnesium 4gm in 100ml NS 100 ML IV PRN (22:25)
[2023-10-15] MEDS ORDERED: potassium Cl 40MEQ/1/2NS 520ml 520 ML IV PRN (22:25)
[2023-10-15] MEDS ORDERED: ondansetron/PF 4mg/2ml inj IV PRN (22:25)
[2023-10-15] MEDS: normal saline 1000ml 1,000 ML IV SCH (22:25)
[2023-10-15] MEDS ORDERED: magnesium 2GM in 50ml NS 50 ML IV PRN (22:25)
[2023-10-15] MEDS ORDERED: magnesium Cl slow-release 64mg tablet PO PRN (22:25)
[2023-10-15] MEDS ORDERED: acetaminophen 325mg tablet PO PRN (22:25)
[2023-10-15] MEDS ORDERED: DEXTROSE 15 GM of carb/4 tabs (each vial/BOTTLE has 4 tablets) PO PRN ×2 (22:40)
[2023-10-15] MEDS ORDERED: dextrose 50%-water 50ml dispensing syringe IV PRN ×2 (22:40)
[2023-10-15] MEDS ORDERED: glucagon, human recombinant 1mg kit SUBCUT PRN (22:40)
[2023-10-15] MEDS: insulin Lispro (HumaLOG) vial - multi-dose SQ SCH (23:30)
[2023-10-15] MEDS: HYDROcodone/acetaminophen 5mg/325mg tablet PO PRN (23:45)
[2023-10-15 23:47] LABS: HEMOGLOBIN A1C > 12.0 % (4.5-6.2)
[2023-10-16] MEDS: insulin glargine (Lantus) pen - multi-dose SQ SCH (00:14)
[2023-10-16 00:55] VITALS: BP 166/84; PULSE 90; RESP 16; TEMP 97.4; O2SAT 97
[2023-10-16] MEDS: morphine 2 MG/ML inj. syringe IV PRN ×2 (02:27→10:36)
[2023-10-16] MEDS: HYDROcodone/acetaminophen 10/325mg tab PO PRN (03:52)
[2023-10-16 06:00] VITALS: BP 115/73; PULSE 73; RESP 16; TEMP 97.9; O2SAT 97
[2023-10-16 07:05] LABS: EOSINOPHILS # (AUTO) 0.1 X10'3 (0-0.9); WHITE BLOOD COUNT 11.4 X10'3 (4.5-11.0)
[2023-10-16 07:07] LABS: BASOPHILS # (AUTO) 0.2 X10'3 (0-0.2); BASOPHILS % (AUTO) 1.3 % (0-1); EOSINOPHILS % (AUTO) 1.1 % (0-6); LYMPHOCYTES # (AUTO) 3.9 X10'3 (1.1-4.8); MEAN CORPUSCULAR HEMOGLOBIN 27.9 PG (27.0-31.0); MEAN CORPUSCULAR HGB CONC 32.3 g/dL (33.0-36.5); MEAN CORPUSCULAR VOLUME 86.6 FL (78-98); MEAN PLATELET VOLUME 11.5 FL (7.4-10.4); MONOCYTES # (AUTO) 0.9 X10'3 (0-0.9); MONOCYTES % (AUTO) 8.2 % (2-12); NEUTROPHILS # (AUTO) 6.3 X10'3 (1.8-7.7); NEUTROPHILS % (AUTO) 55.4 % (42-75); PLATELET COUNT 309 X10'3 (140-440); RED BLOOD COUNT 3.92 X10'6 (4.20-5.60); RED CELL DISTRIBUTION WIDTH 14.6 % (11.5-14.5)
[2023-10-16 07:20] LABS: ALANINE AMINOTRANSFERASE 9 U/L (12-78); ALBUMIN 2.7 G/DL (3.4-5.0); ALBUMIN/GLOBULIN RATIO 0.6 (1.1-1.5); ALKALINE PHOSPHATASE 92 IU/L (46-116); ANION GAP 9 (8-16); ASPARTATE AMINO TRANSFERASE 6 U/L (10-37); BILIRUBIN,TOTAL 0.6 MG/DL (0.1-1.0); BLOOD UREA NITROGEN 5 MG/DL (7-18); BUN/CREATININE RATIO 8.6 (10.0-20.0); CALCIUM 8.4 MG/DL (8.5-10.1); CHLORIDE 104 MMOL/L (99-107); CREATININE 0.58 MG/DL (0.40-0.90); GLUCOSE 261 MG/DL (70-104); POTASSIUM 3.5 MMOL/L (3.5-5.1); SODIUM 139 MMOL/L (135-145); TOTAL CARBON DIOXIDE 25.9 MMOL/L (24-32); TOTAL PROTEIN 6.9 G/DL (6.4-8.2); eCRCL 121 ML/MIN; eGFR > 90 ML/MIN
[2023-10-16] MEDS: insulin Lispro (HumaLOG) vial - multi-dose SQ SCH (08:15)
[2023-10-16] MEDS: heparin, porcine 5000 units/ml vial SQ SCH (08:16)
[2023-10-16 08:31] LABS: PLATELET ESTIMATE NORMAL
[2023-10-16 08:32] LABS: BURR CELLS FEW; LARGE PLATELETS MODERATE; POLYCHROMASIA FEW; TARGET CELLS FEW
[2023-10-16 08:42] LABS: PRO BRAIN NATRIURETIC PEPTIDE 192 PG/ML (0-125)
[2023-10-16] MEDS: CefTRIAXone 2gm/D5W 50ml BAG 50 ML IV SCH (09:32)
[2023-10-16 10:59] VITALS: BP 137/82; PULSE 84; RESP 17; TEMP 98.3; O2SAT 96
[2023-10-16] MEDS ORDERED: HYDROcodone/acetaminophen 10/325mg tab PO PRN (11:30)
[2023-10-16] MEDS: cyclobenzaprine 10mg tablet PO PRN (12:20)
[2023-10-16] MEDS: clonazePAM 1mg tablet PO PRN (12:21)
[2023-10-16] MEDS: oxyCODONE IR 5mg (immed. release) tablet PO SCH (13:53)
[2023-10-16 19:00] VITALS: BP 119/64; PULSE 77; RESP 13; TEMP 96.2; O2SAT 97
[2023-10-16 20:00] VITALS: RESP 14; O2SAT 96; O2SAT 97
[2023-10-16] MEDS: OLANZapine 2.5MG tablet PO SCH (21:47)
[2023-10-16 22:00] VITALS: BP 139/84; PULSE 78; RESP 16; TEMP 98.1; O2SAT 99
[2023-10-16] MEDS: acetaminophen 325mg tablet PO PRN (23:02)
[2023-10-17 06:00] VITALS: BP 108/60; PULSE 66; RESP 16; TEMP 97.6; O2SAT 96
[2023-10-17 07:50] VITALS: RESP 16
[2023-10-17 08:45] LABS: BASOPHILS # (AUTO) 0.1 X10'3 (0-0.2); BASOPHILS % (AUTO) 1.1 % (0-1); EOSINOPHILS # (AUTO) 0.3 X10'3 (0-0.9); EOSINOPHILS % (AUTO) 2.5 % (0-6); HEMATOCRIT 35.3 % (35.0-45.0); HEMOGLOBIN 11.2 g/dl (12.0-16.0); LYMPHOCYTES # (AUTO) 4.8 X10'3 (1.1-4.8); LYMPHOCYTES % (AUTO) 48.2 % (21-51); MEAN CORPUSCULAR HEMOGLOBIN 27.9 PG (27.0-31.0); MEAN CORPUSCULAR HGB CONC 31.8 g/dL (33.0-36.5); MEAN CORPUSCULAR VOLUME 87.7 FL (78-98); MEAN PLATELET VOLUME 12.1 FL (7.4-10.4); MONOCYTES # (AUTO) 0.8 X10'3 (0-0.9); MONOCYTES % (AUTO) 7.8 % (2-12); NEUTROPHILS % (AUTO) 40.4 % (42-75); PLATELET COUNT 319 X10'3 (140-440); RED BLOOD COUNT 4.02 X10'6 (4.20-5.60); RED CELL DISTRIBUTION WIDTH 14.7 % (11.5-14.5); WHITE BLOOD COUNT 9.9 X10'3 (4.5-11.0)
[2023-10-17 09:05] LABS: ALANINE AMINOTRANSFERASE 17 U/L (12-78); ALBUMIN 2.5 G/DL (3.4-5.0); ALBUMIN/GLOBULIN RATIO 0.7 (1.1-1.5); ALKALINE PHOSPHATASE 72 IU/L (46-116); ANION GAP 9 (8-16); ASPARTATE AMINO TRANSFERASE 15 U/L (10-37); BILIRUBIN,TOTAL 0.4 MG/DL (0.1-1.0); BLOOD UREA NITROGEN 4 MG/DL (7-18); BUN/CREATININE RATIO 6.8 (10.0-20.0); CALCIUM 8.4 MG/DL (8.5-10.1); CHLORIDE 109 MMOL/L (99-107); CREATININE 0.59 MG/DL (0.40-0.90); GLUCOSE 194 MG/DL (70-104); POTASSIUM 3.2 MMOL/L (3.5-5.1); SODIUM 143 MMOL/L (135-145); TOTAL CARBON DIOXIDE 25.2 MMOL/L (24-32); TOTAL PROTEIN 6.2 G/DL (6.4-8.2); eCRCL 119 ML/MIN; eGFR > 90 ML/MIN
[2023-10-17 10:26] LABS: LARGE PLATELETS FEW; PLATELET ESTIMATE NORMAL
[2023-10-17] MEDS: potassium Cl 20 mEq SR tablet PO PRN (14:24)
[2023-10-17 18:00] VITALS: BP 118/73; PULSE 87; RESP 15; TEMP 98.3; O2SAT 96
[2023-10-17 20:00] VITALS: RESP 17; O2SAT 97
[2023-10-17 22:00] VITALS: BP 92/51; PULSE 105; RESP 16; TEMP 97.7; O2SAT 95
[2023-10-18 06:00] VITALS: BP 87/47; PULSE 81; RESP 16; TEMP 96.5; O2SAT 95
[2023-10-18 07:28] LABS: BASOPHILS # (AUTO) 0.1 X10'3 (0-0.2); BASOPHILS % (AUTO) 1.3 % (0-1); EOSINOPHILS # (AUTO) 0.2 X10'3 (0-0.9); EOSINOPHILS % (AUTO) 2.4 % (0-6); HEMATOCRIT 38.3 % (35.0-45.0); HEMOGLOBIN 12.3 g/dl (12.0-16.0); LYMPHOCYTES # (AUTO) 4.4 X10'3 (1.1-4.8); LYMPHOCYTES % (AUTO) 48.9 % (21-51); MEAN CORPUSCULAR HEMOGLOBIN 28.2 PG (27.0-31.0); MEAN CORPUSCULAR VOLUME 87.9 FL (78-98); MEAN PLATELET VOLUME 11.4 FL (7.4-10.4); MONOCYTES # (AUTO) 0.7 X10'3 (0-0.9); MONOCYTES % (AUTO) 7.3 % (2-12); NEUTROPHILS # (AUTO) 3.6 X10'3 (1.8-7.7); NEUTROPHILS % (AUTO) 40.1 % (42-75); PLATELET COUNT 292 X10'3 (140-440); RED BLOOD COUNT 4.35 X10'6 (4.20-5.60); RED CELL DISTRIBUTION WIDTH 14.8 % (11.5-14.5); WHITE BLOOD COUNT 9.1 X10'3 (4.5-11.0)
[2023-10-18 07:40] VITALS: RESP 17; O2SAT 100
[2023-10-18 07:47] LABS: ALANINE AMINOTRANSFERASE 11 U/L (12-78); ALBUMIN 2.7 G/DL (3.4-5.0); ALBUMIN/GLOBULIN RATIO 0.7 (1.1-1.5); ALKALINE PHOSPHATASE 78 IU/L (46-116); ANION GAP 7 (8-16); ASPARTATE AMINO TRANSFERASE 13 U/L (10-37); BILIRUBIN,TOTAL 0.4 MG/DL (0.1-1.0); BLOOD UREA NITROGEN 5 MG/DL (7-18); BUN/CREATININE RATIO 8.1 (10.0-20.0); CALCIUM 8.9 MG/DL (8.5-10.1); CHLORIDE 108 MMOL/L (99-107); CREATININE 0.62 MG/DL (0.40-0.90); GLUCOSE 176 MG/DL (70-104); POTASSIUM 3.4 MMOL/L (3.5-5.1); SODIUM 141 MMOL/L (135-145); TOTAL CARBON DIOXIDE 25.6 MMOL/L (24-32); TOTAL PROTEIN 6.6 G/DL (6.4-8.2); eCRCL 113 ML/MIN; eGFR > 90 ML/MIN
[2023-10-18] MEDS ORDERED: ringers solution, lacted 1,000 ML IV ONE (12:30)
[2023-10-18 13:53] VITALS: RESP 18
[2023-10-18] MEDS: potassium Cl 20 mEq SR tablet PO PRN (13:54)
[2023-10-18] MEDS: potassium Cl 20 mEq SR tablet PO ONE (13:59)
== END 2023-10-18 14:42 | disposition home or self-care (01) | DRG 420 ==
LOC: ER 17:57 → ED HOLD 22:28 → ORTHO 4S 10-16 00:53
PROVIDERS: ADMIT Internal Medicine; ATTEND Family Medicine
PROC: BW211ZZ Computerized Tomography (CT Scan) of Abdomen and Pelvis using Low Osmolar Contrast (ICD-10-PCS; principal; 2023-10-15)
DX: E11.65 Type 2 diabetes mellitus with hyperglycemia (principal); I11.0 Hypertensive heart disease with heart failure; I50.9 Heart failure, unspecified; D72.829 Elevated white blood cell count, unspecified; F41.9 Anxiety disorder, unspecified; F51.04 Psychophysiologic insomnia; G89.4 Chronic pain syndrome; I25.10 Atherosclerotic heart disease of native coronary artery without angina pectoris; I25.2 Old myocardial infarction; Z79.891 Long term (current) use of opiate analgesic; Z85.07 Personal history of malignant neoplasm of pancreas; Z85.43 Personal history of malignant neoplasm of ovary; Z86.711 Personal history of pulmonary embolism; Z87.891 Personal history of nicotine dependence; Z90.411 Acquired partial absence of pancreas; Z90.49 Acquired absence of other specified parts of digestive tract; Z90.5 Acquired absence of kidney; Z90.710 Acquired absence of both cervix and uterus; Z90.81 Acquired absence of spleen; G43.909 Migraine, unspecified, not intractable, without status migrainosus; Z88.8 Allergy status to other drugs, medicaments and biological substances; Z80.0 Family history of malignant neoplasm of digestive organs; Z80.41 Family history of malignant neoplasm of ovary; Z82.49 Family history of ischemic heart disease and other diseases of the circulatory system
CPT/HCPCS: 36415; 71045; 74177; 78226; 80048; 80053; 81001; 81025; 82948; 83036; 83605; 83690; 83735; 83880; 84145; 84484; 85008; 85025; 87040; 87081; 93005; 99285; A9537; G0378; J0696; J1170; J1644; J1815; J2270; J2405; J3490; J7030; Q9967

== ENCOUNTER 2023-10-29 07:35 | Inpatient (IN) | payer MEDICAID ==
[~2023-10-29] VITALS: Ht 175.3 cm; Wt 92.2 kg
[~2023-10-29 07:35] MED LIST changes: -CYCL-1; +CYCL-1 PO
[2023-10-29 08:44] LABS: BILIRUBIN,URINE NEGATIVE (Neg); CLARITY,URINE CLEAR (Clear); COLOR,URINE STRAW (Yellow); GLUCOSE, URINE >=1000 mg/dl (Neg); KETONES,URINE NEGATIVE (Neg); LEUKOCYTE ESTERASE ,URINE NEGATIVE (Neg); NITRITES, URINE NEGATIVE (Neg); OCCULT BLOOD,URINE NEGATIVE (Neg); PROTEIN,URINE NEGATIVE (Neg); UROBILINOGEN,URINE 0.2 E.U/dL (0.2-1.0)
[2023-10-29 08:46] LABS: UA COLLECTION TYPE CLN CATCH MIDSTREAM; URINE HCG NEGATIVE (NEG)
[2023-10-29] MEDS: normal saline 1000ml 1,000 ML IV ONE ×2 (08:59→10:40)
[2023-10-29] MEDS: ondansetron/PF 4mg/2ml inj IV ONE (09:01)
[2023-10-29] MEDS: HYDROmorphone inj. 0.5 MG/0.5 ML DISP.SYRIN IV ONE (09:02)
[2023-10-29 09:24] LABS: BASOPHILS # (AUTO) 0.1 X10'3 (0-0.2); EOSINOPHILS # (AUTO) 0.1 X10'3 (0-0.9); HEMOGLOBIN 11.7 g/dl (12.0-16.0); LYMPHOCYTES # (AUTO) 2.5 X10'3 (1.1-4.8); NEUTROPHILS # (AUTO) 6.8 X10'3 (1.8-7.7)
[2023-10-29 09:28] LABS: BASOPHILS % (AUTO) 1.2 % (0-1); EOSINOPHILS % (AUTO) 0.9 % (0-6); HEMATOCRIT 36.5 % (35.0-45.0); MEAN CORPUSCULAR HEMOGLOBIN 28.2 PG (27.0-31.0); MEAN CORPUSCULAR HGB CONC 32.1 g/dL (33.0-36.5); MEAN CORPUSCULAR VOLUME 87.8 FL (78-98); MONOCYTES # (AUTO) 0.9 X10'3 (0-0.9); MONOCYTES % (AUTO) 8.9 % (2-12); PLATELET COUNT 304 X10'3 (140-440); RED BLOOD COUNT 4.15 X10'6 (4.20-5.60); RED CELL DISTRIBUTION WIDTH 14.6 % (11.5-14.5); WHITE BLOOD COUNT 10.4 X10'3 (4.5-11.0)
[2023-10-29 09:30] LABS: BACTERIA,URINE NONE SEEN /HPF (Neg); MUCUS STRANDS FEW /LPF (Neg); RBC,URINE NONE SEEN /HPF (0-2); SQUAMOUS EPITHELIAL CELL,UR FEW /LPF (FEW); WBC,URINE 0-4 /HPF (0-4); YEAST FEW /HPF (NEGATIVE)
[2023-10-29 09:49] LABS: ALANINE AMINOTRANSFERASE 17 U/L (12-78); ALBUMIN 3.3 G/DL (3.4-5.0); ALBUMIN/GLOBULIN RATIO 0.8 (1.1-1.5); ALKALINE PHOSPHATASE 140 IU/L (46-116); ANION GAP 13 (8-16); ASPARTATE AMINO TRANSFERASE 10 U/L (10-37); BILIRUBIN,TOTAL 0.5 MG/DL (0.1-1.0); BLOOD UREA NITROGEN 13 MG/DL (7-18); BUN/CREATININE RATIO 12.5 (10.0-20.0); CALCIUM 8.9 MG/DL (8.5-10.1); CHLORIDE 93 MMOL/L (99-107); CREATININE 1.04 MG/DL (0.40-0.90); LIPASE 53 U/L (16-77); POTASSIUM 4.1 MMOL/L (3.5-5.1); SODIUM 128 MMOL/L (135-145); TOTAL CARBON DIOXIDE 22.1 MMOL/L (24-32); TOTAL PROTEIN 7.6 G/DL (6.4-8.2); eCRCL 68 ML/MIN; eGFR 56 ML/MIN
[2023-10-29 09:53] LABS: GLUCOSE 642 MG/DL (70-104)
[2023-10-29 10:19] LABS: LARGE PLATELETS MODERATE; PLATELET ESTIMATE NORMAL
[2023-10-29] MEDS: potassium Cl 20 mEq SR tablet PO STA (10:33)
[2023-10-29] MEDS: HYDROmorphone 1 mg/ml syringe IV ONE (10:34)
[2023-10-29] MEDS: insulin regular, human 10 units/0.1 ml syringe IV ONE (10:35)
[2023-10-29] MEDS: ringers solution, lacted 1,000 ML IV ONE (11:35)
[2023-10-29] MEDS: meperidine/PF 25mg/ml syringe IV ONE (12:26)
[2023-10-29 12:32] LABS: ALBUMIN 3.3 G/DL (3.4-5.0); ANION GAP 12 (8-16); BLOOD UREA NITROGEN 14 MG/DL (7-18); CALCIUM 8.9 MG/DL (8.5-10.1); CHLORIDE 93 MMOL/L (99-107); POTASSIUM 4.2 MMOL/L (3.5-5.1); SODIUM 128 MMOL/L (135-145); TOTAL CARBON DIOXIDE 22.8 MMOL/L (24-32); eCRCL 70 ML/MIN; eGFR 59 ML/MIN
[2023-10-29 12:44] LABS: GLUCOSE 642 MG/DL (70-104)
[2023-10-29 13:12] LABS: ALBUMIN 2.9 G/DL (3.4-5.0); ANION GAP 7 (8-16); BLOOD UREA NITROGEN 11 MG/DL (7-18); BUN/CREATININE RATIO 15.7 (10.0-20.0); CALCIUM 8.2 MG/DL (8.5-10.1); CHLORIDE 103 MMOL/L (99-107); GLUCOSE 355 MG/DL (70-104); POTASSIUM 4.4 MMOL/L (3.5-5.1); SODIUM 135 MMOL/L (135-145); TOTAL CARBON DIOXIDE 25.3 MMOL/L (24-32); eCRCL 100 ML/MIN; eGFR 89 ML/MIN
[2023-10-29] MEDS ORDERED: potassium Cl 20 mEq SR tablet PO PRN ×2 (13:40)
[2023-10-29] MEDS ORDERED: acetaminophen 325mg tablet PO PRN (13:40)
[2023-10-29] MEDS ORDERED: ondansetron/PF 4mg/2ml inj IV PRN (13:40)
[2023-10-29] MEDS ORDERED: magnesium Cl slow-release 64mg tablet PO PRN (13:40)
[2023-10-29] MEDS ORDERED: magnesium 4gm in 100ml NS 100 ML IV PRN (13:40)
[2023-10-29] MEDS ORDERED: magnesium 2GM in 50ml NS 50 ML IV PRN (13:40)
[2023-10-29] MEDS ORDERED: potassium Cl 40MEQ/1/2NS 520ml 520 ML IV PRN (13:40)
[2023-10-29] MEDS ORDERED: mag hydrox/Alum hydrox/simeth 30ml oral suspension PO PRN (13:40)
[2023-10-29] MEDS ORDERED: OXYC10TA57 PO (13:41)
[2023-10-29] MEDS ORDERED: OLME20TA69 (13:41)
[2023-10-29] MEDS ORDERED: dextrose 50%-water 50ml dispensing syringe IV PRN ×2 (14:20)
[2023-10-29] MEDS ORDERED: HYDROmorphone inj. 0.5 MG/0.5 ML DISP.SYRIN IV PRN (14:20)
[2023-10-29] MEDS ORDERED: DEXTROSE 15 GM of carb/4 tabs (each vial/BOTTLE has 4 tablets) PO PRN ×2 (14:20)
[2023-10-29] MEDS ORDERED: glucagon, human recombinant 1mg kit SUBCUT PRN (14:20)
[2023-10-29] MEDS: normal saline 1000ml 1,000 ML IV SCH (14:26)
[2023-10-29] MEDS: atorvastatin 20mg tablet PO ONE (14:36)
[2023-10-29] MEDS: lisinopril 10 MG tablet PO ONE (14:37)
[2023-10-29] MEDS: OXYcodone (OXYCONTIN) Ext Release 15 MG TAB.SR.12H PO SCH (14:37)
[2023-10-29 15:24] VITALS: RESP 18; O2SAT 96
[2023-10-29 15:35] VITALS: BP 145/82; PULSE 100; RESP 18; TEMP 98.6; O2SAT 96
[2023-10-29] MEDS: HYDROmorphone inj. 0.5 MG/0.5 ML DISP.SYRIN IV PRN (17:02)
[2023-10-29 18:00] VITALS: BP 134/84; PULSE 102; RESP 14; TEMP 98.1; O2SAT 95
[2023-10-29] MEDS ORDERED: INSULIN LISPRO 100 UNIT/ML INSULN.PEN MULTI-DOSE SQ SCH (18:00)
[2023-10-29 20:00] VITALS: RESP 20; O2SAT 98
[2023-10-29] MEDS: K and/or MAG REPLACEMENT MC SCH (20:00)
[2023-10-29] MEDS: INSULIN LISPRO 100 UNIT/ML INSULN.PEN MULTI-DOSE SQ SCH ×2 (20:33→20:34)
[2023-10-29] MEDS: magnesium hydroxide 30ml (MOM) UD suspension PO PRN (20:36)
[2023-10-29] MEDS: clonazePAM 1mg tablet PO PRN (20:37)
[2023-10-29] MEDS: cyclobenzaprine 10mg tablet PO SCH (20:37)
[2023-10-29] MEDS: docusate sod 100mg capsule PO SCH (20:37)
[2023-10-29] MEDS: olanzapine 10mg tablet PO SCH (20:37)
[2023-10-29] MEDS: heparin, porcine 5000 units/ml vial SQ SCH (20:38)
[2023-10-29] MEDS ORDERED: insulin glargine (Lantus) pen - multi-dose SQ SCH (21:00)
[2023-10-29] MEDS: insulin glargine (Lantus) pen - multi-dose SQ SCH (21:56)
[2023-10-29 22:00] VITALS: BP 108/62; PULSE 105; RESP 20; TEMP 97.6; O2SAT 98
[2023-10-30] MEDS: oxyCODONE IR 5mg (immed. release) tablet PO PRN (01:48)
[2023-10-30 06:00] VITALS: BP 96/62; PULSE 95; RESP 20; TEMP 97.8; O2SAT 98
[2023-10-30 06:10] LABS: BASOPHILS # (AUTO) 0.1 X10'3 (0-0.2); BASOPHILS % (AUTO) 1.3 % (0-1); EOSINOPHILS # (AUTO) 0.3 X10'3 (0-0.9); MONOCYTES # (AUTO) 0.9 X10'3 (0-0.9)
[2023-10-30 06:14] LABS: EOSINOPHILS % (AUTO) 2.7 % (0-6); HEMATOCRIT 34.2 % (35.0-45.0); HEMOGLOBIN 10.9 g/dl (12.0-16.0); LYMPHOCYTES # (AUTO) 4.1 X10'3 (1.1-4.8); LYMPHOCYTES % (AUTO) 45.1 % (21-51); MEAN CORPUSCULAR HEMOGLOBIN 28.1 PG (27.0-31.0); MEAN CORPUSCULAR VOLUME 87.8 FL (78-98); MEAN PLATELET VOLUME 11.5 FL (7.4-10.4); MONOCYTES % (AUTO) 9.5 % (2-12); NEUTROPHILS # (AUTO) 3.8 X10'3 (1.8-7.7); NEUTROPHILS % (AUTO) 41.4 % (42-75); PLATELET COUNT 295 X10'3 (140-440); RED CELL DISTRIBUTION WIDTH 14.4 % (11.5-14.5); WHITE BLOOD COUNT 9.1 X10'3 (4.5-11.0)
[2023-10-30 06:34] LABS: ALANINE AMINOTRANSFERASE 9 U/L (12-78); ALBUMIN 2.7 G/DL (3.4-5.0); ALBUMIN/GLOBULIN RATIO 0.7 (1.1-1.5); ALKALINE PHOSPHATASE 80 IU/L (46-116); ANION GAP 5 (8-16); ASPARTATE AMINO TRANSFERASE 8 U/L (10-37); BILIRUBIN,TOTAL 0.7 MG/DL (0.1-1.0); BLOOD UREA NITROGEN 13 MG/DL (7-18); BUN/CREATININE RATIO 19.7 (10.0-20.0); CALCIUM 8.3 MG/DL (8.5-10.1); CHLORIDE 106 MMOL/L (99-107); CREATININE 0.66 MG/DL (0.40-0.90); GLUCOSE 187 MG/DL (70-104); MAGNESIUM 2.4 MG/DL (1.5-2.4); POTASSIUM 4.2 MMOL/L (3.5-5.1); SODIUM 137 MMOL/L (135-145); TOTAL PROTEIN 6.4 G/DL (6.4-8.2); eCRCL 107 ML/MIN; eGFR > 90 ML/MIN
[2023-10-30] MEDS ORDERED: losartan 50mg tablet PO SCH (08:00)
[2023-10-30] MEDS ORDERED: enoxaparin 40mg/0.4ml syringe SUBCUT SCH (08:00)
[2023-10-30] MEDS: atorvastatin 20mg tablet PO SCH (09:10)
[2023-10-30] MEDS: lisinopril 10 MG tablet PO SCH (09:15)
[2023-10-30 10:00] VITALS: BP 112/65; PULSE 104; RESP 14; TEMP 97.8; O2SAT 93
[2023-10-30] MEDS ORDERED: INSU100I99 SQ (10:27)
[2023-10-30] MEDS ORDERED: insulin glargine (Lantus) pen - multi-dose SQ ONE (10:40)
== END 2023-10-30 13:20 | disposition home or self-care (01) | DRG 420 ==
LOC: ER 07:36 → ED HOLD 13:49 → SUR 3N 15:10
PROVIDERS: ADMIT Internal Medicine; ATTEND Internal Medicine
DX: E11.65 Type 2 diabetes mellitus with hyperglycemia (principal); E66.9 Obesity, unspecified; E78.00 Pure hypercholesterolemia, unspecified; G89.4 Chronic pain syndrome; I10 Essential (primary) hypertension; F41.9 Anxiety disorder, unspecified; E78.1 Pure hyperglyceridemia; G43.909 Migraine, unspecified, not intractable, without status migrainosus; Z90.81 Acquired absence of spleen; Z90.710 Acquired absence of both cervix and uterus; Z90.5 Acquired absence of kidney; Z90.411 Acquired partial absence of pancreas; I25.2 Old myocardial infarction; Z88.8 Allergy status to other drugs, medicaments and biological substances; Z88.5 Allergy status to narcotic agent; Z90.49 Acquired absence of other specified parts of digestive tract; Z87.891 Personal history of nicotine dependence; Z86.711 Personal history of pulmonary embolism; Z87.442 Personal history of urinary calculi; Z80.41 Family history of malignant neoplasm of ovary; Z80.0 Family history of malignant neoplasm of digestive organs; Z82.49 Family history of ischemic heart disease and other diseases of the circulatory system; Z68.30 Body mass index [BMI] 30.0-30.9, adult
CPT/HCPCS: 36415; 74176; 80048; 80053; 81001; 81025; 82948; 83036; 83690; 83735; 84443; 84484; 85008; 85025; 86704; 86705; 87081; 87340; 93005; 99285; G0378; J1170; J1644; J1815; J2175; J2405; J7030; J7120

== ENCOUNTER 2023-11-25 12:54 | Inpatient (IN) | payer MEDICAID ==
[~2023-11-25] VITALS: Ht 175.3 cm; Wt 90.2 kg
[~2023-11-25 12:54] MED LIST changes: -CLON0.5T2 PO; -INSU100I31; -INSU100I8 SQ; -INSU100V64 SQ; +OLME20TA69; +OXYC10TA57 PO
[2023-11-25 13:59] LABS: URINE HCG NEGATIVE (NEG)
[2023-11-25 14:05] LABS: BILIRUBIN,URINE NEGATIVE (Neg); CLARITY,URINE CLEAR (Clear); COLOR,URINE STRAW (Yellow); GLUCOSE, URINE >=1000 mg/dl (Neg); KETONES,URINE NEGATIVE (Neg); LEUKOCYTE ESTERASE ,URINE NEGATIVE (Neg); NITRITES, URINE NEGATIVE (Neg); OCCULT BLOOD,URINE NEGATIVE (Neg); PROTEIN,URINE NEGATIVE (Neg); UROBILINOGEN,URINE 0.2 E.U/dL (0.2-1.0)
[2023-11-25 14:18] LABS: SQUAMOUS EPITHELIAL CELL,UR MODERATE /LPF (FEW); UA COLLECTION TYPE CLN CATCH MIDSTREAM
[2023-11-25 14:19] LABS: BASOPHILS % (AUTO) 0.2 % (0-1); EOSINOPHILS # (AUTO) 0.1 X10'3 (0-0.9); EOSINOPHILS % (AUTO) 0.7 % (0-6); HEMATOCRIT 40.4 % (35.0-45.0); HEMOGLOBIN 12.5 g/dl (12.0-16.0); LYMPHOCYTES # (AUTO) 3.1 X10'3 (1.1-4.8); LYMPHOCYTES % (AUTO) 22.2 % (21-51); MEAN CORPUSCULAR HEMOGLOBIN 27.9 PG (27.0-31.0); MEAN PLATELET VOLUME 11.9 FL (7.4-10.4); MONOCYTES # (AUTO) 0.7 X10'3 (0-0.9); MONOCYTES % (AUTO) 5.2 % (2-12); NEUTROPHILS % (AUTO) 71.7 % (42-75); PLATELET COUNT 321 X10'3 (140-440); RED BLOOD COUNT 4.48 X10'6 (4.20-5.60); RED CELL DISTRIBUTION WIDTH 15.3 % (11.5-14.5); WHITE BLOOD COUNT 13.9 X10'3 (4.5-11.0)
[2023-11-25 14:19] LABS: BACTERIA,URINE FEW /HPF (Neg); YEAST FEW /HPF (NEGATIVE)
[2023-11-25 14:20] LABS: RBC,URINE 0-2 /HPF (0-2); WBC,URINE 0-4 /HPF (0-4)
[2023-11-25 14:34] LABS: ALANINE AMINOTRANSFERASE 13 U/L (12-78); ALBUMIN 3.5 G/DL (3.4-5.0); ALBUMIN/GLOBULIN RATIO 0.8 (1.1-1.5); ALKALINE PHOSPHATASE 160 IU/L (46-116); ANION GAP 15 (8-16); ASPARTATE AMINO TRANSFERASE 5 U/L (10-37); BILIRUBIN,TOTAL 0.4 MG/DL (0.1-1.0); BLOOD UREA NITROGEN 21 MG/DL (7-18); BUN/CREATININE RATIO 14.7 (10.0-20.0); CALCIUM 9.1 MG/DL (8.5-10.1); CHLORIDE 93 MMOL/L (99-107); CREATININE 1.43 MG/DL (0.40-0.90); LIPASE 133 U/L (16-77); POTASSIUM 4.1 MMOL/L (3.5-5.1); SODIUM 125 MMOL/L (135-145); eCRCL 49 ML/MIN; eGFR 39 ML/MIN
[2023-11-25 15:09] LABS: GLUCOSE 1042 MG/DL (70-104)
[2023-11-25] MEDS ORDERED: Insulin Reg/NS 100units/100mL 100 ML IV PRN (16:05)
[2023-11-25] MEDS: normal saline 1000ML IV soln IVB ONE (16:05)
[2023-11-25 16:26] LABS: ACETONE NEGATIVE (NEGATIVE)
[2023-11-25] MEDS: normal saline 1000ML IV soln IV ONE (18:24)
[2023-11-25] MEDS: insulin regular, human 10 units/0.1 ml syringe IV ONE (18:27)
[2023-11-25] MEDS ORDERED: magnesium Cl slow-release 64mg tablet PO PRN (20:55)
[2023-11-25] MEDS ORDERED: potassium Cl 20 mEq SR tablet PO PRN ×2 (20:55)
[2023-11-25] MEDS ORDERED: magnesium hydroxide 30ml (MOM) UD suspension PO PRN (20:55)
[2023-11-25] MEDS ORDERED: mag hydrox/Alum hydrox/simeth 30ml oral suspension PO PRN (20:55)
[2023-11-25] MEDS ORDERED: magnesium 4gm in 100ml NS 100 ML IV PRN (20:55)
[2023-11-25] MEDS ORDERED: potassium Cl 40MEQ/1/2NS 520ml 520 ML IV PRN (20:55)
[2023-11-25] MEDS ORDERED: acetaminophen 325mg tablet PO PRN (20:55)
[2023-11-25] MEDS ORDERED: glucagon, human recombinant 1mg kit SUBCUT PRN (20:55)
[2023-11-25] MEDS ORDERED: DEXTROSE 15 GM of carb/4 tabs (each vial/BOTTLE has 4 tablets) PO PRN ×2 (20:55)
[2023-11-25] MEDS ORDERED: dextrose 50%-water 50ml dispensing syringe IV PRN ×2 (20:55)
[2023-11-25] MEDS ORDERED: magnesium 2GM in 50ml NS 50 ML IV PRN (20:55)
[2023-11-25] MEDS: ondansetron/PF 4mg/2ml inj IV PRN (21:48)
[2023-11-25] MEDS: morphine 2 MG/ML inj. syringe IV PRN (21:49)
[2023-11-25 22:01] LABS: MAGNESIUM 2.5 MG/DL (1.5-2.4); PHOSPHORUS 5.2 MG/DL (2.3-4.5)
[2023-11-25] MEDS: insulin glargine (Lantus) pen - multi-dose SQ SCH (22:41)
[2023-11-25] MEDS: ringers solution, lacted 1,000 ML IV ONE (22:43)
[2023-11-25 23:17] LABS: OSMOLALITY 332 MOSM/K (280-300)
[2023-11-26] MEDS: heparin, porcine 5000 units/ml vial SQ SCH
[2023-11-26 01:09] LABS: URINE AMPHETAMINE SCREEN NEGATIVE (Neg); URINE BARBITUATE SCREEN NEGATIVE (Neg); URINE BENZODIAZEPINES SCREEN NEGATIVE (Neg); URINE CANNABINOID SCREEN NEGATIVE (Neg); URINE COCAINE SCREEN NEGATIVE (Neg); URINE METHADONE SCREEN NEGATIVE (Neg); URINE PHENCYCLIDINE SCREEN NEGATIVE (Neg)
[2023-11-26] MEDS: INSULIN LISPRO 100 UNIT/ML INSULN.PEN MULTI-DOSE SQ SCH (01:13)
[2023-11-26 01:55] VITALS: BP 109/55; PULSE 87; RESP 16; TEMP 97.3; O2SAT 97
[2023-11-26] MEDS: normal saline 1000ml 1,000 ML IV SCH (04:00)
[2023-11-26 05:00] VITALS: BP 111/65; PULSE 85
[2023-11-26] MEDS: morphine 2 MG/ML inj. syringe IV PRN (07:33)
[2023-11-26 08:00] VITALS: RESP 14; O2SAT 97
[2023-11-26 08:20] LABS: EOSINOPHILS # (AUTO) 0.2 X10'3 (0-0.9); HEMOGLOBIN 11.9 g/dl (12.0-16.0)
[2023-11-26 08:22] LABS: BASOPHILS # (AUTO) 0.2 X10'3 (0-0.2); BASOPHILS % (AUTO) 1.4 % (0-1); EOSINOPHILS % (AUTO) 1.7 % (0-6); HEMATOCRIT 37.7 % (35.0-45.0); LYMPHOCYTES % (AUTO) 41.6 % (21-51); MEAN CORPUSCULAR HEMOGLOBIN 27.4 PG (27.0-31.0); MEAN CORPUSCULAR HGB CONC 31.4 g/dL (33.0-36.5); MEAN PLATELET VOLUME 11.3 FL (7.4-10.4); MONOCYTES % (AUTO) 8.8 % (2-12); NEUTROPHILS # (AUTO) 5.5 X10'3 (1.8-7.7); NEUTROPHILS % (AUTO) 46.5 % (42-75); PLATELET COUNT 331 X10'3 (140-440); RED BLOOD COUNT 4.33 X10'6 (4.20-5.60); RED CELL DISTRIBUTION WIDTH 14.8 % (11.5-14.5); WHITE BLOOD COUNT 11.9 X10'3 (4.5-11.0)
[2023-11-26 08:35] LABS: ALBUMIN 3.2 G/DL (3.4-5.0); ANION GAP 5 (8-16); BLOOD UREA NITROGEN 14 MG/DL (7-18); CHLORIDE 107 MMOL/L (99-107); CREATININE 0.61 MG/DL (0.40-0.90); GLUCOSE 165 MG/DL (70-104); POTASSIUM 3.9 MMOL/L (3.5-5.1); SODIUM 139 MMOL/L (135-145); TOTAL CARBON DIOXIDE 26.9 MMOL/L (24-32); eCRCL 115 ML/MIN; eGFR > 90 ML/MIN
[2023-11-26] MEDS: K and/or MAG REPLACEMENT MC SCH (08:39)
[2023-11-26] MEDS ORDERED: APIX5TAB3 PO ×2 (10:11→11:21)
[2023-11-26 11:00] VITALS: BP 91/51; PULSE 101; RESP 14; TEMP 97; O2SAT 97
[2023-11-26] MEDS ORDERED: INSU100C10 SQ (11:21)
[2023-11-26] MEDS ORDERED: INSU100I99 SQ (11:21)
[2023-11-26] MEDS ORDERED: CYCL-1 PO (11:21)
[2023-11-26] MEDS ORDERED: OLME20TA69 PO (11:21)
[2023-11-26] MEDS ORDERED: ATOR10TA PO (11:21)
[2023-11-26 11:49] VITALS: RESP 18
== END 2023-11-26 14:10 | disposition home or self-care (01) | DRG 420 ==
LOC: ER 12:55 → ED HOLD 21:00 → EDBEDREQ 21:32 → PCU 3S 11-26 01:55
PROVIDERS: ADMIT Internal Medicine Critical Care Medicine; ATTEND Internal Medicine
DX: E11.00 Type 2 diabetes mellitus with hyperosmolarity without nonketotic hyperglycemic-hyperosmolar coma (NKHHC) (principal); N17.0 Acute kidney failure with tubular necrosis; D72.829 Elevated white blood cell count, unspecified; E78.00 Pure hypercholesterolemia, unspecified; E86.0 Dehydration; F15.90 Other stimulant use, unspecified, uncomplicated; I10 Essential (primary) hypertension; G89.29 Other chronic pain; F41.9 Anxiety disorder, unspecified; G43.909 Migraine, unspecified, not intractable, without status migrainosus; I25.2 Old myocardial infarction; Z86.711 Personal history of pulmonary embolism; Z90.710 Acquired absence of both cervix and uterus; Z90.411 Acquired partial absence of pancreas; Z87.442 Personal history of urinary calculi; Z90.81 Acquired absence of spleen; Z90.5 Acquired absence of kidney; Z85.07 Personal history of malignant neoplasm of pancreas; Z79.4 Long term (current) use of insulin; Z79.899 Other long term (current) drug therapy; Z88.8 Allergy status to other drugs, medicaments and biological substances; Z88.5 Allergy status to narcotic agent
CPT/HCPCS: 36415; 74176; 80048; 80053; 80305; 81001; 81025; 82009; 82948; 83690; 83735; 83930; 83935; 84100; 84484; 85025; 87081; 96374; 99291; G0378; J1644; J1815; J2270; J2405; J7030; J7120

== ENCOUNTER 2024-01-12 12:16 | Outpatient (CLI) | payer MEDICAID ==
[~2024-01-12 12:16] MED LIST changes: +APIX5TAB3 PO; +ATOR10TA PO; -OLAN20TA34 PO; +OLAN20TA81 PO; -OLME20TA69; +OLME20TA69 PO
== END 2024-01-12 23:59 | disposition home or self-care (01) ==
LOC: MRI 12:16
PROVIDERS: ATTEND Orthopaedic Surgery
DX: M75.122 Complete rotator cuff tear or rupture of left shoulder, not specified as traumatic (principal); M19.012 Primary osteoarthritis, left shoulder; M25.412 Effusion, left shoulder; M25.812 Other specified joint disorders, left shoulder; M25.512 Pain in left shoulder
CPT/HCPCS: 73221

== ENCOUNTER 2024-02-26 08:14 | Emergency (ER) | payer MEDICAID ==
[~2024-02-26] VITALS: Ht 175.3 cm; Wt 95.5 kg
[2024-02-26 08:37] VITALS: BP 146/72; PULSE 75; O2SAT 99
[2024-02-26] MEDS: ketorolac trometh 15mg/ml vial 15 MG/ML ML IM ONE (09:59)
[2024-02-26 10:11] LABS: BILIRUBIN,URINE NEGATIVE (Neg); CLARITY,URINE CLEAR (Clear); COLOR,URINE YELLOW (Yellow); GLUCOSE, URINE >=1000 mg/dl (Neg); KETONES,URINE NEGATIVE (Neg); LEUKOCYTE ESTERASE ,URINE NEGATIVE (Neg); NITRITES, URINE NEGATIVE (Neg); OCCULT BLOOD,URINE NEGATIVE (Neg); PH,URINE 6.5 (4.8-8.0); PROTEIN,URINE NEGATIVE (Neg); UROBILINOGEN,URINE 0.2 E.U/dL (0.2-1.0)
[2024-02-26 10:12] LABS: URINE HCG NEGATIVE (NEG)
[2024-02-26 10:14] LABS: UA COLLECTION TYPE CLN CATCH MIDSTREAM
[2024-02-26 10:20] LABS: BASOPHILS # (AUTO) 0.1 X10'3 (0-0.2); LYMPHOCYTES # (AUTO) 2.6 X10'3 (1.1-4.8); MONOCYTES # (AUTO) 0.6 X10'3 (0-0.9); WHITE BLOOD COUNT 9.1 X10'3 (4.5-11.0)
[2024-02-26 10:21] LABS: BASOPHILS % (AUTO) 1.2 % (0-1); EOSINOPHILS # (AUTO) 0.1 X10'3 (0-0.9); EOSINOPHILS % (AUTO) 0.7 % (0-6); HEMATOCRIT 40.9 % (35.0-45.0); HEMOGLOBIN 12.8 g/dl (12.0-16.0); LYMPHOCYTES % (AUTO) 28.6 % (21-51); MEAN CORPUSCULAR HGB CONC 31.3 g/dL (33.0-36.5); MEAN CORPUSCULAR VOLUME 86.3 FL (78-98); MEAN PLATELET VOLUME 11.2 FL (7.4-10.4); MONOCYTES % (AUTO) 6.7 % (2-12); NEUTROPHILS # (AUTO) 5.7 X10'3 (1.8-7.7); NEUTROPHILS % (AUTO) 62.8 % (42-75); PLATELET COUNT 425 X10'3 (140-440); RED BLOOD COUNT 4.73 X10'6 (4.20-5.60); RED CELL DISTRIBUTION WIDTH 15.2 % (11.5-14.5)
[2024-02-26 10:21] LABS: BACTERIA,URINE FEW /HPF (Neg); RBC,URINE NONE SEEN /HPF (0-2); SQUAMOUS EPITHELIAL CELL,UR FEW /LPF (FEW)
[2024-02-26 10:22] LABS: WBC,URINE 0-4 /HPF (0-4)
[2024-02-26 10:28] LABS: ALANINE AMINOTRANSFERASE 14 U/L (12-78); ALBUMIN 3.7 G/DL (3.4-5.0); ALBUMIN/GLOBULIN RATIO 0.8 (1.1-1.5); ALKALINE PHOSPHATASE 109 IU/L (46-116); ANION GAP 10 (8-16); ASPARTATE AMINO TRANSFERASE 14 U/L (10-37); BILIRUBIN,TOTAL 0.5 MG/DL (0.1-1.0); BLOOD UREA NITROGEN 15 MG/DL (7-18); BUN/CREATININE RATIO 16.9 (10.0-20.0); CALCIUM 9.3 MG/DL (8.5-10.1); CHLORIDE 98 MMOL/L (99-107); CREATININE 0.89 MG/DL (0.40-0.90); LIPASE 52 U/L (16-77); POTASSIUM 4.4 MMOL/L (3.5-5.1); SODIUM 135 MMOL/L (135-145); TOTAL PROTEIN 8.2 G/DL (6.4-8.2); eCRCL 78 ML/MIN; eGFR 67 ML/MIN
[2024-02-26 10:30] LABS: GLUCOSE 467 MG/DL (70-104)
[2024-02-26 11:03] VITALS: RESP 16
[2024-02-26] MEDS ORDERED: normal saline 1000ml 1,000 ML IV ONE (11:20)
[2024-02-26] MEDS ORDERED: insulin regular, human 10 units/0.1 ml syringe SQ ONE (11:25)
[2024-02-26 12:21] VITALS: TEMP 96.5
--- NOTE | 2024-02-28 09:15 | NUR ---
SPOKE WITH PT, SHE WAS ABLE TO RECEIVE CARE ELSEWHERE.
== END 2024-02-26 12:28 | disposition left against medical advice (07) ==
LOC: ER 08:14
DX: E11.65 Type 2 diabetes mellitus with hyperglycemia (principal); M54.50 Low back pain, unspecified; N23 Unspecified renal colic; G43.909 Migraine, unspecified, not intractable, without status migrainosus; E78.00 Pure hypercholesterolemia, unspecified; I10 Essential (primary) hypertension; M19.90 Unspecified osteoarthritis, unspecified site; G89.29 Other chronic pain; M54.9 Dorsalgia, unspecified; F41.9 Anxiety disorder, unspecified; F15.90 Other stimulant use, unspecified, uncomplicated; Z88.5 Allergy status to narcotic agent; Z88.8 Allergy status to other drugs, medicaments and biological substances; Z79.899 Other long term (current) drug therapy; Z79.4 Long term (current) use of insulin; Z90.49 Acquired absence of other specified parts of digestive tract; Z90.710 Acquired absence of both cervix and uterus
CPT/HCPCS: 74176; 80053; 81001; 81025; 82948; 83690; 85025; 96372; 99285; J1885; J7030

== ENCOUNTER 2024-08-19 15:45 | Emergency (ER) | payer MEDICAID ==
[2024-08-20] MEDS ORDERED: CEPH-585 PO (07:57)
[2024-08-20] MEDS ORDERED: ONDA-243 PO (07:57)
== END 2024-08-19 17:35 | disposition left against medical advice (07) ==
LOC: ER 15:45
DX: R52 Pain, unspecified (principal); Z53.21 Procedure and treatment not carried out due to patient leaving prior to being seen by health care provider

== ENCOUNTER 2024-08-20 04:00 | Emergency (ER) | payer MEDICAID ==
[~2024-08-20] VITALS: Ht 175.3 cm; Wt 101.1 kg
[2024-08-20 04:29] LABS: URINE HCG NEGATIVE (NEG)
[2024-08-20 04:42] LABS: BILIRUBIN,URINE NEGATIVE (Neg); CLARITY,URINE CLOUDY (Clear); COLOR,URINE YELLOW (Yellow); GLUCOSE, URINE NEGATIVE (Neg); KETONES,URINE NEGATIVE (Neg); LEUKOCYTE ESTERASE ,URINE NEGATIVE (Neg); NITRITES, URINE NEGATIVE (Neg); OCCULT BLOOD,URINE NEGATIVE (Neg); PROTEIN,URINE NEGATIVE (Neg); UROBILINOGEN,URINE 0.2 E.U/dL (0.2-1.0)
[2024-08-20 05:07] LABS: UA COLLECTION TYPE CLN CATCH MIDSTREAM
[2024-08-20 05:08] LABS: BACTERIA,URINE 2+ /HPF (Neg); RBC,URINE NONE SEEN /HPF (0-2); SQUAMOUS EPITHELIAL CELL,UR MANY /LPF (FEW); WBC,URINE 0-4 /HPF (0-4)
[2024-08-20] MEDS ORDERED: ketorolac trometh 15mg/ml vial 15 MG/ML ML IV ONE (05:10)
[2024-08-20 05:42] LABS: BASOPHILS # (AUTO) 0.1 X10'3 (0-0.2); NEUTROPHILS # (AUTO) 5.8 X10'3 (1.8-7.7); WHITE BLOOD COUNT 10.8 X10'3 (4.5-11.0)
[2024-08-20 05:44] LABS: BASOPHILS % (AUTO) 0.7 % (0-1); EOSINOPHILS % (AUTO) 0.1 % (0-6); HEMATOCRIT 38.1 % (35.0-45.0); HEMOGLOBIN 12.1 g/dl (12.0-16.0); LYMPHOCYTES # (AUTO) 3.9 X10'3 (1.1-4.8); LYMPHOCYTES % (AUTO) 36.4 % (21-51); MEAN CORPUSCULAR HEMOGLOBIN 26.9 PG (27.0-31.0); MEAN CORPUSCULAR HGB CONC 31.9 g/dL (33.0-36.5); MEAN CORPUSCULAR VOLUME 84.5 FL (78-98); MEAN PLATELET VOLUME 10.4 FL (7.4-10.4); MONOCYTES % (AUTO) 8.9 % (2-12); NEUTROPHILS % (AUTO) 53.9 % (42-75); PLATELET COUNT 293 X10'3 (140-440); RED BLOOD COUNT 4.51 X10'6 (4.20-5.60); RED CELL DISTRIBUTION WIDTH 15.9 % (11.5-14.5)
[2024-08-20] MEDS: HYDROcodone/acetaminophen 10/325mg tab PO ONE (05:48)
[2024-08-20 06:02] LABS: ALANINE AMINOTRANSFERASE 30 U/L (12-78); ALBUMIN 3.1 G/DL (3.4-5.0); ALBUMIN/GLOBULIN RATIO 0.7 (1.1-1.5); ALKALINE PHOSPHATASE 80 IU/L (46-116); ANION GAP 7 (8-16); ASPARTATE AMINO TRANSFERASE 20 U/L (10-37); BILIRUBIN,TOTAL 0.5 MG/DL (0.1-1.0); BLOOD UREA NITROGEN 6 MG/DL (7-18); BUN/CREATININE RATIO 8.1 (10.0-20.0); CALCIUM 8.8 MG/DL (8.5-10.1); CHLORIDE 103 MMOL/L (99-107); CREATININE 0.74 MG/DL (0.40-0.90); GLUCOSE 254 MG/DL (70-104); POTASSIUM 3.8 MMOL/L (3.5-5.1); SODIUM 136 MMOL/L (135-145); TOTAL CARBON DIOXIDE 26.3 MMOL/L (24-32); TOTAL PROTEIN 7.3 G/DL (6.4-8.2); eCRCL 94 ML/MIN; eGFR 83 ML/MIN
[2024-08-20] MEDS ORDERED: CEPH-585 PO (07:57)
[2024-08-20] MEDS ORDERED: ONDA-243 PO (07:57)
[2024-08-20] MEDS: normal saline 1000ML IV soln IVB ONE (08:51)
[2024-08-20] MEDS: ondansetron/PF 4mg/2ml inj IV ONE (08:52)
[2024-08-20] MEDS: acetaminophen 1,000mg/100ml IV 100 ML IV ONE (08:56)
[2024-08-20 09:31] VITALS: TEMP 97.7
[2024-08-20 10:06] VITALS: BP 145/81; PULSE 68; RESP 18; O2SAT 95
== END 2024-08-20 10:08 | disposition home or self-care (01) ==
LOC: ER 04:01
DX: N39.0 Urinary tract infection, site not specified (principal); R10.31 Right lower quadrant pain; I10 Essential (primary) hypertension; E11.9 Type 2 diabetes mellitus without complications; M19.90 Unspecified osteoarthritis, unspecified site; E78.00 Pure hypercholesterolemia, unspecified; G43.909 Migraine, unspecified, not intractable, without status migrainosus; F41.9 Anxiety disorder, unspecified; Z87.442 Personal history of urinary calculi; Z87.440 Personal history of urinary (tract) infections; F15.90 Other stimulant use, unspecified, uncomplicated; Z88.5 Allergy status to narcotic agent; Z90.411 Acquired partial absence of pancreas; Z90.49 Acquired absence of other specified parts of digestive tract; Z90.710 Acquired absence of both cervix and uterus
CPT/HCPCS: 74176; 80053; 81001; 81025; 85025; 96365; 96375; 99285; J0131; J2405; J7030

== ENCOUNTER 2024-08-28 13:41 | Emergency (ER) | payer MEDICAID ==
[~2024-08-28] VITALS: Ht 170.2 cm; Wt 101.8 kg
[~2024-08-28 13:41] MED LIST changes: +CEPH-585 PO; +ONDA-243 PO
[2024-08-28 13:56] VITALS: BP 134/74; PULSE 74; TEMP 97.8; O2SAT 98
[2024-08-28 16:49] VITALS: RESP 18
[2024-08-28 16:52] LABS: BASOPHILS # (AUTO) 0.1 X10'3 (0-0.2); EOSINOPHILS % (AUTO) 0.1 % (0-6); HEMOGLOBIN 13.2 g/dl (12.0-16.0); WHITE BLOOD COUNT 11.4 X10'3 (4.5-11.0)
[2024-08-28 16:53] LABS: BASOPHILS % (AUTO) 1.1 % (0-1); HEMATOCRIT 42.4 % (35.0-45.0); LYMPHOCYTES # (AUTO) 4.7 X10'3 (1.1-4.8); LYMPHOCYTES % (AUTO) 40.8 % (21-51); MEAN CORPUSCULAR HEMOGLOBIN 27.1 PG (27.0-31.0); MEAN CORPUSCULAR HGB CONC 31.2 g/dL (33.0-36.5); MEAN CORPUSCULAR VOLUME 86.7 FL (78-98); MEAN PLATELET VOLUME 10.7 FL (7.4-10.4); MONOCYTES # (AUTO) 0.7 X10'3 (0-0.9); MONOCYTES % (AUTO) 6.4 % (2-12); NEUTROPHILS # (AUTO) 5.9 X10'3 (1.8-7.7); NEUTROPHILS % (AUTO) 51.6 % (42-75); PLATELET COUNT 304 X10'3 (140-440); RED BLOOD COUNT 4.89 X10'6 (4.20-5.60)
[2024-08-28 17:06] LABS: ALANINE AMINOTRANSFERASE 25 U/L (12-78); ALBUMIN 3.5 G/DL (3.4-5.0); ALBUMIN/GLOBULIN RATIO 0.8 (1.1-1.5); ALKALINE PHOSPHATASE 79 IU/L (46-116); ANION GAP 5 (8-16); ASPARTATE AMINO TRANSFERASE 17 U/L (10-37); BILIRUBIN,TOTAL 0.7 MG/DL (0.1-1.0); BLOOD UREA NITROGEN 9 MG/DL (7-18); BUN/CREATININE RATIO 13.4 (10.0-20.0); CALCIUM 8.8 MG/DL (8.5-10.1); CHLORIDE 104 MMOL/L (99-107); CREATININE 0.67 MG/DL (0.40-0.90); GLUCOSE 256 MG/DL (70-104); LIPASE 23 U/L (16-77); POTASSIUM 4.6 MMOL/L (3.5-5.1); SODIUM 137 MMOL/L (135-145); TOTAL CARBON DIOXIDE 28.1 MMOL/L (24-32); TOTAL PROTEIN 7.7 G/DL (6.4-8.2); eCRCL 97 ML/MIN; eGFR > 90 ML/MIN
[2024-08-28] MEDS: pantoprazole 40 MG vial IV STA (17:16)
[2024-08-28] MEDS: normal saline 1000ml 1,000 ML IV STA ×2 (17:16→17:17)
[2024-08-28] MEDS: proCHLORperazine 10 MG/2 ml inj IV STA (17:17)
[2024-08-28] MEDS: mag hydrox/Alum hydrox/simeth 30ml oral suspension PO STA (17:17)
[2024-08-28] MEDS ORDERED: OMEP40CA21 PO (17:45)
[2024-08-28] MEDS ORDERED: SUCR1TAB PO (17:45)
== END 2024-08-28 17:59 | disposition left against medical advice (07) ==
LOC: ER 13:42
DX: K29.00 Acute gastritis without bleeding (principal); E11.9 Type 2 diabetes mellitus without complications; E78.00 Pure hypercholesterolemia, unspecified; I10 Essential (primary) hypertension; M19.90 Unspecified osteoarthritis, unspecified site; F15.90 Other stimulant use, unspecified, uncomplicated; Z88.5 Allergy status to narcotic agent; Z87.440 Personal history of urinary (tract) infections; Z90.411 Acquired partial absence of pancreas; Z90.710 Acquired absence of both cervix and uterus; Z90.49 Acquired absence of other specified parts of digestive tract
CPT/HCPCS: 36415; 80053; 83690; 85025; 96365; 96375; 99283; J0780; J2470; J7030

== ENCOUNTER 2024-10-08 07:08 | Inpatient (IN) | payer MEDICAID ==
[2024-10-08] VITALS (9 sets, daily range): BP systolic 100–135; BP diastolic 62–85; PULSE 73–98; RESP 9–12; O2SAT 94–96
[~2024-10-08] VITALS: Ht 175.3 cm; Wt 108.0 kg
[~2024-10-08 07:08] MED LIST changes: +SUCR1TAB PO
[2024-10-08] MEDS: acetaminophen 325mg tablet PO ONE (07:30)
[2024-10-08] MEDS: normal saline 1000ml 1,000 ML IV ONE (07:31)
[2024-10-08 07:47] LABS: BASOPHILS % (AUTO) 0.1 % (0-1); EOSINOPHILS % (AUTO) 0 % (0-6); HEMATOCRIT 36.9 % (35.0-45.0); HEMOGLOBIN 11.6 g/dl (12.0-16.0); LYMPHOCYTES # (AUTO) 1.1 X10'3 (1.1-4.8); LYMPHOCYTES % (AUTO) 3.1 % (21-51); MEAN CORPUSCULAR HEMOGLOBIN 26.7 PG (27.0-31.0); MEAN CORPUSCULAR HGB CONC 31.5 g/dL (33.0-36.5); MEAN CORPUSCULAR VOLUME 84.5 FL (78-98); MEAN PLATELET VOLUME 10.5 FL (7.4-10.4); MONOCYTES # (AUTO) 0.9 X10'3 (0-0.9); MONOCYTES % (AUTO) 2.6 % (2-12); NEUTROPHILS # (AUTO) 32.4 X10'3 (1.8-7.7); NEUTROPHILS % (AUTO) 94.2 % (42-75); PLATELET COUNT 300 X10'3 (140-440); RED BLOOD COUNT 4.36 X10'6 (4.20-5.60); RED CELL DISTRIBUTION WIDTH 15.8 % (11.5-14.5)
[2024-10-08] MEDS: piperacillin/tazo 4.5gm/100ml 100 ML IV ONE (07:48)
[2024-10-08 07:53] LABS: ANION GAP 10 (8-16); BLOOD UREA NITROGEN 7 MG/DL (7-18); BUN/CREATININE RATIO 9.2 (10.0-20.0); CALCIUM 8.3 MG/DL (8.5-10.1); CHLORIDE 105 MMOL/L (99-107); CREATININE 0.76 MG/DL (0.40-0.90); GLUCOSE 276 MG/DL (70-104); POTASSIUM 3.8 MMOL/L (3.5-5.1); SODIUM 138 MMOL/L (135-145); TOTAL CARBON DIOXIDE 23.4 MMOL/L (24-32); eCRCL 92 ML/MIN; eGFR 80 ML/MIN
[2024-10-08 07:57] LABS: BILIRUBIN,URINE NEGATIVE (Neg); CLARITY,URINE CLEAR (Clear); COLOR,URINE YELLOW (Yellow); GLUCOSE, URINE 250 mg/dl (Neg); KETONES,URINE NEGATIVE (Neg); LEUKOCYTE ESTERASE ,URINE NEGATIVE (Neg); NITRITES, URINE NEGATIVE (Neg); OCCULT BLOOD,URINE NEGATIVE (Neg); PROTEIN,URINE NEGATIVE (Neg); UROBILINOGEN,URINE 0.2 E.U/dL (0.2-1.0)
[2024-10-08 08:04] LABS: WHITE BLOOD COUNT 34.4 X10'3 (4.5-11.0)
[2024-10-08 08:29] LABS: UA COLLECTION TYPE STRAIGHT CATH
[2024-10-08] MEDS ORDERED: vancomycin inj 2,000 MG in normal saline 500ml IV soln 500 ML IV ONE (08:35)
[2024-10-08 08:44] LABS: URINE AMPHETAMINE SCREEN NEGATIVE (Neg); URINE BARBITUATE SCREEN NEGATIVE (Neg); URINE BENZODIAZEPINES SCREEN NEGATIVE (Neg); URINE CANNABINOID SCREEN NEGATIVE (Neg); URINE COCAINE SCREEN NEGATIVE (Neg); URINE METHADONE SCREEN NEGATIVE (Neg); URINE OPIATE SCREEN NEGATIVE (Neg); URINE PHENCYCLIDINE SCREEN NEGATIVE (Neg)
[2024-10-08 08:56] LABS: PLATELET ESTIMATE NORMAL; TOTAL CELLS COUNTED 100
[2024-10-08] MEDS: VANCOMYCIN 1.75GM/WATER FOR INJ (PEG) 350 ML IVPB IV STA (09:39)
[2024-10-08] MEDS: ringers solution, lacted 1,000 ML IV ONE ×3 (09:40→13:07)
[2024-10-08] MEDS ORDERED: iohexol 300mg/ml 100ml inj. ONE (10:23)
[2024-10-08 12:49] LABS: ABG BASE EXCESS -1.5 mmol/L (-2.0-3.0); ABG HCO3 23.9 mmol/L (21.0-28.0); ABG OXYGEN SATURATION 94.4 % (94.0-98.0); ABG PCO2 (T) 43.7 mmHg (32.0-45.0); ABG PH (T) 7.358 (7.350-7.450); ABG PO2 (T) 74.2 mmHg (83.0-108.0); ALLEN'S TEST POSITIVE; FCOHb 0.3 % (0.5-1.5); FHHb 5.6 % (0.0-5.0); FLOW 2 L/min; FMetHb 0.3 % (0.0-1.5); FO2Hb 93.8 % (94.0-98.0); MODE NC; PATIENT TEMPERATURE 37.3; TOTAL HEMOGLOBIN 11.8 G/dl (12.0-16.0)
[2024-10-08] MEDS: ringers solution, lacted 1,000 ML IV SCH (13:07)
[2024-10-08 13:14] LABS: ALANINE AMINOTRANSFERASE 17 U/L (12-78); ALBUMIN 2.4 G/DL (3.4-5.0); ALBUMIN/GLOBULIN RATIO 0.7 (1.1-1.5); ALKALINE PHOSPHATASE 66 IU/L (46-116); ANION GAP 5 (8-16); ASPARTATE AMINO TRANSFERASE 19 U/L (10-37); BILIRUBIN,TOTAL 0.8 MG/DL (0.1-1.0); BLOOD UREA NITROGEN 8 MG/DL (7-18); BUN/CREATININE RATIO 11.8 (10.0-20.0); CALCIUM 8.2 MG/DL (8.5-10.1); CHLORIDE 109 MMOL/L (99-107); CREATININE 0.68 MG/DL (0.40-0.90); GLUCOSE 131 MG/DL (70-104); LIPASE 16 U/L (16-77); POTASSIUM 3.8 MMOL/L (3.5-5.1); SODIUM 139 MMOL/L (135-145); TOTAL CARBON DIOXIDE 25.4 MMOL/L (24-32); eCRCL 102 ML/MIN; eGFR > 90 ML/MIN
[2024-10-08] MEDS ORDERED: acetaminophen 325mg tablet PO PRN ×2 (13:25)
[2024-10-08] MEDS ORDERED: ondansetron/PF 4mg/2ml inj IV PRN (13:25)
[2024-10-08] MEDS ORDERED: dextrose 50%-water 50ml dispensing syringe IV PRN ×2 (13:40)
[2024-10-08] MEDS ORDERED: glucagon, human recombinant 1mg kit SUBCUT PRN (13:40)
[2024-10-08] MEDS ORDERED: DEXTROSE 15 GM of carb/4 tabs (each vial/BOTTLE has 4 tablets) PO PRN ×2 (13:40)
[2024-10-08] MEDS: morphine 2 MG/ML inj. syringe IV ONE (13:51)
[2024-10-08] MEDS: CefTRIAXone 2gm/D5W 50ml BAG 50 ML IV ONE (13:51)
[2024-10-08] MEDS: dexamethasone sod phosphate 10mg/ml inj IV STA (13:51)
[2024-10-08] MEDS ORDERED: BUPR1FIL5 SL (14:26)
[2024-10-08] MEDS ORDERED: SERT-433 PO (14:26)
[2024-10-08] MEDS ORDERED: PROP10TA10 PO (14:26)
[2024-10-08] MEDS ORDERED: GABA-1405 PO (14:26)
[2024-10-08] MEDS ORDERED: OMEP40CA21 PO (14:26)
[2024-10-08] MEDS ORDERED: APIX5TAB3 PO (14:26)
[2024-10-08 14:41] LABS: FREE T4 (FREE THYROXINE) 1.28 NG/DL (0.73-1.40); THYROID STIMULATING HORMONE 1.19 ulU/ml (0.34-4.50)
[2024-10-08 14:51] LABS: C-REACTIVE PROTEIN 3.72 MG/DL (0.0-0.5)
[2024-10-08] MEDS: NORMAL SALINE IV ONE (15:22)
[2024-10-08] MEDS: ACYCLOVIR IV ONE (15:22)
[2024-10-08] MEDS ORDERED: ALBU18HF2 (15:49)
[2024-10-08] MEDS ORDERED: TRAZ-251 PO (15:51)
[2024-10-08] MEDS: morphine 2 MG/ML inj. syringe IV PRN (15:57)
[2024-10-08] MEDS: midazolam 1 mg/ML 2ml injection IV ONE (16:22)
[2024-10-08] MEDS: INSULIN LISPRO 100 UNIT/ML INSULN.PEN MULTI-DOSE SQ SCH ×2 (17:00→18:00)
[2024-10-08] MEDS ORDERED: vancomycin/NS 1 GM ADD-VANTAGE 250 ML IV SCH (17:00)
[2024-10-08] MEDS: azithromycin/NS 500mg/250ml 250 ML IV SCH (17:34)
[2024-10-08] MEDS ORDERED: dexamethasone 4mg/ml inj IM SCH (20:00)
[2024-10-08] MEDS ORDERED: SUBOXONE SL SCH (20:00)
[2024-10-08] MEDS: insulin glargine (Lantus) pen - multi-dose SQ SCH (21:00)
[2024-10-08] MEDS: dexamethasone 4mg/ml inj IV SCH (21:02)
[2024-10-08] MEDS: CefTRIAXone 2gm/D5W 50ml BAG 50 ML IV SCH (21:02)
[2024-10-08] MEDS: heparin, porcine 5000 units/ml vial SQ SCH (21:03)
[2024-10-08] MEDS: famotidine 20mg tablet PO SCH (21:04)
[2024-10-08] MEDS ORDERED: buprenorphine/naloxone 8MG-2MG SUBlingual film SL SCH ×2 (21:31)
[2024-10-08] MEDS: buprenorphine/naloxone 2-0.5mg sublingual tablet SL SCH (22:26)
[2024-10-09] VITALS (13 sets, daily range): BP systolic 104–171; BP diastolic 50–94; PULSE 71–123; RESP 7–18; TEMP 97–97.8; O2SAT 94–97
[2024-10-09 03:49] LABS: BASOPHILS # (AUTO) 0.1 X10'3 (0-0.2); BASOPHILS % (AUTO) 0.1 % (0-1); EOSINOPHILS % (AUTO) 0 % (0-6); HEMATOCRIT 35.4 % (35.0-45.0); HEMOGLOBIN 10.9 g/dl (12.0-16.0); LYMPHOCYTES # (AUTO) 1.8 X10'3 (1.1-4.8); LYMPHOCYTES % (AUTO) 3.8 % (21-51); MEAN CORPUSCULAR HEMOGLOBIN 26.2 PG (27.0-31.0); MEAN CORPUSCULAR HGB CONC 30.9 g/dL (33.0-36.5); MEAN CORPUSCULAR VOLUME 84.8 FL (78-98); MEAN PLATELET VOLUME 10.1 FL (7.4-10.4); MONOCYTES # (AUTO) 0.7 X10'3 (0-0.9); MONOCYTES % (AUTO) 1.6 % (2-12); NEUTROPHILS # (AUTO) 43.6 X10'3 (1.8-7.7); NEUTROPHILS % (AUTO) 94.5 % (42-75); PLATELET COUNT 296 X10'3 (140-440); RED BLOOD COUNT 4.17 X10'6 (4.20-5.60); RED CELL DISTRIBUTION WIDTH 16.1 % (11.5-14.5)
[2024-10-09 03:53] LABS: WHITE BLOOD COUNT 46.2 X10'3 (4.5-11.0)
[2024-10-09 03:54] LABS: INR 1.1 INR; PROTHROMBIN TIME 11.1 SECONDS (9.0-12.0)
[2024-10-09 03:57] LABS: ALANINE AMINOTRANSFERASE 17 U/L (12-78); ALBUMIN 2.3 G/DL (3.4-5.0); ALBUMIN/GLOBULIN RATIO 0.6 (1.1-1.5); ALKALINE PHOSPHATASE 71 IU/L (46-116); ANION GAP 6 (8-16); ASPARTATE AMINO TRANSFERASE 15 U/L (10-37); BILIRUBIN,TOTAL 0.3 MG/DL (0.1-1.0); BLOOD UREA NITROGEN 8 MG/DL (7-18); BUN/CREATININE RATIO 14.8 (10.0-20.0); CALCIUM 8.5 MG/DL (8.5-10.1); CHLORIDE 110 MMOL/L (99-107); CREATININE 0.54 MG/DL (0.40-0.90); GLUCOSE 198 MG/DL (70-104); MAGNESIUM 1.9 MG/DL (1.5-2.4); PHOSPHORUS 3.3 MG/DL (2.3-4.5); POTASSIUM 3.9 MMOL/L (3.5-5.1); SODIUM 142 MMOL/L (135-145); TOTAL CARBON DIOXIDE 26.5 MMOL/L (24-32); TOTAL PROTEIN 6.3 G/DL (6.4-8.2); eCRCL 129 ML/MIN; eGFR > 90 ML/MIN
[2024-10-09 04:12] LABS: TOTAL CELLS COUNTED 100
[2024-10-09] MEDS: sertraline 50mg tablet PO SCH (08:01)
[2024-10-09] MEDS ORDERED: VANCOMYCIN LEVEL IV ONE (08:30)
[2024-10-09] MEDS: midazolam 1 mg/ML 2ml injection IV ONE (09:13)
[2024-10-09] MEDS ORDERED: labetalol 20mg/4ml (5mg/ml) syringe IV PRN (13:30)
[2024-10-09] MEDS: magnesium hydroxide 30ml (MOM) UD suspension PO PRN (15:41)
[2024-10-09] MEDS: HYDROmorphone 1 mg/ml syringe IV PRN (15:55)
[2024-10-09] MEDS: vancomycin/NS 1 GM ADD-VANTAGE 250 ML IV SCH (16:03)
[2024-10-09] MEDS: piperacillin/tazo 3.375gm/50ml 50 ML IV SCH (17:39)
[2024-10-09] MEDS: INSULIN LISPRO 100 UNIT/ML INSULN.PEN MULTI-DOSE SQ SCH (20:20)
[2024-10-09] MEDS: insulin glargine (Lantus) pen - multi-dose SQ SCH (20:21)
[2024-10-10 03:21] VITALS: BP 125/67; PULSE 73; RESP 16; TEMP 98.2; O2SAT 97
[2024-10-10] MEDS: mag hydrox/Alum hydrox/simeth 30ml oral suspension PO ONE (03:52)
[2024-10-10 06:00] VITALS: BP 130/76; PULSE 82; RESP 16; TEMP 98.7; O2SAT 97
[2024-10-10 07:02] LABS: BASOPHILS # (AUTO) 0.1 X10'3 (0-0.2); BASOPHILS % (AUTO) 0.4 % (0-1); EOSINOPHILS # (AUTO) 0.1 X10'3 (0-0.9); EOSINOPHILS % (AUTO) 0.2 % (0-6); HEMATOCRIT 32.4 % (35.0-45.0); HEMOGLOBIN 10.4 g/dl (12.0-16.0); LYMPHOCYTES # (AUTO) 4.5 X10'3 (1.1-4.8); LYMPHOCYTES % (AUTO) 16.8 % (21-51); MEAN CORPUSCULAR HEMOGLOBIN 26.7 PG (27.0-31.0); MEAN CORPUSCULAR VOLUME 83.4 FL (78-98); MEAN PLATELET VOLUME 10.9 FL (7.4-10.4); MONOCYTES # (AUTO) 1.8 X10'3 (0-0.9); MONOCYTES % (AUTO) 6.8 % (2-12); NEUTROPHILS # (AUTO) 20.1 X10'3 (1.8-7.7); NEUTROPHILS % (AUTO) 75.8 % (42-75); PLATELET COUNT 290 X10'3 (140-440); RED BLOOD COUNT 3.89 X10'6 (4.20-5.60); RED CELL DISTRIBUTION WIDTH 15.8 % (11.5-14.5)
[2024-10-10 07:05] LABS: WHITE BLOOD COUNT 26.6 X10'3 (4.5-11.0)
[2024-10-10 07:12] LABS: PROTHROMBIN TIME 10.2 SECONDS (9.0-12.0)
[2024-10-10 07:21] LABS: ALANINE AMINOTRANSFERASE 17 U/L (12-78); ALBUMIN 2.3 G/DL (3.4-5.0); ALBUMIN/GLOBULIN RATIO 0.6 (1.1-1.5); ALKALINE PHOSPHATASE 65 IU/L (46-116); ANION GAP 6 (8-16); ASPARTATE AMINO TRANSFERASE 12 U/L (10-37); BILIRUBIN,TOTAL 0.4 MG/DL (0.1-1.0); BLOOD UREA NITROGEN 11 MG/DL (7-18); BUN/CREATININE RATIO 18.3 (10.0-20.0); CALCIUM 8.6 MG/DL (8.5-10.1); CHLORIDE 110 MMOL/L (99-107); GLUCOSE 103 MG/DL (70-104); PHOSPHORUS 2.9 MG/DL (2.3-4.5); POTASSIUM 3.7 MMOL/L (3.5-5.1); SODIUM 145 MMOL/L (135-145); TOTAL CARBON DIOXIDE 28.6 MMOL/L (24-32); TOTAL PROTEIN 6.1 G/DL (6.4-8.2); eCRCL 116 ML/MIN; eGFR > 90 ML/MIN
[2024-10-10 08:32] LABS: NUCLEATED RED BLOOD CELLS 1 /100WBC (0-0); TOTAL CELLS COUNTED 100
[2024-10-10 08:36] LABS: PLATELET ESTIMATE NORMAL
[2024-10-10 08:37] LABS: ACANTHOCYTES 1+; LARGE PLATELETS FEW; SCHISTOCYTES FEW
[2024-10-10 08:49] VITALS: RESP 16; O2SAT 97
[2024-10-10] MEDS: gabapentin 300mg capsule PO SCH (10:29)
[2024-10-10] MEDS ORDERED: LEVO-65 PO (11:13)
[2024-10-10] MEDS ORDERED: gabapentin 300mg capsule PO SCH (13:00)
[2024-10-10] MEDS ORDERED: VANCOMYCIN LEVEL IV ONE (14:30)
== END 2024-10-10 11:54 | disposition home or self-care (01) | DRG 720 ==
LOC: ER 07:08 → ED HOLD 13:32 → CICU 2S 14:54 → ORTHO 4S 10-09 13:11
PROVIDERS: ADMIT Internal Medicine Critical Care Medicine; ATTEND Internal Medicine Critical Care Medicine
PROC: BW251ZZ Computerized Tomography (CT Scan) of Chest, Abdomen and Pelvis using Low Osmolar Contrast (ICD-10-PCS; principal; 2024-10-08)
DX: A41.9 Sepsis, unspecified organism (principal); J96.01 Acute respiratory failure with hypoxia; I62.9 Nontraumatic intracranial hemorrhage, unspecified; G93.41 Metabolic encephalopathy; R65.20 Severe sepsis without septic shock; J15.9 Unspecified bacterial pneumonia; Z20.822 Contact with and (suspected) exposure to COVID-19; G93.89 Other specified disorders of brain; E78.00 Pure hypercholesterolemia, unspecified; F15.90 Other stimulant use, unspecified, uncomplicated; F41.9 Anxiety disorder, unspecified; G43.909 Migraine, unspecified, not intractable, without status migrainosus; E11.9 Type 2 diabetes mellitus without complications; Z90.710 Acquired absence of both cervix and uterus; Z90.411 Acquired partial absence of pancreas; Z90.5 Acquired absence of kidney; Z87.442 Personal history of urinary calculi; Z90.81 Acquired absence of spleen; Z79.01 Long term (current) use of anticoagulants; Z86.73 Personal history of transient ischemic attack (TIA), and cerebral infarction without residual deficits; Z79.899 Other long term (current) drug therapy; Z79.4 Long term (current) use of insulin; Z88.8 Allergy status to other drugs, medicaments and biological substances; Z90.49 Acquired absence of other specified parts of digestive tract; Z86.711 Personal history of pulmonary embolism; Z74.01 Bed confinement status
CPT/HCPCS: 36415; 36600; 70450; 70544; 70547; 70551; 71045; 71260; 74177; 80048; 80053; 80305; 81003; 82140; 82803; 82948; 83036; 83605; 83690; 83735; 84100; 84145; 84439; 84443; 84484; 85007; 85018; 85025; 85610; 85651; 86140; 87040; 87081; 87502; 87503; 87811; 93005; 93306; 96361; 96365; 97161; 97530; 99285; A4615; A4620; A6213; A6258; C1758; G0378; J0133; J0456; J0696; J1100; J1171; J1644; J1815; J2250; J2270; J2543; J3370; J3372; J7030; J7050; J7120; Q9967